=== PATIENT | female | born 1985 | race Hispanic/Latino ===

== ENCOUNTER → 2019-02-13 | Outpatient (CLI) | payer SELFPAY ==
[2017-01-09 02:50] VITALS: BMI 25.2
--- NOTE | 2019-02-13 08:47 | RAD_ITS ---
STUDY: X-RAY - RIGHT HAND REASON FOR EXAM: Female, 33 years old. Pain. History of polyarthritis. TECHNIQUE: 3 view(s) of the hand. COMPARISON: None. FINDINGS: Normal radiocarpal articulation. Normal distal radioulnar joint. Normal visualized carpal bones. Normal carpal articulations Normal carpometacarpal articulation of the thumb. Normal second through fifth carpometacarpal joints. Normal metacarpi. Normal metacarpophalangeal joint of the thumb. Normal interphalangeal joint of the thumb. Normal proximal and distal phalanges of the thumb. Normal metacarpophalangeal joints of the second through fifth fingers. Normal proximal and distal interphalangeal joints of the second through fifth fingers. Normal phalanges of the second through fifth fingers. The soft tissue structures are unremarkable. RAD/Hand Min 3 Views IMPRESSION: Normal x-ray examination of the hand. Electronically Signed: Everton Whitlock, at 12:30 EDT , Service support ,
--- NOTE | 2019-02-13 08:48 | RAD_ITS ---
STUDY: X-RAY - LUMBAR SPINE REASON FOR EXAM: Female, 33 years old. Low back pain. Polyarthritis. TECHNIQUE: 5 view(s) of the lumbar spine were obtained including oblique views. COMPARISON: None FINDINGS: There is straightening of the normal lumbar lordosis. There is no substantial scoliosis. There is a normal alignment of the vertebrae. Normal vertebral bodies and endplates. Normal disc space heights. Moderate amount of fecal material is seen in the colon. RAD/L/S Spine Min 4 Views IMPRESSION: Straightening of the normal lumbar lordosis. Electronically Signed: Everton Whitlock, at 12:30 EDT , Service support ,
[2019-02-13 09:28] LABS: Erythrocyte Sedimentation Rate 16 mm/hr (0-20)
[2019-02-13 09:29] LABS: Absolute Lymphocyte Count 2.04 X10^3/uL (0.83-4.51); Absolute Neutrophil Count 3.5 X10^3/uL (2.0-7.7); Basophil# 0.04 X10^3/uL; Basophil% 0.6 % (0-1); Eosinophil# 0.08 X10^3/uL; Eosinophils% 1.3 % (0-5); Hematocrit 35.8 % (37-47); Hemoglobin 11.5 g/dL (12.0-15.0); Lymphocyte # 2.04 X10^3/ul (4.0); Lymphocyte % 32.6 % (19-41); Mean Corp Hgb Conc 32.1 g/dL (32-36); Mean Corpuscular Hgb 25.4 pg (27.0-32.0); Mean Corpuscular Volume 79.2 fL (81-99); Mean Platelet Vol. 10.9 fl (6.2-12.0); Monocyte# 0.64 X10^3/uL; Monocyte% 10.2 % (0-10); NRBC Flagged by Analyzer 0 % (0-5); Neutrophil # 3.45 X10^3/uL (2.7-7.7); Neutrophil % 55.1 % (47-70); Platelet Count 338 K/mm3 (150-450); RBC Distribution Width CV 13.7 % (11.6-14.6); RBC Distribution Width SD 38.9 fl (35.1-43.9); Red Blood Count 4.52 M/mm3 (4.2-5.4); White Blood Count 6.3 K/mm3 (4.4-11.0)
[2019-02-13 09:38] LABS: CRP 5.55 mg/L (0.0-3.0); Rheumatoid Factor < 10.0 IU/mL (<15)
[2019-02-17 17:23] LABS: ANTINUCLEAR ANTIBODIES DIRECT Negative (Negative)
== END | disposition home or self-care (01) ==
PROVIDERS: Referring Provider Family Medicine; Visit Provider Family Medicine
DX: M13.0 Polyarthritis, unspecified (principal)
CPT/HCPCS: 36415; 72110; 73130; 85025; 85652; 86038; 86140; 86431

== ENCOUNTER → 2024-10-01 | Outpatient (CLI) | payer SELFPAY ==
--- NOTE | 2024-10-01 17:11 | US_ITS ---
PROCEDURE: OB LIMITED WITH BIOMETRICS REASON FOR EXAM: dating. COMPARISON: None. FINDINGS Number: 1 Position: Vertex Placental Position: Anterior Placental Abnormalities: None. DIMENSIONS: Biparietal Diameter: 4.2 cm: 18 weeks and 5 days: 90 percentile/ Head Circumference: 15.8 cm: 18 weeks and 5 days: 86 percentile/ Abdominal Circumference: 12.8 cm: 18 weeks and 3 days: 71st percentile/ Femur Length: 2.6 cm: 17 weeks and 5 days: 46 percentile/ ESTIMATED WEIGHT: 220 g plus/-34 g ESTIMATED WEIGHT PERCENTILE (24+ weeks): 72nd percentile ESTIMATED GESTATIONAL AGE: Baseline: 17 weeks and 5 days By Ultrasound: 18 weeks and 4 days ESTIMATED DATE OF DELIVERY: Baseline: March 06, 2025 By Ultrasound: February 28, 2025 BIOPHYSICAL ASSESSMENT: Amniotic Fluid Volume: Subjectively normal. Amniotic Fluid Index: 10.5 (8-24 cm normal range) Cardiac Motion: 143 beats per minute (average) Trunk and Limb Motion: Present. MATERNAL ANATOMY: Adnexa: Neither maternal ovary is successfully identified. US/OB Limited With Biometrics IMPRESSION: Single live intrauterine gestation with a mean gestational age of 18 weeks and 4 days. Reading Location: [facility]
== END | disposition home or self-care (01) ==
PROVIDERS: PCP Family Medicine; Referring Provider Family Medicine; Visit Provider Family Medicine
DX: Z34.90 Encounter for supervision of normal pregnancy, unspecified, unspecified trimester (principal)
CPT/HCPCS: 76816

== ENCOUNTER 2025-02-13 15:32 | Inpatient (IN) | payer SELFPAY ==
[2025-02-13] VITALS (26 sets, daily range): BP systolic 70–125; BP diastolic 40–81; PULSE 58–105; RESP 14–20; TEMP 36.2–37.1; O2SAT 93–100
--- OUTSIDE RECORDS SUMMARY | 2025-02-13 15:08 | XMS RPT_ITS | CCD ---
Author Organization [facility] ion Partnership HOSPITALITY JOB TITLES [facility] Care Team Providers Care Scuba Diver Name Role Phone [facility] Unavailable Unavailable Gomez, Deysi MANUFACTURING TEST TECHNICIAN Unavailable Unavailable Gomez, Deysi MANUFACTURING TEST TECHNICIAN Unavailable Unavailable Gomez, Deysi MANUFACTURING TEST TECHNICIAN Unavailable Unavailable Verchio, Hallie ACC Unavailable Unavailable Gomez, Deysi MANUFACTURING TEST TECHNICIAN Unavailable Unavailable Gomez, Deysi MANUFACTURING TEST TECHNICIAN Unavailable Unavailable Verchio, Hallie ACC Unavailable Unavailable Verchio, Hallie ACC Unavailable Unavailable Verchio, Hallie ACC Unavailable Unavailable Verchio, Hallie ACC Unavailable Unavailable Dereck, Peter E Unavailable Unavailable Verchio, Hallie ACC Unavailable Unavailable Wychanko, Maira ACC Unavailable Unavailable Melonie Castro Unavailable Unavailable PHYSICIAN, PATIENT UNSURE Primary Care Physician Unavailable Dr. Jordyn Collins MD Primary Care Provider [phone] Dr. Jordyn Collins MD Attending Provider [phone] Jordyn Collins MD Referring Provider [phone] Unavailable Primary Care Provider UnavailJordyn Arcos Primary Care Unavailable Louisa Mazariegos Attending Unavailable Louisa Mazariegos Admitting Unavailable Jordyn Collins Referring Unavailable Jordyn Collins Attending Unavailable Jordyn Collins Primary Care Unavailable PAT COATS Referring Unavailable PAT COATS Referring Unavailable PAT COATS Referring Unavailable HIPOLITO JOHNSON Attending Unavailable PAT COATS Referring Unavailable PAT COATS Attending Unavailable Medications Current Medications Medication Drug Class(es) Dates Sig (Normalized) Sig (Original) acetaminophen 300 mg / codeine phosphate 30 mg oral tablet (1 source) Opioid Agonist Start: 01-09-2017 Acetaminophen-Co deine 1 TABLET tablet Active 1 {tbl} PO EVERY 4 HOURS NEEDED as needed for Pain January 09, 2017 12:00am acetaminophen 325 mg / oxyCODONE hydrochloride 2.5 mg oral tablet (1 source) Opioid Agonist Start: 07-10-2021 End: 07-17-2021 take 1 tablet by mouth every six hours as needed for pain Percocet 2.5 mg-325 mg oral tablet Dose = 2 tab(s), Oral, q6h, PRN as needed for pain, X 7 day(s), # 28 tab(s), 0 Refill(s), Pharmacy: [facility]/pharmacy #[id number], Post-op pain, 147.3, cm, 07/07/21 22:07:00 EST, Height, 65.9, kg, 07/07/21 22:07:00 EST, Dosing Weight Start Date: 07/10/21 Stop Date: 07/17/21 Status: Ordered ascorbic acid 500 mg oral tablet (5 sources) Vitamin C Start: 01-27-2025 take 1 tablet by mouth every other day ascorbic acid, vitamin C, (VITAMIN C) 500 mg tablet Take 1 tablet by mouth every other day. 30 tablet 3 01/27/2025 Active Aspirin (1 source) Platelet Aggregation Inhibitor, Nonsteroidal Anti-inflammatory Drug Start: 07-07-2021 aspirin 81 mg oral delayed release tablet Dose : 81 mg = 1 tab(s), Oral, qDay, # 30 tab(s), 0 Refill(s) Start Date: 07/07/21 Status: Ordered docusate sodium 100 mg oral capsule (1 source) Start: 07-10-2021 Colace 100 mg oral capsule Dose : 100 mg = 1 cap(s), Oral, BID, PRN as needed for constipation, # 60 cap(s), 0 Refill(s), Pharmacy: [facility]/pharmacy #[id number], 147.3, cm, 07/07/21 22:07:00 EST, Height, kg, 07/07/21 22:07:00 EST, Dosing Weight Start Date: 07/10/21 Status: Ordered ferrous sulfate 325 mg oral tablet (6 sources) Start: 01-27-2025 take 1 tablet by mouth every other day ferrous sulfate 325 mg (65 mg iron) tablet Take 1 tablet by mouth every other day. 30 tablet 3 01/27/2025 Active Start: 07-10-2021 IRON (ferrous sulfate 325 mg) 65 mg oral tablet Dose : 325 mg = 1 tab(s), Oral, qDay, Take with food., # 60 tab(s), 3 Refill(s), Pharmacy: [facility]/pharmacy #[id number], 147.3, cm, 07/07/21 22:07:00 EST, Height, kg, 07/07/21 22:07:00 EST, Dosing Weight Start Date: 07/10/21 Status: Ordered ibuprofen 600 mg oral tablet (1 source) Nonsteroidal Anti-inflammatory Drug Start: 07-10-2021 IBU 600 mg oral tablet Dose : 600 mg = 1 tab(s), Oral, q6h, # 40 tab(s), 0 Refill(s), [id number], 147.3, cm, 07/07/21 22:07:00 EST, Height, kg, 07/07/21 22:07:00 EST, Dosing Weight Start Date: 07/10/21 Status: Ordered multivitamin ( VITAMIN WITH MINERALS) 28 mg iron- 800 mcg tab (7 sources) Start: 01-11-2025 take 1 tablet by mouth once daily multivitamin ( VITAMIN WITH MINERALS) 28 mg iron- 800 mcg tab Take 1 tablet by mouth once daily. 30 tablet 5 01/11/2025 Active vit no.124/iron/folic ( VITAMIN ORAL) (7 sources) vit no.124/iron/folic ( VITAMIN ORAL) Take by mouth. Active Problems Active Problems Problem Classification Problem Date Documented Date Episodic/Chronic Administrative/social admission (12 sources) Language barrier impedes ability to use community resources; Translations: [Acculturation difficulty] Onset: 01-11-2025 01-20-2025 Episodic Diabetes or abnormal glucose tolerance complicating ; childbirth; or the puerperium (9 sources) Impaired glucose tolerance in ; Translations: [Abnormal glucose complicating ] Onset: 01-11-2025 01-11-2025 Episodic Immunizations and screening for infectious disease (4 sources) Patient encounter status; Translations: [Encounter for screening for human papillomavirus (HPV)] 01-20-2025 Episodic Other complications of (15 sources) Multigravida of advanced maternal age; Translations: [Supervision of elderly multigravida, third trimester] Onset: 01-11-2025 01-20-2025 Episodic Other complications of (10 sources) High risk ; Translations: [Supervision of other high risk pregnancies, third trimester] Onset: 01-11-2025 01-20-2025 Episodic Other complications of (9 sources) Insufficient care; Translations: [Supervision of with insufficient care, third trimester] Onset: 01-11-2025 01-20-2025 Episodic Other complications of (1 source) Supervision of elderly multigravida, third trimester; Translations: [Multigravida of advanced maternal age in third trimester (HCC)] Onset: 01-20-2025 Episodic Other complications of (1 source) Supervision of other high risk pregnancies, third trimester; Translations: [Supervision of other high risk pregnancies, third trimester (HCC)] Onset: 01-11-2025 Episodic Other complications of (1 source) Supervision of with insufficient care, third trimester; Translations: [Insufficient care in third trimester ([facility])] Onset: 01-11-2025 Episodic Other and delivery including normal (4 sources) Encounter for supervision of normal , unspecified, unspecified trimester; Translations: [ with uncertain dates] Onset: 12-17-2024 01-20-2025 Episodic Other screening for suspected conditions (not mental disorders or infectious disease) (1 source) Cancer cervix screening status; Translations: [Encounter for screening for malignant neoplasm of cervix] 01-20-2025 Episodic Residual codes; unclassified (2 sources) Gestation period, 34 weeks; Translations: [34 weeks gestation of ] 01-27-2025 Episodic Residual codes; unclassified (1 source) History of uterine scar from previous surgery; Translations: [History of section, low transverse] Onset: 01-19-2025 Episodic Residual codes; unclassified (1 source) 34 weeks gestation of ; Translations: [34 weeks gestation of (HCC)] Onset: 01-27-2025 Episodic Residual codes; unclassified (2 sources) Gestation period, 36 weeks; Translations: [36 weeks gestation of ] 02-12-2025 Episodic Unclassified (2 sources) Unknown / UNK(Unknown) Onset: 03-05-2018 Unclassified (1 source) Breast feeding (infant) (observable entity) 06-26-2016 Comment on above: System added from do cumentation. Breast feeding Status documented as Yes on Admission Past or Other Problems Problem Classification Problem Date Documented Da te Episodic/Chronic Unclassified (1 source) ABD PAIN/TRIAGE Onset: 07-06-2018 Unclassified (1 source) NEW OB/O09.33 Onset: 03-05-2018 Results Test Name Value Interpretation Reference Range Facility Examination level ultrasound on 02-12-2025 [facility] Radiology Study observation (narrative) [facility] URINE OB DIP B/Oon 5 Glucose Ql (U) Negative Neg mg/dL [facility] Interpretation and review of laboratory results Normal [facility] Protein.monoclonal (U) [Mass/Vol] trace Neg mg/dL [facility] Bacteria Ur Culton 5 Bacteria identified Cx Nom (U) CULTURE, URINE: No growth (<1,000 CFU/ml) Normal [facility] Comment on above: Performed By: #### 3 6902-5, BVAMP #### [facility] CLIA [id number] [address] [place] [address] Examination level ultrasound on 01-27-2025 Indication Standard anatomic survey, Dating Late care, Advanced maternal age Impression The patient is referred for a detailed anatomic survey. - Single, live, intrauterine . - biometry is accelerated for the stated gestational age. - No malformations were visualized on a detailed anatomic survey, although some anatomical structures were suboptimally seen as detailed below. Imaging is suboptimal due to later gestational age. - The amniotic fluid volume is mild polyhydramnios. - The placenta is anterior, fundal. - Not all structural malformations can be detected by ultrasound examination. Recommendations Growth ultrasound in four weeks Maternal Assessment Height 152 cm Height (ft) 5 ft Maternal assessment other: 6 Para 4 REMOTE READ Method Transabdominal ultrasound examination. View: Suboptimal view: limited by late gestational age Patel . Number of fetuses: 1 Dating GA by prior assessment 34 w + 2 d MAMADOU by prior assessment: 03/08/2025 Ultrasound examination on: 01/27/2025 GA by U/S based upon: AC, BPD, Femur, HC GA by U/S 36 w + 1 d MAMADOU by U/S: 02/23/2025 Assigned: based on stated MAMADOU, selected on 01/27/2025 Assigned GA 34 w + 2 d Assigned MAMADOU: 03/08/2025 General Evaluation Cardiac activity present. FHR 133 bpm. movements: present. Presentation: cephalic Placenta: Placental site: anterior, fundal Umbilical cord: Cord vessels: 3 vessel cord Amniotic fluid: Amount of AF: mild polyhydramnios. MVP 8.5 cm. DYANA 15.5 cm. Q1 1.5 cm, Q2 8.5 cm, Q3 2.1 cm, Q4 3.3 cm Growth Overview Exam date GA BPD (mm) HC (mm) AC (mm) FL (mm) HL (mm) EFW (g) 01/27/2025 34w 2d 89 90% 332.8 90% 332.1 99% 65.7 52% 2907 93% Biometry Standard BPD 89.0 mm 36w 0d 90% Hadlock OFD 118.7 mm -/- 91% Nicolaides HC 332.8 mm 37w 4d 90% Radha Cerebellum tr 47.5 mm 35w 5d 61% Hill AC 332.1 mm 37w 1d 99% Hadlock Femur 65.7 mm 33w 4d 52% Radha EFW 2,907 g 36w 3d 93% Hadlock EFW (lb) 6 lb EFW (oz) 7 oz EFW by: Hadlock (HC-AC-FL) Extended Manager Ethics 5.1 mm Extremities / Bony Struc FL / HC 0.20 Other Structures FHR 133 bpm Anatomy Cranium: normal Lateral ventricles: normal Choroid plexus: normal Midline falx: normal Cavum septi pellucidi: normal Cerebellum: normal Cisterna magna: normal Head / Neck Vermis: suboptimally visualized Neck: suboptimally visualized Nuchal fold: suboptimally visualized Lips: normal Profile: Normal but not required for a standard anatomy exam Nose: Normal but not required for a standard anatomy exam Face Maxilla: Normal but not required for a standard anatomy exam Mandible: Normal but not required for a standard anatomy exam Orbits: Normal but not required for a standard anatomy exam Lens: Normal but not required for a standard anatomy exam 4-chamber view: normal RVOT view: normal LVOT view: normal 3-vessel view: normal 8-gdhbll-aheotsc view: normal Heart / Thorax Situs: situs solitus (normal) Aortic arch view: suboptimally visualized SVC: normal IVC: normal Cardiac axis: normal Rt lung: Normal but not required for a standard anatomy exam Lt lung: Normal but not required for a standard anatomy exam Diaphragm: normal Cord insertion: suboptimally visualized Stomach: normal Kidneys: normal Bladder: normal Genitals: normal Abdomen Abdom. wall: suboptimally visualized Cervical spine: normal Thoracic spine: normal Lumbar spine: normal Sacral spine: normal Arms: suboptimally visualized Legs: normal Rt arm: normal Lt arm: suboptimally visualized Rt upper arm: normal Rt forearm: normal Rt hand: normal Rt fingers: normal Lt upper arm: suboptimally visualized Lt forearm: suboptimally visualized Lt hand: normal Lt fingers: normal Rt upper leg: normal Rt lower leg: normal Rt foot: normal Lt upper leg: normal Lt lower leg: normal Lt foot: normal sex: male Wants to know sex: yes Maternal Structures Uterus / Cervix Uterus: Visualized Cervix: Not visualized Ovaries / Tubes / Adnexa Rt ovary: Not visualized Lt ovary: Not visualized Performed By: Gemma Brennan RDMS, RVT Read By: Jessica Eldridge M.D. MATERNAL MEDICINE [facility] Radiology Study observation (narrative) [facility] GLUCOSE GESTATIONAL, 1 HOURo n 01-27-2025 Glucose 1 Hr post Unsp challenge [Mass/Vol] 193 mg/dL High 74-179 [facility] Comment on above: Order Comment: Speci men Type: SWAB Ordering Facility: [facility] Address: [address] [place] [address] Result Comment: [facility] Congress of Obstetricians and Gynecologists (Michelle/Camacho) guidelines state gestational diabetes mellitus is present when 2 or more of the plasma glucose concentrations meet or exceed the following levels: fastin mg/dl, 1 hr: 180 mg/dl, 2 hr: 155 mg/dl, and 3 hr: 140 mg/dl. Performed By: #### 3 6902-5, BVAMP #### [facility] CLIA [id number] [address] [place] [address] [place] GLUCOSE GESTATIONAL, 2 HOURo n 01-27-2025 Glucose 2 Hr post Unsp challenge [Mass/Vol] 124 mg/dL Normal 74-154 [facility] Comment on above: Order Comment: Speci men Type: SWAB Ordering Facility: [facility] Address: [address] [place] [address] Result Comment: [facility] Congress of Obstetricians and Gynecologists (Michelle/Camacho) guidelines state gestational diabetes mellitus is present when 2 or more of the plasma glucose concentrations meet or exceed the following levels: fastin mg/dl, 1 hr: 180 mg/dl, 2 hr: 155 mg/dl, and 3 hr: 140 mg/dl. Performed By: #### 3 6902-5, BVAMP #### [facility] CLIA [id number] [address] [place] [address] [place] GLUCOSE GESTATIONAL, 3 HOURo n 01-27-2025 Glucose 3 Hr post Unsp challenge [Mass/Vol] 127 mg/dL Normal 74-139 [facility] Comment on above: Order Comment: Mirza gil Type: BLOOD SPECIMEN Ordering Facility: [facility] Address: [address] [place] [address] Result Comment: [facility] Congress of Obstetricians and Gynecologists (Michelle/Camacho) guidelines state gestational diabetes mellitus is present when 2 or more of the plasma glucose concentrations meet or exceed the following levels: fastin mg/dl, 1 hr: 180 mg/dl, 2 hr: 155 mg/dl, and 3 hr: 140 mg/dl. Performed By: #### G TGST3 #### [facility] CLIA [id number] [address] [place] [address] [place] GLUCOSE GESTATIONAL, FASTING on 01-27-2025 Glucose post fast [Mass/Vol] 82 mg/dL Normal 74-94 [facility] Comment on above: Order Comment: Mirza gil Type: BLOOD SPECIMEN Ordering Facility: [facility] Address: [address] [place] [address] Result Comment: [facility] Congress of Obstetricians and Gynecologists (Michelle/Camacho) guidelines state gestational diabetes mellitus is present when 2 or more of the plasma glucose concentrations meet or exceed the following levels: fastin mg/dl, 1 hr: 180 mg/dl, 2 hr: 155 mg/dl, and 3 hr: 140 mg/dl. Performed By: #### G TGSTF #### [facility] CLIA [id number] [address] [place] [address] [place] CNCOon 01-20-2025 CNCO Letter Text Normal [facility] Chr 21 trisomy Cytogenetics Ql (Bld/Tiss)on 01-15-2025 Cell-free DNA./Cell-free DNA.total Dosage of chromosome-specific cfDNA (cfDNA) [Molar fraction] 41% [facility] Chr 13+18+21+X+Y aneuploidy Dosage of chromosome-specific cfDNA Ql (cfDNA) Negative [facility] Chr 21 trisomy Dosage of chromosome-specific cfDNA Ql (cfDNA) Negative [facility] Chr X and Y aneuploidy risk Sequencing Ql (cfDNA) [Interp] Not detected [facility] Citation Gregory (Reference lab test) Comment [facility] Comment on above: 1. Emerita SORENSON et christopher separza. Mary Med. 2012;14(3):296-305. 2. Neeraj HOLLY et al. Prenat Diag. 2013;33(6):591-597. 3. Artem C, et al. Clin Chem. 2015 Apr;61(4):608-616. 4. Emerita SORENSON, et al. Mary Med. 2011;13(11):913-920. 5. ACOG/SMFM Practice Bulletin No. 226, Apr 2020. Gestational age Estimated from conception date Patel [facility] GESTATIONALAGE>=9W Yes [facility] Laboratory comment Gregory (Report) Comment [facility] Comment on above: The MaterniT(R) 21 P ANNY laboratory-developed test (LDT) analyzes circulating cell-free DNA from a maternal blood sample. This test is used for screening purposes and not diagnostic. Clinical correlation is recommended. Validation data on twin pregnancies is limited and the ability of this test to detect aneuploidy in higher multiple gestations has not yet been validated. client director name Nom (Provider) Comment [facility] Comment on above: This specimen showed an expected representation of chromosome 21, 18 and 13 material. Clinical correlation is suggested. Eitan Montez MD , PhD, Director, [facility] Limitations of the Test Comment [facility] Comment on above: While the results of these tests are highly reliable, discordant results, including inaccurate sex prediction, may occur due to placental, maternal, or mosaicism or neoplasm; vanishing twin; prior maternal organ transplant; or other causes. These tests are screening tests and not diagnostic; they do not replace the accuracy and precision of diagnosis with CVS or amniocentesis. A patient with a positive test result should be referred for genetic counseling and offered invasive diagnosis for confirmation of test results.[5] The results of this testing, including the benefits and limitations, should be discussed with a qualified healthcare provider. management decisions, including termination of the , should not be based on the results of these tests alone. The healthcare provider is responsible for the use of this information in the management of their patient. Sex chromosomal aneuploidies are not reportable for known multiple gestations. A negative result does not ensure an unaffected nor does it exclude the possibility of other chromosomal abnormalities or defects which are not a part of these tests. An uninformative result may be reported, the causes of which may include, but are not limited to, insufficient sequencing coverage, noise or artifacts in the region, amplification or sequencing bias, or insufficient fraction. These tests are not intended to identify pregnancies at risk for neural tube defects or ventral wall defects. Testing for whole chromosome abnormalities (including sex chromosomes) and for subchromosomal abnormalities could lead to the potential discovery of both and maternal genomic abnormalities that could have major, minor, or no, clinical significance. Evaluating the significance of a positive or a non-reportable result may involve both invasive testing and additional studies on the mother. Such investigations may lead to a diagnosis of maternal chromosomal or subchromosomal abnormalities, which on occasion may be associated with benign or malignant maternal neoplasms. These tests may not accurately identify triploidy, balanced rearrangements, or the precise location of subchromosomal duplications or deletions; these may be detected by diagnosis with CVS or amniocentesis. The ability to report results may be impacted by maternal BMI, maternal weight, maternal systemic lupus erythematosus (SLE) and/or by certain pharmaceutical agents such as low molecular weight heparin (for example: Lovenox(R), Xaparin(R), Clexane(R) and Fragmin(R)). Monosomy X risk Dosage of chromosome-specific cfDNA Ql (Plasma cell-free+WBC DNA) [Interp] Not detected [facility] NEGATIVE PREDICTIVE VALUE Note [facility] Comment on above: The Negative Predict lyndsey Value (NPV) for trisomy 21, 18, and 13 is greater than 99%. The NPV for SCA and ESS cannot be calculated as SCA and ESS are only reported when an abnormality is detected. PERFORMANCE CHARACTERISTICS Note [facility] Comment on above: ! Sex ! Accuracy: 99.4% ! ! ! ! Region (associated syndrome) ! Est. Sens# ! Est. Spec ! ! ! ! Trisomy 21 (Down Syndrome) ! 99.1% ! 99.9% ! ! ! ! Trisomy 18 (Mena Syndrome) ! >99.9% ! 99.6% ! ! ! ! Trisomy 13 (Patau Syndrome) ! 91.7% ! 99.7% ! ! ! ! Sex Chromosome Aneuploidies## ! 96.2% ! 99.7% ! ! ! * As reported in ISCA database nstd37 [https://www.ncbi.nlm.nih.gov/dbvar/studies/nstd37/ ] # Estimated Sensitivity. Sensitivity estimated across the observed size distribution of each syndrome [per ISCA database nstd37] and across the range of fractions observed in routine clinical NIPT. Actual sensitivity can also be influenced by other factors such as the size of the event, total sequence counts, amplification bias, or sequence bias. ## Patel gestation only. Positive Predictive Value N/A [facility] Reference Lab Test Method Comment [facility] Comment on above: See Notes Circulating cell-free DNA was purified from the plasma component of maternal blood. The extracted DNA was then converted into a genomic DNA library for aneuploidy analysis of chromosomes 21, 18, and 13 via next generation sequencing.[1] Optional findings based on the test order include sex chromosome aneuploidy (SCA)[2], and enhanced sequencing series (ESS)[3], which will only be reported on as an additional finding when an abnormality is detected. SCA testing includes information on X and Y representation, while ESS testing includes deletions in selected regions (22q, 15q, 11q, 8q, 5p, 4p, 1p) and trisomy of chromosomes 16 and 22. Service comment (Unsp spec) [Interp] Comment [facility] Comment on above: See Notes [facility] [employer]. is a subsidiary of [employer], using the brand [facility]. This test was developed and its performance characteristics determined by [employer]. It has not been cleared or approved by the Food and Drug Administration. This laboratory is certified under the Clinical Laboratory Improvement Amendments (CLIA) as qualified to perform high complexity clinical laboratory testing and accredited by the [employer] (CAP). If there is future clinical need for adding MaterniT GENOME testing, this specimen will be available until term. [facility] samples will not be retained beyond 60 days. [facility] patients will have to send a new sample for re-sequencing ([facility] Test Code: [id number]). Sex Dosage of chromosome-specific cfDNA Nom (cfDNA) Comment [facility] Comment on above: Consistent with Male Test performance information Gregory (Unsp spec) Comment [facility] Comment on above: The performance ugo acteristics of the MaterniT(R) 21 PLUS laboratory-developed test (LDT) have been determined in a clinical validation study with women at increased risk for chromosomal aneuploidy.[1-4] Trisomy 13 risk Dosage of chromosome-specific cfDNA Ql (cfDNA) [Interp] Negative [facility] Trisomy 18 risk Dosage of chromosome-specific cfDNA Ql (Plasma cell-free+WBC DNA) [Interp] Negative [facility] Performed at: [facility] [address] [place], [place] [id number] [employer] Ring: Eitan Tamayo, Phone: [phone] [facility] HIGH RISK HUMAN PAPILLOMA MANI (HPV), PCR FOR DETECTION AND GENOTYPINGOrdered By: Andres Galan on 01-14-2025 HPV 16 Ag Ql (Unsp spec) Not detected Not detected [facility] HPV 18 Ag Ql (Unsp spec) Not detected Not detected [facility] HPV 31+33+35+39+45+51+5 2+56+58+59+66+68 DNA YVON+probe Ql (Cvx) Not detected Not detected [facility] Comment on above: High Risk HPV Other Type includes HPV types 31, 33, 35, 39, 45, 51, 52, 56, 58, 59, 66 and 68. Interpretation and review of laboratory results Normal [facility] This test was billy ped and its performance characteristics determined by [facility]'s [facility] [place] ([facility]). It has not been cleared or approved by the FDA. [facility] is regulated under CLIA as qualified to perform high-complexity testing. This test is used for clinical purposes. It should not be regarded as investigational or for research. [facility] No Panel InformationOrdered By: Heather Florian on 01-14-2025 [facility] PAP TESTOrdered By: Heather rivera on 01-14-2025 Case Report Gynecologic Cytology Report Case: [id number] Authorizing Provider: Pat Coats APRN.CNM Collected: 01/11/2025 11:40 AM Ordering Location: OB/Gynecology Received: 01/11/2025 02:31 PM First Screen: Florian, Heather, CT, ASCP Specimen: Pap Test, ThinPrep, Cervix [facility] Clinical History Routine Exam [facility] Interpretation Negative [facility] LMP 06/01/2024 [facility] Pap Disclaimer w0qdfFPsCIJiz9beABNp bGFuZzEw MzNcZnRuYmpcdWMxIHtccnRmMVxz a0CgV9UcFbOgYLuknxRgNSZnZuin ymrbLJBeEBX1jfQjFRXcTOryEIGh PZubYn5txSYxzNjiXbSnTMLbw0yc dqKKjozyoJb8p3xbREMjMfW5rOKs XDnxN4cuzsJilFKxVMOzJGj1yQ83 QSQbjG2pdLYfRAiexnYgRgX2PEuo XUVlViQ7ZUMqwSTrLVNhW5wrNUAu PWzaEELpTLudoAEkLFK6lLstz5F6 sIHclRDzuTixJlCsCaXrCaLVw2Zu HAp3oBujQ0OkNFYbNfO1eKRiIESi ZAqtEWGbBFFsctE9tE29LLpiyeP5 tNOov0Tot63wg071yR6itOXmGPJ6 BMZfBKVhkUJjFPNaQVK4DOSnzLWt U0fvICJlUK4ncxbfKBtuGErxMRYg mHB1IMHomBHmA1YhLLKfNNeiHCOt pqd2OvIdCf8qzVKtwFopTYamb2ze b3heuMXzZyv2ADYbSyKcClplTVwn l9Pqd3znITRcor2vDTN6gGZvwBfj d0R8aAExZCIygFIgjpLvLZPmKsY9 KUuvSB1ocg61NEKtLGT3gy6veOHg vTidftLlhNNzCLlkQ1DaKPCwa190 DRHlW3InSLSon2L0ovAaCvAsTIUn oFW0yyW7DPCqZQh7rSXhouP3ueAq fVTzG8lkdE4kLWWwCX2pjxjwk9ws PIpxDAeqQQNddWZ6znN2RAOblBAw Y9XpaY6oLKYmXJfjNXBrbur0CaXw Ou1pqGQiiBqeXXdjExvnZDjyDZMj bmNvbnRccGduZGVjXHBsYWluXHBs SEeyOUQfWBBhWgNfiBaawOanxB2x JsQeEtWcOpppVX8yWOWbO9ykhWHz GXFqMHNcU7wjVuUjvE0lnFiqZSso yyW3ORWkEIQNXEArT28sJFPygYJk XNVeJ5QmDL4eiqapdYSqfWOpc8Tp F2LhotmeMNpbF2IjF2VrLlDoSqEn g1WtwkSzMWUrxcLgzbGfhEw8taEn W2D1nyK8cJTaOCPypOPbR1TvML8m ayuaqHVdzWSoEESzrLzow2r0vP4u IHRoZSBuZWVkIGZvciByZXNjcmVl xojwEoJzcKTsRRBwgB2jgxJvCDDr bnRlcnZhbHMsIGFuZCBjbGluaWNh gDQzb3WlVYvegDkdtf5jeTspgZ5c FeEtHxKnHeeuAB7jKDWlV5aaqMQd TXOdCIYoH8bmBhIjyT5epSzeJBef ayQqGFVivu71 [facility] PAP Ethyl Blender Comment j7ngoPXyOWXhxHHyQGNz MlxhbnNp ZJQbeAJtX7EbcdslJHqxOA9uFU6k mRvnyOZvcAIlMOUnOqSas8stm297 sMUew4vhXIFJlepgzFq0zBlgX62l k3W4HobwT23agUWiQMZ3OOWkQRNw jTJcDKAjEKY5EJVrmXMxP4qqYRTe OQ0dzsfsCKwyXAdeAMDraJG4XTJk qEEhJ1QyCCXvHEslSARhoyd4RwLt Ye1acHRzmIoaMJqyH4porX2iVrL9 ZYvqD7rhjH5oSRo1TAokPRJtsDU5 dzB8NSQfrPVsM8EssA1yAJSuNV7k qib4q5ewRKF2CRaeEBBiDpC6teX5 NDBccGFyZFxwbGFpblxpXGZzMTYg SCfrooVeeOQwjP9szsAiCQSsAyJv hqTridXtmZblZOUzmNY5dTCqCvXB FJAjnCOyszBhNTnhual3rtJGdWvi eNWjDSPkFQkem1C7rZZlFCC6qWTe HJEPIQ4xq6DtJKDweOHqJAB5e0Yl dKxxh2xsW0oufEFfkwXskLiavQBi UOtrQYqjsvwjWG3cGDJaRJYrmYWu P4ZaVPJxcEhofKUbUYfunJ78BJmb iBmmveErNHkuMOxcRCZrGYi0x9wb UFAkY55cjEVztLL2ntYzALMzcKle yDNthRNdKFRxt1IlnX83MFQgf4Sm z29zuDzkKJ4gO7Krz8TeyIovWAKq gECpNGO4iuAps0Bvm9AbiWbgOGZ0 pZ4bt6dlc1AdMZ1uNAFjtUmaeT7n zGL2UMtiFDO2LPh2ONWwjicfP2Sa lNBgw99cIAgyinOjUZGmAPIhWFCh q0GxDdLVw4vty2yynogkID5lfNrq aXMsIGZpZWxkcyBvZiBpbnRlcmVz aYXjlcQ3wTKuxXiody1zG37mrSTd g9ulUVXui7FdVRB3OFUcCyqcjWpp MFPtG88gaWMdtISwjyOjybC7yEB7 LUZaUnbuPQGfwIZknU7ihJC0ElQC SdFbOOPhyVAxRUBkFLS8uVCkefCt sNBhTALpcXmbZOrvdbM3kGC1CWR7 eXExoSY5tQ8hf0qug3Phw3wynUTp ZXZpZXcgdGhlIHNhbWUgZmllbGRz ZM4xKHsqnKKuHIK6NKRkySLboNMe XNP9WHEjVVUeaOsaqbr2aI6rpTJp i9JagV6xEprqMSyiwR83GKBfuiK0 ETBrn82zXHXsks7= [facility] Performing Lab h0sorOHmRYXya2zoGEGs bGFuZzEw MzNcZnRuYmpcdWMxIHtccnRmMVxh haElWUTeVmqyagfjSOAwVSW2rpUk VTQdMWA8YPT1PxByPKUtLkYlKKI1 FJNlt6qzx5FmhIZexWVmHAtibARd bvFbpw34bHV6tV59TA9xXNIdMzS0 XLMfbwL5Cty3MURiCJPllIWaN535 a3icj9vqqxBfeAA9wZhmHMOldvgn GdH1GDijOALfcepyMFi9HTqwOSPu qJT5MWZeoEJpX6DsLVJxEA8havz0 FJD5ZNzrSKJdSsG1PFJocTYtDEGr kJlwLRrcy191QOJ4TbRtBGNon5W0 ftUgOpDdZZVjsSG9jpE6MQXfSZ8y whfjw4jxHPeaSIxlTMXqvyK6wwQ5 SXQpaGZzF9WpgZ3mXZSbGD4wufai e9ooAYO3WOjdCTMwQNIoSAvuLNSo FjZhNAVfiE5iB3JkRFIruJJxstWh qYynM6f4v5StU6wrv9wmI9vbjEEq R2FiJI4vkxargAGcKh6yeNVbQDN8 CbGYtRttZ8Ine1VpLX3crJl2NOxi IOLry2XfyL7nrKbeMfp9AHKGOKol dEMaWSLNv3PmBINAPOlseITcMFSJ QHltwOEqHQ7QGTP8MUU7KTOBPDsG RdGfOiBvQsJ8UQNeNGVvqi48j5cr dGYxXGVwaWMxMTEwMlxhbnNpXHNw uXOvZ2CkwyoqKCvoXP0oQO0bbAte oTRhnFGxEOWoCvWpj6vox425ePYc h8heUTJQachszPc4wRcgP29ev2T7 EvajB69neQRuQVJ1SQKtJDJnoGJs KJFiAOG0JMKekYZvP1noAMPeIP9u iqpwBCnsLQnhICLvyXT2AHVijGXs O1QoSBDkLZhpQKUsopg7ZgCoJp1f pEMawIifUFkkP4nssZ2iQcU8NWuq U8gmjD6eLHd3KTcvUEXvoAE6mmZ5 CJCshRLrL1QgcN9dPUUfOI5uuyg5 v5quHZL2RMrvGDXfFrB1gbY4QEIf cGFyZFxwbGFpblxmczIwIERpYWdu w5V4bISaeT75EOMkddC7QVDui35e rMOyNh4azHLoBXG8QrQJcPbnA6Dp o8GgIK9ibMr3UFrhYHVui6MfhS7d pXayPnj5NLSQDVqojIBrRKSHu6Fx JEKVPDtpdFHmFUTIZUvcbAEvPW3N LYK9PUF0GDVdQ8hLFRWaWsHUNWWh Lcn0OHtxMNAhBTFqffBQCXJlbcJ9 u7Z5RQMukkOsuR0oVgXOvPWranSM IFBvcnRlciwgTURccGFyfX0= [facility] Specimen Adequacy Satisfactory for interpretation. No endocervical component [facility] BACTERIAL VAGINOSIS NAATon 0 01-12-2025 Interpretation and review of laboratory results Normal [facility] Lactobacillus crispatus+gasseri+j ensenii + Gardnerella vaginalis + Atopobium vaginae rRNA YVON+probe Ql (Vag fld) Not detected Not detected [facility] C. trachomatis+N. gonorrhoea e DNA YVON+probe Ql (Unsp spec)on 01-12-2025 C. trachomatis rRNA YVON+probe Ql (Unsp spec) Not detected Not detected [facility] Interpretation and review of laboratory results Normal [facility] N. gonorrhoeae rRNA YVON+probe Ql (Unsp spec) Not detected Not detected [facility] This FDA-approved as say has been modified to accept rectal swabs self-collected in a healthcare setting. For self-collected rectal swabs, the test was developed and its performance characteristics determined by the [facility]'s [facility] [place] ([facility]). It has not been cleared or approved by the FDA. [facility] is regulated under CLIA as qualified to perform high-complexity testing. This test is used for clinical purposes. It should not be regarded as investigational or for research. [facility] LEANA/TRICHOMONAS NAATon 0 01-12-2025 C. glabrata RNA YVON+probe Ql (Vag fld) Not detected Not detected [facility] Leana sp DNA YVON+probe Ql (Vag fld) Not detected Not detected [facility] Comment on above: The Leana species group target includes C. albicans, C. tropicalis, C. parapsilosis, and C. dubliniensis. Interpretation and review of laboratory results Normal [facility] T. vaginalis DNA YVON+probe Ql (Unsp spec) Not detected Not detected [facility] CNPKrissy 01-12-2025 APRDEEP Telephone (OBGYWM) DESIREELETY SHANNON ([id number]) 1985 F RAGINI Date Time Provider Department 01/12/25 PAT COATS During your visit today, we recorded the following information about you: Skyla Bauer RN 01/12/2025 9:51 AM Signed 32w1d Called patient with the assistance of bag valverLandy at [facility]. We were able to talk with patient and the patient seemed to be having difficulty with what was being said. It was then that the Maritime Officer told this nurse the patient stated that her preferred language is Quiche. Connected with [employer] workers' compensation mediatorAlyce #[id number] Attempted to talk with patient. No answer this time and unable to leave a voicemail. Will need to try calling patient at a later time. Result Note Please notify patient 1 hr GCT is abnormal and will need the 3hr GTT. Please assist in scheduling and notifying patient on testing instructions. Please notify patient that she is anemic. 1. Increase iron rich foods in diet (I.e. Lean red meats, green leafy vegetables, beans/lentils or dried fruits) 2. Start an iron supplement now and take every other day or MWF. I recommend Ferrous Sulfate 325 mg by mouth 3. Take iron with a source of Vitamin C (orange juice) to help with absorption. 4. Avoid coffee, tea, milk at time the supplement is taken. 5. Will need repeat CBC in 4-6 weeks. Thank you, Pat Coats APRN.CNM GESTATIONAL GLUCOSE SCREEN, 1-HOUR, 50 GRAM, NON-FASTING; EXTRA TUBE JOAN; COMPLETE BLOOD COUNT AND DIFFERENTIAL Skyla Bauer RN 01/20/2025 10:42 AM Signed Attempted to contact patient with the assistance of [employer] workers' compensation mediator. Spoke with [facility] who was unable to connect this nurse with an workers' compensation mediator at this time after a long wait time. Will need to try again later. PAULA Lal Jennifer, RN 01/22/2025 4:41 PM Signed 01/25 appointment note made to review results. PAULA Lal Jennifer, RN 01/27/2025 9:46 AM Signed Patient here in the office for an appointment. Reviewed 3 hour glucose results, anemia, and C/S dates/times. Patient needs a prescription for iron supplement sent to their pharmacy. Can you please send? Thank you. PAULA Lal Jessica, APRN.CNM 01/27/2025 9:59 AM Signed Iron supplement sent. Thanks, Pat Coats APRN.CNM Allergies As of Date: 01/12/2025 (No Known Allergies) Date Reviewed: 01/11/2025 Reviewed by: Wade Arteaga MA - Fully Assessed Reason for Visit: Results [95] Order(s):ascorbic acid, vitamin C, (VITAMIN C) 500 mg tabletTake 1 tablet by mouth every other day.Disp: 30 tabletRfl: 3 ferrous sulfate 325 mg (65 mg iron) tabletTake 1 tablet by mouth every other day.Disp: 30 tabletRfl: 3 Prescriptions as of 01/27/2025 - ascorbic acid, vitamin C, (VITAMIN C) 500 mg tablet Take 1 tablet by mouth every other day. - ferrous sulfate 325 mg (65 mg iron) tablet Take 1 tablet by mouth every other day. - vit no.124/iron/folic ( VITAMIN ORAL) Take by mouth. - multivitamin ( VITAMIN WITH MINERALS) 28 mg iron- 800 mcg tab Take 1 tablet by mouth once daily. Problem List As Of Date 01/12/2025 Noted Resolved Supervision of other high risk pregnancies, thi*01/11/2025 History of section, low transverse [Z9*01/11/2025 Multigravida of advanced maternal age in third *01/11/2025 Insufficient care in third trimester (*01/11/2025 Language barrier [Z60.3, Z75.8] 01/11/2025 Abnormal glucose in , antepartum (HCC)*01/11/2025 Prescriptions ordered this encounter Disp Refills Start End ASCORBIC ACID (VITAMIN C) 500 MG TAB* 30 t* 3 01/27/2025 Route: PO Sig: Take 1 tablet by mouth every other day. FERROUS SULFATE 325 MG (65 MG IRON) * 30 t* 3 01/27/2025 Route: PO Sig: Take 1 tablet by mouth every other day. Encounter Status:Closed by SKYLA BAUER on 01/27/25 Normal [facility] BACTERIAL VAGINOSIS NAATon 0 01-11-2025 Lactobacillus crispatus+gasseri+j ensenii + Gardnerella vaginalis + Atopobium vaginae rRNA YVON+probe Ql (Vag fld) Not detected Normal Not detected [facility] Comment on above: Order Comment: Speci men Type: SWAB Ordering Facility: [facility] Address: [address] [place] [address] Performed By: #### 3 6902-5, BVAMP #### [facility] CLIA [id number] [address] [place] [address] [place] C. trachomatis+N. gonorrhoea e DNA YVON+probe Ql (Unsp spec)on 01-11-2025 C. trachomatis rRNA YVON+probe Ql (Unsp spec) Not detected Normal Not detected [facility] Comment on above: Order Comment: Speci men Type: SWAB Ordering Facility: [facility] Address: [address] [place] [address] Performed By: #### 3 6902-5, BVAMP #### [facility] CLIA [id number] [address] [place] [address] [place] N. gonorrhoeae rRNA YVON+probe Ql (Unsp spec) Not detected Normal Not detected [facility] Comment on above: Order Comment: Speci men Type: SWAB Ordering Facility: [facility] Address: [address] [place] [address] Performed By: #### 3 6902-5, BVAMP #### [facility] CLIA [id number] [address] [place] [address] [place] LEANA/TRICHOMONAS NAATon 0 01-11-2025 C. glabrata RNA YVON+probe Ql (Vag fld) Not detected Normal Not detected [facility] Comment on above: Order Comment: Speci men Type: SWAB Ordering Facility: [facility] Address: [address] [place] [address] Performed By: #### 3 6902-5, BVAMP #### [facility] CLIA [id number] [address] [place] [address] [place] Leana sp DNA YVON+probe Ql (Vag fld) Not detected Normal Not detected [facility] Comment on above: Order Comment: Speci men Type: SWAB Ordering Facility: [facility] Address: [address] [place] [address] Result Comment: The Leana species group target includes C. albicans, C. tropicalis, C. parapsilosis, and C. dubliniensis. Performed By: #### 3 6902-5, BVAMP #### [facility] CLIA [id number] [address] [place] [address] [place] T. vaginalis DNA YVON+probe Ql (Unsp spec) Not detected Normal Not detected [facility] Comment on above: Order Comment: Speci men Type: SWAB Ordering Facility: [facility] Address: [address] [place] [address] Performed By: #### 3 6902-5, BVAMP #### [facility] CLIA [id number] [address] [place] [address] [place] CBC W Auto Differential pane l (Bld)on 01-11-2025 Basophils (Bld) [#/Vol] 0.03 10*3/uL Normal <0.11 [facility] Comment on above: Order Comment: Speci men Type: SWAB Ordering Facility: [facility] Address: [address] [place] [address] Performed By: #### 3 6902-5, BVAMP #### [facility] CLIA [id number] [address] [place] [address] [place] Basophils/100 WBC (Bld) 0.5 % Normal [facility] Comment on above: Order Comment: Speci men Type: SWAB Ordering Facility: [facility] Address: [address] [place] [address] Performed By: #### 3 6902-5, BVAMP #### [facility] CLIA [id number] [address] [place] [address] [place] Differential cell count method Nom (Bld) Auto Normal [facility] Comment on above: Order Comment: Speci men Type: SWAB Ordering Facility: [facility] Address: [address] [place] [address] Performed By: #### 3 6902-5, BVAMP #### [facility] CLIA [id number] [address] [place] [address] [place] Eosinophils (Bld) [#/Vol] 0.14 10*3/uL Normal <0.46 [facility] Comment on above: Order Comment: Speci men Type: SWAB Ordering Facility: [facility] Address: [address] [place] [address] Performed By: #### 3 6902-5, BVAMP #### [facility] CLIA [id number] [address] [place] [address] [place] Eosinophils/100 WBC (Bld) 2.3 % Normal [facility] Comment on above: Order Comment: Speci men Type: SWAB Ordering Facility: [facility] Address: [address] [place] [address] Performed By: #### 3 6902-5, BVAMP #### [facility] CLIA [id number] [address] [place] [address] [place] Erythrocyte distribution width (RBC) [Ratio] 14.2 % Normal 11.5-15.0 [facility] Comment on above: Order Comment: Speci men Type: SWAB Ordering Facility: [facility] Address: [address] [place] [address] Performed By: #### 3 6902-5, BVAMP #### [facility] CLIA [id number] [address] [place] [address] [place] Hematocrit (Bld) [Volume fraction] 31.5 % Low 36.0-46.0 [facility] Comment on above: Order Comment: Speci men Type: SWAB Ordering Facility: [facility] Address: [address] [place] [address] Performed By: #### 3 6902-5, BVAMP #### [facility] CLIA [id number] [address] [place] [address] [place] Hemoglobin (Bld) [Mass/Vol] 10.2 g/dL Low 11.5-15.5 [facility] Comment on above: Order Comment: Speci men Type: SWAB Ordering Facility: [facility] Address: [address] [place] [address] Performed By: #### 3 6902-5, BVAMP #### [facility] CLIA [id number] [address] [place] [address] [place] Immature granulocytes (Bld) [#/Vol] 10*3/uL Normal <0.10 [facility] Comment on above: Order Comment: Speci men Type: SWAB Ordering Facility: [facility] Address: [address] [place] [address] Performed By: #### 3 6902-5, BVAMP #### [facility] CLIA [id number] [address] [place] [address] [place] Immature granulocytes/100 WBC (Bld) 0.3 % Normal [facility] Comment on above: Order Comment: Speci men Type: SWAB Ordering Facility: [facility] Address: [address] [place] [address] Performed By: #### 3 6902-5, BVAMP #### [facility] CLIA [id number] [address] [place] [address] [place] Lymphocytes (Bld) [#/Vol] 1.59 10*3/uL Normal 1.00-4.00 [facility] Comment on above: Order Comment: Speci men Type: SWAB Ordering Facility: [facility] Address: [address] [place] [address] Performed By: #### 3 6902-5, BVAMP #### [facility] CLIA [id number] [address] [place] [address] [place] Lymphocytes/100 WBC (Bld) 26.3 % Normal [facility] Comment on above: Order Comment: Speci men Type: SWAB Ordering Facility: [facility] Address: [address] [place] [address] Performed By: #### 3 6902-5, BVAMP #### [facility] CLIA [id number] [address] [place] [address] [place] MCH (RBC) [Entitic mass] 25.3 pg Low 26.0-34.0 [facility] Comment on above: Order Comment: Speci men Type: SWAB Ordering Facility: [facility] Address: [address] [place] [address] Performed By: #### 3 6902-5, BVAMP #### [facility] CLIA [id number] [address] [place] [address] [place] MCHC (RBC) [Mass/Vol] 32.4 g/dL Normal 30.5-36.0 [facility] Comment on above: Order Comment: Speci men Type: SWAB Ordering Facility: [facility] Address: [address] [place] [address] Performed By: #### 3 6902-5, BVAMP #### [facility] CLIA [id number] [address] [place] [address] [place] MCV (RBC) [Entitic vol] 78.2 fL Low 80.0-100.0 [facility] Comment on above: Order Comment: Speci men Type: SWAB Ordering Facility: [facility] Address: [address] [place] [address] Performed By: #### 3 6902-5, BVAMP #### [facility] CLIA [id number] [address] [place] [address] [place] Monocytes (Bld) [#/Vol] 0.48 10*3/uL Normal <0.87 [facility] Comment on above: Order Comment: Speci men Type: SWAB Ordering Facility: [facility] Address: [address] [place] [address] Performed By: #### 3 6902-5, BVAMP #### [facility] CLIA [id number] [address] [place] [address] [place] Monocytes/100 WBC (Bld) 7.9 % Normal [facility] Comment on above: Order Comment: Speci men Type: SWAB Ordering Facility: [facility] Address: [address] [place] [address] Performed By: #### 3 6902-5, BVAMP #### [facility] CLIA [id number] [address] [place] [address] [place] Neutrophils (Bld) [#/Vol] 3.79 10*3/uL Normal 1.45-7.50 [facility] Comment on above: Order Comment: Speci men Type: SWAB Ordering Facility: [facility] Address: [address] [place] [address] Performed By: #### 3 6902-5, BVAMP #### [facility] CLIA [id number] [address] [place] [address] [place] Neutrophils/100 WBC (Bld) 62.7 % Normal [facility] Comment on above: Order Comment: Speci men Type: SWAB Ordering Facility: [facility] Address: [address] [place] [address] Performed By: #### 3 6902-5, BVAMP #### [facility] CLIA [id number] [address] [place] [address] [place] Nucleated RBC (Bld) [#/Vol] 10*3/uL Normal <0.01 [facility] Comment on above: Order Comment: Speci men Type: SWAB Ordering Facility: [facility] Address: [address] [place] [address] Performed By: #### 3 6902-5, BVAMP #### [facility] CLIA [id number] [address] [place] [address] [place] Nucleated RBC/100 WBC (Bld) [Ratio] 0.0 /100 WBC Normal [facility] Comment on above: Order Comment: Speci men Type: SWAB Ordering Facility: [facility] Address: [address] [place] [address] Performed By: #### 3 6902-5, BVAMP #### [facility] CLIA [id number] [address] [place] [address] [place] Platelet mean volume (Bld) [Entitic vol] 11.7 fL Normal 9.0-12.7 [facility] Comment on above: Order Comment: Speci men Type: SWAB Ordering Facility: [facility] Address: [address] [place] [address] Performed By: #### 3 6902-5, BVAMP #### [facility] CLIA [id number] [address] [place] [address] [place] Platelets (Bld) [#/Vol] 278 10*3/uL Normal 150-400 [facility] Comment on above: Order Comment: Speci men Type: SWAB Ordering Facility: [facility] Address: [address] [place] [address] Performed By: #### 3 6902-5, BVAMP #### [facility] CLIA [id number] [address] [place] [address] [place] RBC (Bld) [#/Vol] 4.03 10*6/uL Normal 3.90-5.20 [facility] Comment on above: Order Comment: Speci men Type: SWAB Ordering Facility: [facility] Address: [address] [place] [address] Performed By: #### 3 6902-5, BVAMP #### [facility] CLIA [id number] [address] [place] [address] [place] WBC (Bld) [#/Vol] 6.05 10*3/uL Normal 3.70-11.00 [facility] Comment on above: Order Comment: Speci men Type: SWAB Ordering Facility: [facility] Address: [address] [place] [address] Performed By: #### 3 6902-5, BVAMP #### [facility] CLIA [id number] [address] [place] [address] [place] CNCOon 01-11-2025 [facility] Letter Text Normal [facility] Ferritin SerPl-mCncon 2024 Ferritin [Mass/Vol] 21.1 ng/mL Normal 14.7-205.1 [facility] Comment on above: Order Comment: Speci men Type: BLOOD SPECIMEN Ordering Facility: [facility] Address: [address] [place] [address] Performed By: #### 2 276-4, 69151-4 #### [facility] CLIA [id number] [address] [place] [address] [place] GESTATIONAL GLUCOSE SCREEN, 1-HOUR, 50 GRAM, NON-FASTINGOrdered By: Flakita Wolff on 01-11-2025 Glucose [Mass/Vol] 164 mg/dL High 74 - 134 mg/dL [facility] Comment on above: [place] Congress of Obstetricians and Gynecologists (Martinez/Coustan) guidelines state a gestational diabetes mellitus positive screen is made, in women not previously diagnosed with overt diabetes, when the 1 hr plasma glucose level is equal to or above 140 mg/dL. [facility] Supervisor [facility] [place] recommends a 135 mg/dL cutoff. Interpretation and review of laboratory results Abnormal [facility] GESTATIONAL GLUCOSE SCREEN, 1-HOUR, 50 GRAM, NON-FASTINGon 01-11-2025 Glucose [Mass/Vol] 164 mg/dL High 74-134 [facility] Comment on above: Order Comment: Speci men Type: SWAB Ordering Facility: [facility] Address: [address] [place] [address] Result Comment: Amer [facility] Congress of Obstetricians and Gynecologists (Michelle/Camacho) guidelines state a gestational diabetes mellitus positive screen is made, in women not previously diagnosed with overt diabetes, when the 1 hr plasma glucose level is equal to or above 140 mg/dL. [facility] [place] recommends a 135 mg/dL cutoff. Performed By: #### 3 6902-5, BVAMP #### [facility] CLIA [id number] [address] [place] [address] [place] HBV surface Ag Ql (S)on 12-27 Interpretation and review of laboratory results Normal [facility] HBV surface Ag Ser Qlon 12-27 HBV surface Ag Ql (S) Negative Normal Negative [facility] Comment on above: Order Comment: Speci men Type: SWAB Ordering Facility: [facility] Address: [address] [place] [address] Performed By: #### 3 6902-5, BVAMP #### [facility] CLIA [id number] [address] [place] [address] [place] HCV Ab Ql (S)on 01-11-2025 Interpretation and review of laboratory results Normal [facility] HCV Ab Ser Qlon 01-11-2025 HCV Ab Ql (S) Negative Normal Negative [facility] Comment on above: Order Comment: Mirza gil Type: SWAB Ordering Facility: [facility] Address: [address] [place] [address] Result Comment: The result suggests no evidence of infection with Hepatitis C virus. Should recent infection be suspected, repeat testing may be considered 4-6 weeks after this draw. Performed By: #### 3 6902-5, BVAMP #### [facility] CLIA [id number] [address] [place] [address] [place] HEPATITIS B SURFACE ANTIGENo n 01-11-2025 HBV surface Ag Ql (S) Negative Negative [facility] HEPATITIS C ANTIBODY IA WITH CONFIRMATIONon 01-11-2025 HCV Ab Ql (S) Negative Negative [facility] Comment on above: The result suggests no evidence of infection with Hepatitis C virus. Should recent infection be suspected, repeat testing may be considered 4-6 weeks after this draw. HIGH RISK HUMAN PAPILLOMA MANI (HPV), PCR FOR DETECTION AND GENOTYPINGon 01-11-2025 HPV 16 Ag Ql (Unsp spec) Not detected Normal Not detected [facility] Comment on above: Order Comment: Speci men Type: SWAB Ordering Facility: [facility] Address: [address] [place] [address] Performed By: #### 3 6902-5, BVAMP #### [facility] CLIA [id number] [address] [place] [address] [place] HPV 18 Ag Ql (Unsp spec) Not detected Normal Not detected [facility] Comment on above: Order Comment: Speci men Type: SWAB Ordering Facility: [facility] Address: [address] [place] [address] Performed By: #### 3 6902-5, BVAMP #### [facility] CLIA [id number] [address] [place] [address] [place] HPV 31+33+35+39+45+51+5 2+56+58+59+66+68 DNA YVON+probe Ql (Cvx) Not detected Normal Not detected [facility] Comment on above: Order Comment: Speci men Type: SWAB Ordering Facility: [facility] Address: [address] [place] [address] Result Comment: High Risk HPV Other Type includes HPV types 31, 33, 35, 39, 45, 51, 52, 56, 58, 59, 66 and 68. Performed By: #### 3 6902-5, BVAMP #### [facility] CLIA [id number] [address] [place] [address] [place] HIV 1+2 Ab IA Qlon 06-16-202 5 HIV 1 and 2 Ab IA.rapid Nom (S/P/Bld) [facility] Comment on above: Test not indicated. HIV 1+2 Ab+HIV1 p24 Ag IA Ql Non-Reactive Nonreactive [facility] HIV immunoassay testing algorithm interpretation (S/P/Bld) [Interp] [facility] Comment on above: No evidence of HIV-1 or HIV-2 infection. Should recent infection be suspected, repeat testing may be considered 2-3 weeks after this draw. [place] Rev. Code 3701.243(E): This information has been disclosed to you from confidential records protected from disclosure by state law. You shall make no further disclosure of this information without the specific, written, and informed release of the individual to whom it pertains or as otherwise permitted by state law. A general authorization for the release of medical or other information is not sufficient for the purpose of the release of HIV test results or diagnoses. [facility] HIV 1 and 2 Ab IA.rapid Nom (S/P/Bld) Normal [facility] Comment on above: Order Comment: Speci men Type: SWAB Ordering Facility: [facility] Address: [address] [place] [address] Result Comment: Test not indicated. Performed By: #### 3 6902-5, BVAMP #### [facility] CLIA [id number] [address] [place] [address] [place] HIV 1+2 Ab+HIV1 p24 Ag IA Ql Non-Reactive Normal Nonreactive [facility] Comment on above: Order Comment: Speci men Type: SWAB Ordering Facility: [facility] Address: [address] [place] [address] Performed By: #### 3 6902-5, BVAMP #### [facility] CLIA [id number] [address] [place] [address] [place] HIV immunoassay testing algorithm interpretation (S/P/Bld) [Interp] Normal [facility] Comment on above: Order Comment: Speci men Type: SWAB Ordering Facility: [facility] Address: [address] [place] [address] Result Comment: No e vidence of HIV-1 or HIV-2 infection. Should recent infection be suspected, repeat testing may be considered 2-3 weeks after this draw. [place] Rev. Code 3701.243(E): This information has been disclosed to you from confidential records protected from disclosure by state law. You shall make no further disclosure of this information without the specific, written, and informed release of the individual to whom it pertains or as otherwise permitted by state law. A general authorization for the release of medical or other information is not sufficient for the purpose of the release of HIV test results or diagnoses. Performed By: #### 3 6902-5, BVAMP #### [facility] CLIA [id number] [address] [place] [address] [place] HbA1c (Bld)on 01-11-2025 Average glucose Estimated from glycated hemoglobin (Bld) [Mass/Vol] 114 mg/dL [facility] Comment on above: eAG: (Estimated aver age glucose) is a calculated value from HgbA1c and is financial services representative of the average blood glucose level in the last 2-3 month period. HbA1c (Bld) [Mass fraction] 5.6 % 4.3 - 5.6 % [facility] Comment on above: [place] Diabetes As sociation guidelines indicate that patients with HgbA1c in the range 5.7-6.4% are at increased risk for development of diabetes, and intervention by lifestyle modification may be beneficial. HgbA1c greater or equal to 6.5% is considered diagnostic of diabetes. [facility] Average glucose Estimated from glycated hemoglobin (Bld) [Mass/Vol] 114 mg/dL Normal [facility] Comment on above: Order Comment: Speci men Type: SWAB Ordering Facility: [facility] Address: [address] [place] [address] Result Comment: eAG: (Estimated average glucose) is a calculated value from HgbA1c and is financial services representative of the average blood glucose level in the last 2-3 month period. Performed By: #### 3 6902-5, BVAMP #### [facility] CLIA [id number] [address] [place] [address] [place] HbA1c (Bld) [Mass fraction] 5.6 % Normal 4.3-5.6 [facility] Comment on above: Order Comment: Speci men Type: SWAB Ordering Facility: [facility] Address: [address] [place] [address] Result Comment: [place] Diabetes Association guidelines indicate that patients with HgbA1c in the range 5.7-6.4% are at increased risk for development of diabetes, and intervention by lifestyle modification may be beneficial. HgbA1c greater or equal to 6.5% is considered diagnostic of diabetes. Performed By: #### 3 6902-5, BVAMP #### [facility] CLIA [id number] [address] [place] [address] [place] Iron and Iron binding capaci ty panelon 01-11-2025 Iron [Mass/Vol] 22 ug/dL Low 41-186 [facility] Comment on above: Order Comment: Speci men Type: BLOOD SPECIMEN Ordering Facility: [facility] Address: [address] [place] [address] Performed By: #### 2 276-4, 55149-4 #### [facility] CLIA [id number] [address] [place] [address] [place] Iron binding capacity [Mass/Vol] 496 ug/dL High 232-386 [facility] Comment on above: Order Comment: Speci men Type: BLOOD SPECIMEN Ordering Facility: [facility] Address: [address] [place] [address] Performed By: #### 2 276-4, 05553-2 #### [facility] CLIA [id number] [address] [place] [address] [place] Iron/TIBC [Molar ratio] 4.4 % Low 15.0-57.0 [facility] Comment on above: Order Comment: Speci men Type: BLOOD SPECIMEN Ordering Facility: [facility] Address: [address] [place] [address] Performed By: #### 2 276-4, 32091-7 #### [facility] CLIA [id number] [address] [place] [address] [place] [id number] PLUSon 01-11-2025 Cell-free DNA./Cell-free DNA.total Dosage of chromosome-specific cfDNA (cfDNA) [Molar fraction] 41% Normal [facility] Comment on above: Order Comment: Speci men Type: SWAB Ordering Facility: [facility] Address: [address] [place] [address] Performed By: #### 3 6902-5, BVAMP #### [facility] CLIA [id number] [address] [place] [address] [place] Chr 13+18+21+X+Y aneuploidy Dosage of chromosome-specific cfDNA Ql (cfDNA) Negative Normal [facility] Comment on above: Order Comment: Speci men Type: SWAB Ordering Facility: [facility] Address: [address] [place] [address] Performed By: #### 3 6902-5, BVAMP #### [facility] CLIA [id number] [address] [place] [address] [place] Chr 21 trisomy Dosage of chromosome-specific cfDNA Ql (cfDNA) Negative Normal [facility] Comment on above: Order Comment: Speci men Type: SWAB Ordering Facility: [facility] Address: [address] [place] [address] Performed By: #### 3 6902-5, BVAMP #### [facility] CLIA [id number] [address] [place] [address] [place] Chr X and Y aneuploidy risk Sequencing Ql (cfDNA) [Interp] Not detected Normal [facility] Comment on above: Order Comment: Speci men Type: SWAB Ordering Facility: [facility] Address: [address] [place] [address] Result Comment: Not Detected Not Detected Performed By: #### 3 6902-5, BVAMP #### [facility] CLIA [id number] [address] [place] [address] [place] Citation Gregory (Reference lab test) Comment Normal [facility] Comment on above: Order Comment: Speci men Type: SWAB Ordering Facility: [facility] Address: [address] [place] [address] Result Comment: 1. P jurgen SORENSON, et al. Mary Med. 2012;14(3):296-305. 2. Neeraj HOLLY et al. Prenat Diag. 2013;33(6):591-597. 3. Artem C, et al. Clin Chem. 2015 Apr;61(4):608-616. 4. Emerita SORENSON, et al. Mary Med. 2011;13(11):913-920. 5. ACOG/SMFM Practice Bulletin No. 226, Apr 2020. Performed By: #### 3 6902-5, BVAMP #### [facility] CLIA [id number] [address] [place] [address] [place] Gestational age Estimated from conception date Patel Normal [facility] Comment on above: Order Comment: Speci men Type: SWAB Ordering Facility: [facility] Address: [address] [place] [address] Performed By: #### 3 6902-5, BVAMP #### [facility] CLIA [id number] [address] [place] [address] [place] GESTATIONALAGE AGE > OR = 9W Yes Normal [facility] Comment on above: Order Comment: Speci men Type: SWAB Ordering Facility: [facility] Address: [address] [place] [address] Performed By: #### 3 6902-5, BVAMP #### [facility] CLIA [id number] [address] [place] [address] [place] Laboratory comment Gregory (Report) Comment Normal [facility] Comment on above: Order Comment: Speci men Type: SWAB Ordering Facility: [facility] Address: [address] [place] [address] Result Comment: The MaterniT(R) 21 PLUS laboratory-developed test (LDT) analyzes circulating cell-free DNA from a maternal blood sample. This test is used for screening purposes and not diagnostic. Clinical correlation is recommended. Validation data on twin pregnancies is limited and the ability of this test to detect aneuploidy in higher multiple gestations has not yet been validated. Performed By: #### 3 6902-5, BVAMP #### [facility] CLIA [id number] [address] [place] [id number] [place] client director name Nom (Provider) Comment Normal [facility] Comment on above: Order Comment: Speci men Type: SWAB Ordering Facility: [facility] Address: [address] [place] [address] Result Comment: This specimen showed an expected representation of chromosome 21, 18 and 13 material. Clinical correlation is suggested. Comment Eitan Montez MD, PhD, Director, [employer] Performed By: #### 3 6902-5, BVAMP #### [facility] CLIA [id number] [address] [place] [address] LIMITATIONS OF THE TEST Comment Normal [facility] Comment on above: Order Comment: Speci men Type: SWAB Ordering Facility: [facility] Address: [address] [place] [address] Result Comment: Neri arora the results of these tests are highly reliable, discordant results, including inaccurate sex prediction, may occur due to placental, maternal, or mosaicism or neoplasm; vanishing twin; prior maternal organ transplant; or other causes. These tests are screening tests and not diagnostic; they do not replace the accuracy and precision of diagnosis with CVS or amniocentesis. A patient with a positive test result should be referred for genetic counseling and offered invasive diagnosis for confirmation of test results.[5] The results of this testing, including the benefits and limitations, should be discussed with a qualified healthcare provider. management decisions, including termination of the , should not be based on the results of these tests alone. The healthcare provider is responsible for the use of this information in the management of their patient. Sex chromosomal aneuploidies are not reportable for known multiple gestations. A negative result does not ensure an unaffected nor does it exclude the possibility of other chromosomal abnormalities or defects which are not a part of these tests. An uninformative result may be reported, the causes of which may include, but are not limited to, insufficient sequencing coverage, noise or artifacts in the region, amplification or sequencing bias, or insufficient fraction. These tests are not intended to identify pregnancies at risk for neural tube defects or ventral wall defects. Testing for whole chromosome abnormalities (including sex chromosomes) and for subchromosomal abnormalities could lead to the potential discovery of both and maternal genomic abnormalities that could have major, minor, or no, clinical significance. Evaluating the significance of a positive or a non-reportable result may involve both invasive testing and additional studies on the mother. Such investigations may lead to a diagnosis of maternal chromosomal or subchromosomal abnormalities, which on occasion may be associated with benign or malignant maternal neoplasms. These tests may not accurately identify triploidy, balanced rearrangements, or the precise location of subchromosomal duplications or deletions; these may be detected by diagnosis with CVS or amniocentesis. The ability to report results may be impacted by maternal BMI, maternal weight, maternal systemic lupus erythematosus (SLE) and/or by certain pharmaceutical agents such as low molecular weight heparin (for example: Lovenox(R), Xaparin(R), Clexane(R) and Fragmin(R)). Performed By: #### 3 6902-5, BVAMP #### [facility] CLIA [id number] [address] [place] [address] [place] Monosomy X risk Dosage of chromosome-specific cfDNA Ql (Plasma cell-free+WBC DNA) [Interp] Not detected Normal [facility] Comment on above: Order Comment: Speci jeffery Type: SWAB Ordering Facility: [facility] Address: [address] [place] [address] Performed By: #### 3 6902-5, BVAMP #### [facility] CLIA [id number] [address] [place] [address] [place] NEGATIVE PREDICTIVE VALUE Note Normal [facility] Comment on above: Order Comment: Mirza gil Type: SWAB Ordering Facility: [facility] Address: [address] [place] [address] Result Comment: The Negative Predictive Value (NPV) for trisomy 21, 18, and 13 is greater than 99%. The NPV for SCA and ESS cannot be calculated as SCA and ESS are only reported when an abnormality is detected. Performed By: #### 3 6902-5, BVAMP #### [facility] CLIA [id number] [address] [place] [address] [place] [address] [place] PERFORMANCE CHARACTERISTICS Note Normal [facility] Comment on above: Order Comment: Speci men Type: SWAB Ordering Facility: [facility] Address: [address] [place] [address] Result Comment: ! Sex ! Accuracy: 99.4% ! ! ! ! Region (associated syndrome) ! Est. Sens# ! Est. Spec ! ! ! ! Trisomy 21 (Down Syndrome) ! 99.1% ! 99.9% ! ! ! ! Trisomy 18 (Mena Syndrome) ! >99.9% ! 99.6% ! ! ! ! Trisomy 13 (Patau Syndrome) ! 91.7% ! 99.7% ! ! ! ! Sex Chromosome Aneuploidies## ! 96.2% ! 99.7% ! ! ! * As reported in [facility] database [id number] [https://www.ncbi.nlm.nih.gov/dbvar/studies/nstd37/ ] # Estimated Sensitivity. Sensitivity estimated across the observed size distribution of each syndrome [per [facility] database nstd37] and across the range of fractions observed in routine clinical NIPT. Actual sensitivity can also be influenced by other factors such as the size of the event, total sequence counts, amplification bias, or sequence bias. ## Patel gestation only. Performed By: #### 3 6902-5, BVAMP #### [facility] CLIA [id number] [address] [place] [address] [place] POSITIVE PREDICTIVE VALUE N/A Normal [facility] Comment on above: Order Comment: Mirza gli Type: SWAB Ordering Facility: [facility] Address: [address] [place] [address] Performed By: #### 3 6902-5, BVAMP #### [facility] CLIA [id number] [address] [place] [address] [place] Reference Lab Test Method Comment Normal [facility] Comment on above: Order Comment: Mirza gil Type: SWAB Ordering Facility: [facility] Address: [address] [place] [address] Result Comment: See Notes Circulating cell-free DNA was purified from the plasma component of maternal blood. The extracted DNA was then converted into a genomic DNA library for aneuploidy analysis of chromosomes 21, 18, and 13 via next generation sequencing.[1] Optional findings based on the test order include sex chromosome aneuploidy (SCA)[2], and enhanced sequencing series (ESS)[3], which will only be reported on as an additional finding when an abnormality is detected. SCA testing includes information on X and Y representation, while ESS testing includes deletions in selected regions (22q, 15q, 11q, 8q, 5p, 4p, 1p) and trisomy of chromosomes 16 and 22. Performed By: #### 3 6902-5, BVAMP #### [facility] CLIA [id number] [address] [place] [address] [place] Service comment (Unsp spec) [Interp] Comment Normal [facility] Comment on above: Order Comment: Speci men Type: SWAB Ordering Facility: [facility] Address: [address] [place] [address] Result Comment: See Notes [employer] is a subsidiary of [employer], using the brand [employer]. This test was developed and its performance characteristics determined by [employer]. It has not been cleared or approved by the Food and Drug Administration. This laboratory is certified under the Clinical Laboratory Improvement Amendments (CLIA) as qualified to perform high complexity clinical laboratory testing and accredited by the College [employer] [place] [employer] (CAP). If there is future clinical need for adding Materni[employer] GENOME testing, this specimen will be available until term. [facility] samples will not be retained beyond 60 days. [facility] patients will have to send a new sample for re-sequencing ([facility] Test Code: [id number]). Performed By: #### 3 6902-5, BVAMP #### [facility] CLIA [id number] [address] [place], [place] [id number] [place] Sex Dosage of chromosome-specific cfDNA Nom (cfDNA) Comment Normal [facility] Comment on above: Order Comment: Speci men Type: SWAB Ordering Facility: [facility] Address: [address] [place] [address] Result Comment: Cons istent with Male Performed By: #### 3 6902-5, BVAMP #### [facility] CLIA [id number] [address] [place] [address] [place] Test performance information Gregory (Unsp spec) Comment Normal [facility] Comment on above: Order Comment: Speci men Type: SWAB Ordering Facility: [facility] Address: [address] [place] [address] Result Comment: The performance characteristics of the MaterniT(R) 21 PLUS laboratory-developed test (LDT) have been determined in a clinical validation study with women at increased risk for chromosomal aneuploidy.[1-4] Performed By: #### 3 6902-5, BVAMP #### [facility] CLIA [id number] [address] [place] [address] [place] Trisomy 13 risk Dosage of chromosome-specific cfDNA Ql (cfDNA) [Interp] Negative Normal [facility] Comment on above: Order Comment: Speci men Type: SWAB Ordering Facility: [facility] Address: [address] [place] [address] Performed By: #### 3 6902-5, BVAMP #### [facility] CLIA [id number] [address] [place] [address] [place] Trisomy 18 risk Dosage of chromosome-specific cfDNA Ql (Plasma cell-free+WBC DNA) [Interp] Negative Normal [facility] Comment on above: Order Comment: Speci men Type: SWAB Ordering Facility: [facility] Address: [address] [place] [address] Performed By: #### 3 6902-5, BVAMP #### [facility] CLIA [id number] [address] [place] [address] [place] PAP TESTon 01-11-2025 ADEQUACY Normal [facility] Comment on above: Order Comment: Speci men Type: FLUID SPECIMEN Ordering Facility: [facility] Address: [address] [place] [address] Result Comment: Sati sfactory for interpretation. No endocervical component Performed By: #### L [id number] #### [facility] CLIA [id number] [address] [place] [address] [place] [facility] CLIA [id number] [address] [place] [address] [place] CASE REPORT Normal [facility] Comment on above: Order Comment: Speci men Type: FLUID SPECIMEN Ordering Facility: [facility] Address: [address] [place] [address] Result Comment: Gyne cologic Cytology Report Case: [id number] Authorizing Provider: Pat Coats APRN.CNM Collected: 01/11/2025 11:40 AM Ordering Location: OB/Gynecology Received: 01/11/2025 02:31 PM First Screen: Florian, Heather, CT, ASCP Specimen: Pap Test, ThinPrep, Cervix Performed By: #### L [id number] #### [facility] CLIA [id number] [address] [place] [address] [place] [facility] CLIA [id number] [address] [place] [address] [place] CLINICAL HISTORY, CYTOLOGY, MEDTRONICS TECHNICIAN Routine Exam Normal [facility] Comment on above: Order Comment: Speci men Type: FLUID SPECIMEN Ordering Facility: [facility] Address: [address] [place] [address] Performed By: #### L [id number] #### [facility] CLIA [id number] [address] [place] [address] [place] [facility] CLIA [id number] [address] [place] [address] [place] FINAL PERFORMING LAB Normal [facility] Comment on above: Order Comment: Speci men Type: FLUID SPECIMEN Ordering Facility: [facility] Address: [address] [place] [address] Result Comment: Tech nical component, leasing assistant screening performed at: [facility], [address] [place] [address] CLIA: [id number] Diagnostic interpretation performed at: [facility], [address] [place] [address] CLIA# [id number] [employer]: Vicki Colindres MD Performed By: #### L [id number] #### [facility] CLIA [id number] [address] [place] [address] [place] [facility] CLIA [id number] [address] [place] [address] [place] INTERPRETATION, CYTOLOGY, MEDTRONICS TECHNICIAN Normal [facility] Comment on above: Order Comment: Speci men Type: FLUID SPECIMEN Ordering Facility: [facility] Address: [address] [place] [address] Result Comment: Nega tive for intraepithelial lesion or malignancy. at 1045 EDT Performed By: #### L [id number] #### [facility] CLIA [id number] [address] [place] [address] [place] [facility] CLIA [id number] [address] [place] [address] [place] LMP 06/01/2024 Normal [facility] Comment on above: Order Comment: Speci men Type: FLUID SPECIMEN Ordering Facility: [facility] Address: [address] [place] [address] Performed By: #### L [id number] #### [facility] CLIA [id number] [address] [place] [address] [place] [facility] CLIA [id number] [address] [place] [address] [place] PAP DISCLAIMER COMMENT The Pap Smear is a screening test for cervical cancer. False negative results occur with all screening tests, emphasizing the need for rescreening at recommended intervals, and clinical correlation. Normal [facility] Comment on above: Order Comment: Speci men Type: FLUID SPECIMEN Ordering Facility: [facility] Address: [address] [place] [address] Performed By: #### L [id number] #### [facility] CLIA [id number] [address] [place] [address] LAB CLIA [id number] [address] [place] [address] [place] PAP HONEY BLENDER COMMENT This specimen has be en analyzed by the FDA-approved Imnish System, which uses digital imaging and an enhanced artificial intelligence image analysis algorithm to identify pringle of interest on the microscopic slide, to assist the adjunct faculty instructor and pathologist in evaluating cells on ThinPrep Pap tests. Following analysis, pringle of interest on the microscopic slide selected by the algorithm are reviewed by a adjunct faculty instructor. If a sample requires hierarchical review, the pathologist will review the same pringle of interest selected by the algorithm prior to final interpretation. Normal [facility] Comment on above: Order Comment: Speci men Type: FLUID SPECIMEN Ordering Facility: [facility] Address: [address] [place] [address] Performed By: #### L [id number] #### [facility] CLIA [id number] [address] [place] [address] LAB CLIA [id number] [address] [place] [address] OF THA RUBELLA IGG ANTIBODYon 01-11 Interpretation and review of laboratory results Normal [facility] Rubella IgG, Qual Positive Positive [facility] Comment on above: The result suggests recent or past exposure to Rubella virus or history of Rubella vaccination. Positive result may also be seen due to presence of passively-transferred antibodies. Please correlate with patient's history. [facility] RUBELLA IGG AB, QUAL Positive Normal Positive [facility] Comment on above: Order Comment: Speci men Type: SWAB Ordering Facility: [facility] Address: [address] [place] [address] Result Comment: The result suggests recent or past exposure to Rubella virus or history of Rubella vaccination. Positive result may also be seen due to presence of passively-transferred antibodies. Please correlate with patient's history. Performed By: #### 3 6902-5, BVAMP #### [facility] CLIA [id number] [address] [place] [address] [place] Reagin and Treponema pallidu m IgG and IgM [Interp]on 01-11-2025 T. pallidum IgG+IgM IA Ql (S) Non-Reactive Nonreactive [facility] T. pallidum IgG+IgM IA Ql (S) Non-Reactive Normal Nonreactive [facility] Comment on above: Order Comment: Speci men Type: SWAB Ordering Facility: [facility] Address: [address] [place] [address] Performed By: #### 3 6902-5, BVAMP #### [facility] CLIA [id number] [address] [place] [address] [place] Reagin+T pallidum IgG+IgM Se rPl-Impon 01-11-2025 Reagin and Treponema pallidum IgG and IgM [Interp] Cannot exclude recent Treponemal infection if specimen collected within 7-10 days after appearance of suspect lesions or 2-3 weeks after an exposure. Clinical correlation is required. Normal [facility] Comment on above: Order Comment: Speci men Type: SWAB Ordering Facility: [facility] Address: [address] [place] [address] Performed By: #### 3 6902-5, BVAMP #### [facility] CLIA [id number] [address] [place] [address] [place] SYPHILIS TREPONEMAL W/REFLEX on 01-11-2025 Reagin and Treponema pallidum IgG and IgM [Interp] Cannot exclude recent Treponemal infection if specimen collected within 7-10 days after appearance of suspect lesions or 2-3 weeks after an exposure. Clinical correlation is required. [facility] TYPE + SCREEN PRENATALon ABO group Nom (Bld) O [facility] Blood group antibody screen Ql Negative [facility] Rh Nom (Bld) Positive [facility] Type and Screen Expiration 01/14/2025 23:59 [facility] ABO O Normal [facility] Comment on above: Order Comment: Speci men Type: BLOOD SPECIMEN Ordering Facility: [facility] Address: [address] [place] [address] Performed By: #### T SPN #### [facility] CLIA [id number] [address] [place] [address] [place] Rh Nom (Bld) Positive Normal [facility] Comment on above: Order Comment: Speci men Type: BLOOD SPECIMEN Ordering Facility: [facility] Address: [address] [place] [address] Performed By: #### T SPN #### [facility] CLIA [id number] [address] [place] [address] [place] TYPE AND SCREEN EXPIRATION 01/14/2025 23:59 Normal [facility] Comment on above: Order Comment: Speci men Type: BLOOD SPECIMEN Ordering Facility: [facility] Address: [address] [place] [address] Performed By: #### T SPN #### [facility] CLIA [id number] [address] [place] [address] OF THA CNPNon 01-06-2025 CNPN Telephone (OBGYWM) LETY FALK ([id number]) 1985 [facility] Date Time Provider Department 01/06/25 LYNDA SALCEDO OBGYWM During your visit today, we recorded the following information about you: Kuldeep Rdz LPN 01/06/2025 3:51 PM Signed Phone call placed to [employer] number [phone] call to update New OB intake questions, no answer. Maritime Officer left message for patient to arrive thirty minutes prior to scheduled visit on 01/11/2025 to complete intake, LMP on schedule 06/01/2024. Kuldeep Kendell, SUPERVISOR IN CIRCUIT TESTING Allergies As of Date: 01/06/2025 (Not on File) Date Reviewed: Never Reviewed Problem List As Of Date: 01/06/2025 (None) Encounter Status:Closed by KENDELLKULDEEP SOUSA on 01/06/25 Normal [facility] OB Limited With Biometricson 10-01-2024 OB Limited With Biometrics [facility] [address] [place], [place] [address] OB Limited With Biometrics MR#: [id number] Acct: [id number] Name: LETY [place] Rep #: [id number] : 1985 F 38 From: Everton martin MD PCP: Dr. Jordyn Collins MD Status: REG CLI Study: OB Limited With Biometrics Date of Exam: 10/01 Exam# [id number] Ordering Dr: Jordyn Collins MD PROCEDURE: OB LIMITED WITH BIOMETRICS REASON FOR EXAM: dating. COMPARISON: None. FINDINGS Number: 1 Position: Vertex Placental Position: Anterior Placental Abnormalities: None. DIMENSIONS: Biparietal Diameter: 4.2 cm: 18 weeks and 5 days: 90 percentile/ Head Circumference: 15.8 cm: 18 weeks and 5 days: 86 percentile/ Abdominal Circumference: 12.8 cm: 18 weeks and 3 days: 71st percentile/ Femur Length: 2.6 cm: 17 weeks and 5 days: 46 percentile/ ESTIMATED WEIGHT: 220 g plus/-34 g ESTIMATED WEIGHT PERCENTILE (24+ weeks): 72nd percentile ESTIMATED GESTATIONAL AGE: Baseline: 17 weeks and 5 days By Ultrasound: 18 weeks and 4 days ESTIMATED DATE OF DELIVERY: Baseline: March 06, 2025 By Ultrasound: February 28, 2025 BIOPHYSICAL ASSESSMENT: Amniotic Fluid Volume: Subjectively normal. Amniotic Fluid Index: 10.5 (8-24 cm normal range) Cardiac Motion: 143 beats per minute (average) Trunk and Limb Motion: Present. MATERNAL ANATOMY: Adnexa: Neither maternal ovary is successfully identified. US/OB Limited With Biometrics IMPRESSION: Single live intrauterine gestation with a mean gestational age of 18 weeks and 4 days. Reading Location: [facility] CC: Dr. Jordyn Collins MD Perforator Operator: Signed Normal [facility] 07-10-2021 Hematocrit (Bld) [Volume fraction] 24.9 % Low 34.0-46.0 [facility] ([place]) Comment on above: Performed By: #### C BC, ADIFF, ANEU, GLU1P, HBSAG, HCV1, HIV, ABOGEL, ABSGEL, VARIS, RUBIS, RPR #### [address] [address] Hgb 8.2 G/dL Low 12.0-16.0 [facility] ([place]) Comment on above: Performed By: #### C BC, ADIFF, ANEU, GLU1P, HBSAG, HCV1, HIV, ABOGEL, ABSGEL, VARIS, RUBIS, RPR #### [address] [address] LABORATORYOrdered By: SYSTEM SYSTEM on 07-10-2021 Hematocrit (Bld) [Volume fraction] 24.9 % Invalid Interpretation Code 34.0 - 46.0 % AH Remisol SS Hemoglobin (Bld) [Mass/Vol] 8.2 G/dL Invalid Interpretation Code 12.0 - 16.0 G/dL AH Remisol SS RBC (Product)on 07-10-2021 RBC Product Ready Not Done Normal [facility] ([place]) Comment on above: Performed By: #### C BC, ADIFF, ANEU, GLU1P, HBSAG, HCV1, HIV, ABOGEL, ABSGEL, VARIS, RUBIS, RPR #### [address] [address] .Auto Diffon 07-09-2021 Basophil, Absolute 0.00 10 3/mcL Normal 0.00-0.27 [facility] ([place]) Comment on above: Performed By: #### C BC, ADIFF, ANEU, GLU1P, HBSAG, HCV1, HIV, ABOGEL, ABSGEL, VARIS, RUBIS, RPR #### [address] [address] Basophils/100 WBC (Bld) 0.4 % Normal 0.0-2.5 [facility] ([place]) Comment on above: Performed By: #### C BC, ADIFF, ANEU, GLU1P, HBSAG, HCV1, HIV, ABOGEL, ABSGEL, VARIS, RUBIS, RPR #### [address] [address] Eosinophil, Absolute 0.10 10 3/mcL Normal 0.00-0.65 [facility] ([place]) Comment on above: Performed By: #### C BC, ADIFF, ANEU, GLU1P, HBSAG, HCV1, HIV, ABOGEL, ABSGEL, VARIS, RUBIS, RPR #### [address] [address] Eosinophils/100 WBC (Bld) 0.6 % Normal 0.0-6.0 [facility] ([place]) Comment on above: Performed By: #### C BC, ADIFF, ANEU, GLU1P, HBSAG, HCV1, HIV, ABOGEL, ABSGEL, VARIS, RUBIS, RPR #### [address] [address] Lymphocyte, Absolute 1.30 10 3/mcL Normal 0.90-4.32 [facility] ([place]) Comment on above: Performed By: #### C BC, ADIFF, ANEU, GLU1P, HBSAG, HCV1, HIV, ABOGEL, ABSGEL, VARIS, RUBIS, RPR #### [address] [address] Lymphocytes/100 WBC (Bld) 14.8 % Low 20.0-40.0 [facility] ([place]) Comment on above: Performed By: #### C BC, ADIFF, ANEU, GLU1P, HBSAG, HCV1, HIV, ABOGEL, ABSGEL, VARIS, RUBIS, RPR #### [address] [address] Monocyte, Absolute 0.60 10 3/mcL Normal 0.09-1.40 [facility] ([place]) Comment on above: Performed By: #### C BC, ADIFF, ANEU, GLU1P, HBSAG, HCV1, HIV, ABOGEL, ABSGEL, VARIS, RUBIS, RPR #### [address] [address] Monocytes/100 WBC (Bld) 7.0 % Normal 2.0-13.0 [facility] ([place]) Comment on above: Performed By: #### C BC, ADIFF, ANEU, GLU1P, HBSAG, HCV1, HIV, ABOGEL, ABSGEL, VARIS, RUBIS, RPR #### [address] [address] Neutrophils/100 WBC (Bld) 77.2 % High 50.0-75.0 [facility] ([place]) Comment on above: Performed By: #### C BC, ADIFF, ANEU, GLU1P, HBSAG, HCV1, HIV, ABOGEL, ABSGEL, VARIS, RUBIS, RPR #### [address] [address] .NEUABSon 07-09-2021 Neutrophil, Absolute 7.00 10 3/mcL Normal 2.25-8.10 [facility] ([place]) Comment on above: Performed By: #### C BC, ADIFF, ANEU, GLU1P, HBSAG, HCV1, HIV, ABOGEL, ABSGEL, VARIS, RUBIS, RPR #### [address] [address] CBCon 07-09-2021 Erythrocyte distribution width (RBC) [Ratio] 16.0 % High 11.5-15.5 [facility] ([place]) Comment on above: Performed By: #### C BC, ADIFF, ANEU, GLU1P, HBSAG, HCV1, HIV, ABOGEL, ABSGEL, VARIS, RUBIS, RPR #### [address] [address] Hematocrit (Bld) [Volume fraction] 21.0 % Low 34.0-46.0 [facility] ([place]) Comment on above: Performed By: #### C BC, ADIFF, ANEU, GLU1P, HBSAG, HCV1, HIV, ABOGEL, ABSGEL, VARIS, RUBIS, RPR #### [place] [address] Hgb 6.9 G/dL Critically abnormal 12.0-16.0 [facility] ([place]) Comment on above: Performed By: #### C BC, ADIFF, ANEU, GLU1P, HBSAG, HCV1, HIV, ABOGEL, ABSGEL, VARIS, RUBIS, RPR #### [address] [address] MCH (RBC) [Entitic mass] 23.6 pg Low 27.0-33.0 [facility] ([place]) Comment on above: Performed By: #### C BC, ADIFF, ANEU, GLU1P, HBSAG, HCV1, HIV, ABOGEL, ABSGEL, VARIS, RUBIS, RPR #### [address] [address] MCHC 32.9 G/dL Normal 32.0-36.0 [facility] ([place]) Comment on above: Performed By: #### C BC, ADIFF, ANEU, GLU1P, HBSAG, HCV1, HIV, ABOGEL, ABSGEL, VARIS, RUBIS, RPR #### [place] [address] MCV (RBC) [Entitic vol] 71.6 fL Low 80.0-99.0 [facility] ([place]) Comment on above: Performed By: #### C BC, ADIFF, ANEU, GLU1P, HBSAG, HCV1, HIV, ABOGEL, ABSGEL, VARIS, RUBIS, RPR #### [place] [address] Platelet 179 10 3/mcL Normal 150-450 [facility] ([place]) Comment on above: Performed By: #### C BC, ADIFF, ANEU, GLU1P, HBSAG, HCV1, HIV, ABOGEL, ABSGEL, VARIS, RUBIS, RPR #### [address] [address] Platelet mean volume (Bld) [Entitic vol] 10.1 fL Normal 6.6-10.5 [facility] ([place]) Comment on above: Performed By: #### C BC, ADIFF, ANEU, GLU1P, HBSAG, HCV1, HIV, ABOGEL, ABSGEL, VARIS, RUBIS, RPR #### [place] [address] RBC 2.93 10 6/mcL Low 4.10-5.30 [facility] ([place]) Comment on above: Performed By: #### C BC, ADIFF, ANEU, GLU1P, HBSAG, HCV1, HIV, ABOGEL, ABSGEL, VARIS, RUBIS, RPR #### [place] [address] WBC 9.10 10 3/mcL Normal 4.50-10.80 [facility] ([place]) Comment on above: Performed By: #### C BC, ADIFF, ANEU, GLU1P, HBSAG, HCV1, HIV, ABOGEL, ABSGEL, VARIS, RUBIS, RPR #### [place] [address] HHon 07-09-2021 Hematocrit (Bld) [Volume fraction] 23.3 % Low 34.0-46.0 [facility] ([place]) Comment on above: Performed By: #### C BC, ADIFF, ANEU, GLU1P, HBSAG, HCV1, HIV, ABOGEL, ABSGEL, VARIS, RUBIS, RPR #### [place] [address] Hgb 7.6 G/dL Low 12.0-16.0 [facility] ([place]) Comment on above: Performed By: #### C BC, ADIFF, ANEU, GLU1P, HBSAG, HCV1, HIV, ABOGEL, ABSGEL, VARIS, RUBIS, RPR #### [place] [address] LABORATORYOrdered By: SYSTEM SYSTEM on 07-09-2021 Hematocrit (Bld) [Volume fraction] 23.3 % Invalid Interpretation Code 34.0 - 46.0 % AH Remisol SS Hemoglobin (Bld) [Mass/Vol] 7.6 G/dL Invalid Interpretation Code 12.0 - 16.0 G/dL AH Remisol SS Basophils (Bld) [#/Vol] 0.00 103/mcL Invalid Interpretation Code 0.00 - 0.27 10^3/mcL AH Remisol SS Basophils/100 WBC (Bld) 0.4 % Invalid Interpretation Code 0.0 - 2.5 % AH Remisol SS Eosinophils (Bld) [#/Vol] 0.10 103/mcL Invalid Interpretation Code 0.00 - 0.65 10^3/mcL AH Remisol SS Eosinophils/100 WBC (Bld) 0.6 % Invalid Interpretation Code 0.0 - 6.0 % AH Remisol SS Erythrocyte distribution width (RBC) [Ratio] 16.0 % Invalid Interpretation Code 11.5 - 15.5 % AH Remisol SS Hematocrit (Bld) [Volume fraction] 21.0 % Invalid Interpretation Code 34.0 - 46.0 % AH Remisol SS Hemoglobin (Bld) [Mass/Vol] 6.9 G/dL Invalid Interpretation Code 12.0 - 16.0 G/dL AH Remisol SS Lymphocytes (Bld) [#/Vol] 1.30 103/mcL Invalid Interpretation Code 0.90 - 4.32 10^3/mcL AH Remisol SS Lymphocytes/100 WBC (Bld) 14.8 % Invalid Interpretation Code 20.0 - 40.0 % AH Remisol SS MCH (RBC) [Entitic mass] 23.6 pg Invalid Interpretation Code 27.0 - 33.0 pg AH Remisol SS MCHC (RBC) [Mass/Vol] 32.9 G/dL Invalid Interpretation Code 32.0 - 36.0 G/dL AH Remisol SS MCV (RBC) [Entitic vol] 71.6 fL Invalid Interpretation Code 80.0 - 99.0 fL AH Remisol SS Monocytes (Bld) [#/Vol] 0.60 103/mcL Invalid Interpretation Code 0.09 - 1.40 10^3/mcL AH Remisol SS Monocytes/100 WBC (Bld) 7.0 % Invalid Interpretation Code 2.0 - 13.0 % AH Remisol SS Neutrophils (Bld) [#/Vol] 7.00 103/mcL Invalid Interpretation Code 2.25 - 8.10 10^3/mcL AH Remisol SS Neutrophils/100 WBC (Bld) 77.2 % Invalid Interpretation Code 50.0 - 75.0 % AH Remisol SS Platelet mean volume (Bld) [Entitic vol] 10.1 fL Invalid Interpretation Code 6.6 - 10.5 fL AH Remisol SS Platelets (Bld) [#/Vol] 179 103/mcL Invalid Interpretation Code 150 - 450 10^3/mcL AH Remisol SS RBC (Bld) [#/Vol] 2.93 106/mcL Invalid Interpretation Code 4.10 - 5.30 10^6/mcL AH Remisol SS WBC (Bld) [#/Vol] 9.10 103/mcL Invalid Interpretation Code 4.50 - 10.80 10^3/mcL AH Remisol SS LABORATORYOrdered By: Deysi Manning on 07-09-2021 RBC Product Ready Not Done (07/09/21 10:07 AM) Invalid Interpretation Code AH BB Manual SS LABORATORYOrdered By: Yas Hernandez on 07-09-2021 RBC Product Ready RBC Ready for Pickup (07/09/21 6:19 AM) Invalid Interpretation Code AH BB Manual SS RBC (Product)on 07-09-2021 RBC Product Ready RBC Ready for Pickup Normal [facility] ([place]) Comment on above: Performed By: #### C BC, ADIFF, ANEU, GLU1P, HBSAG, HCV1, HIV, ABOGEL, ABSGEL, VARIS, RUBIS, RPR #### [address] [address] .Auto Diffon 07-08-2021 Basophil, Absolute 0.00 10 3/mcL Normal 0.00-0.27 [facility] ([place]) Comment on above: Performed By: #### C BC, ADIFF, ANEU, GLU1P, HBSAG, HCV1, HIV, ABOGEL, ABSGEL, VARIS, RUBIS, RPR #### [address] [address] Basophils/100 WBC (Bld) 0.6 % Normal 0.0-2.5 [facility] ([place]) Comment on above: Performed By: #### C BC, ADIFF, ANEU, GLU1P, HBSAG, HCV1, HIV, ABOGEL, ABSGEL, VARIS, RUBIS, RPR #### [address] [address] Eosinophil, Absolute 0.10 10 3/mcL Normal 0.00-0.65 [facility] ([place]) Comment on above: Performed By: #### C BC, ADIFF, ANEU, GLU1P, HBSAG, HCV1, HIV, ABOGEL, ABSGEL, VARIS, RUBIS, RPR #### [address] [address] Eosinophils/100 WBC (Bld) 1.1 % Normal 0.0-6.0 [facility] ([place]) Comment on above: Performed By: #### C BC, ADIFF, ANEU, GLU1P, HBSAG, HCV1, HIV, ABOGEL, ABSGEL, VARIS, RUBIS, RPR #### [address] [address] Lymphocyte, Absolute 2.00 10 3/mcL Normal 0.90-4.32 [facility] ([place]) Comment on above: Performed By: #### C BC, ADIFF, ANEU, GLU1P, HBSAG, HCV1, HIV, ABOGEL, ABSGEL, VARIS, RUBIS, RPR #### [address] [address] Lymphocytes/100 WBC (Bld) 31.7 % Normal 20.0-40.0 [facility] ([place]) Comment on above: Performed By: #### C BC, ADIFF, ANEU, GLU1P, HBSAG, HCV1, HIV, ABOGEL, ABSGEL, VARIS, RUBIS, RPR #### [address] [address] Monocyte, Absolute 0.70 10 3/mcL Normal 0.09-1.40 [facility] ([place]) Comment on above: Performed By: #### C BC, ADIFF, ANEU, GLU1P, HBSAG, HCV1, HIV, ABOGEL, ABSGEL, VARIS, RUBIS, RPR #### [address] [address] Monocytes/100 WBC (Bld) 11.5 % Normal 2.0-13.0 [facility] ([place]) Comment on above: Performed By: #### C BC, ADIFF, ANEU, GLU1P, HBSAG, HCV1, HIV, ABOGEL, ABSGEL, VARIS, RUBIS, RPR #### [address] [address] Neutrophils/100 WBC (Bld) 55.1 % Normal 50.0-75.0 [facility] ([place]) Comment on above: Performed By: #### C BC, ADIFF, ANEU, GLU1P, HBSAG, HCV1, HIV, ABOGEL, ABSGEL, VARIS, RUBIS, RPR #### [address] [address] .NEUABSon 07-08-2021 Neutrophil, Absolute 3.50 10 3/mcL Normal 2.25-8.10 [facility] ([place]) Comment on above: Performed By: #### C BC, ADIFF, ANEU, GLU1P, HBSAG, HCV1, HIV, ABOGEL, ABSGEL, VARIS, RUBIS, RPR #### [place] [address] ABO/Rh (Gel)on 07-08-2021 ABO/Rh Interp Positive Invalid Interpretation Code [facility] ([place]) Comment on above: Performed By: #### C BC, ADIFF, ANEU, GLU1P, HBSAG, HCV1, HIV, ABOGEL, ABSGEL, VARIS, RUBIS, RPR #### [place] [address] ABS (Gel)on 07-08-2021 ABSC Interp (Gel) Negative Normal [facility] ([place]) Comment on above: Performed By: #### C BC, ADIFF, ANEU, GLU1P, HBSAG, HCV1, HIV, ABOGEL, ABSGEL, VARIS, RUBIS, RPR #### [place] [id number] CBCon 07-08-2021 Erythrocyte distribution width (RBC) [Ratio] 16.3 % High 11.5-15.5 [facility] ([place]) Comment on above: Performed By: #### C BC, ADIFF, ANEU, GLU1P, HBSAG, HCV1, HIV, ABOGEL, ABSGEL, VARIS, RUBIS, RPR #### [place] [id number] Hematocrit (Bld) [Volume fraction] 32.0 % Low 34.0-46.0 [facility] ([place]) Comment on above: Performed By: #### C BC, ADIFF, ANEU, GLU1P, HBSAG, HCV1, HIV, ABOGEL, ABSGEL, VARIS, RUBIS, RPR #### [address] [address] Hgb 10.4 G/dL Low 12.0-16.0 [facility] ([place]) Comment on above: Performed By: #### C BC, ADIFF, ANEU, GLU1P, HBSAG, HCV1, HIV, ABOGEL, ABSGEL, VARIS, RUBIS, RPR #### [address] [address] MCH (RBC) [Entitic mass] 23.1 pg Low 27.0-33.0 [facility] ([place]) Comment on above: Performed By: #### C BC, ADIFF, ANEU, GLU1P, HBSAG, HCV1, HIV, ABOGEL, ABSGEL, VARIS, RUBIS, RPR #### [place] [id number] MCHC 32.4 G/dL Normal 32.0-36.0 [facility] ([place]) Comment on above: Performed By: #### C BC, ADIFF, ANEU, GLU1P, HBSAG, HCV1, HIV, ABOGEL, ABSGEL, VARIS, RUBIS, RPR #### [place] [id number] MCV (RBC) [Entitic vol] 71.3 fL Low 80.0-99.0 [facility] ([place]) Comment on above: Performed By: #### C BC, ADIFF, ANEU, GLU1P, HBSAG, HCV1, HIV, ABOGEL, ABSGEL, VARIS, RUBIS, RPR #### [address] [address] Platelet 219 10 3/mcL Normal 150-450 [facility] ([place]) Comment on above: Performed By: #### C BC, ADIFF, ANEU, GLU1P, HBSAG, HCV1, HIV, ABOGEL, ABSGEL, VARIS, RUBIS, RPR #### [place] [id number] Platelet mean volume (Bld) [Entitic vol] 10.4 fL Normal 6.6-10.5 [facility] ([place]) Comment on above: Performed By: #### C BC, ADIFF, ANEU, GLU1P, HBSAG, HCV1, HIV, ABOGEL, ABSGEL, VARIS, RUBIS, RPR #### [place] [address] RBC 4.50 10 6/mcL Normal 4.10-5.30 [facility] ([place]) Comment on above: Performed By: #### C BC, ADIFF, ANEU, GLU1P, HBSAG, HCV1, HIV, ABOGEL, ABSGEL, VARIS, RUBIS, RPR #### [place] [address] WBC 6.40 10 3/mcL Normal 4.50-10.80 [facility] ([place]) Comment on above: Performed By: #### C BC, ADIFF, ANEU, GLU1P, HBSAG, HCV1, HIV, ABOGEL, ABSGEL, VARIS, RUBIS, RPR #### [place] [address] HHon 07-08-2021 Hematocrit (Bld) [Volume fraction] 25.1 % Low 34.0-46.0 [facility] ([place]) Comment on above: Performed By: #### C BC, ADIFF, ANEU, GLU1P, HBSAG, HCV1, HIV, ABOGEL, ABSGEL, VARIS, RUBIS, RPR #### [place] [address] Hgb 8.1 G/dL Low 12.0-16.0 [facility] ([place]) Comment on above: Performed By: #### C BC, ADIFF, ANEU, GLU1P, HBSAG, HCV1, HIV, ABOGEL, ABSGEL, VARIS, RUBIS, RPR #### [place] [address] RPRon 07-08-2021 Reagin Ab RPR Ql (S) Non-Reactive Normal Non-Reactive [facility] ([place]) Comment on above: Result Comment: The RPR test is a non-treponemal assay useful as an aid in the diagnosis of primary and secondary syphilis. It converts to positive generally within 2 weeks after the appearance of a lesion. This test is also useful for monitoring response to antibiotic therapy. A positive RPR screening test will be followed by the FTA ABS test. False positive RPR tests may occur in 1) patients with underlying autoimmune disorders, 2) elderly patients, 3) , and 4) other conditions with abnormal serum globulins. Performed By: #### C BC, ADIFF, ANEU, GLU1P, HBSAG, HCV1, HIV, ABOGEL, ABSGEL, VARIS, RUBIS, RPR #### [place] [address] LABORATORYOrdered By: Adam Chavez on 07-07-2021 ABO and Rh group Nom (Bld) Blood group O Rh(D) positive Invalid Interpretation Code AH BB Auto SS Blood group antibody screen Ql NEG (07/07/21 10:30 PM) Invalid Interpretation Code AH BB Auto SS LABORATORYOrdered By: SYSTEM SYSTEM on 07-07-2021 Basophils (Bld) [#/Vol] 0.00 103/mcL Invalid Interpretation Code 0.00 - 0.27 10^3/mcL AH Remisol SS Basophils/100 WBC (Bld) 0.6 % Invalid Interpretation Code 0.0 - 2.5 % AH Remisol SS Eosinophils (Bld) [#/Vol] 0.10 103/mcL Invalid Interpretation Code 0.00 - 0.65 10^3/mcL AH Remisol SS Eosinophils/100 WBC (Bld) 1.1 % Invalid Interpretation Code 0.0 - 6.0 % AH Remisol SS Erythrocyte distribution width (RBC) [Ratio] 16.3 % Invalid Interpretation Code 11.5 - 15.5 % AH Remisol SS Lymphocytes (Bld) [#/Vol] 2.00 103/mcL Invalid Interpretation Code 0.90 - 4.32 10^3/mcL AH Remisol SS Lymphocytes/100 WBC (Bld) 31.7 % Invalid Interpretation Code 20.0 - 40.0 % AH Remisol SS MCH (RBC) [Entitic mass] 23.1 pg Invalid Interpretation Code 27.0 - 33.0 pg AH Remisol SS MCHC (RBC) [Mass/Vol] 32.4 G/dL Invalid Interpretation Code 32.0 - 36.0 G/dL AH Remisol SS MCV (RBC) [Entitic vol] 71.3 fL Invalid Interpretation Code 80.0 - 99.0 fL AH Remisol SS Monocytes (Bld) [#/Vol] 0.70 103/mcL Invalid Interpretation Code 0.09 - 1.40 10^3/mcL AH Remisol SS Monocytes/100 WBC (Bld) 11.5 % Invalid Interpretation Code 2.0 - 13.0 % AH Remisol SS Neutrophils (Bld) [#/Vol] 3.50 103/mcL Invalid Interpretation Code 2.25 - 8.10 10^3/mcL AH Remisol SS Neutrophils/100 WBC (Bld) 55.1 % Invalid Interpretation Code 50.0 - 75.0 % AH Remisol SS Platelet mean volume (Bld) [Entitic vol] 10.4 fL Invalid Interpretation Code 6.6 - 10.5 fL AH Remisol SS Platelets (Bld) [#/Vol] 219 103/mcL Invalid Interpretation Code 150 - 450 10^3/mcL AH Remisol SS RBC (Bld) [#/Vol] 4.50 106/mcL Invalid Interpretation Code 4.10 - 5.30 10^6/mcL AH Remisol SS WBC (Bld) [#/Vol] 6.40 103/mcL Invalid Interpretation Code 4.50 - 10.80 10^3/mcL AH Remisol SS LABORATORYOrdered By: Alberta lozano on 07-07-2021 Reagin Ab RPR Ql (S) Non-Reactive (07/07/21 10:30 PM) Invalid Interpretation Code Non-Reactive AH Man Viro/Sero SS FTAon 07-03-2021 FTA-ABS Non-Reactive Normal Non-Reactive [facility] ([place]) Comment on above: Result Comment: The simultaneous presence of a REACTIVE RPR and a NONREACTIVE FTA indicates a biologically false positive RPR. A biologically false RPR may occur with the following conditions: 1) autoimmune disease, 2) advanced age, 3) , and 4) conditions with abnormal serum proteins. Performed By: #### C BC, ADIFF, ANEU, GLU1P, HBSAG, HCV1, HIV, ABOGEL, ABSGEL, VARIS, RUBIS, RPR #### [place] [address] CTPCRon 07-02-2021 C. trachomatis Interp Normal See CT Interp N [facility] ([place]) Comment on above: Result Comment: C. t rachomatis DNA not detected. Specimen is presumptive negative for C. trachomatis. A negative result does not preclude C. trachomatis infection because results depend on adequate specimen collection, absence of inhibitors, and sufficient DNA to be detected. See CT Interp N Performed By: #### C BC, ADIFF, ANEU, GLU1P, HBSAG, HCV1, HIV, ABOGEL, ABSGEL, VARIS, RUBIS, RPR #### [address] [address] C.trachomatis PCR Negative Normal Negative [facility] ([place]) Comment on above: Result Comment: Mole cular (PCR) assay performed on the [employer] 4800 system. Performed By: #### C BC, ADIFF, ANEU, GLU1P, HBSAG, HCV1, HIV, ABOGEL, ABSGEL, VARIS, RUBIS, RPR #### [address] [address] Chlam Source Cervix Normal [facility] ([place]) Comment on above: Performed By: #### C BC, ADIFF, ANEU, GLU1P, HBSAG, HCV1, HIV, ABOGEL, ABSGEL, VARIS, RUBIS, RPR #### [address] [address] [id number] 07-02-2021 GC PCR Source Cervix Normal [facility] ([place]) Comment on above: Performed By: #### C BC, ADIFF, ANEU, GLU1P, HBSAG, HCV1, HIV, ABOGEL, ABSGEL, VARIS, RUBIS, RPR #### [address] [address] N. gonorrhoeae (PCR) Negative Normal Negative [facility] ([place]) Comment on above: Result Comment: Mole cular (PCR) assay performed on the [employer] 4800 System. Performed By: #### C BC, ADIFF, ANEU, GLU1P, HBSAG, HCV1, HIV, ABOGEL, ABSGEL, VARIS, RUBIS, RPR #### [address] [address] N. gonorrhoeae Interp Normal See NG Interp N [facility] ([place]) Comment on above: Result Comment: N. g onorrhoeae DNA not detected. Specimen is presumptive negative for N. gonorrhoeae. A negative result does not preclude Neisseria gonorrhoeae infection because results depend on adequate specimen collection, absence of inhibitors, and sufficient DNA to be detected. See NG Interp N Performed By: #### C BC, ADIFF, ANEU, GLU1P, HBSAG, HCV1, HIV, ABOGEL, ABSGEL, VARIS, RUBIS, RPR #### [address] [address] RPRon 07-01-2021 Reagin Ab RPR Ql (S) Reactive Abnormal Non-Reactive [facility] ([place]) Comment on above: Result Comment: The RPR test is a non-treponemal assay useful as an aid in the diagnosis of primary and secondary syphilis. It converts to positive generally within 2 weeks after the appearance of a lesion. This test is also useful for monitoring response to antibiotic therapy. A positive RPR screening test will be followed by the FTA ABS test. False positive RPR tests may occur in 1) patients with underlying autoimmune disorders, 2) elderly patients, 3) , and 4) other conditions with abnormal serum globulins. Performed By: #### C BC, ADIFF, ANEU, GLU1P, HBSAG, HCV1, HIV, ABOGEL, ABSGEL, VARIS, RUBIS, RPR #### [address] [address] RPRTon 07-01-2021 RPR Titer React Undiluted Abnormal Non-Reactive [facility] ([place]) Comment on above: Result Comment: The RPR test is a non-treponemal assay useful as an aid in the diagnosis of primary and secondary syphilis. It converts to positive generally within 2 weeks after the appearance of a lesion. This test is also useful for monitoring response to antibiotic therapy. A positive RPR screening test will be followed by the FTA ABS test. False positive RPR tests may occur in 1) patients with underlying autoimmune disorders, 2) elderly patients, 3) , and 4) other conditions with abnormal serum globulins. Performed By: #### C BC, ADIFF, ANEU, GLU1P, HBSAG, HCV1, HIV, ABOGEL, ABSGEL, VARIS, RUBIS, RPR #### [address] [address] .Auto Diffon 06-30-2021 Basophil, Absolute 0.10 10 3/mcL Normal 0.00-0.27 [facility] ([place]) Comment on above: Performed By: #### C BC, ADIFF, ANEU, GLU1P, HBSAG, HCV1, HIV, ABOGEL, ABSGEL, VARIS, RUBIS, RPR #### [address] [address] Basophils/100 WBC (Bld) 0.9 % Normal 0.0-2.5 [facility] ([place]) Comment on above: Performed By: #### C BC, ADIFF, ANEU, GLU1P, HBSAG, HCV1, HIV, ABOGEL, ABSGEL, VARIS, RUBIS, RPR #### [address] [address] Eosinophil, Absolute 0.10 10 3/mcL Normal 0.00-0.65 [facility] ([place]) Comment on above: Performed By: #### C BC, ADIFF, ANEU, GLU1P, HBSAG, HCV1, HIV, ABOGEL, ABSGEL, VARIS, RUBIS, RPR #### [address] [address] Eosinophils/100 WBC (Bld) 1.4 % Normal 0.0-6.0 [facility] ([place]) Comment on above: Performed By: #### C BC, ADIFF, ANEU, GLU1P, HBSAG, HCV1, HIV, ABOGEL, ABSGEL, VARIS, RUBIS, RPR #### [address] [address] Lymphocyte, Absolute 1.60 10 3/mcL Normal 0.90-4.32 [facility] ([place]) Comment on above: Performed By: #### C BC, ADIFF, ANEU, GLU1P, HBSAG, HCV1, HIV, ABOGEL, ABSGEL, VARIS, RUBIS, RPR #### [address] [address] Lymphocytes/100 WBC (Bld) 28.5 % Normal 20.0-40.0 [facility] ([place]) Comment on above: Performed By: #### C BC, ADIFF, ANEU, GLU1P, HBSAG, HCV1, HIV, ABOGEL, ABSGEL, VARIS, RUBIS, RPR #### [address] [address] Monocyte, Absolute 0.80 10 3/mcL Normal 0.09-1.40 [facility] ([place]) Comment on above: Performed By: #### C BC, ADIFF, ANEU, GLU1P, HBSAG, HCV1, HIV, ABOGEL, ABSGEL, VARIS, RUBIS, RPR #### [address] [address] Monocytes/100 WBC (Bld) 13.5 % High 2.0-13.0 [facility] ([place]) Comment on above: Performed By: #### C BC, ADIFF, ANEU, GLU1P, HBSAG, HCV1, HIV, ABOGEL, ABSGEL, VARIS, RUBIS, RPR #### [address] [address] Neutrophils/100 WBC (Bld) 55.7 % Normal 50.0-75.0 [facility] ([place]) Comment on above: Performed By: #### C BC, ADIFF, ANEU, GLU1P, HBSAG, HCV1, HIV, ABOGEL, ABSGEL, VARIS, RUBIS, RPR #### [address] [address] .NEUABSon 06-30-2021 Neutrophil, Absolute 3.10 10 3/mcL Normal 2.25-8.10 [facility] ([place]) Comment on above: Performed By: #### C BC, ADIFF, ANEU, GLU1P, HBSAG, HCV1, HIV, ABOGEL, ABSGEL, VARIS, RUBIS, RPR #### [address] [address] CBCon 06-30-2021 Erythrocyte distribution width (RBC) [Ratio] 15.5 % Normal 11.5-15.5 [facility] ([place]) Comment on above: Performed By: #### C BC, ADIFF, ANEU, GLU1P, HBSAG, HCV1, HIV, ABOGEL, ABSGEL, VARIS, RUBIS, RPR #### [place] [address] Hematocrit (Bld) [Volume fraction] 31.8 % Low 34.0-46.0 [facility] ([place]) Comment on above: Performed By: #### C BC, ADIFF, ANEU, GLU1P, HBSAG, HCV1, HIV, ABOGEL, ABSGEL, VARIS, RUBIS, RPR #### [place] [address] Hgb 10.3 G/dL Low 12.0-16.0 [facility] ([place]) Comment on above: Performed By: #### C BC, ADIFF, ANEU, GLU1P, HBSAG, HCV1, HIV, ABOGEL, ABSGEL, VARIS, RUBIS, RPR #### [place] [address] MCH (RBC) [Entitic mass] 23.8 pg Low 27.0-33.0 [facility] ([place]) Comment on above: Performed By: #### C BC, ADIFF, ANEU, GLU1P, HBSAG, HCV1, HIV, ABOGEL, ABSGEL, VARIS, RUBIS, RPR #### [place] [address] MCHC 32.4 G/dL Normal 32.0-36.0 [facility] ([place]) Comment on above: Performed By: #### C BC, ADIFF, ANEU, GLU1P, HBSAG, HCV1, HIV, ABOGEL, ABSGEL, VARIS, RUBIS, RPR #### [place] [address] MCV (RBC) [Entitic vol] 73.2 fL Low 80.0-99.0 [facility] ([place]) Comment on above: Performed By: #### C BC, ADIFF, ANEU, GLU1P, HBSAG, HCV1, HIV, ABOGEL, ABSGEL, VARIS, RUBIS, RPR #### [place] [address] Platelet 224 10 3/mcL Normal 150-450 [facility] ([place]) Comment on above: Performed By: #### C BC, ADIFF, ANEU, GLU1P, HBSAG, HCV1, HIV, ABOGEL, ABSGEL, VARIS, RUBIS, RPR #### [address] [address] Platelet mean volume (Bld) [Entitic vol] 11.3 fL High 6.6-10.5 [facility] ([place]) Comment on above: Performed By: #### C BC, ADIFF, ANEU, GLU1P, HBSAG, HCV1, HIV, ABOGEL, ABSGEL, VARIS, RUBIS, RPR #### [place] [address] RBC 4.35 10 6/mcL Normal 4.10-5.30 [facility] ([place]) Comment on above: Performed By: #### C BC, ADIFF, ANEU, GLU1P, HBSAG, HCV1, HIV, ABOGEL, ABSGEL, VARIS, RUBIS, RPR #### [place] [address] WBC 5.60 10 3/mcL Normal 4.50-10.80 [facility] ([place]) Comment on above: Performed By: #### C BC, ADIFF, ANEU, GLU1P, HBSAG, HCV1, HIV, ABOGEL, ABSGEL, VARIS, RUBIS, RPR #### [address] [address] HIVon 06-30-2021 HIV 1/2 Ab Normal Non-Reactive [facility] ([place]) Comment on above: Result Comment: Non- Reactive Specimen is negative for anti-HIV-1 and anti-HIV-2. Performed By: #### C BC, ADIFF, ANEU, GLU1P, HBSAG, HCV1, HIV, ABOGEL, ABSGEL, VARIS, RUBIS, RPR #### [address] [address] GL1on 06-01-2021 Glucose [Mass/Vol] 146 mg/dL High 70-139 [facility] ([place]) Comment on above: Performed By: #### C BC, ADIFF, ANEU, GLU1P, HBSAG, HCV1, HIV, ABOGEL, ABSGEL, VARIS, RUBIS, RPR #### [address] [address] GL2on 06-01-2021 Glucose [Mass/Vol] 119 mg/dL Normal [facility] ([place]) Comment on above: Performed By: #### C BC, ADIFF, ANEU, GLU1P, HBSAG, HCV1, HIV, ABOGEL, ABSGEL, VARIS, RUBIS, RPR #### [address] [address] GL3on 06-01-2021 Glucose [Mass/Vol] 111 mg/dL Normal [facility] ([place]) Comment on above: Performed By: #### C BC, ADIFF, ANEU, GLU1P, HBSAG, HCV1, HIV, ABOGEL, ABSGEL, VARIS, RUBIS, RPR #### [address] [address] GLFon 06-01-2021 Glucose [Mass/Vol] 78 mg/dL Normal 70-110 [facility] ([place]) Comment on above: Performed By: #### C BC, ADIFF, ANEU, GLU1P, HBSAG, HCV1, HIV, ABOGEL, ABSGEL, VARIS, RUBIS, RPR #### [place] [id number] [facility] Cytology Reporton 2020 [facility] Cytology Report . Pathology Reports Accession: Collected Date/Time: Received Date/Time: Pathologist: [id number] 05/02/2021 11:59 EDT 05/02/2021 18:00 EDT [facility] Cytology Report SPECIMEN: Specimen Description: Liquid Prep w/ HPV Specimen: Cervical/Endocervical Screening or Diagnostic: Screening RELEVANT HISTORY: LMP: SPECIMEN ADEQUACY: SATISFACTORY FOR EVALUATION ENDOCERVICAL/TRANSFORMATIONA L ZONE COMPONENT ABSENT/INSUFFICIENT INTERPRETATION/RESULTS: NEGATIVE FOR INTRAEPITHELIAL LESION OR MALIGNANCY HIGH RISK HPV TESTING: High Risk HPV Typing: Negative HPV Types 16, 18, 31, 33, 35, 39, 45, 51, 52, 56, 58, 59, 66 and 68 DNA were undetectable or below the pre-set threshold. The fozia High-Risk HPV DNA Test is not intended for use as a screening device for Pap normal women under age 30 and is not intended to substitute for regular Pap screening. The fozia High-Risk HPV DNA Test is designed to augment existing methods for the detection of cervical disease and should be used in conjunction with clinical information derived from other diagnostic and screening tests, physical examinations and full medical history in accordance with appropriate patient management procedures. NOTE: A negative result does not preclude the presence of HPV infection because results depend on adequate specimen collection, absence of inhibitors and sufficient DNA to be detected. COMMENT: This Pap Test was successfully processed and evaluated with the assistance of the mymission2 ThinPrep Test Imaging System. Electronically Signed by Pathology report verified by [facility] Screened by: [place] Electronically signed by Yesika MERCADO ([place]) Sign-Out Date: 05/17/2021 10:22 Performing Lab: [address] Disclaimer The Pap test is a screening test for cervical cancer. As evidenced by published data, it is subject to both inherent false negative and false positive results. Your patient's results should be interpreted in context with pertinent clinical history including gynecological examination. Normal [facility] ([place]) Comment on above: Performed By: #### C BC, ADIFF, ANEU, GLU1P, HBSAG, HCV1, HIV, ABOGEL, ABSGEL, VARIS, RUBIS, RPR #### [place] [id number] HPVon 05-10-2021 HPV Interp Normal See Interp HPVN [facility] ([place]) Comment on above: Order Comment: Order placed by AP_HPV_ORDER rule from [id number] Result Comment: High Risk HPV Typing: NEGATIVE HPV types 16, 18, 31, 33, 35, 39, 45, 51, 52, 56, 58, 59, 66 and 68 DNA were undetectable or below the pre-set threshold. The fozia High-Risk HPV DNA Test is not intended for use as a screening device for Pap normal women under age 30 and is not intended to substitute for regular Pap screening. The fozia High-Risk HPV DNA Test is designed to augment existing methods for the detection of cervical disease and should be used in conjunction with clinical information derived from other diagnostic and screening tests, physical examinations and full medical history in accordance with appropriate patient management procedures. NOTE: A negative result does not preclude the presence of HPV infection because results depend on adequate specimen collection, absence of inhibitors and sufficient DNA to be detected. See Interp HPVN Performed By: #### C BC, ADIFF, ANEU, GLU1P, HBSAG, HCV1, HIV, ABOGEL, ABSGEL, VARIS, RUBIS, RPR #### [address] [address] HPV Source Cervix Normal [facility] ([place]) Comment on above: Order Comment: Order placed by AP_HPV_ORDER rule from [id number] Performed By: #### C BC, ADIFF, ANEU, GLU1P, HBSAG, HCV1, HIV, ABOGEL, ABSGEL, VARIS, RUBIS, RPR #### [address] [address] ABO/Rh (Gel)on 05-03-2021 ABO/Rh Interp Positive Invalid Interpretation Code [facility] ([place]) Comment on above: Performed By: #### C BC, ADIFF, ANEU, GLU1P, HBSAG, HCV1, HIV, ABOGEL, ABSGEL, VARIS, RUBIS, RPR #### [address] [address] ABS (Gel)on 05-03-2021 ABSC Interp (Gel) Negative Normal [facility] ([place]) Comment on above: Performed By: #### C BC, ADIFF, ANEU, GLU1P, HBSAG, HCV1, HIV, ABOGEL, ABSGEL, VARIS, RUBIS, RPR #### [address] [address] CTPCRon 05-03-2021 C. trachomatis Interp Normal See CT Interp N [facility] ([place]) Comment on above: Result Comment: C. t rachomatis DNA not detected. Specimen is presumptive negative for C. trachomatis. A negative result does not preclude C. trachomatis infection because results depend on adequate specimen collection, absence of inhibitors, and sufficient DNA to be detected. See CT Interp N Performed By: #### C BC, ADIFF, ANEU, GLU1P, HBSAG, HCV1, HIV, ABOGEL, ABSGEL, VARIS, RUBIS, RPR #### [address] [address] C.trachomatis PCR Negative Normal Negative [facility] ([place]) Comment on above: Result Comment: Iris holguinar (PCR) assay performed on the [employer] 4800 system. Performed By: #### C BC, ADIFF, ANEU, GLU1P, HBSAG, HCV1, HIV, ABOGEL, ABSGEL, VARIS, RUBIS, RPR #### [place] [id number] Chlam Source Cervix Normal [facility] ([place]) Comment on above: Performed By: #### C BC, ADIFF, ANEU, GLU1P, HBSAG, HCV1, HIV, ABOGEL, ABSGEL, VARIS, RUBIS, RPR #### [place] [address] [id number] 05-03-2021 GC PCR Source Cervix Normal [facility] ([place]) Comment on above: Performed By: #### C BC, ADIFF, ANEU, GLU1P, HBSAG, HCV1, HIV, ABOGEL, ABSGEL, VARIS, RUBIS, RPR #### [place] [id number] N. gonorrhoeae (PCR) Negative Normal Negative [facility] ([place]) Comment on above: Result Comment: Iris cular (PCR) assay performed on the [employer] 4800 System. Performed By: #### C BC, ADIFF, ANEU, GLU1P, HBSAG, HCV1, HIV, ABOGEL, ABSGEL, VARIS, RUBIS, RPR #### [place] [id number] N. gonorrhoeae Interp Normal See NG Interp N [facility] ([place]) Comment on above: Result Comment: N. g onorrhoeae DNA not detected. Specimen is presumptive negative for N. gonorrhoeae. A negative result does not preclude Neisseria gonorrhoeae infection because results depend on adequate specimen collection, absence of inhibitors, and sufficient DNA to be detected. See NG Interp N Performed By: #### C BC, ADIFF, ANEU, GLU1P, HBSAG, HCV1, HIV, ABOGEL, ABSGEL, VARIS, RUBIS, RPR #### [address] [address] RPRon 05-03-2021 Reagin Ab RPR Ql (S) Non-Reactive Normal Non-Reactive [facility] ([place]) Comment on above: Result Comment: The RPR test is a non-treponemal assay useful as an aid in the diagnosis of primary and secondary syphilis. It converts to positive generally within 2 weeks after the appearance of a lesion. This test is also useful for monitoring response to antibiotic therapy. A positive RPR screening test will be followed by the FTA ABS test. False positive RPR tests may occur in 1) patients with underlying autoimmune disorders, 2) elderly patients, 3) , and 4) other conditions with abnormal serum globulins. Performed By: #### C BC, ADIFF, ANEU, GLU1P, HBSAG, HCV1, HIV, ABOGEL, ABSGEL, VARIS, RUBIS, RPR #### [address] [address] RUBISon 05-03-[address] Positive Normal Positive [facility] ([place]) Comment on above: Result Comment: This immune status assay detects IgM and/or IgG antibody to Rubella. Interpret results in conjunction with clinical history. POS: Antibody detected; exposure at undetermined recent or distant time. If clinically indicated, order Rubella IGM to rule out recent infection. NEG: No antibody detected. Performed By: #### C BC, ADIFF, ANEU, GLU1P, HBSAG, HCV1, HIV, ABOGEL, ABSGEL, VARIS, RUBIS, RPR #### [address] [address] VARISon 05-03-[address] Positive Normal [facility] ([place]) Comment on above: Result Comment: This immune status assay detects antibody to Varicella Zoster virus. Interpret results in conjunction with clinical history. Positive: Reactive for antibodies to Varicella IgG. If clinically indicated, order Varicella IGM to rule out recent infection. Equivocal: Equivocal for antibodies to Varicella IgG. Suggest repeat testing in 10-14 days. Negative: Non-reactive for antibodies to Varicella IgG. Performed By: #### C BC, ADIFF, ANEU, GLU1P, HBSAG, HCV1, HIV, ABOGEL, ABSGEL, VARIS, RUBIS, RPR #### [address] [address] .Auto Diffon 05-02-2021 Basophil, Absolute 0.10 10 3/mcL Normal 0.00-0.27 [facility] ([place]) Comment on above: Performed By: #### C BC, ADIFF, ANEU, GLU1P, HBSAG, HCV1, HIV, ABOGEL, ABSGEL, VARIS, RUBIS, RPR #### [address] [address] Basophils/100 WBC (Bld) 0.9 % Normal 0.0-2.5 [facility] ([place]) Comment on above: Performed By: #### C BC, ADIFF, ANEU, GLU1P, HBSAG, HCV1, HIV, ABOGEL, ABSGEL, VARIS, RUBIS, RPR #### [address] [address] Eosinophil, Absolute 0.10 10 3/mcL Normal 0.00-0.65 [facility] ([place]) Comment on above: Performed By: #### C BC, ADIFF, ANEU, GLU1P, HBSAG, HCV1, HIV, ABOGEL, ABSGEL, VARIS, RUBIS, RPR #### [address] [address] Eosinophils/100 WBC (Bld) 1.5 % Normal 0.0-6.0 [facility] ([place]) Comment on above: Performed By: #### C BC, ADIFF, ANEU, GLU1P, HBSAG, HCV1, HIV, ABOGEL, ABSGEL, VARIS, RUBIS, RPR #### [address] [address] Lymphocyte, Absolute 1.30 10 3/mcL Normal 0.90-4.32 [facility] ([place]) Comment on above: Performed By: #### C BC, ADIFF, ANEU, GLU1P, HBSAG, HCV1, HIV, ABOGEL, ABSGEL, VARIS, RUBIS, RPR #### [address] [address] Lymphocytes/100 WBC (Bld) 22.8 % Normal 20.0-40.0 [facility] ([place]) Comment on above: Performed By: #### C BC, ADIFF, ANEU, GLU1P, HBSAG, HCV1, HIV, ABOGEL, ABSGEL, VARIS, RUBIS, RPR #### [address] [address] Monocyte, Absolute 0.40 10 3/mcL Normal 0.09-1.40 [facility] ([place]) Comment on above: Performed By: #### C BC, ADIFF, ANEU, GLU1P, HBSAG, HCV1, HIV, ABOGEL, ABSGEL, VARIS, RUBIS, RPR #### [address] [address] Monocytes/100 WBC (Bld) 6.6 % Normal 2.0-13.0 [facility] ([place]) Comment on above: Performed By: #### C BC, ADIFF, ANEU, GLU1P, HBSAG, HCV1, HIV, ABOGEL, ABSGEL, VARIS, RUBIS, RPR #### [address] [address] Neutrophils/100 WBC (Bld) 68.2 % Normal 50.0-75.0 [facility] ([place]) Comment on above: Performed By: #### C BC, ADIFF, ANEU, GLU1P, HBSAG, HCV1, HIV, ABOGEL, ABSGEL, VARIS, RUBIS, RPR #### [address] [address] .NEUABSon 05-02-2021 Neutrophil, Absolute 3.80 10 3/mcL Normal 2.25-8.10 [facility] ([place]) Comment on above: Performed By: #### C BC, ADIFF, ANEU, GLU1P, HBSAG, HCV1, HIV, ABOGEL, ABSGEL, VARIS, RUBIS, RPR #### [address] [address] CBCon 05-02-2021 Erythrocyte distribution width (RBC) [Ratio] 14.1 % Normal 11.5-15.5 [facility] ([place]) Comment on above: Performed By: #### C BC, ADIFF, ANEU, GLU1P, HBSAG, HCV1, HIV, ABOGEL, ABSGEL, VARIS, RUBIS, RPR #### [place] [address] Hematocrit (Bld) [Volume fraction] 32.3 % Low 34.0-46.0 [facility] ([place]) Comment on above: Performed By: #### C BC, ADIFF, ANEU, GLU1P, HBSAG, HCV1, HIV, ABOGEL, ABSGEL, VARIS, RUBIS, RPR #### [place] [id number] Hgb 10.7 G/dL Low 12.0-16.0 [facility] ([place]) Comment on above: Performed By: #### C BC, ADIFF, ANEU, GLU1P, HBSAG, HCV1, HIV, ABOGEL, ABSGEL, VARIS, RUBIS, RPR #### [place] [address] MCH (RBC) [Entitic mass] 26.5 pg Low 27.0-33.0 [facility] ([place]) Comment on above: Performed By: #### C BC, ADIFF, ANEU, GLU1P, HBSAG, HCV1, HIV, ABOGEL, ABSGEL, VARIS, RUBIS, RPR #### [place] [id number] MCHC 33.1 G/dL Normal 32.0-36.0 [facility] ([place]) Comment on above: Performed By: #### C BC, ADIFF, ANEU, GLU1P, HBSAG, HCV1, HIV, ABOGEL, ABSGEL, VARIS, RUBIS, RPR #### [place] [address] MCV (RBC) [Entitic vol] 80.2 fL Normal 80.0-99.0 [facility] ([place]) Comment on above: Performed By: #### C BC, ADIFF, ANEU, GLU1P, HBSAG, HCV1, HIV, ABOGEL, ABSGEL, VARIS, RUBIS, RPR #### [place] [address] Platelet 278 10 3/mcL Normal 150-450 [facility] ([place]) Comment on above: Performed By: #### C BC, ADIFF, ANEU, GLU1P, HBSAG, HCV1, HIV, ABOGEL, ABSGEL, VARIS, RUBIS, RPR #### [place] [address] Platelet mean volume (Bld) [Entitic vol] 10.4 fL Normal 6.6-10.5 [facility] ([place]) Comment on above: Performed By: #### C BC, ADIFF, ANEU, GLU1P, HBSAG, HCV1, HIV, ABOGEL, ABSGEL, VARIS, RUBIS, RPR #### [place] [address] RBC 4.03 10 6/mcL Low 4.10-5.30 [facility] ([place]) Comment on above: Performed By: #### C BC, ADIFF, ANEU, GLU1P, HBSAG, HCV1, HIV, ABOGEL, ABSGEL, VARIS, RUBIS, RPR #### [place] [address] WBC 5.60 10 3/mcL Normal 4.50-10.80 [facility] ([place]) Comment on above: Performed By: #### C BC, ADIFF, ANEU, GLU1P, HBSAG, HCV1, HIV, ABOGEL, ABSGEL, VARIS, RUBIS, RPR #### [place] [address] BMK3Lye 05-02-2021 Glucose [Mass/Vol] 168 mg/dL High 70-139 [facility] ([place]) Comment on above: Performed By: #### C BC, ADIFF, ANEU, GLU1P, HBSAG, HCV1, HIV, ABOGEL, ABSGEL, VARIS, RUBIS, RPR #### [place] [address] HBSAGon 05-02-2021 Hep B Surf Ag Non-Reactive Normal Non-Reactive [facility] ([place]) Comment on above: Performed By: #### C BC, ADIFF, ANEU, GLU1P, HBSAG, HCV1, HIV, ABOGEL, ABSGEL, VARIS, RUBIS, RPR #### [place] [address] HCVon 05-02-2021 Hep C Ab Non-Reactive Normal Non-Reactive [facility] ([place]) Comment on above: Performed By: #### C BC, ADIFF, ANEU, GLU1P, HBSAG, HCV1, HIV, ABOGEL, ABSGEL, VARIS, RUBIS, RPR #### [place] [address] Hep C Ab Int Normal [facility] ([place]) Comment on above: Result Comment: Nonr eactive: Samples with a value < 0.80 are considered nonreactive (negative) for antibodies to HCV. A negative test result does not exclude the possibility of exposure to or infection with HCV. HCV antibodies may be undetectable in some stages of the infection and in some clinical conditions. See Interp Performed By: #### C BC, ADIFF, ANEU, GLU1P, HBSAG, HCV1, HIV, ABOGEL, ABSGEL, VARIS, RUBIS, RPR #### [place] [address] HIVon 05-02-2021 HIV 1/2 Ab Normal Non-Reactive [facility] ([place]) Comment on above: Result Comment: Non- Reactive Specimen is negative for anti-HIV-1 and anti-HIV-2. Performed By: #### C BC, ADIFF, ANEU, GLU1P, HBSAG, HCV1, HIV, ABOGEL, ABSGEL, VARIS, RUBIS, RPR #### [place] [address] UAon 05-02-2021 Color (U) Yellow Normal [facility] ([place]) Comment on above: Performed By: #### U A #### [place] [address] Glucose (U) [Mass/Vol] Negative Normal Negative [facility] ([place]) Comment on above: Performed By: #### U A #### [place] [address] Ketones Ql (U) Negative Normal Neg-Trace [facility] ([place]) Comment on above: Performed By: #### U A #### [place] [address] UA Appear Clear Normal Clear [facility] ([place]) Comment on above: Performed By: #### U A #### [address] [address] UA Blood Negative Normal Neg-Trace [facility] ([place]) Comment on above: Performed By: #### U A #### [place] [address] UA Leuk Est Negative Normal Negative [facility] ([place]) Comment on above: Performed By: #### U A #### [place] [address] UA Nitrite Negative Normal Negative [facility] ([place]) Comment on above: Performed By: #### U A #### [place] [address] UA pH 7.5 Normal 5.0 - 8.0 [facility] ([place]) Comment on above: Performed By: #### U A #### [place] [address] UA Protein Negative Normal Negative [facility] ([place]) Comment on above: Performed By: #### U A #### [place] [address] UA Spec Grav 1.010 Normal 1.006-1.029 [facility] ([place]) Comment on above: Performed By: #### U A #### [place] [address] UA Specimen Type Not Given Normal [facility] ([place]) Comment on above: Performed By: #### U A #### [place] [address] UA Urobilinogen 1.0 E.U./dL Normal 0.2-1.0 [facility] ([place]) Comment on above: Performed By: #### U A #### [place] [address] Urobilinogen (U) [Mass/Vol] Negative Normal Neg-Trace [facility] ([place]) Comment on above: Performed By: #### U A #### [place] [address] BMPon 07-06-2018 Anion gap 3 molar conc 9 mmol/L Normal 5-16 [facility] Comment on above: Order Comment: Campu s: M Performed By: #### L 500.46237, L500.50544, L500.43153, L500.36023 ####[facility] [id number] [place], [place] [address]Qq# [phone] Calcium mass conc 8.8 mg/dL Normal 8.5-10.1 [facility] Comment on above: Order Comment: Campu s: M Performed By: #### L 500.68917, L500.78934, L500.30648, L500.33798 ####[facility] [id number] [place], [place] [address]Hl# [phone] Chloride molar conc 106 mmol/L Normal 98-107 [facility] Comment on above: Order Comment: Campu s: M Performed By: #### L 500.54448, L500.23874, L500.61566, L500.96908 ####[facility] OYSHERMFDI76[address] [place], [place] [address]Yy# [phone] CO2 molar conc 24 mmol/L Normal 21-32 [facility] Comment on above: Order Comment: Campu s: M Performed By: #### L 500.99359, L500.21128, L500.41711, L500.55366 ####[facility] LPVAEHBBNL6393 [place], [place] [address]Zz# [phone] Creatinine mass conc 0.470 mg/dL Low 0.510-0.950 [facility] Comment on above: Order Comment: Campu s: M Result Comment: Kaylene ents receiving either N-Acetylcysteine (NAC) orMetamizole prior to venipuncture, may have falsely depressedresults. Performed By: #### L 500.35807, L500.97193, L500.83641, L500.26929 ####[facility] [id number] [place], [place] [address]Kc# [phone] Glucose mass conc 130 mg/dL High 70-100 [facility] Comment on above: Order Comment: Campu s: M Result Comment: 70-1 00- Normal Fasting; 100-125 Impaired Fasting; greaterthan 126 on more than one result- Diabetes. ADA guidelines.Results may be falsely elevated after the administration ofSulfapyridine.Results may be falsely depressed after the administration ofSulfasalazine. Performed By: #### L 500.15904, L500.93175, L500.80583, L500.71007 ####[facility] UODVEWDWTE9615 [place], [place] [address]Kv# [phone] Potassium molar conc 3.9 mmol/L Normal 3.5-5.1 [facility] Comment on above: Order Comment: Campu s: M Performed By: #### L 500.41091, L500.26006, L500.60175, L500.95189 ####[facility] JIRBJBZGBO6757 [place], [place] [address]Fb# [phone] Sodium molar conc 139 mmol/L Normal 136-145 [facility] Comment on above: Order Comment: Campu s: M Performed By: #### L 500.02474, L500.69857, L500.06359, L500.58355 ####[facility] OPIAOPAKBI6511 [place], [place] [address]Vh# [phone] Urea nitrogen mass conc 10 mg/dL Normal 7-26 [facility] Comment on above: Order Comment: Campu s: M Performed By: #### L 500.05817, L500.29838, L500.15071, L500.77718 ####[facility] KLUJWXXALE5403 [place], [place] [address]Nd# [phone] Urea nitrogen/Creatinine mass ratio 21 mg/mg Normal 15-24 [facility] Comment on above: Order Comment: Campu s: M Performed By: #### L 500.77272, L500.99619, L500.71574, L500.95362 ####[facility] GHHZGHIYFB1069 [place], [place] [address]Sh# [phone] CBC W/DIFFon 12-09-2018 BASO ABS 0.00 K/CU MM Normal 0-0.2 [facility] Comment on above: Order Comment: Campu s: M Performed By: #### L 200.94469 ####[facility] [id number] [place], [place] [address]Dw# [phone] Basophils/100 WBC Auto (Bld) 0.2 % Normal 0-2 [facility] Comment on above: Order Comment: Campu s: M Performed By: #### L 200.84031 ####[facility] [id number] [place] [address]Lj# [phone] EOS ABS 0.00 K/CU MM Normal 0-0.5 [facility] Comment on above: Order Comment: Campu s: M Performed By: #### L 200.60360 ####[place] [address]Ph# [phone] Eosinophils/100 WBC Auto (Bld) 0.1 % Normal 0-5 [facility] Comment on above: Order Comment: Campu s: M Performed By: #### L 200.42536 ####[facility] [id number] [place] [address]Qi# [phone] Erythrocyte distribution width Auto Ratio (RBC) 19.9 % High 11-14.5 [facility] Comment on above: Order Comment: Campu s: M Performed By: #### L 200.34410 ####[facility] [id number] [place] [address]Gq# [phone] Hematocrit Auto Volume Fraction (Bld) 41.0 % Normal 35.0-47.0 [facility] Comment on above: Order Comment: Campu s: M Performed By: #### L 200.43838 ####[facility] BCMEQRSLAT[address] [place] [address]Zb# [phone] Hemoglobin mass conc (Bld) 13.5 g/dL Normal 11.5-15.5 [facility] Comment on above: Order Comment: Campu s: M Performed By: #### L 200.13568 ####[facility] [address] [place], [place] [address]Ph# [phone] IMMATR GRAN ABS 0.10 K/CU MM Normal Less than 2 [facility] Comment on above: Order Comment: Campu s: M Performed By: #### L 200.29635 ####[place] [address]Ph# [phone] IMMATURE GRAN % 0.4 % Normal Less than 2 [facility] Comment on above: Order Comment: Campu s: M Performed By: #### L 200.47571 ####[facility] JJTEYNSWBU[address] [place], [place] [address]Ph# [phone] Lymphocytes Auto #/vol (Bld) 1.20 K/CU MM Normal 0.9-4.4 [facility] Comment on above: Order Comment: Campu s: M Performed By: #### L 200.34588 ####[place] [address]Ph# [phone] Lymphocytes/100 WBC Auto (Bld) 9.2 % Low 20-40 [facility] Comment on above: Order Comment: Campu s: M Performed By: #### L 200.59850 ####[facility] [address]SS[address] [place], [place] [address]Ph# [phone] MCHC Auto mass conc (RBC) 32.9 g/dL Normal 32.0-36.0 [facility] Comment on above: Order Comment: Campu s: M Performed By: #### L 200.85946 ####[facility] PECUGE[address]YR[address] [place], [place] [address]Ph# [phone] MCV Auto Entitic volume (RBC) 82.5 fL Normal 80.0-99.0 [facility] Comment on above: Order Comment: Campu s: M Performed By: #### L 200.88059 ####[facility] [address]KZ[address] [place], [place] [address]Ph# [phone] MONO ABS 0.40 K/CU MM Normal 0.1-1.1 [facility] Comment on above: Order Comment: Campu s: M Performed By: #### L 200.86926 ####[facility] BNLLVZFRUW4137 [place], [place] [address]Tz# [phone] Monocytes/100 WBC Auto (Bld) 3.1 % Normal 2-10 [facility] Comment on above: Order Comment: Campu s: M Performed By: #### L 200.20631 ####[facility] [address]UAHSXED[address] [place], [place] [address]Ph# [phone] NEUTROPHIL ABS 11.20 K/CU MM High 2.0-8.3 [facility] Comment on above: Order Comment: Campu s: M Performed By: #### L 200.65788 ####[place] [address]Ph# [phone] Neutrophils/100 WBC Auto (Bld) 87.0 % High 45-75 [facility] Comment on above: Order Comment: Campu s: M Performed By: #### L 200.80014 ####[facility] HG[address]FFVIRV[address] [place], [place] [address]Ph# [phone] Nucleated RBC/100 WBC Ratio (Bld) 0.0 % Normal Less than 1 [facility] Comment on above: Order Comment: Campu s: M Performed By: #### L 200.32003 ####[facility] ODTJ[address]YEBS[address] [place], [place] [address]Ph# [phone] Platelet mean volume Auto Entitic volume (Bld) 10.0 fL Normal 9.4-12.4 [facility] Comment on above: Order Comment: Campu s: M Performed By: #### L 200.72850 ####[facility] [id number] [place] [address]Jy# [phone] Platelets Auto #/vol (Bld) 351 K/CU MM Normal 150-450 [facility] Comment on above: Order Comment: Campu s: M Performed By: #### L 200.24515 ####[facility] EGNUIJZPID4591 [place], [place] [address]Gf# [phone] RBC Auto #/vol (Bld) 4.97 M/CU MM Normal 3.90-5.30 [facility] Comment on above: Order Comment: Campu s: M Performed By: #### L 200.15370 ####[facility] YOOEBJOYKM6201 [place], [place] [address]Wh# [phone] WBC Auto #/vol (Bld) 12.9 K/CU MM High 4.5-11.0 [facility] Comment on above: Order Comment: Campu s: M Performed By: #### L 200.05469 ####[facility] QSJGYVMHVG4188 [place], [place] [address]Xg# [phone] CT ABD/PEL W IV CONTRAST ONL [facility] 07-06-2018 CT ABD/PEL W IV CONTRAST ONLY CT ABD/PEL W IV CONTRAST ONLYOrdering Physician: Judson Rubi, DO07/06/2018 6:20 AM - mbCT ABDOMEN AND PELVIS WITH INTRAVENOUS CONTRAST:Clinical Statement: Abdominal painComparison: NoneTECHNIQUE: Contiguous transaxial 3.75 mm slices were obtained throughthe abdomen and pelvis following the uneventful administration of 100cc of Isovue 300 IV contrast and and oral contrast.FINDINGS:The visualized lung bases are clear and the remaining thoracicstructures are unremarkable.The liver is normal in size, contour, and attenuation. There is nointra or extrahepatic biliary ductal dilatation. The gallbladder ispresent without stones.The spleen, pancreas, and adrenal glands are unremarkable.The kidneys enhance symmetrically and are unremarkable. There is nohydronephrosis or nephrolithiasis. The ureters are of normal courseand caliber. The urinary bladder is unremarkable.The visualized esophagus, stomach and small bowel are unremarkable.The appendix is borderline in diameter at 5 to 6 mm. There is fluidwithin the lumen of the appendix with mild wall enhancement. There areno significant periappendiceal inflammatory changes. No appendicolith.The colon is of normal course and caliber. There is no free fluid orfree air within the abdomen or pelvis.There are no pathologically enlarged lymph nodes.The uterus is anteverted. The ovaries are within normal limits.The visualized aorta and inferior vena cava are unremarkable.The abdominal wall is intact. The soft tissues are unremarkable. Thereare no suspicious osseous abnormalities.IMPRESSION:1. Borderline diameter of the appendix without periappendicealinflammatory changes. Clinical correlation for mild/early acuteappendicitis is recommended.2. No acute findings otherwise seen within the abdomen and pelvis.Initial interpretation provided by the on-call resident. A finalizedreport was sent to the emergency room at 10:22 AM on 07/06/2018. Dictated by Mill Manager: Favian Bianchi and Signed by: Billy Cosme MD---- Electronic Signature on File ----Signed By: Billy Cosme [email or web address]: 07/06/2018 7:10 AMSigned: 07/08/2018 6:55 PM Reported By: BILLY COSME M.D. Signed By: BILLY COSME M.D. [facility] 07-06-2018 EMERGENCY PHYSICIAN REPORT This is a preliminary report only, as the practitioner review and authentication has not occurred. [facility] ER PHYSICIA N ASSESSMENT ==RECORDS: FlexChartDataEvent Time: 07/06/2018 06:50Status: [facility] Center[facility] Soloriojohnathan [[id number]]Att ending [email or web address] / F / 1986Chart (V2b)Chart created at 07/06/2018 06:42 by Judson aWsserman closed at 07/06/2018 07:29Entry in Emergency Department at 07/06/2018 05:32Patient Name: Lety Falk Record Number:[id number] Date: 07/06/2018 06:42Entered Department at: 07/06/2018 05:32 Patient Seen at:07/06/2018 06:01 Historian:Family and Patient PCP: *None,.Chief Complaint:back pain that is causinf nausea andvomiting, started 7pm last night, pain is where shehad epidural placed when having baby, pain moves to heartTemperature: 97.5 F (36.4 C). Pulse: 63. Respiratory Rate:16. Blood-pressure:124/74. Oxygen Saturation: 99%.History of Present Illness:Patient is complaining epigastric abdominal pain with somenausea and vomiting started at 7 PM lastnight. The patient 6 weeks ago had a baby and she had anepidural. The patient does not really indicatesignificant back pain but does have some. The patient isnot febrile is nontoxic-appearing not activelyvomiting.HPI Elements: Onset: 7 PM last night ago; Timing: Gradual; [facility] PATIENT NAME: INDIGO FALK [facility] [address] MEDICAL REC #: [id number], [place] [address] DEPARTMENT REPORT EMERGENCY DEPARTMENT PHYSICIANLocation: Epigastric abdominal pain; Quality:Aching and Dull; Severity: maximum Mild, now Moderate;Context: At Rest; Exacerbated by: Palpation;Alleviated by: Nothing Associated symptoms: As above.Review of Systems. All other systems reviewed and negative..Past History, Medications, Allergies, Social History andFamily History reviewed in nurses note.Medications: Reviewed RN Note.acid control 150mg poAllergies: Reviewed RN NoteNo Known AllergiesSocial History: Reviewed RN Note. Tobacco: None. Alcohol:None. Recreational Drugs: None.Family History: Reviewed RN NotePhysical Examination: General: Alert; Nontoxic-appearingHEENT: Normal ENT inspection.Eyes: Lids Normal; . Oropharynx / Throat: NormalPharynx. Neck: No Lymphadenopathy, NoMeningismus and Supple Respiratory: No Resp Distress andNormal Breath Sounds Cardio-Vascular: No murmur,No rub and RRR Abdomen: Epigastric, Normal Bowel Sounds,Soft and Tender Back: No CVA tenderness, NoMidline Tenderness and Non-tender Extremity: No edema andNormal Equal pulses Neurological: Alert,Oriented X3 and No Gross Weakness Skin: No rash, NoPetechiae, Warm and Dry Psychological: Mood/AffectNormal and Normal Memory/JudgmentCBC W/DIFF, information as of 07/06/2018, 6:21 am82.5/ 13.5 /12.9* andgt;------andlt; 351/ 41.0 /N:87.0*BASO ABS: 0.00 K/Cu Mm; BASOPHIL %: 0.2 %; EOS ABS: 0.00K/Cu Mm; EOSINOPHIL %: 0.1 %; IMMATR GRAN ABS:0.10 K/Cu Mm; IMMATURE GRAN %: 0.4 %; LYMPH %: 9.2 %; LYMPH *[facility] PATIENT NAME: LETY FALK[address] [facility] [address] MEDICAL REC #: [id number] [address] DEPARTMENT REPORT EMERGENCY DEPARTMENT PHYSICIANABS: 1.20 K/Cu Mm; MCHC: 32.9 Gm/Dl; MONOABS: 0.40 K/Cu Mm; MONOCYTE %: 3.1 %; MPV: 10.0; NEUTROPHILABS: 11.20 K/Cu Mm; NRBC: 0.0 %; RBC: 4.97M/Cu Mm; RDW: 19.9BMP, information as of 07/06/2018, 6:44 am139 --------+--------+--------an anni; 130* Anion Gap = 93.9 BUN/CREA: 21; CALCIUM TOTAL: 8.8 Mg/DlLIVER, information as of 07/06/2018, 6:44 amA/G RATIO: 1.0; ALBUMIN: 4.1 Gm/Dl; ALK PHOS: 103 U/L; BILIDIRECT: 0.10 Mg/Dl; BILI TOTAL: 0.3 Mg/Dl;GLOBULIN: 4.1 Gm/Dl; SGOT (AST): 21 U/L; SGPT (ALT): 33Iu/L; TP: 8.2 Gm/DlLIPASE, information as of 07/06/2018, 6:44 amLIPASE: 147 U/LImaging Study Obtained:CT ABD/PEL W IV CONTRAST ONLYRadiology: Interpreted by me.No acute intra-abdominal pathology.Medical Decision MakingCT scan of the abdomen and pelvis is negative. White countis minimally elevated at 12.9. Hemoglobin is13.5. Liver profile is over no hyperbilirubinemia [id number] no pancreatitis. Gap is 9 electrolytes arenormal. Patient has acute gastritis will be treated withGrasshopper Carafate 1 Mylanta at home andPrevacid. She will be discharged she is in stable condition.Re-Evaluation:07:2 8: Symptoms Improved. Examination Improved.Additional Information: Discussed Results, Diagnosis andFollow-Up with Patient.Clinical Impression: [facility] PATIENT NAME: INDIGO FALK [facility] [address] Pina MEDICAL REC #: [id number], [place] [address] DEPARTMENT REPORT EMERGENCY DEPARTMENT PHYSICIAN1. Acute gastritisDisposition: Discharged *Home at 06 Jul 2018, 07:28.Condition: StableMSE completed.I was the primary ED attending.. at07:29: Discharge ReportEvent Time: 07/06/2018 07:30===DISCHARGE REPORT===: FlexChartDataEvent Time: 07/06/2018 06:50: Discharge ReportEvent Time: 07/06/2018 07:30Status: DraftInformaciS paciente para entender resultados de la prueba yel cuidado que usted recibiSen ER.NingSn resultado de la prueba de EKG o de la radiografS quele fuera dado por ER el doctor no es unresultado oficial. Estos resultados de la prueba serScomprobados con minuciosidad por un especialista.Le entrarS en contacto con si valdemar especialista encuentraalgo nuevo o diferente en woodward informe oficial.El cuidado que usted recibiSen ER fue dado sobre marilia basede la emergencia solamente. No considere estoser cuidado completo para woodward problema. No es posible tratartotalmente ningSn problema en marilia pablo ERvisita. Es muy importante que yunior doctores de la cartarecordativa le comprueban otra vez. Usted debeverlos para volver a inspeccionar y decirles de cualquierproblema. Vuelva a ER enseguida para losnuevos, de empeoramientos o que cambian sStomas. Siga por [facility] PATIENT NAME: DAVID,[id number] [address]ela Pina MEDICAL REC #: [id number], [place] [address] DEPARTMENT REPORT EMERGENCY DEPARTMENT PHYSICIANfavor todas las instrucciones dadas a usted.[facility]ido [facility], no podemos enviar marilia copia de susexpedientes a yunior doctores de la cartarecordativa a menos que usted o woodward doctor entre en contactocon el hospital y solicite marilia copia.Instructiones para ir a casa. Somos felices kirk podidoproveer de usted cuidado hoy. Repase por favorestas instrucciones cuando usted vuelve a casa paraentender mejor woodward diagnosis y el tratamiento y lasprecauciones posteriores necesarios relacionados con sucondiciS.NEED TRANSLATION: DIAGNOSIS:Acute gastritisNEED TRANSLATION: INSTRUCTIONS:Take Mylanta 30 cc 30 minutes before meals Take Carafateslurry 1 hour after meals and at bedtime to helpprotect your stomach and reflux disease. Start taking thePrevacid for the next 10 days to improve yourreflux. Return to emergency room if fever greater [id number].REFERRAL*Rosangela ([facility] Medicine) , Fecha: [phone],[id number], Telefono: , fax: Spa: not yet entered.2-3 daysMEDICATIONSLe hemos dado recetas de estos medicamentos que usted debeobtener y empezar a tania:Carafate 100 mg/mL oral suspension, count:420 mL, Dose =10ml, count:420 mL, 5 times daily, count:420 mLPrevacid 15 mg capsule,delayed release, count:10, Dose = [facility] PATIENT NAME: [id number] Rosangela Pina MEDICAL REC #: [id number], [place] [address] DEPARTMENT REPORT EMERGENCY DEPARTMENT PHYSICIAN1, count:10, 10 days, count:10, daily, count:10ZOFRAN ODT 4 mg Tab, Rapid Dissolve, count:8, Dose = 1,count:8, every 6 hours, count:8COMMENTS:No hay comentariosAUSENCIA JUSTIFICADA AL TRABAJO Y ESCUELAPor favor, excuse al paciente nombrado mandamp;#225;s arribade asistir al trabajo/escuela el dandamp;#237;christopher ann.My signature below indicates that I have received andunderstand the oral instructions regarding mymedical problem. I also acknowledge receipt of this writteninstruction sheet including a list of majortests and procedures ordered during my visit. I willarrange for follow-up care as indicated by theseinstructions and referrals.This signed original will be kept in my medical record.Your signature below indicates consent for Case Managementto contact [facility]care providers in [facility] to meet your ongoing healthcare needs. This willallow forcontinuity of care once you leave theEmergency Department. This exchange of informationwillinclude, but not be limited to, disclosure of yourpatient information and possible release of records. DEMOGRAPHICS ====Emergisoft Patient: LETY DAWNCASex: FDOB: 1985Age: 32 yrAccount No: [id number]: [id number] Date: 05:32 07/06/2018 [facility] PATIENT NAME: LETY FALK[address] [facility] MEDICAL REC #: [id number], [place] [address] DEPARTMENT REPORT EMERGENCY DEPARTMENT PHYSICIANAddress: [phone]: [place] [address] SQF ISTRATION =ED Number: [id number]: Marital Status: MFinancial Class: SELF TRIA GE Priori ty: 3 - UrgentComplaint: Abdominal PainComplaint: Lower Back PainStated Complaint: back pain that is causing nauseaand vomiting, started 7pm last night, pain is where she hadepidural placed when having baby, pain moves to heartArrival Date: 07/06/2018 05:32Triage Date: 07/06/2018 05:41Mode of Arrival: *Privately Owned VehicleTransfer From: * HomeW: NLanguage: EnglishTransport: Ambulatory/Walk In BED=== A06 In: 07/06/2018 05:50:25 07/06/201805:50:25 KASDA06 (Removed From) Out: 07/06/2018 05:52:25109/06/2017 05:52:25 AGA07 In: 07/06/2018 05:52:25 07/06/201805:52:25 AGA07 (Removed From) Out: 07/06/2018 08:09:42109/06/2017 08:09:42 TLY PROVI DERS DO Judson Rubi Provider Contact: 07/06/2018 [facility] PATIENT NAME: LETY FALK13[address] [facility] [address]ina MEDICAL REC #: [id number], [place] [address] DEPARTMENT REPORT EMERGENCY DEPARTMENT [id number]:01:36 CKEnd:Mike Ascencio Provider Contact: 07/06/2018 06:06:54SLVEnd: =======TRIAGE HISTORY A LLERGIESAllergic To: No Known Allergies 07/06/2018 05:50 KASDCURRENT MEDSName: acid control 150mg po 07/06/2018 05:50 KASDILLNESSIllness: *None 07/06/2018 05:50 KASDPAST SURGERY HISTSurgery: None 07/06/2018 05:50 KASDPAST SOCIAL HISTSocial History: Alcohol - None 07/06/2018 05:50 KASDSocial History: Denies Domestic Violence 07/06/201805:50 KASDSocial History: Denies thoughts of self harm.07/06/2018 05:50 KASDSocial History: Have you traveled in the past month?Where no 07/06/2018 05:50 KASDSocial History: Lives with family or significant other07/06/2018 05:50 KASDSocial History: Recreational Drugs - None 07/06/201805:50 KASDSocial History: Smoker-None 07/06/2018 05:50 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 C/O BACK PAINTHAT HAS CAUSED HER NAUSEA AND VOMITING. COLOR IS PALE.SKIN IS WARM AND DRY. PT ABLE TO AMBULATE BY SELF.PERIPHERAL PULSES ARE PRESENT. BOWEL SOUND PRESENT. ABDOMENSOFT AND NON TENDER. CALL LIGHT IN REACH. FAMILY ATBEDSIDE. 07/06/2018 06:13 V109/06/2017 08:08 patient dressed and ambulating well. understands all instructions. discharge to home07/06/2018 08:09 TLY TREAT MENT 03/2018 06:13 Patient Interaction - Introduce selfto Patient. 07/06/2018 06:14 SLV109/06/2017 06:13 Patient Interaction - Call lightplaced within reach. 07/06/2018 06:14 [facility]09/06/2017 06:13 Primary DOC Guide - A. 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 Fall RiskAssessment (Age andlt;65) 07/06/2018 06:14 SLV [facility] PATIENT NAME: INDIGO FALK Rosangela Pina MEDICAL REC #: [id number], [place] [address] DEPARTMENT REPORT EMERGENCY DEPARTMENT PHYSICIANHistory of Falling in last 3 months? No (0)Confusion or Disorientation? No (0)Fall Risk Score 1-2 Points = Low Risk. 3-4 Points =Moderate Risk. 5 or more points = High Risk. 0Fall Score Greater andgt;= 3? No07/06/2018 06:14 Primary DOC Guide - D. PsychosocialAssessment 07/06/2018 06:14 SLVOver the Last 2 weeks, how often have you had littleinterest or pleasure in doing things (0) Not at AllIs Psychosocial Assessment Score 3 or more? If score is3 or more please consult ED Navigator! NoTotal Psychosocial Assessment Score 0Over the last 2 weeks, how often have you been feelingdown, depressed or hopeless (0) Not at All07/06/2018 06:14 Primary DOC Guide - E. Family ViolenceAssessment 07/06/2018 06:14 SLVWithin the past year, has anyone ever pushed, shoved,slapped, choked, hit, punched or kicked you: NoWithin the past year, has anyone ever pressured orforced you to have sexual activities when you did not wantto: NoDo you feel safe and well cared for: YesIs there a partner from a previous or currentrelationship that is making you feel unsafe now: No07/06/2018 08:09 Admit/Discharge - *Dischargeinstructions/tests andamp; procedures/med list reviewed andprovided; prescriptions given to caregiver 07/06/2018 08:04WMW6709/06/2017 08:09 Admit/Discharge - Dischargeinstructions through an intrepreter 07/06/2018 08:09 TL07/06/2018 08:09 Admit/Discharge - Med list given andreviewed with patient/healthcare manager at discharge 07/06/201808:09 TLY109/06/2017 08:09 Education - Discharge Instructionsreviewed and patient voices understanding. 07/06/2018 08:46SYX3309/06/2017 08:09 Education - Discharge Instructionsreviewed and caregiver voices understanding. 07/06/201808:09 TLY [facility] PATIENT NAME: LETY FALK[address] [facility] REC #: [id number], [place] [address] DEPARTMENT REPORT EMERGENCY DEPARTMENT OTLCJHYER71/09/2018 08:09 Education - Printed DischargeInstructions and given to patient/family. 07/06/2018 08:09TLY MEDICATIONS IV=== IV Fluid: B 07/06/2018 06:30 07/06/2018 06:30SLVLine #: 1 Rate: ml/hr Location: antecubitalfossa rightNdl Gauge: 22 # Attempts: 1IV Fluid: S 07/06/2018 06:47 07/06/2018 08:08SLVLine #: 1 Fluid: LR 1000cc bagRate: ml/hr 999 Location: antecubital fossa rightNdl Gauge: 22 # Attempts: 1Amt: 1000IV Fluid: D 07/06/2018 08:08 07/06/2018 08:08TLYLine #: 1 Fluid: LR 1000cc bagRate: ml/hr 999 Location: antecubital fossa rightNdl Gauge: 22 # Attempts: 1IV Fluid: E 07/06/2018 08:08 07/06/2018 08:08TLYLine #: 1 Rate: ml/hr Location: antecubitalfossa rightNdl Gauge: 22 # Attempts: 1 I AND O VITALS========= VS-ROUTINE Time: 07/06/2018 05:50B/P: 124/74 - Right Upper Arm - Sitting - MachinePulse: 63 - Monitor Resp: 16 [facility] PATIENT NAME: LETY FALK13[address] [facility] [address] [facility] REC #: [id number], [place] [address] DEPARTMENT REPORT EMERGENCY DEPARTMENT COSSUTXLZAc13: 99 Room Air Temp: 97.50 F - Oral07/06/2018 05:51 JRHDVS-Pain Time: 07/06/2018 05:50 Pain Level: 10109/06/2017 05:51 JRHDVS-GCS Time: 07/06/2018 05:50 07/06/2018 05:51 JRHDVS-HT/WT Time: 07/06/2018 05:50 Ht: 62 in. StatedWeight: 130 lbs Stated 07/06/2018 05:51 JRHDVS-Visual Time: 07/06/2018 05:50 07/06/2018 05:51 JRHDVS-FHT Time: 07/06/2018 05:50 07/06/2018 05:51JRHDVS-Notes Time: 07/06/2018 05:50 MAP 94 07/06/201805:51 JRHDVS-ROUTINE Time: 07/06/2018 08:08B/P: 114/69 - Left Upper Arm - Lying - Machine Pulse:71 - Monitor Resp: 16Sa02: 99 Room Air 07/06/2018 08:08 TLYVS-Pain Time: 07/06/2018 08:08 Pain Level: 08:08 TLYVS-GCS Time: 07/06/2018 08:08 07/06/2018 08:08 TLYVS-HT/WT Time: 07/06/2018 08:08 07/06/2018 08:08 TLYVS-Visual Time: 07/06/2018 08:08 07/06/2018 08:08 TLYVS-FHT Time: 07/06/2018 08:08 07/06/2018 08:08TLYVS-Notes Time: 07/06/2018 08:08 map 87 07/06/201808:08 TLY ORDER S Dischar ge patient 07/06/2018 07:50N/AOrdered: 07/06/2018 07:49 By . OtherReviewed: 07/06/2018 07:50 By . OtherGrasshopper (PO)* DOSE: 60 ml +15cc visc lidoPO 07/06/2018 07:58N/AOrdered: 07/06/2018 07:24 By Judson RubiCompleted Time: 07/06/2018 07:58 By Judson RubiNoted Time: 07/06/2018 07:48 TLYEXTERN ORDER: GFRP 07/06/2018 07:07NoneOrdered: 07/06/2018 07:07 Completed Time:07/06/2018 07:07 Results Time: 07/06/2018 07:07 *[facility] PATIENT NAME: LETY FALK[address] Pina MEDICAL REC #: [id number], [place] [address] DEPARTMENT REPORT EMERGENCY DEPARTMENT PHYSICIANCBC with diff 07/06/2018 07:07N/AOrdered: 07/06/2018 06:20 By Judson AndersonesCompleted Time: 07/06/2018 07:07 By Judson AndersonesNoted Time: 07/06/2018 06:46 SLVResults Time: 07/06/2018 07:07BMP 07/06/2018 07:07N/AOrdered: 07/06/2018 06:20 By Judson AndersonesCompleted Time: 07/06/2018 07:07 By Judson GaviriariissacesNoted Time: 07/06/2018 06:46 SLVResults Time: 07/06/2018 07:07Liver profile 07/06/2018 07:07N/AOrdered: 07/06/2018 06:20 By Judson AndersonesCompleted Time: 07/06/2018 07:07 By Judson GaviriariissacesNoted Time: 07/06/2018 06:46 SLVResults Time: 07/06/2018 07:07Lipase 07/06/2018 07:07N/AOrdered: 07/06/2018 06:20 By Judson GaviriariissacesCompleted Time: 07/06/2018 07:07 By Judson AndersonesNoted Time: 07/06/2018 06:46 SLVResults Time: 07/06/2018 07:07CT abd and pel with IV con only 07/06/2018 07:11N/AOrdered: 07/06/2018 06:20 By Judson AndersonesIndication: Abdominal PainNoted Time: 07/06/2018 07:11Question: Are you or think you might be ?Answer: NOQuestion: Patient has history of true RCM allergy?Answer: NOUA ccms (cath if unable to void in 30 mins) 07/06/201806:20N/AOrdered: 07/06/2018 06:20 By Judson RubiQuestion: Lab Urine Specimen TypeAnswer: Clean CatchQuestion: Also Culture, if indicated by UA results (Y or N) [facility] PATIENT NAME: INDIGO FALK Rosangela Pina MEDICAL REC #: [id number], [place] [address] DEPARTMENT REPORT EMERGENCY DEPARTMENT PHYSICIANAnswer: NOIV RL bolus 1L over 60 min 07/06/2018 06:57N/AOrdered: 07/06/2018 06:20 By Judson Tamayo Time: 07/06/2018 06:57 By Judson Hammonds Time: 07/06/2018 06:30 SLVIV RL drip 75cc/hr 07/06/2018 06:38N/AOrdered: 07/06/2018 06:20 By Judson Hammonds Time: 07/06/2018 06:37 SLVMorphine (IV)*(4mg/ml) DOSE:4 mgIV 07/06/2018 06:42N/AOrdered: 07/06/2018 06:20 By Judson Tamayo Time: 07/06/2018 06:42 By Judson Hammonds Time: 07/06/2018 06:37 SLVZofran (IV)*(2mg/ml) DOSE: 4 mgIV 07/06/2018 06:42N/AOrdered: 07/06/2018 06:20 By Judson RubiCompletjatinder Time: 07/06/2018 06:42 By Judson Hammonds Time: 07/06/2018 06:37 SLV*Status: Inpatient 07/06/2018 07:31N/AOrdered: 07/06/2018 07:29 By . OtherReviewed: 07/06/2018 07:31 By . OtherCancelled: 07/06/2018 07:49Cancelled Reason: FlexChart Disposition Change DI SCHARGE D iagnosis: Acute gastritis 07/06/2018 07:49CANCELLED DIAGNOSESDiagnosis Name: Acute gastritisDiagnosis Name: Acute gastritisDiagnosis Name: Acute gastritisDiagnosis Name: Acute gastritisDiagnosis Name: Acute gastritisDiagnosis Name: Acute gastritis [facility] PATIENT NAME: [id number] [facility] [address] Pina MEDICAL REC #: [id number], [place] [address] DEPARTMENT REPORT EMERGENCY DEPARTMENT PHYSICIANDiagnosis Name: Acute gastritisDiagnosis Name: Acute gastritisDiagnosis Name: Acute gastritisDisposition: Time: 07/06/2018 07:49By: Judson Adhikari Time: 07/06/2018 08:09Type: DischargeCondition: Stable for admission/discharge/transfer after emergency evaluation/treatment Category: *NOTAPPLICABLEConcurred: 07/06/2018 07:31 Referral:07/06/2018 07:30Admit Physician: . Other PRE SCRIPTIONS ==Carafate 100 mg/mL oral suspension 07/06/2018 07:29SIml 5 times dailyDispense: 420 / Refills:Prevacid 15 mg capsule,delayed release 07/06/2018 07:30SI qd for 10 daysDispense: 10 / Refills:ZOFRAN ODT 4 mg Tab, Rapid Dissolve 07/06/2018 07:30SI q6h NauseaDispense: 8 / Refills: CHARGES SIGNATURE Judson Virginiaissacfatuma DO Mich Glynn RN Lanette GAINES [facility] AGSutetta Ascencio VSISI LEONE JRHD [facility] PATIENT NAME: INDIGO FALK Rosangela Pina MEDICAL REC #: [id number], [place] [address] DEPARTMENT REPORT EMERGENCY DEPARTMENT PHYSICIAN [facility] PATIENT NAME: INDIGO FALK [facility] MEDICAL REC #: [id number], [place] [address] DEPARTMENT REPORT EMERGENCY DEPARTMENT PHYSICIAN Normal [facility] GFR ESTon 07-06-2018 IF AMER Greater than [address] [facility] Comment on above: Order Comment: Campu s: M Performed By: #### L 500.51685, L500.91195, L500.20590, L500.76957 ####[facility] [id number] [place], [place] [address]Wo# [phone] IF non-AFR AMER Greater than [address] [facility] Comment on above: Order Comment: Campu s: M Performed By: #### L 500.35082, L500.15214, L500.04399, L500.95914 ####[facility] [id number] [place], [place] [address]Gi# [phone] LIPASEon 07-06-2018 Lipase enzyme act/vol 147 U/L Normal 73-393 [facility] Comment on above: Order Comment: Campu s: M Performed By: #### L 500.73057, L500.87082, L500.20340, L500.99602 ####[facility] [id number] [place], [place] [address]Wb# [phone] LIVERon 07-06-2018 Albumin mass conc 4.1 g/dL Normal 3.2-5.0 [facility] Comment on above: Order Comment: Campu s: M Performed By: #### L 500.63738, L500.22950, L500.35987, L500.66633 ####[facility] [id number] [place], [place] [address]Da# [phone] Albumin/Globulin mass ratio 1.0 {ratio} Normal 0.8-2.0 [facility] Comment on above: Order Comment: Campu s: M Performed By: #### L 500.58860, L500.84744, L500.41792, L500.22429 ####[facility] [id number] [place], [place] [address]Pe# [phone] ALK PHOS 103 U/L Normal 45-117 [facility] Comment on above: Order Comment: Campu s: M Performed By: #### L 500.05982, L500.72073, L500.58768, L500.74728 ####[facility] [id number] [place], [place] [address]Yv# [phone] ALT enzyme act/vol 33 U/L Normal 13-61 [facility] Comment on above: Order Comment: Campu s: M Result Comment: RESU LTS MAY BE FALSELY DEPRESSED AFTER THE ADMINISTRATION OFSULFASALAZINE AND/OR SULFAPYRIDINE. Performed By: #### L 500.61840, L500.98789, L500.19911, L500.19044 ####[facility] [id number] [place], [place] [address]Fk# [phone] BILI DIRECT 0.10 MG/DL Normal 0.00-0.20 [facility] Comment on above: Order Comment: Campu s: M Performed By: #### L 500.96932, L500.55956, L500.55904, L500.95917 ####[facility] [id number] [place] [address]It# [phone] BILI TOTAL 0.3 MG/DL Normal 0.2-1.0 [facility] Comment on above: Order Comment: Campu s: M Performed By: #### L 500.43254, L500.74945, L500.55236, L500.80716 ####[facility] [id number] [place] [address]Jf# [phone] Globulin Calculated mass conc (S) 4.1 g/dL Normal 2.2-4.2 [facility] Comment on above: Order Comment: Campu s: M Performed By: #### L 500.98242, L500.29820, L500.79063, L500.05933 ####[facility] [id number] [place] [address]Fg# [phone] Protein mass conc 8.2 g/dL [facility].0-[facility].5 [facility]: Order Comment: Campu s: M Performed By: #### L 500.06619, L500.32492, L500.56988, L500.36370 ####[facility] [id number] [place] [address]Yg# [phone] SGOT (AST) 21 U/L Normal 8-34 [facility] Comment on above: Order Comment: Campu s: M Result Comment: RESU LTS MAY BE FALSELY DEPRESSED AFTER THE ADMINISTRATION OFSULFASALAZINE AND/OR SULFAPYRIDINE. Performed By: #### L 500.69147, L500.89309, L500.03708, L500.34208 ####[facility] [id number] [place] [address]Et# [phone] CBCon 05-14-2018 Hematocrit Auto Volume Fraction (Bld) 31.8 % Low 35.0-47.0 [facility] Comment on above: Order Comment: Campu s: M Performed By: #### L 600.37080 ####[facility] [id number] [place] [address]Yt# [phone] Hemoglobin mass conc (Bld) 10.3 g/dL Low 11.5-15.5 [facility] Comment on above: Order Comment: Campu s: M Performed By: #### L 600.26435 ####[place] [address]057[address]Ph# [phone] MCHC Auto mass conc (RBC) 32.4 g/dL Normal 32.0-36.0 [facility] Comment on above: Order Comment: Campu s: M Performed By: #### L 600.62002 ####[place] [address]057[address]Ph# [phone] MCV Auto Entitic volume (RBC) 77.9 fL Low 80.0-99.0 [facility] Comment on above: Order Comment: Campu s: M Performed By: #### L 600.69307 ####[address] [address]Mi# [phone] Nucleated RBC/100 WBC Ratio (Bld) 0.0 % Normal Less than 1 [facility] Comment on above: Order Comment: Campu s: M Performed By: #### L 600.20088 ####[facility] [id number] [place] [address]Nn# [phone] Platelet mean volume Auto Entitic volume (Bld) 12.3 fL Normal 9.4-12.4 [facility] Comment on above: Order Comment: Campu s: M Performed By: #### L 600.67847 ####[facility] [id number] [place], [place] [address]Ph# [phone] Platelets Auto #/vol (Bld) 211 K/CU MM Normal 150-450 [facility] Comment on above: Order Comment: Campu s: M Performed By: #### L 600.54528 ####[facility] [id number] [place] [address]Iw# [phone] RBC Auto #/vol (Bld) 4.08 M/CU MM Normal 3.90-5.30 [facility] Comment on above: Order Comment: Campu s: M Performed By: #### L 600.26333 ####[address] [address]Tz# [phone] WBC Auto #/vol (Bld) 6.6 K/CU MM Normal 4.5-11.0 [facility] Comment on above: Order Comment: Campu s: M Performed By: #### L 600.46969 ####[address] [address]Je# [phone] CBCon 05-13-2018 Hematocrit Auto Volume Fraction (Bld) 36.7 % Normal 35.0-47.0 [facility] Comment on above: Order Comment: Campu s: M Performed By: #### L 600.32344 ####[address] [address]Oc# [phone] Hemoglobin mass conc (Bld) 12.0 g/dL Normal 11.5-15.5 [facility] Comment on above: Order Comment: Campu s: M Performed By: #### L 600.60308 ####[facility] [id number] [place] [address]Ln# [phone] MCHC Auto mass conc (RBC) 32.7 g/dL Normal 32.0-36.0 [facility] Comment on above: Order Comment: Campu s: M Performed By: #### L 600.63322 ####[facility] [id number] [place] [address]Mb# [phone] MCV Auto Entitic volume (RBC) 78.1 fL Low 80.0-99.0 [facility] Comment on above: Order Comment: Campu s: M Performed By: #### L 600.57671 ####[facility] [id number] [place] [address]Do# [phone] Nucleated RBC/100 WBC Ratio (Bld) 0.0 % Normal Less than 1 [facility] Comment on above: Order Comment: Campu s: M Performed By: #### L 600.78513 ####[address] [address]Ym# [phone] Platelet mean volume Auto Entitic volume (Bld) 11.8 fL Normal 9.4-12.4 [facility] Comment on above: Order Comment: Campu s: M Performed By: #### L 600.97307 ####[address] [address]Cr# [phone] Platelets Auto #/vol (Bld) 225 K/CU MM Normal 150-450 [facility] Comment on above: Order Comment: Campu s: M Result Comment: Conf irmed by slide estimate. Performed By: #### L [id number] ####[address] [address]Bj# [phone] RBC Auto #/vol (Bld) 4.70 M/CU MM Normal 3.90-5.30 [facility] Comment on above: Order Comment: Campu s: M Performed By: #### L [id number] ####[address] [address]Ch# [phone] WBC Auto #/vol (Bld) 6.0 K/CU MM Normal 4.5-11.0 [facility] Comment on above: Order Comment: Campu s: M Performed By: #### L [id number] ####[address] [address]Zl# [phone] LDSUMMon 05-13-2018 LDSUMM ======== =======OB Datetime Report Generated by CPN: 05/14/2018 12:39 DELIVERY PERSONNEL Nurse Ground Operations Supervisor Certified: Sarahi Chenirculator: Annabelle Noriegathesiologist: Maki Anayatist: Momo Manzano OPTICAL DESIGNER MATERNAL INFORMATION Delivery Anesthesia: EpiduralMedications in Delivery: PitocinEstimated Blood Loss (ml): 400Placenta Cultured: NoMaternal Complications: NoneRN Comments: VIABLE MALE @ 0344 LABOR SUMMARY EDC: 05/12/2018 00:00No. Babies in Womb: 1VBAC Attempted: NoLabor Anesthesia: Epidural LABOR INFORMATION Reason for Induction: Not ApplicableOnset of Labor: 05/12/2018 20:27Complete Dilatation: 05/13/2018 03:07Oxytocin: N/AGroup B Beta Strep: NegativeAntibiotics # of Doses: 0Steroids Given: NoneReason Steroids Not Administered: Not Applicable MEMBRANES== ===== [facility] PATIENT NAME: LETY [id number] [facility] [address] MEDICAL REC #: [id number], [place] [address] DATE: 05/12/18DISCHARGE DATE: 05/14/18OB LDSUMM ATTENDING PHY: Hallie Quinones Rupture Method: ArtificialRupture of Membranes: 05/13/2018 03:24Length of Rupture (hr): 0.33Amniotic Fluid Color: ClearAmniotic Fluid Amount: SmallAmniotic Fluid Odor: None STAGES OF LABOR Stage 1 hr: 6Stage 1 min: 40Stage 2 hr: 0Stage 2 min: 37Stage 3 hr: 0Stage 3 min: 6Total Time in Labor hr: 7Total Time in Labor min: 23 =========VAGINAL DELIVERY Episiotomy: NoneLaceration Extension: First DegreeLaceration Type: PerinealLaceration Repair: YesInitial Vag Sponge Count: 5Final Vag Sponge Count: 5Initial Vag Sharps Count: 1Final Vag Sharps Count: 2Sponge Count Correct: YesSharps Count Correct: Yes BABY A INFORMATION Delivery Date/Time: 05/13/2018 03:44Method of Delivery: VaginalBorn in Route : NoVBAC: N/AForceps: N/AVacuum Extraction: N/AShoulder Dystocia : No =========SHOULDER DYSTOCIA BABY A ======== Delivery Date/Time: 05/13/2018 03:44 [facility] PATIENT NAME: [id number] [facility] MEDICAL REC #: [id number], [place] [address] DATE: 05/12/18DISCHARGE DATE: 05/14/18OB LDSUMM ATTENDING SERA: Hallie Quinones ACC PRESENTATION/POSIT ION BABY A ========Presentation: CephalicCephalic Presentation: VertexBreech Presentation: N/A PLACENTA INFORMATION BABY A ========Placenta Delivery Time : 05/13/2018 03:50Placenta Method of Delivery: ExpressedPlacenta Status: Delivered SCORES BABY A ========Heart Rate 1 min: >100 bpmResp Effort 1 min: Good CryReflex Irritability 1 min: Cough or Sneeze or Pulls AwayMuscle Tone 1 min: Active MotionColor 1 min: Body [place], Extremities BlueResuscitation Effort 1 min: Tactile StimulationAPGAR SCORE 1 MIN: 9Heart Rate 5 min: >100 bpmResp Effort 5 min: Good CryReflex Irritability 5 min: Cough or Sneeze or Pulls AwayMuscle Tone 5 min: Active MotionColor 5 min: Body [place], Extremities BlueAPGAR SCORE 5 MIN: 9 ======== INFORMATION BABY A ========Gestational Age at Delivery: 40.1Gestational Status: Full Term- 39- 40.6 WeeksInfant Outcome : LivebornInfant Condition : StableInfant Sex: Male IDENTIFICATION/ME DS BABY A ========ID Band Number: [id number] Band Location: Left Leg; Left ArmRead By LandD/Nursery Nurse: Christopher Guallpa Rn/Taras Barrientos RnSensor Applied: Yes [facility] PATIENT NAME: LETY [id number] [facility] [address] MEDICAL REC #: [id number], [place] [address] DATE: 05/12/18DISCHARGE DATE: 05/14/18OB LDSUMM ATTENDING PHY: Hallie Quinones ACCSensor Number: 32Sensor Location : Right LegVitamin K Given : Aquamephyton 1 mg IM; Left ThighErythromycin Given: Given Both Eyes WEIGHT/LENGTH BABY A ======== Birthweight (gm): 3789Infant Weight (lb): 8Infant Weight (oz): 6Infant Length (in): 19.50Infant Length (cm): 49.53 CORD INFORMATION BABY A ========No. Cord Vessels: 3Nuchal Cord : N/Tammy Blood Taken: YesInfant Suction: Mouth; Nose ASSESSMENT BABY A ========Physical Findings at Delivery: Within Normal LimitsInfant Respirations: Appears NormalSkin to Skin: YesNeonatologist/ALS Called : NoInfant Care By: Taras Barrientos RnTransferred To: Remains with Mother [facility] PATIENT NAME: SACHA [id number] [facility] MEDICAL REC #: [id number], [place] [address] DATE: 05/12/18DISCHARGE DATE: 05/14/18 LDSUM ATTENDING PHY: Hallie Quinones [facility] ======== =======OB Datetime Report Generated by CPN: 05/14/2018 12:39Patient Age: 32 ========= INFORMATION EDC: 05/12/2018 00:00LMP: 08/29/2017 00:00Gravida: 4Para: 2Term: 2Preterm: 0Spontaneous Abortions: 1Induced Abortions: 0LivinCesareans: 0VBACs: 1Ectopic: 1Multiple Births: 1Baby, Number in Womb: 1 ======== CARE Primary [employer]auf[employer] [place] Limousine: Aicha Stack of 1st Visit: 03/05/2018 00:00Prepregnancy Weight (lb): 130Prepregnancy Weight (kg): 59.1Height (in): 52.0Height (cm): 132.1 ALLERGIES======= Medication Allergies: NO KNOWN ALLERGENS (05/12/2018) [facility] [facility] Primary Language: SpanishMedical Tx Preferred Language: SpanishEnglish Communication Ability: No understanding, REED MAN neededCommunication Barrier(s): Language barrier [facility] PATIENT NAME: [id number] [address] MEDICAL REC #: [id number], [place] [address] DATE: 05/12/18DISCHARGE DATE: 05/14/18OB LDSUMM ATTENDING PHY: Hallie Quinones ACC DEMOGRAPHICS====== =Address: [address] [place] [id number]: [id number] SSN: [id number] of : 1985Marital Status: MarriedSex: FemaleRace: /LATIN AMERICANReligion: GNOSTICIST DRUG AND ALCOHOL USE Alcohol: NoCigarettes: Never Smoker. [phone]: NoCocaine: NoOther Illicit Drugs: No =========VACCINE HISTORY Influenza Vaccine: NoInfluenza Date: 05/14/2018 00:00Desires Flu Vaccine: YesTdap Vaccine: NoTdap Date: 05/14/2018 00:00 LABOR and DELIVERY PLANS Back Tender Fourdrinier: MILLERFeeding Preference: BothCircumcision: NoPrenatal Classes Attended: [facility] Consent: N/ACesarean Consent Signed: N/APain Management Plans: Natural; EpiduralPlans for Labor and Delivery: NoneSupport Person: CARLOSSupport Person Relationship: HusbandCultural/Spritual Practice: NoSpir/Cult Dietary Needs: No [facility] PATIENT NAME: SACHA [id number] [facility] [address] MEDICAL REC #: [id number], [place] [address] DATE: 05/12/18DISCHARGE DATE: 05/14/18OB LDSUMM ATTENDING SERA: Hallie Quinones ACC LIVING SITUATION/DISCHARGE PLAN Living Arrangements: HouseAdequate Access to:: Electric; Heat; Refrigeration; Plumbing/Running water; Phone;TransportationWIC Program: YesDischarge Screw Machine Adjuster Automatic Person: YUKIerson to Help after Discharge: CARLOSCurrently Using Commun Resources: YesSpecify Current Resource Used: MEDICAIDOutside Agency/Reed Polisher: NoCar Seat for Discharge: YesNeed Help to Obtain Car Seat: None RequiredAdoption Requested: NoPt Contact w/infant Post : N/A LABS Blood Type: O PositiveAntibody Screen: NegativeRho(G) this : Not ApplicableRubella: ImmuneRPR/VDRL: NonreactiveHIV Results: NONREACTIVENONREACTIVE: LESS THAN 1.0 INDEX VALUETHIS ASSAY DETECTS HIV p24 ANTIGEN AND ANTIBODIES TO HIV-1AND HIV-2 BY THE [facility]IA [facility] CHIV ASSAY.Hepatitis B: NegativeGonorrhea: NegativeHematocrit: 31.8 LHemoglobin: 10.3 LMCV: 77.9 LGroup Beta Strep: NegativeChlamydia: PositivePap Test:Urine Culture: 80-90,000 COL/ML MIXED CHUCKY-PLEASE REPEAT-POSSIBLE CONTAMIN AVaricella titer: 2454 (Annotations: Negative<135Equivocal 135 - 165Positive >165A positive result generally indicates exposure to thepathogen or administration of specific immunoglobulins,but it is not indication of active infection or stageof disease.Performed At: [facility] [place], [place] [id number] [facility] PATIENT NAME: INDIGO FALK [facility] REC #: [id number], [place] [address] DATE: 05/12/18DISCHARGE DATE: 05/14/18OB LDSUMM ATTENDING PHY: Hallie Quinones [id number])1 Hour Glucola: 160Fasting GTT: 801 Hour GTT: 1782 Hour GTT: 893 Hour GTT: 121 MEDICAL HISTORY Med Hx Diabetes: NoMed Hx Hypertension: NoMed Hx Heart Disease: NoMed Hx Autoimmune Disorder: NoMed Hx Kidney Disease/UTI: NoMed Hx Neurologic/Epilepsy: NoMed Hx Psychiatric Disorders: NoMed Hx Depression/PP Depression: NoMed Hx Hepatitis/Liver Disease: NoMed Hx Varicosities/Phlebitis: NoMed Hx Thyroid Dysfunction: NoMed Hx Trauma/Violence: NoMed Hx Blood Transfusion: NoMed Hx D (Rh) Sensitization: NoMed Hx Pulmonary (Asthma,TB): NoMed Hx Breast: NoMed Hx MEDTRONICS TECHNICIAN Surgery: NoMed Hx Hospitalization/Surgery: NoMed Hx Anesthetic Complications: NoMed Hx Abnormal Pap Smear: NoMed Hx Uterine Anomaly/RON: NoMed Hx Infertility: NoMed Hx ART Treatment: NoOther Medical Diseases: NoMed Hx Significant Family Hx: NoHx Classical CS/Uterine Surgery: NoDetails of Med/Surg Hx: LATE PNC INFECTIOUS HISTORY Inf Hx Gonorrhea: NoInf Hx Chlamydia: NoInf Hx Syphilis: NoInf Hx HIV/AIDS: NoInf Hx Human Papilloma Virus: NoInf Hx Pt/Partner Genital Herpes: NoInf Hx Tuberculosis/Exposure: NoInf Hx Hepatitis B,C: NoInf Hx Rash or Viral Illness: No [facility] PATIENT NAME: SACHA [id number] [facility] [address] MEDICAL REC #: [id number], [place] [address] DATE: 05/12/18DISCHARGE DATE: 05/14/18[facility]: Hallie Quinones ACCInf Hx Foreign Travel: NoInf Hx Elevated Temp on Admit: No =========GENETIC HISTORY Gen Hx Age >=35 at MAMADOU: NoGen Hx Thalassemia: NoGen Hx Congenital Heart Defect: NoGen Hx Neural Tube Defect: NoGen Hx Down's Syndrome: NoGen Hx Ramone-Sachs: NoGen Hx Riki: NoGen Hx Familial Dysautonomia: NoGen Hx Sickle Cell Disease/Trait: NoGen Hx Hemophilia/Blood Disorder: NoGen Hx Muscular Dystrophy: NoGen Hx Cystic Fibrosis: NoGen Hx Huntingtons Chorea: NoGen Hx Mental Retardation/Autism: NoGen Hx Tested for Fragile X: NoGen Hx Other Inher/Chromosomal: NoGen Hx Maternal Metabolic DO: NoGen Hx Pt Father or FOB Defect: NoGen Hx Recurrent Loss/Stillborn: NoGen Hx Other Genetic History: NoGen Hx Drugs/Meds since LMP: No =========PREVIOUS HISTORY LMP: 08/29/2017 00:00Prev Pg 1: 06/26/2016Prev Pg Gest Age1: 40Prev Pg Birthweight 1: 6.4Prev Pg Method 1: VAGPrev Pg Anesthesia Type 1: NCBPrev Pg Hospital 1: [facility]Prev Pg 2: 09/17/2010Prev Pg Gest Age 2: 40Prev Pg Hospital 2: [facility]rev Pg Comments 2: PASSED AT 20 DAYS OLDPrev Pg 3: 01/2017Prev Pg Comments 3: SAB [facility] PATIENT NAME: LETY [id number] [facility] [address] MEDICAL REC #: [id number], [place] [address] DATE: 05/12/18DISCHARGE DATE: 05/14/18OB LDSUMM ATTENDING PHY: Hallie Quinones [facility] LDSUMM ======== =======OB Datetime Report Generated by CPN: 05/13/2018 04:04Assessment Type: Admission Assessment Patient Assessment Weight (lb): 138Weight (kg): 62.7Total Wt Gain (lb): 8Wt Gain (kg): 3.6BMI: 35.9Temperature (F): 98.8Temperature (C): 37.1Heart Rate: 71Resp: 18Systolic Blood Pressure: 120Diastolic Blood Pressure: 66Blood Pressure Mean: 87Onset of Labor: 05/13/2018 20:27Pain Scale: 7Pain Presence: IntermittentPain Type: PressurePain Location: PerineumPain Comments: FOB AT BEDSIDE, STATES PT NOT FEELING PAIN AFTER EPIDURAL PLACEMENTFrequency (min): 2-4Duration (sec): 60-120Dilatation (cm): 10.0Effacement (%): 100Station: 1Membranes Status: IntactMembranes Rupture D/ ROM Method: ArtificialAmniotic Fluid Color: ClearAmniotic Fluid Amount: SmallAmniotic Fluid Odor: NoneROM Test Kit: NegativeLevel of Consciousness: Fully ConsciousDTR's/Clonus: DTRs 2+; No ClonusHeadache: DeniesDizziness: NoBlurred Vision: NoExtremity Numbness/Tingling : NoneExtremity Movement: Full Range of MotionNailbeds: PinkCapillary Refill: Right Upper Extremity Less than 3 seconds; Left Upper ExtremityLess than 3 seconds; Right Lower Extremity Less than 3 seconds; Left Lower [facility] PATIENT NAME: INDIGO FALK [facility] REC #: [id number], [place] [address] DATE: 05/12/18DISCHARGE DATE:OB LDSUMM ATTENDING PHY: Hallie Quinones ACCExtremity Less than 3 secondsLower Extremities Edema: NoneUpper Extremities Edema: NoneFacial Edema: NoneRespiratory Effort: UnlaboredBreath Sounds, Left: Clear and EqualBreath Sounds, Right: Clear and EqualCough Productivity: NoneNausea/Vomiting: DeniesBowel Sounds: Normoactive; All QuadrantsRUQ Epigastric Pain: DeniesBowel Patterns: Normal for PatientHemorrhoids: NoneDiet Type: Regular dietBladder: NondistendedFrequency of Urination: NoUrination Burning: NoCVA Tenderness: NoVaginal Bleeding: NoneVaginal Discharge Amount: Small (Annotations: MUCUS)Skin Color: Normal for RaceSkin Temperature: WarmSkin Moisture: DrySurgical Scars: NONEBody Piercings/Tattoos: NONEBraden Scale Sensory Perception: No Impairment- Responds to verbal commands. Hasno sensory deficit which would limit ability to feel or voice pain or discomfortBraden Scale Moisture: Rarely Moist- Skin is usually dry. Linen only requireschanging at routine intervalsBraden Scale Activity: Walks Frequently- Walks outside the room at least twice aday and inside room at least every 2 hours during the day.Fredy Scale Mobility: No Limitations- Makes major and frequent changes in positionwithout assistanceBraden Scale Nutrition: Excellent- Eats most of every meal. Never refuses a meal.Usually eats a total of 4 or more servings of meat and dairy products.Occasionally eats between meals. Does not require supplementationBraden Scale Friction and Shear: No Apparent Problem- Moves in bed and in chairindependently and has sufficient muscle strength to lift up completely duringmove. Maintains good position in bed or chair at all timesBraden Scale Total: 23Braden Scale Risk: No Risk of Pressure Ulcer Noted at this TimeFamily Support: Significant Other supportive, at bedside frequentlyEmotional State: Calm/RelaxedCall Gomez Within Reach: YesSide Rails Up: YesBed Wheels Locked: YesArm Bands Present: YesIsolation: UniversalFHR Baseline Rate (bpm) Baby A: 145Variability Baby A: Moderate 6-25 bpmAccelerations Baby A: [id number] Baby A: NoneComments: 40.0 HERE FOR LEAKING OF FLUIDS. [facility] PATIENT NAME: [id number] Pina MEDICAL REC #: [id number], [place] [address] DATE: 05/12/18DISCHARGE DATE:OB LDSUMM ATTENDING PHY: Hallie Quinones ACCAssessment Flag: Admission Assessment [facility] PATIENT NAME: [id number] [address] Pina MEDICAL REC #: [id number], [place] [address] DATE: 05/12/18DISCHARGE DATE:OB LDSUMM ATTENDING SERA: Hallie Quinones [facility] TORRESM ======== =======OB Datetime Report Generated by CPN: 05/13/2018 04:04 DELIVERY PERSONNEL Nurse Ground Operations Supervisor Certified: Sarahi Chen CNirculator: Hari, EmilyAnesthetist: Kolich, Momo OPTICAL DESIGNER MATERNAL INFORMATION Delivery Anesthesia: EpiduralMedications in Delivery: PitocinPlacenta Cultured: NoMaternal Complications: NoneRN Comments: VIABLE MALE @ 0343 LABOR SUMMARY EDC: 05/12/2018 00:00No. Babies in Womb: 1VBAC Attempted: NoLabor Anesthesia: Epidural LABOR INFORMATION Reason for Induction: Not ApplicableOnset of Labor: 05/13/2018 20:27Complete Dilatation: 05/13/2018 03:07Oxytocin: N/AGroup B Beta Strep: NegativeAntibiotics # of Doses: 0Steroids Given: NoneReason Steroids Not Administered: Not Applicable MEMBRANES== =====Membranes Rupture Method: Artificial [facility] PATIENT NAME: LETY FALK[address] [facility] [address] MEDICAL REC #: [id number], [place] [address] DATE: 05/12/18DISCHARGE DATE:OB LDSUMM ATTENDING YESSENIAY: Hallie Quinones ACCRupture of Membranes: 05/13/2018 03:24Length of Rupture (hr): 0.32Amniotic Fluid Color: ClearAmniotic Fluid Amount: SmallAmniotic Fluid Odor: None STAGES OF LABOR Stage 1 hr: -17Stage 1 min: -20Stage 2 hr: 0Stage 2 min: 36Stage 3 hr: 0Stage 3 min: 7Total Time in Labor hr: -16Total Time in Labor min: -37 VAGINAL DELIVERY Episiotomy: NoneLaceration Extension: First DegreeLaceration Type: PerinealLaceration Repair: YesInitial Vag Sponge Count: 5Final Vag Sponge Count: 5Initial Vag Sharps Count: 1Final Vag Sharps Count: 2Sponge Count Correct: YesSharps Count Correct: Yes BABY A INFORMATION Delivery Date/Time: 05/13/2018 03:43Method of Delivery: VaginalBorn in Route : NoVBAC: N/AForceps: N/AVacuum Extraction: N/AShoulder Dystocia : No =========SHOULDER DYSTOCIA BABY A ======== Delivery Date/Time: 05/13/2018 03:43 [facility] PATIENT NAME: [id number] [address] Pina MEDICAL REC #: [id number], [place] [address] DATE: 05/12/18DISCHARGE DATE:OB LDSUMM ATTENDING PHY: Hallie Quinones ACCPRESENTATION/POSITION BABY A ========Presentation: CephalicCephalic Presentation: VertexBreech Presentation: N/A PLACENTA INFORMATION BABY A ========Placenta Delivery Time : 05/13/2018 03:50Placenta Method of Delivery: ExpressedPlacenta Status: Delivered INFORMATION BABY A ========Gestational Age at Delivery: 40.1Gestational Status: Full Term- 39- 40.6 WeeksInfant Outcome : LivebornInfant Condition : StableInfant Sex: Male IDENTIFICATION/ME DS BABY A ========ID Band Number: [id number] Band Location: Left Leg; Left ArmSensor Applied: YesSensor Number: 32Sensor Location : Right LegVitamin K Given : Aquamephyton 1 mg IM; Left ThighErythromycin Given: Given Both Eyes WEIGHT/LENGTH BABY A ========Infant Birthweight (gm): 3789Infant Weight (lb): 8Infant Weight (oz): 6Infant Length (in): 19.50Infant Length (cm): 49.53 CORD INFORMATION BABY A ========No. Cord Vessels: 3Nuchal Cord : N/A [facility] PATIENT NAME: [id number] [address] Pina MEDICAL REC #: [id number], [place] [address] DATE: 05/12/18DISCHARGE DATE:OB LDSUMM ATTENDING PHY: Hallie Quinones ACCHomero Blood Taken: YesInfant Suction: Mouth; Nose ASSESSMENT BABY A ========Skin to Skin: Yes [facility] PATIENT NAME: [id number] [facility] [address] [address] MEDICAL REC #: [id number], [place] [address] DATE: 05/12/18DISCHARGE DATE:OB LDSUMM ATTENDING SERA: Hallie Quinones Normal [facility] LDSUMM ======== =======OB Datetime Report Generated by CPN: 05/14/2018 12:39Person(s) Allowed during Admit: TACO ADMISSION INFORMATION Current Admit Date/Time: 05/13/2018 23:00EGA per Dates: 40.1Method of Arrival: WheelchairAdmitted From: HomeReason for Induction: Not ApplicablePrenatal Records Available: YesGeneral Admission Information: ReviewedGeneral Admission Reviewed By: Coni NORIEGA BELONGINGS/ADVAN MELLISSA DIRECTIVES Valuables/P ersonal Effects: Purse/Wallet; Cell PhoneDisposition of Belongings: Kept with [employer] for Healthcare: No, and Wants No InformationDurable Power of Advice Line Rn: NoLiving Will: NoOrgan Donor: NoPt Rights Information Given: YesPt Understands Pt Rights: Yes LEARNING ASSESSMENT Knowledge Level: Understands L_D Process; Understands Care Activities; UnderstandsDiagnosisBarriers to Learning: Communication BarrierLearning Readiness: MotivatedLearns Best By: 1 to 1 Instruction; Reading; DemonstrationLearning Needs: Labor and Delivery Process; Pain Management; Symptoms to Report;Treatment Plan; Medication; Diagnosis; Nutrition; Equipment; Infant Care DOMESTIC VIOLANCE SCREENING Dom Viol Threatened/Hurt: NoHx of Abuse/Neglect past 2yrs: No [facility] PATIENT NAME: LETY [id number] [facility] [address] MEDICAL REC #: [id number], [place] [address] DATE: 05/12/18DISCHARGE DATE: 05/14/18OB LDSUMM ATTENDING PHY: Hallie Quinones Unsafe Going Home: NoAddt'l Observ Indicating Abuse: NoReason Unable to Complete Screen: N/A, Screen CompletedConsidered Personal Harm/Suicide: No =========NUTRITIONAL/FUNCTIO NAL SCREENING Problem with Appetite >5 Days: NoChew/Swallow Difficulties: NoInappropriate Wt Gain/Loss: NoPresence Skin Breakdown/Ulcer: NoSpecial Diet: NoPt Requests Bankruptcy Judge Visit: NoHx of Any of the Following?: N/ANew Diagnosis of: N/ARequires Assist w/Ambulation: NoUses Assist Device to Ambulate: NoPt Requires Help w/ADL's: No [facility] PATIENT NAME: INDIGO FALK [facility] MEDICAL REC #: [id number], [place] [address] DATE: 05/12/18DISCHARGE DATE: 05/14/18OB LDSUMM ATTENDING PHY: Hallie Quinones ACC Normal [facility] OB LDSUMM This is a preliminar y report only, as the practitioner review and authentication has not occurred. Normal [facility] POC ROM TESTon 05-13-2018 ROM TEST Negative Normal NEGATIVE [facility] Comment on above: Performed By: #### L [id number] ####[facility] [id number] [place], [place] [address]Nn# [phone] TSon 05-13-2018 ABO and Rh group Nom (Bld) O POSITIVE Normal [facility] Comment on above: Order Comment: Campu s: MPatient transfused or in the past 3 months: YESIs This Patient Going To Surgery? N GENITAL STREPon 04-18-2018 GENITAL STREP BETA STREP RESULT NO BETA STREPTOCOCCUS ISOLATED Normal [facility] Comment on above: Performed By: #### L [id number] ####[facility] [id number] [place], [place] [address]Ku# [phone] DOPPLER UMBILICAL NANDINI Luciano 04-16-2018 DOPPLER UMBILICAL ARTERY US BIO PHYSICAL PROFILE, DOPPLER UMBILICAL ARTERYOrdering Physician: Hallie Quinones04/16/2018 10:45 AMULTRASOUND BIOPHYSICAL PROFILE WITH UMBILICAL CORD DOPPLERClinical Statement: care third trimesterComparison: March 19, 2018FINDINGS: A single live intrauterine gestation is present, currentlyin cephalic presentation. The heart rate is 140 bpm. Theplacenta is posterior without previa. The cervix is closed at 3.7 cm.The amniotic fluid volume is normal at 10.5 cm. The cord Doppler ratiois 2.4 with forward diastolic flow.A biophysical profile was performed with the fetus receiving a scoreof 8 out of 8 within 8 minutes of observation.IMPRESSION:Singl e live intrauterine gestation in cephalic presentation withbiophysical profile score of 8 out of 8.Normal cord Doppler ratio and normal DYANA.A stat report was forwarded to the referring physician shortlyfollowing dictation. ---- Electronic Signature on File ----Signed By: Azam [email or web address]: 04/16/2018 11:33 AMSigned: 04/16/2018 11:35 AM Reported By: ALYCE VALDEZ M.D. Signed By: ALYCE VALDEZ M.D. [facility] US BIO PHYSICAL PROFIL Guille 04-16-2018 Protein mass conc US BIO PHYSICA L PROFILE, DOPPLER UMBILICAL ARTERYOrdering Physician: Hallie Quinones04/16/2018 10:45 AMULTRASOUND BIOPHYSICAL PROFILE WITH UMBILICAL CORD DOPPLERClinical Statement: care third trimesterComparison: March 19, 2018FINDINGS: A single live intrauterine gestation is present, currentlyin cephalic presentation. The heart rate is 140 bpm. Theplacenta is posterior without previa. The cervix is closed at 3.7 cm.The amniotic fluid volume is normal at 10.5 cm. The cord Doppler ratiois 2.4 with forward diastolic flow.A biophysical profile was performed with the fetus receiving a scoreof 8 out of 8 within 8 minutes of observation.IMPRESSION:Singl e live intrauterine gestation in cephalic presentation withbiophysical profile score of 8 out of 8.Normal cord Doppler ratio and normal DYANA.A stat report was forwarded to the referring physician shortlyfollowing dictation. ---- Electronic Signature on File ----Signed By: Alyce Valdez [email or web address]: 04/16/2018 11:33 AMSigned: 04/16/2018 11:35 AM Reported By: ALYCE VALDEZ M.D. Signed By: ALYCE VALDEZ M.D. Normal [facility] GLUCOSE 1HRon 04-02-2018 Glucose mass conc 178 mg/dL Normal Less Than 190 [facility] Comment on above: Order Comment: Campu s: M Performed By: #### L [id number] ####[facility] [id number] [place], [place] [address]Pa# [phone] GLUCOSE 2HRon 04-02-2018 Glucose mass conc 89 mg/dL Normal Less Than 165 [facility] Comment on above: Order Comment: Campu s: M Performed By: #### L [id number] ####[facility] [id number] [place], [place] [address]At# [phone] GLUCOSE 3HRon 04-02-2018 Glucose mass conc 121 mg/dL Normal Less Than 145 [facility] Comment on above: Order Comment: Campu s: M Performed By: #### L 200.84822 ####[facility] [id number] [place], [place] [address]Su# [phone] GLUFon 04-02-2018 GLUF 80 MG/DL Normal 70-100 [facility] Comment on above: Order Comment: Campu s: M Performed By: #### L 200.33513 ####[facility] D[address] [place] [address]Nz# [phone] DOPPLER UMBILICAL NANDINI Luciano 03-19-2018 DOPPLER UMBILICAL ARTERY US AGE > 14 WEEKS, DOPPLER UMBILICAL ARTERYOrdering Physician: Deysi Gomez03/19/2018 9:00 AMULTRASOUND AGE GREATER THAN 14 WEEKS, UMBILICAL ARTERY DOPPLER:Clinical Statement: Supervision of with sufficientantenatal care.Comparison: None.FINDINGS: The fetus is in cephalic position with the spineanterior. The heart rate is 127 bpm. The amniotic fluid volumeis subjectively normal. The placenta is posterior fundal. The cervixis closed with a cervical length of 3.1 cm.The umbilical artery SD ratio is 2.4 with forward diastolic flow.The composite gestational age based on the current exam measurementsis 32.4 weeks with a projected delivery date of 05/12/2018. Theestimated weight based on the current exam is 1906 gcorresponding with the 57th percentile.The anatomic survey was performed with the following structuresadequately visualized and unremarkable in appearance sonographically:Intracranial ventricles, choroid plexus, cava septum pellucidum,cerebellum, cisterna magna, face, nose and lips, spine and skincovering, four-chamber heart, stomach, cord insertion, bilateralkidneys, urinary bladder, three-vessel cord/2 umbilical arteries,intact diaphragm and bilateral upper and lower extremities.IMPRESSION:Singl e live fetus in cephalic position with a gestational age of 32weeks based on the current exam. The projected delivery date is05/12/2018.Unremarkable anatomic survey. ---- Electronic Signature on File ----Signed By: Billy Cosme [email or web address]: 03/19/2018 10:49 AMSigned: 03/19/2018 10:52 AM Reported By: BILLY COSME M.D. Signed By: BILLY COSME M.D. [facility] AGE > 14 WEEKSon AGE > 14 WEEKS US AGE > 14 WEEKS, DOPPLER UMBILICAL ARTERYOrdering Physician: Deysi [facility]03/19/2018 9:00 AMULTRASOUND AGE GREATER THAN 14 WEEKS, UMBILICAL ARTERY DOPPLER:Clinical Statement: Supervision of with sufficientantenatal care.Comparison: None.FINDINGS: The fetus is in cephalic position with the spineanterior. The heart rate is 127 bpm. The amniotic fluid volumeis subjectively normal. The placenta is posterior fundal. The cervixis closed with a cervical length of 3.1 cm.The umbilical artery SD ratio is 2.4 with forward diastolic flow.The composite gestational age based on the current exam measurementsis 32.4 weeks with a projected delivery date of 05/12/2018. Theestimated weight based on the current exam is 1906 gcorresponding with the 57th percentile.The anatomic survey was performed with the following structuresadequately visualized and unremarkable in appearance sonographically:Intracranial ventricles, choroid plexus, cava septum pellucidum,cerebellum, cisterna magna, face, nose and lips, spine and skincovering, four-chamber heart, stomach, cord insertion, bilateralkidneys, urinary bladder, three-vessel cord/2 umbilical arteries,intact diaphragm and bilateral upper and lower extremities.IMPRESSION:Singl e live fetus in cephalic position with a gestational age of 32weeks based on the current exam. The projected delivery date is05/12/2018.Unremarkable anatomic survey. ---- Electronic Signature on File ----Signed By: Billy Cosme [email or web address]: 03/19/2018 10:49 AMSigned: 03/19/2018 10:52 AM Reported By: BILLY COSME M.D. Signed By: BILLY COSME M.D. Normal [facility] URINE CULTUREon 03-07-2018 Bacteria identified Cx Nom (U) URINE RESULT 80-90,000 COL/ML MIXED CHUCKY-PLEASE REPEAT-POSSIBLE CONTAMIN Normal [facility] Comment on above: Performed By: #### L 200.33262 ####[facility] [id number] [place], [place] [address]Wa# [phone] V ZOSTER IGG ABon 03-06-2018 V ZOSTER IGG AB 2454 index Normal Immune >165 [facility] Comment on above: Order Comment: Herber hawthorne: Akhil Result Comment: Nega tive <135 Equivocal 135 - 165 Positive >165A positive result generally indicates exposure to thepathogen or administration of specific immunoglobulins,but it is not indication of active infection or stageof disease.Performed At: [facility] [place], [place] [id number] Vincent [id number] Performed By: #### L 200.55959 ####[facility] [id number] [place] [address]Qo# [phone] CBC W/DIFFon 03-05-2018 BASO ABS 0.00 K/CU MM Normal 0-0.2 [facility] [place] Comment on above: Order Comment: Campu s: M Performed By: #### L 200.15405 ####[facility] XQIKURRMVP[address] [place], [place] [address]Ph# [phone] Basophils/100 WBC Auto (Bld) 0.6 % Normal 0-2 [facility] [place] Comment on above: Order Comment: Campu s: M Performed By: #### L 200.36819 ####[address] [address]Kh# [phone] EOS ABS 0.00 K/CU MM Normal 0-0.5 [facility] [place] [place] Comment on above: Order Comment: Campu s: M Performed By: #### L 200.08281 ####[place] [address]Ph# [phone] Eosinophils/100 WBC Auto (Bld) 0.6 % Normal 0-5 [facility] [place] [place] Comment on above: Order Comment: Campu s: M Performed By: #### L 200.24555 ####[facility] LXDOIQDSUA[address] [place] [address] 96[address]Gs# [phone] Erythrocyte distribution width Auto Ratio (RBC) 15.9 % High 11-14.5 [facility] [place] [place] Comment on above: Order Comment: Campu s: M Performed By: #### L 200.05758 ####[facility] CKENJMQSMU[address] [place] [address]Sf# [phone] Hematocrit Auto Volume Fraction (Bld) 29.9 % Low 35.0-[facility].0 [facility] Comment [facility]: Order Comment: Campu s: M Performed By: #### L 200.14277 ####[facility] YOJKEXNSJR[address] [place], [place] [address]Ph# [phone] Hemoglobin mass conc (Bld) 9.0 g/dL Low 11.5-15.5 [facility] [place] Comment on above: Order Comment: Joselou s: M Performed By: #### L 200.74718 ####[facility] [id number] [place], [place] [address]Jm# [phone] IMMATR GRAN ABS 0.00 K/CU MM Normal Less than 2 [facility] [place] [place] Comment on above: Order Comment: Campu s: M Performed By: #### L 200.34348 ####[facility] [id number] [place] [address] 92[address]Cz# [phone] IMMATURE GRAN % 0.4 % Normal Less than 2 [facility] [place] [place] Comment on above: Order Comment: Campu s: M Performed By: #### L 200.28634 ####[facility] EPLRQDNKXG[address] [place], [place] [address]Ph# [phone] Lymphocytes Auto #/vol (Bld) 1.20 K/CU MM Normal 0.9-4.4 [facility] Comment on above: Order Comment: Campu s: M Performed By: #### L 200.38661 ####[facility] STHMZPDAFH[address] [place], [place] [address]Ph# [phone] Lymphocytes/100 WBC Auto (Bld) 22.6 % Normal 20-40 [facility] Comment on above: Order Comment: Campu s: M Performed By: #### L 200.21214 ####[facility] DGZXLDAPPI[address] [place] [address] 216[address]Nt# [phone] MCHC Auto mass conc (RBC) 30.1 g/dL Low 32.0-36.0 [facility] [place] [place] Comment on above: Order Comment: Campu s: M Performed By: #### L 200.70048 ####[facility] [id number] [place] [address]Zs# [phone] MCV Auto Entitic volume (RBC) 71.4 fL Low 80.0-99.0 [facility] [place] [place] Comment on above: Order Comment: Campu s: M Performed By: #### L 200.64162 ####[facility] LRDAJTUBWK2572 [place], [place] [address]Uf# [phone] MONO ABS 0.40 K/CU MM Normal 0.1-1.1 [facility] [place] [place] Comment on above: Order Comment: Campu s: M Performed By: #### L 200.82062 ####[facility] ETTUOOZMNA[address] [place], [place] [address]Ph# [phone] Monocytes/100 WBC Auto (Bld) 6.6 % Normal 2-10 [facility] Comment on above: Order Comment: Campu s: M Performed By: #### L 200.97982 ####[address] [address]Be# [phone] NEUTROPHIL ABS 3.70 K/CU MM Normal 2.0-8.3 [facility] [place] [place] Comment on above: Order Comment: Campu s: M Performed By: #### L 200.76672 ####[facility] [id number] [place] [address] 235[address]Aq# [phone] Neutrophils/100 WBC Auto (Bld) 69.2 % Normal 45-75 [facility] Comment on above: Order Comment: Campu s: M Performed By: #### L 200.79298 ####[facility] PDPOFHCAUL[address] [place] [address] 65[address]Xq# [phone] Nucleated RBC/100 WBC Ratio (Bld) 0.0 % Normal Less than 1 [facility] [place] Comment on above: Order Comment: Campu s: M Performed By: #### L 200.17518 ####[facility] PBIDVAHVET[address] [place] [address]Fm# [phone] Platelet mean volume Auto Entitic volume (Bld) 11.1 fL Normal 9.4-12.4 [facility] Comment on above: Order Comment: Campu s: M Performed By: #### L 200.96223 ####[facility] [id number] [place], [place] [address]Ph# [phone] Platelets Auto #/vol (Bld) 312 K/CU MM Normal 150-450 [facility] Comment on above: Order Comment: Joselou s: M Performed By: #### L 200.80482 ####[facility] DPSFQMDSZO7398 [place], [place] [address]Pp# [phone] RBC Auto #/vol (Bld) 4.19 M/CU MM Normal 3.90-5.30 [facility] Comment on above: Order Comment: Joselou s: M Performed By: #### L 200.02095 ####[facility] [id number] [place] [address] 249[address]Zx# [phone] WBC Auto #/vol (Bld) 5.3 K/CU MM Normal 4.5-11.0 [facility] Comment on above: Order Comment: Joselou s: M Performed By: #### L 200.49263 ####[facility] [id number] [place] [address] 209[address]Rb# [phone] GLU1HR W/GLUCOLon 03-05-2018 Glucose mass conc 160 mg/dL Normal LESS THAN 140 [facility] Comment on above: Order Comment: Herber s: M Performed By: #### L 500.60068 ####[facility] IQJEZSTQRP4314 [place], [place] [address]Qi# [phone] HIV 1/2on 03-05-2018 HIV 1/O/2 QUAL NONREACTIVE Normal NONREACTIVE [facility] Comment on above: Order Comment: Herber s: M Result Comment: NONR EACTIVE: LESS THAN 1.0 INDEX VALUETHIS ASSAY DETECTS HIV p24 ANTIGEN AND ANTIBODIES TO HIV-1AND HIV-2 BY THE ADVIA OctmamiAUR CHIV ASSAY. Performed By: #### L 540.46928 ####[facility] [id number] [place] [address] 05[address]Zm# [phone] PATIENT RETYPEon 03-05-2018 RETYPE INTERP Positive Normal [facility] Comment on above: Order Comment: Herber s: M PCR GC AND CHLAMon 8 PCR CHLAMYDIA NOT DETECTED Normal NOT DETECTD [facility] Comment on above: Performed By: #### L 770.52507 ####[facility] [id number] [place], [place] [address]Lw# [phone] PCR GONORRHOEAE NOT DETECTED Normal NOT DETECTD [facility] Comment on above: Performed By: #### L 770.62741 ####[facility] MQHIQYGXDA4926 [place], [place] [address]Hd# [phone] POC URINE PREGon 03-05-2018 POC SPEC GRAV 1.010 Normal 1.005-1.030 [facility] Comment on above: Performed By: #### L 600.28482 ####[facility] MFTYNDAPAS2769 [place], [place] [address]Qu# [phone] POC UR HCG QUAL Positive Normal NEGATIVE [facility] Comment on above: Performed By: #### L 600.56855 ####[facility] IMNJHXRQIF4688 [place], [place] [address]Pa# [phone] RUBELLA IGG ABon 03-05-2018 RUBELLA IGG AB IMMUNE Normal [facility] Comment on above: Order Comment: Herber hawthorne: Akhil Result Comment: <5 I U/ML- Non-Immune for IgG antibodies to Rubella Virus.>= 5-9.9 IU/ML- Equivocal for IgG antibodies to Rubella Virus. Obtain a new specimen and test using Centaur Rubella IgG assay.>= 10 IU/ML- Immune for IgG antibodies to Rubella Virus.<5 IU/ML- Non-Immune for IgG antibodies to Rubella Virus.>= 5-9.9 IU/ML- Equivocal for IgG antibodies to Rubella Virus. Obtain a new specimen and test using Centaur Rubella IgG assay.>= 10 IU/ML- Immune for IgG antibodies to Rubella Virus. Performed By: #### L 705.73918 ####[facility] [id number] [place], [place] [address]Kx# [phone] T PALLIDUM SCRon 03-05-2018 T PALLIDUM SCR NON REACTIVE Normal NONREACTIVE [facility] Comment on above: Order Comment: Herber s: M Result Comment: SAMP LES WITH AN INDEX VALUE OF LESS THAN 0.90 ARE CONSIDEREDNONREACTIVE FOR SYPHILIS T.PALLIDUM ANTIBODIES. Performed By: #### L 200.81889 ####[facility] [id number] [place], [place] [address]Re# [phone] TSon 03-05-2018 ABO and Rh group Nom (Bld) O POSITIVE Normal [facility] Comment on above: Order Comment: Herber s: M UA COMPLETEon 03-05-2018 UA LK ESTERASE [address] [facility] Comment on above: Performed By: #### L 600.89530 ####[facility] [id number] [place], [place] [address]Lz# [phone] Color Nom (U) Yellow Normal [facility] Comment on above: Performed By: #### L 600.77846 ####[facility] [id number] [place], [place] [address]Bk# [phone] Glucose mass conc (U) Negative Normal [facility] Comment on above: Performed By: #### L 600.85591 ####[facility] [id number] [place], [place] [address]Aa# [phone] [facility] Comment on above: Performed By: #### L 600.29358 ####[facility] GSRZLWRSNY7661 [place], [place] [address]Oz# [phone] SQUAMOUS EPIS 8 EPI/HPF High 0-5 [facility] Comment on above: Performed By: #### L 600.60681 ####[facility] KDMUFYSMCC7047 [place], [place] [address]Px# [phone] UA APPEARANCE Hazy Normal CLEAR [facility] Comment on above: Performed By: #### L 600.58824 ####[facility] [id number] [place], [place] [address]Ga# [phone] UA BACTERIA 1+ /HPF Normal NONE [facility] Comment on above: Performed By: #### L 600.66147 ####[facility] QWILWJXNKX7366 [place], [place] [address]Xe# [phone] UA BILIRUBIN Negative Normal [facility] Comment on above: Performed By: #### L 600.70899 ####[facility] JRZWXGOMJY3406 [place], [place] [address]Fv# [phone] UA BLOOD Negative Normal NEGATIVE [facility] Comment on above: Performed By: #### L 600.22106 ####[facility] [id number] [place] [address] 50[address]Pq# [phone] UA KETONE Negative Normal [facility] Comment on above: Performed By: #### L 600.81152 ####[facility] [id number] [place] [address] 49[address]Hl# [phone] UA NITRITE Negative Normal NEGATIVE [facility] Comment on above: Performed By: #### L 600.23898 ####[facility] [id number] [place] [address] 490[address]Au# [phone] PH [address] [facility] Comment on above: Performed By: #### L 600.32825 ####[facility] [id number] [place] [address] 899[address]Gb# [phone] UA PROTEIN Negative Normal NEGATIVE [facility] Comment on above: Performed By: #### L 600.16794 ####[facility] [id number] [place] [address] 132[address]Wc# [phone] UA RBC 3 RBC/HPF Normal 0-3 [facility] Comment on above: Performed By: #### L 600.16635 ####[facility] [id number] [place] [address] 100[address]Ha# [phone] UA SPEC GRAV 1.009 Normal 1.005-1.030 [facility] Comment on above: Performed By: #### L 600.67996 ####[facility] [id number] [place] [address] 255[address]Nx# [phone] UA UROBILINOGEN Negative Normal [facility] Comment on above: Performed By: #### L 600.79676 ####[facility] [id number] [place], [place] [address]Ey# [phone] UA WBC 5 WBC/HPF Normal 0-5 [facility] [place] Comment on above: Performed By: #### L 600.90304 ####[facility] [id number] [place], [place] [address]Zp# [phone] Vital Signs Date Time Vital Sign Value Performing Clinician Facility 02-12-2025 10:21-0400 Body mass index (BMI) [Ratio] 32.77 kg/m2 Daryl White MD Work Phone: [facility] 02-12-2025 10:21-040 Body weight 75.48 kg Daryl White MD Work Phone: [facility] 02-12-2025 10:21-0400 Diastolic blood pressure 60 mm[Hg] Daryl White MD Work Phone: [facility] 02-12-2025 10:21-0400 Systolic blood pressure 100 mm[Hg] Daryl White MD Work Phone: [facility] 01-27-2025 09:52-0400 Body mass index (BMI) [Ratio] 32.69 kg/m2 Hipolito Johnson MD Work Phone: [facility] 01-27-2025 09:52-0400 Body weight 75.3 kg Hipolito Johnson MD Work Phone: [facility] 01-27-2025 09:52-0400 Diastolic blood pressure 64 mm[Hg] Hipolito Johnson MD Work Phone: [facility] 01-27-2025 09:52-0400 Systolic blood pressure 102 mm[Hg] Hipolito Johnson MD Work Phone: [facility] 01-11-2025 09:17-0400 Body height 151.8 cm Pat Coats APRN.CNM Work Phone: [facility] 01-11-2025 09:17-0400 Body mass index (BMI) [Ratio] 33.28 kg/m2 Pat Coats APRN.CNM Work Phone: [facility] 01-11-2025 09:17-0400 Body weight 76.66 kg Patesvin Coats APRN.CNM Work Phone: [facility] 01-11-2025 09:17-0400 Diastolic blood pressure 68 mm[Hg] Pat Jorge L QUIROZ.CNM Work Phone: [facility] 01-11-2025 09:17-0400 Systolic blood pressure 110 mm[Hg] Pat Jorge L QUIROZ.CNM Work Phone: [facility] 07-10-2021 08:44-0500 Body temperature 98.78 [degF] HUGH CEBALLOS MD [facility] 07-10-2021 08:44-0500 Diastolic blood pressure 52 mm[Hg] HUGH CEBALLOS MD [facility] 07-10-2021 08:44-0500 Heart rate 77 /min HUGH CEBALLOS MD [facility] 07-10-2021 08:44-0500 Mean blood pressure 65 mm[Hg] HUGH CEBALLOS MD [facility] 07-10-2021 08:44-0500 Respiratory rate 16 /min HUGH CEBALLOS MD [facility] 07-10-2021 08:44-0500 Systolic blood pressure 90 mm[Hg] HUGH CEBALLOS MD [facility] 07-09-2021 23:30-0500 Body temperature 98.42 [degF] HUGH CEBALLOS MD [facility] 07-09-2021 23:30-0500 Diastolic blood pressure 58 mm[Hg] HUGH CEBALLOS MD [facility] 07-09-2021 23:30-0500 Heart rate 76 /min HUGH CEBALLOS MD [facility] 07-09-2021 23:30-0500 Mean blood pressure 72 mm[Hg] HUGH CEBALLOS MD [facility] 07-09-2021 23:30-0500 Respiratory rate 18 /min HUGH CEBALLOS MD [facility] 07-09-2021 23:30-0500 Systolic blood pressure 101 mm[Hg] HUGH CEBALLOS MD [facility] 07-09-2021 14:41-0500 Body temperature 98.24 [degF] HUGH CEBALLOS MD [facility] 07-09-2021 14:41-0500 Diastolic blood pressure 48 mm[Hg] HUGH CEBALLOS MD [facility] 07-09-2021 14:41-0500 Heart rate 77 /min HUGH CEBALLOS MD [facility] 07-09-2021 14:41-0500 Mean blood pressure 62 mm[Hg] HUGH CEBALLOS MD [facility] 07-09-2021 14:41-0500 Respiratory rate 20 /min HUGH CEBALLOS MD [facility] 07-09-2021 14:41-0500 Systolic blood pressure 90 mm[Hg] HUGH CEBALLOS MD [facility] 07-09-2021 11:40-0500 Signs/Symptoms Transfusion Reaction HUGH CEBALLOS MD [facility] 07-09-2021 10:41-0500 Heart rate 86 /min HUGH CEBALLOS MD [facility] 07-09-2021 10:41-0500 Signs/Symptoms Transfusion Reaction No UHGH CEBALLOS MD [facility] 07-09-2021 10:11-0500 Heart rate 83 /min HUGH CEBALLOS MD [facility] 07-09-2021 10:11-0500 Signs/Symptoms Transfusion Reaction HUGH CEBALLOS MD [facility] 07-08-2021 02:30-0500 Body temperature 96.8 [degF] HUGH CEBALLOS MD [facility] 07-08-2021 02:26-0500 Diastolic Blood Pressure NBP 68 1 HUGH CEBALLOS MD [facility] 07-08-2021 02:26-0500 Systolic Blood Pressure NBP 98 1 HUGH CEBALLOS MD [facility] 07-08-2021 02:23-0500 Diastolic Blood Pressure NBP 70 1 HUGH CEBALLOS MD [facility] 07-08-2021 02:23-0500 Systolic Blood Pressure NBP 105 1 HUGH CEBALLOS MD [facility] 07-08-2021 02:20-0500 Diastolic Blood Pressure NBP 66 1 HUGH CEBALLOS MD [facility] 07-08-2021 02:20-0500 Systolic Blood Pressure NBP 106 1 HUGH CEBALLOS MD [facility] 07-07-2021 22:07-0500 Body height 147.3 cm HUGH CEBALLOS MD [facility] 07-07-2021 22:07-0500 Body weight 65.9 kg HUGH CEBALLOS MD [facility] 07-07-2021 22:07-0500 Body weight 30.37 kg/m2 HUGH CEBALLOS MD [facility] 03-05-2018 15:59-0400 Body surface area Derived from formula NONREACTIVE Deysi [facility] [place] Comment on above: Order Comment: [place]: Result Comment: RESU LTS WERE OBTAINED WITH THE OctmamiAUR XP.VALUES OBTAINED WITH DIFFERENT MANUFACTURERS' ASSAY METHODSMAY NOT BE USED INTERCHANGEABLY. Performed By: #### L 540.80936 ####[facility] [id number] [place], [place] [address]Uq# [phone] Encounters Encounter Date Encounter Type Care Provider Facility Start: 03-01-2025 ambulatory [facility] Facility: [facility] Start: 02-12-2025 End: 02-12-2025 Patient encounter procedure [employer] [facility] Comment on above: Multigravida of adva nced maternal age in third trimester (HCC) (Primary Dx); 36 weeks gestation of (HCC) Start: 02-12-2025 End: 02-12-2025 Patient encounter procedure Daryl White MD Work Phone: OB/Gynecology Comment on above: 36 weeks gestation o f (HCC) (Primary Dx); Supervision of other high risk pregnancies, third trimester (HCC); Abnormal glucose in , antepartum (HCC); History of section, low transverse; Multigravida of advanced maternal age in third trimester (HCC); Language barrier Start: 01-27-2025 End: 02-10-2025 Telephone encounter Pat Coats APRN.CNM Work Phone: OB/Gynecology Comment on above: Follow Up Start: 01-27-2025 End: 01-27-2025 ambulatory PAT COATS Facility:[facility] Start: 01-27-2025 End: 01-27-2025 Patient encounter procedure Hipolito Johnson MD Work Phone: OB/Gynecology Comment on above: Supervision of other high risk pregnancies, third trimester (HCC) (Primary Dx); History of section, low transverse; Multigravida of advanced maternal age in third trimester (HCC); Insufficient care in third trimester (HCC); Language barrier; 34 weeks gestation of (HCC) Encounter for antena cheryl screening for malformation using ultrasound ([facility]) (Primary Dx); 34 weeks gestation of ([facility]); Encounter for ultrasound to check growth ([facility]) Start: 01-27-2025 End: 01-27-2025 ambulatory HIPOLITO JOHNSON Facility:[facility] Start: 01-12-2025 End: 01-27-2025 Telephone encounter Pat Coats APRN.CNM Work Phone: OB/Gynecology Comment on above: Results Start: 01-11-2025 End: 01-11-2025 ambulatory PAT COATS Facility:[facility] Start: 01-11-2025 End: 01-11-2025 ambulatory PAT COATS Facility:[facility] Start: 01-11-2025 End: 01-11-2025 Patient encounter procedure Pat Coats APRN.CNM Work Phone: OB/Gynecology Comment on above: with uncer tain dates, antepartum (HCC) (Primary Dx); Supervision of other high risk pregnancies, third trimester (HCC); History of section, low transverse; Multigravida of advanced maternal age in third trimester (HCC); Insufficient care in third trimester (HCC); Language barrier; Genetic screening; Screening for cervical cancer; Screening for human papillomavirus (HPV); Multigravida of advanced maternal age in second trimester (HCC) Start: 01-06-2025 End: 01-06-2025 Telephone encounter Lynda Salcedo TIP Work Phone: OB/Gynecology Start: 12-25-2024 End: 12-25-2024 ambulatory PAT COATS Facility:[facility] Start: 10-01-2024 End: 10-01-[address] Jordyn Collins MD Work Phone: [facility] Work Phone: Start: 10-01-2024 End: 10-01-[address] Jordyn Collins MD -Ultrasound, [facility] Work Phone: Start: 10-01-2024 End: 10-01-2024 ambulatory Jordyn Collins Facility:[facility] Start: 07-07-2021 End: 07-10-2021 Evaluation and management of inpatient ALBINA PEDERSEN MD [facility] Start: 07-06-2018 Emergency department patient visit [facility] Facility:[facility] Start: 07-02-2018 Patient encounter procedure Melonie Castro Facility:[facility] Start: 05-13-2018 End: 05-14-2018 Evaluation and management of inpatient Hallie ACC Verchio Facility:[facility] Start: 05-07-2018 Patient encounter procedure David Harden Facility:[facility] Start: 04-30-2018 Patient encounter procedure Hallie ACC Verchio Facility:[facility] Start: 04-16-2018 End: 04-27-2018 Patient encounter procedure Hallie ACC Verchio Facility:[facility] Start: 04-16-2018 Patient encounter procedure Hallie ACC Verchio Facility:[facility] Start: 04-02-2018 Patient encounter procedure Hallie ACC Verchio Facility:[facility] Start: 03-19-2018 Patient encounter procedure Hallie Quinones Facility:[facility] Start: 03-19-2018 Patient encounter procedure Deysi Gomez Facility:[facility] Start: 03-05-2018 Patient encounter procedure Deysi Gomez Facility:[facility] Start: 03-05-2018 Patient encounter procedure Deysi Gomez Facility:[facility] Procedures Date Procedure Procedure Detail Performing Clinician Start: 02-12-2025 Us preg uterus after 1st trimest 07/29 gestation Daryl White MD Work Phone: Start: 02-12-2025 Urnls dip stick/tabl et rgnt non-auto w/o micrscp Daryl White MD Work Phone: Start: 01-27-2025 Us preg uterus after 1st trimest 07/29 gestation Pat Coats APRN.CNAkhil Work Phone: Start: 01-11-2025 H/O: section History of section, low transverse Pat Coats APRN.CNAkhil Work Phone: Start: 01-11-2025 Cytp c/v auto thin l yr prepj scr mnl rescr phys Pat Coats APRN.CNM Work Phone: Start: 01-11-2025 HIGH RISK HUMAN BRAD LLOMA VIRUS (HPV), PCR FOR DETECTION AND GENOTYPING Pat Coats APRN.CNAkhil Work Phone: Start: 01-11-2025 Antibody screen PAT COATS Comment on above: Order Comment: Speci men Type: BLOOD SPECIMEN Ordering Facility: [facility] Address: [address] [place] [address] Performed By: #### T SPN #### [facility] CLIA [id number] [address] [place], [place] [address] [address] [place] Start: 01-11-2025 BACTERIAL VAGINOSIS NAAT Pat Coats APRN.CNAkhil Work Phone: Start: 01-11-2025 Iadna chlamydia trachomatis amplified probe tq Pat Coats APRN.CNAkhil Work Phone: Start: 10-01-2024 Ultrasound scan for growth Dr. Jordyn Collins MD Work Phone: Start: 08-21-2019 delivery only HUGH CEBALLOS MD Start: 05-13-2018 Antibody screen Deysi Gomez Comment on above: Order Comment: Campu s: MPatient transfused or in the past 3 months: YESIs This Patient Going To Surgery? N Start: 03-05-2018 Antibody screen Deysi Gomez Comment on above: Order Comment: Campu s: M Start: 03-05-2018 Cytopathology proced ure, preparation of smear, genital source Deysi Gomez H/O: section History of section, low transverse Hipolito Johnson MD Work Phone: H/O: section History of section, low transverse Daryl White MD Work Phone: Plan of Treatment Date Care Activity Detail Author Start: 11-10-2059 RSV Vaccine (1 - 1-d ose 75+ series) RSV Vaccine (1 - 1-dose 75+ series) [facility] Start: 05-02-2031 Urine microalbumin profile [facility] Start: 01-11-2030 Screening for malign ant neoplasm of cervix Cervical Cancer Screening [facility] Start: 03-29-2025 Influenza vaccination C [facility] Start: 03-08-2025 End: 03-08-2025 Patient encounter procedure 03/08/2025 10:50 AM EDT Office Visit OB/Gynecology [address] [place], [place] [id number] Skyla Pearl MD [address] [place] [address] 1 week incision check OB/Gynecology Comment on above: 1 week incision chec k Start: 02-24-2025 End: 02-24-2025 Patient encounter procedure 02/24/2025 9:00 AM EDT Routine Office Visit Maternal Medicine [address] [place] [id number] Growth Maternal Medicine Comment on above: Growth Start: 02-15-2025 End: 02-15-2025 Patient encounter procedure 02/15/2025 10:50 AM EDT Routine Office Visit OB/Gynecology [address] [place] [address] Louisa Mazariegos MD [address] [place] [address] OB Pre Op C/S 03/01 @ [facility] OB/Gynecology Comment on above: OB Pre Op C/S 03/01 @ [facility] Start: 02-12-2025 End: 02-12-2025 Patient encounter procedure OB/Gynecology Comment on above: OB OB-Needs to schedule growth ultrasound Start: 01-27-2025 End: 01-27-2025 Patient encounter procedure 01/27/2025 8:30 AM EDT Routine Office Visit Maternal Medicine [address] [place] [address] Anatomy Maternal Medicine Comment on above: Anatomy Start: 01-25-2025 End: 01-25-2025 Patient encounter procedure 01/25/2025 1:10 PM EDT Routine Office Visit OB/Gynecology [address] [place] [address] Louisa Mazariegos MD [address] [place] [address] 1st OB - LMP 06/01/25 (Ok per triage nurse) OB/Gynecology Comment on above: 1st OB - LMP 06/01/25 (Ok per triage nurse) Start: 01-11-2025 End: 01-11-2026 OBSTETRIC ULTRASOUND WHI OBSTETRIC ULTRASOUND WHI Anc Imaging Routine with uncertain dates, antepartum (HCC) Expected: 01/11/2025, Expires: 01/11/2026 [facility] Work Phone: Comment on above: Expected: 01/11/2025 , Expires: 01/11/2026 Start: 01-11-2025 End: 01-11-2025 Patient encounter procedure 01/11/2025 8:45 AM EDT Initial Office Visit OB/Gynecology [address] [place] [address] Pat Coats APRN.[facility] [address] [place] [place] [address] 1st OB - LMP 06/01/25 (Ok per triage nurse) OB/Gynecology Comment on above: 1st OB - LMP 06/01/25 (Ok per triage nurse) Start: 2024 Screening for malign ant neoplasm of breast Mammogram Screening [facility] Start: 03-29-2024 Covid-19 Vaccine ( season) Covid-19 Vaccine ( season) [facility] Start: 2005 Screening for malign ant neoplasm of cervix Cervical Cancer Screening [facility] Start: 11-10-2003 Hepatitis B Vaccine (1 of 3 - 19+ 3-dose series) Hepatitis B Vaccine (1 of 3 - 19+ 3-dose series) [facility] Start: 2002 Anxiety Screening Anxiety Screening [facility] Start: 2002 Depression Screening Depression Scre ening [facility] Start: 2002 Hepatitis C screening Hepatitis C Sc reening [facility] Start: 2002 HIV screening HIV Screening [facility] Bacteria identified in Urine by Culture BACTERIAL CULTURE, URINE Microbiology Routine Supervision of other high risk pregnancies, third trimester (HCC) 01/27/2025 10:24 AM EDT [facility] Work Phone: nonstress test NON-S TRESS TEST Procedures Routine Multigravida of advanced maternal age in second trimester (HCC) Ordered: 01/20/2025 [facility] Comment on above: Ordered: 01/20/2025 End: 05-13-2025 OBSTETRIC ULTRASOUND WHI OBSTETRIC ULTRASOUND [facility]I Anc Imaging Routine Multigravida of advanced maternal age in second trimester (HCC) Once per month for 4 Occurrences starting 01/20/2025 until 05/13/2025 [facility] Comment on above: Once per month for 4 Occurrences starting 01/20/2025 until 05/13/2025 ROUTINE, GR OUP B STREPTOCOCCUS BY PCR ROUTINE, GROUP B STREPTOCOCCUS BY PCR Microbiology Routine 36 weeks gestation of (HCC) Supervision of other high risk pregnancies, third trimester (HCC) Abnormal glucose in , antepartum (HCC) History of section, low transverse Multigravida of advanced maternal age in third trimester (HCC) 02/12/2025 10:34 AM EDT [facility] Work Phone: Immunizations Immunization Date Immunization Notes Care Provider [place] 05-02-2021 influenza virus vaccine, unspecified formulation Lynda Salcedo WIND FARM SUPPORT SPECIALIST.CNM Work Phone: [facility] 08-24-2019 tetanus toxoid, redu mellissa diphtheria toxoid, and acellular pertussis vaccine, adsorbed; Translations: [Boostrix (Tdap)] HUGH CEBALLOS MD [facility] Comment on above: Result Comment: vari fied by Reagan White (RNC) 06-27-2016 influenza, injectabl e, quadrivalent, preservative free HUGH CEBALLOS MD [facility] Payers Date Payer Category Payer Self-pay Unknown [id number] 2.16.8 [id number] Unknown [id number] 2.16.8 [id number] Unknown [id number] 2.16.8 [id number] Unknown [id number] 2.16.8 [id number] Unknown [id number] 2.16.8 [id number] Unknown [id number] 2.16.8 [id number] Unknown [id number] 2.16.8 [id number] Unknown [id number] 2.16.8 [id number] Unknown [id number] 2.16.8 [id number] Unknown [id number] 2.16.8 [id number] Unknown [id number] 2.16.8 [id number] Unknown [id number] 2.16.8 [id number] Unknown [id number] 2.16.8 [id number] Unknown [id number] 2.16.8 [id number] Unknown [id number] 2.16.8 [id number] Social History Date Type Detail Facility Start: 01-09-2017 End: 01-11-2025 Never smoked tobacco (finding) [facility] Sex Assigned At [facility] Start: 10-15-2024 Sex Female (finding) [facility] Start: 1985 Sex Assigned At Female W [facility] Tobacco smoking stat [facility] Tobacco smoking consumption unknown [facility] Start: 12-25-2024 End: 01-11-2025 History of Social function [facility] Start: 12-25-2024 End: 01-11-2025 Area Deprivation Index [facility] National Score (1-10 0), lower number is lower risk 57 [facility] Start: 1985 Sex assigned at Not on file C [facility] Start: 01-11-2025 Tobacco use and exposure Smoke less tobacco non-user [facility] Start: 01-11-2025 End: 02-12-2025 Alcoholic beverage intake Lifetime non-drinker (finding) [facility] Start: 06-15-2024 [facility] Clinical Notes 05-04-2021 to 02-12-2025 Daryl White MD - 02/12/2025 12:20 PM EDTPrenatal Quick Notes - Daryl White MD - 02/12/2025 10:24 AM EDTPrenatal Quick Notes - Daryl White MD - 02/12/2025 10:24 AM EDTPatient Instructions Note Date & Type Note Facility 02-12-2025 Note Indication Evaluation of well-being Non reactive Nonstress test, Advanced maternal age, late care Impression - Single, live, intrauterine . - presentation is cephalic. - The amniotic fluid volume is mild polyhydramnios with an MVP of 9.8 cm and an DYANA of 24.5 cm. - The placenta is anterior, fundal. - BPP 03/05. Recommendations Continue planned surveillance Maternal Assessment Height 152 cm Height (ft) 5 ft Maternal assessment other: 6 Para 4 REMOTE READ Growth Overview Exam date GA BPD (mm) HC (mm) AC (mm) FL (mm) HL (mm) EFW (g) 01/27/2025 34w 2d 89 90% 332.8 90% 332.1 99% 65.7 52% 2907 93% Method Transabdominal ultrasound examination [place] . Number of fetuses: 1 Dating GA by prior assessment 36 w + 4 d MAMADOU by prior assessment: 03/08/2025 Assigned: based on stated MAMADOU, selected on 02/12/2025 Assigned GA 36 w + 4 d Assigned MAMADOU: 03/08/2025 General Evaluation Cardiac activity present. FHR 135 bpm. movements: present. Presentation: cephalic Placenta: Placental site: anterior, fundal Amniotic Fluid Assessment Amount of AF: mild polyhydramnios MVP 9.8 cm. DYANA 24.5 cm. Q1 9.8 cm, Q2 7.7 cm, Q3 4.0 cm, Q4 3.0 cm Biophysical Profile 2: breathing movements 2: Gross body movements 2: tone 2: Amniotic fluid volume 03/05 Biophysical profile score Anatomy sex: male. Performed By: Gemma Brennan RDMS, RVT Read By: Jessica Eldridge M.D. MATERNAL MEDICINE 02-12-2025 History of Present illness Narrative NST SUMMARY PROVIDER ASSESSMENT AND INTERPRETATION Lety Caicedo is a 39 year old female, , who is at 36w4d with an MAMADOU of 03/08/2025, by Last Menstrual Period dating method. Indications for NST: AMA Baseline: 130 Variability: Moderate Accelerations: Present 15 X 15 Decelerations: Late (1) Contractions: TOCO: None Interpretation: Reactive SIGNATURE: Daryl White MD documented in this encounter [facility] 02-12-2025 Progress note Formatting of t his note might be different from the original. KJ - S: Lety denies LOF or vaginal bleeding. She reports irregular ctxs. O: 36w4d, see flow sheet SENSITIVE EXAM: The sensitive examination was discussed with the Patient or Patient's Authorized Fats And Oils Loader. As applicable, any other physician, advance practice provider, medical student, or other health professional student that will be observing or involved in the sensitive examination for educational or training purposes was discussed with the Patient or Authorized Fats And Oils Loader. The Patient or Authorized Fats And Oils Loader has agreed to proceed with the sensitive examination. (Sensitive examination includes inspection and/or palpation of the breasts, pelvis, prostate and anorectal regions). A/P: Assessment & Plan 36 weeks gestation of ([facility]) Orders: URINE OB DIP B/O ROUTINE, GROUP B STREPTOCOCCUS BY PCR Supervision of other high risk pregnancies, third trimester ([facility]) Orders: URINE OB DIP B/O ROUTINE, GROUP B STREPTOCOCCUS BY PCR Abnormal glucose in , antepartum ([facility]) Orders: URINE OB DIP B/O ROUTINE, GROUP B STREPTOCOCCUS BY PCR History of section, low transverse Repeat scheduled. Orders: URINE OB DIP B/O ROUTINE, GROUP B STREPTOCOCCUS BY PCR Multigravida of advanced maternal age in third trimester ([facility]) NST today with late appearing decel. BPP 03/05. Repeat NST Saturday. Growth US scheduled Orders: URINE OB DIP B/O ROUTINE, GROUP B STREPTOCOCCUS BY PCR OBSTETRIC ULTRASOUND WHI; Future Language barrier Orders: URINE OB DIP B/O Reviewed labor & FM precautions Daryl White MD [facility] 02-12-2025 Miscellaneous Notes KJ - S: Lety denies LOF or vaginal bleeding. She reports irregular ctxs. O: 36w4d, see flow sheet SENSITIVE EXAM: The sensitive examination was discussed with the Patient or Patient's Authorized Fats And Oils Loader. As applicable, any other physician, advance practice provider, medical student, or other health professional student that will be observing or involved in the sensitive examination for educational or training purposes was discussed with the Patient or Authorized Fats And Oils Loader. The Patient or Authorized Fats And Oils Loader has agreed to proceed with the sensitive examination. (Sensitive examination includes inspection and/or palpation of the breasts, pelvis, prostate and anorectal regions). A/P: Assessment & Plan 36 weeks gestation of ([facility]) Orders: URINE OB DIP B/O ROUTINE, GROUP B STREPTOCOCCUS BY PCR Supervision of other high risk pregnancies, third trimester ([facility]) Orders: URINE OB DIP B/O ROUTINE, GROUP B STREPTOCOCCUS BY PCR Abnormal glucose in , antepartum ([facility]) Orders: URINE OB DIP B/O ROUTINE, GROUP B STREPTOCOCCUS BY PCR History of section, low transverse Repeat scheduled. Orders: URINE OB DIP B/O ROUTINE, GROUP B STREPTOCOCCUS BY PCR Multigravida of advanced maternal age in third trimester ([facility]) NST today with late appearing decel. BPP 03/05. Repeat NST Saturday. Growth US scheduled Orders: URINE OB DIP B/O ROUTINE, GROUP B STREPTOCOCCUS BY PCR OBSTETRIC ULTRASOUND WHI; Future Language barrier Orders: URINE OB DIP B/O Reviewed labor & FM precautions Daryl White MD documented in this encounter [facility] 02-12-2025 Instructions Lita Arriola MA - 02/12/2025 10:14 AM EDT SEQUENTIAL SCREENINGS The [facility] offers sequential screenings for women who are interested in screenings for chromosomal abnormalities and certain defects during a . The sequential screen combines ultrasound and blood tests to determine the risk of chromosomal abnormalities, including Down's Syndrome (Trisomy 21) and Trisomy 18, as well as open neural tube defects including spina bifida. Ultrasound examination is performed between 11 weeks and 13 weeks gestational age. Blood tests are drawn after the ultrasound and again later in the between 15 and 21 weeks gestational age. Please let your physician know if you are interested in this testing. It will require an appointment with our automotive refinish technician. This is not an ultrasound performed by a physician in our office during a routine visit. SIGNS AND SYMPTOMS OF LABOR 1. Contractions every 10 minutes or more often 2. Clear, pink, or brownish fluid (water) leaking from vagina 3. Feeling that baby is pushing down, pressure 4. Low, dull backache 5. Cramps that feel like a period 6. Cramps with or without diarrhea If you notice any of the above symptoms, contact our office at [phone] and ask to speak with a nurse. After hours, you can call doctors registry at [phone] OR call [facility] at [phone] and ask to have the doctor senior receptionist paged. If you consider this an emergency, dial 9-1- or go to your nearest emergency department. NEED HELP? Are you dealing with a violent or abusive relationship? Are you a victim of rape or sexual assult? Call [facility] ([place]) 24 hour Crisis Hotline: 229.897.9120 or 385-262-2661. MANUAL Your Guide to a Healthy manual is now on-line. Visit the [email or web address] ancyGuide to download your free copy documented in this encounter [facility] 02-05-2025 Telephone encounter Note 02/12 appt notes update to schedule growth us. Jany Clarke RN [facility] 02-05-2025 Miscellaneous Notes 02/12 appt notes update to schedule growth us. Jany Clarke RN Attempted to contact patient with the assistance of [employer] workers' compensation mediator, ID #[id number]. Patient did not answer, voicemail left to contact office for results and instructions. Gemma Uribe RN Images from the original note were not included. Pat Coats APRN.CNM P Wstr Ob-Galley Cook Pool Anatomy ultrasound reviewed. No abnormalities identified. Growth ultrasound in four weeks, please assist in scheduling. Please place copy in OB chart. Pat Coats APRN.CNM documented in this encounter [facility] 01-27-2025 Telephone encounter Note Attempted to contact patient with the assistance of [employer] workers' compensation mediator, ID #[id number]. Patient did not answer, voicemail left to contact office for results and instructions. Gemma Uribe RN [facility] 01-27-2025 Telephone encounter Note Images from the original note were not included. Pat Coats APRN.CNM P Ws Ob-[place] Cook Pool Anatomy ultrasound reviewed. No abnormalities identified. Growth ultrasound in four weeks, please assist in scheduling. Please place copy in OB chart. Pat Coats APRN.CNM [facility] 01-27-2025 Note HNO ID: [id number] Author: HIPOLITO JOHNSON MD Service: ? Author Type: Physician Type: Progress Notes Filed: 01/27/2025 10:11 Note Text: Abnormal 1 hr need 3 hr gtt will schedule Hipolito Johnson MD [facility] 01-27-2025 History of Present illness Narrative Abnormal 1 hr need 3 hr gtt will schedule Hipolito Johnson MD documented in this encounter [facility] 01-27-2025 Telephone encounter Note Iron supplement sent. Pat Phillips APRN.CNM [facility] 01-27-2025 Miscellaneous Notes Iron supplement sent. Pat Phillips APRN.CNM Patient here in the office for an appointment. Reviewed 3 hour glucose results, anemia, and C/S dates/times. Patient needs a prescription for iron supplement sent to their pharmacy. Can you please send? Thank you. Skyla Bauer RN 01/25 appointment note made to review results. Skyla Bauer RN Attempted to contact patient with the assistance of [employer] workers' compensation mediator. Spoke with [facility] who was unable to connect this nurse with an workers' compensation mediator at this time after a long wait time. Will need to try again later. Skyla Bauer RN 32w1d Called patient with the assistance of bag valverLandy at [facility]. We were able to talk with patient and the patient seemed to be having difficulty with what was being said. It was then that the Maritime Officer told this nurse the patient stated that her preferred language is Quiche. [facility] workers' compensation mediatorAlyce #[id number] Attempted to talk with patient. No answer this time and unable to leave a voicemail. Will need to try calling patient at a later time. Result Note Please notify patient 1 hr GCT is abnormal and will need the 3hr GTT. Please assist in scheduling and notifying patient on testing instructions. Please notify patient that she is anemic. 1. Increase iron rich foods in diet (I.e. Lean red meats, green leafy vegetables, beans/lentils or dried fruits) 2. Start an iron supplement now and take every other day or MWF. I recommend Ferrous Sulfate 325 mg by mouth 3. Take iron with a source of Vitamin C (orange juice) to help with absorption. 4. Avoid coffee, tea, milk at time the supplement is taken. 5. Will need repeat CBC in 4-6 weeks. Thank you, Pat Coats APRN.CNM GESTATIONAL GLUCOSE SCREEN, 1-HOUR, 50 GRAM, NON-FASTING; EXTRA TUBE JOAN; COMPLETE BLOOD COUNT AND DIFFERENTIAL documented in this encounter [facility] 01-27-2025 Progress note Formatting of t his note might be different from the original. Multip at 34 weeks 2 days reporting ++FM No bleeding or ctrx or egress of fluid C/o SI discomfort Visit done with workers' compensation mediator no questions or concerns rto 2 weeks Hipolito Johnson MD [facility] 01-27-2025 Miscellaneous Notes Multip at 34 weeks 2 days reporting ++FM No bleeding or ctrx or egress of fluid C/o SI discomfort Visit done with workers' compensation mediator no questions or concerns rto 2 weeks Hipolito Johnson MD documented in this encounter [facility] 01-27-2025 Telephone encounter Note Patient here in the office for an appointment. Reviewed 3 hour glucose results, anemia, and C/S dates/times. Patient needs a prescription for iron supplement sent to their pharmacy. Can you please send? Thank you. Skyla Bauer RN [facility] 01-22-2025 Telephone encounter Note 01/25 appointment note made to review results. Skyla Bauer RN [facility] 01-20-2025 Telephone encounter Note Attempted to contact patient with the assistance of [employer] workers' compensation mediator. Spoke with [employer] who was unable to connect this nurse with an workers' compensation mediator at this time after a long wait time. Will need to try again later. Skyla Bauer, RN [facility] 01-19-2025 Progress note Formatting of t his note might be different from the original. ANURADHA-NOB, late to care. US done at [facility], verify dating at anatomy US. PN labs today. Requested C/S reports, planning repeat C/S. Pat Coats APRN.CNM [facility] 01-19-2025 Miscellaneous Notes ANURADHA-NOB, late to care. US done at [facility], verify dating at anatomy US. PN labs today. Requested C/S reports, planning repeat C/S. Pat Coats APRN.CNM documented in this encounter [facility] 01-12-2025 Telephone encounter Note 32w1d Called patient with the assistance of bag valverLandy at [facility]. We were able to talk with patient and the patient seemed to be having difficulty with what was being said. It was then that the Maritime Officer told this nurse the patient stated that her preferred language is Quiche. Connected with [facility] workers' compensation mediatorAlyce #[phone] Attempted to talk with patient. No answer this time and unable to leave a voicemail. Will need to try calling patient at a later time. Result Note Please notify patient 1 hr GCT is abnormal and will need the 3hr GTT. Please assist in scheduling and notifying patient on testing instructions. Please notify patient that she is anemic. 1. Increase iron rich foods in diet (I.e. Lean red meats, green leafy vegetables, beans/lentils or dried fruits) 2. Start an iron supplement now and take every other day or MWF. I recommend Ferrous Sulfate 325 mg by mouth 3. Take iron with a source of Vitamin C (orange juice) to help with absorption. 4. Avoid coffee, tea, milk at time the supplement is taken. 5. Will need repeat CBC in 4-6 weeks. Thank you, Pat Coats APRN.CNM GESTATIONAL GLUCOSE SCREEN, 1-HOUR, 50 GRAM, NON-FASTING; EXTRA TUBE JOAN; COMPLETE BLOOD COUNT AND DIFFERENTIAL [facility] 01-11-2025 Note HNO ID: [id number] Author: PAT COATS APRN.ANKUR Service: ? Author Type: Ground Operations Supervisor Type: Progress Notes Filed: 01/20/2025 09:03 Note Text: INITIAL OB ASSESSMENT HPI: Lety is a 39 year old / here to establish Obstetrical Care. Patient's last menstrual period was 06/01/2024 (exact date). from OB Dating Form. was planned. Uncertain LMP 06/01/24, but sure it was that month. Menstrual cycles were regular. Complaints: No OB History Gravida6 Para4 Term3 Preterm1 AB1 Living4 SAB1 IAB0 Ectopic0 Multiple0 Live Births4 Previous history: Prior : yes x 2 History of 4th degree laceration: No History of shoulder dystocia: No History of Hypertensive disorders including pre-eclampsia or gestational hypertension: No History of gestational diabetes: No Patient's Risk Screening for delivery: Have you had a prior patel between 20w and 36w6d? No How many pregnancies have you had before? 5 Did you have a previous baby with a GBS Infection? No Please select all that apply for any prior : N/A MEDICAL/PSYCHOSOCIAL HISTORY: History of hemorrhage or bleeding concerns: No Thyroid Disease: No History of chronic hypertension: No History of pre-existing diabetes: No No results found for: ABORHD No weight on file for this encounter. Last Pap: Unknown History of abnormal pap: No Prior treatment for cervical dysplasia: none. Last HPV: N/A History of STDs: None Partner History of STDs: None Did you have a partner with Herpes? No Tobacco use: No E-Cigarette/Vaping Use: No Caffeine use: No Drug use: No Alcohol use: No Multivitamin with Folic acid: No - did take in early - no longer taking Would refuse blood transfusion if medically necessary: No Social Needs: How often does this describe you? I don't have enough money to pay my bills: Never Within the past 12 months, have you worried that your food would run out before you had money to buy more? Never In the past 12 months, has lack of reliable transportation kept you from going to medical appointments or work, or from getting things needed for daily living? Sometimes In the past 12 months, have you had any concerns about having a place to live, or about the condition or quality of your housing? Never Social History: Do you have any history of depression, anxiety, PTSD, or other mood problems? No Do you have a history of abuse or trauma that may impact your experience? No Are you currently employed? No Depression/Anxiety Screening: denies symptoms of depression. OB Depression and Anxiety Screening- This Encounter Feeling down, depressed, or hopeless: Not at all Little interest or pleasure in doing things: Not at all Feeling nervous, anxious, or on edge Several days Not being able to stop or control worrying Not at all Anxiety Pre-Screening Total (If >/= 3 additional questions will be reviewed) 1 Genetic Screening: Partner present: Yes Patient verbalized knowledge of partner family health history: No Do you or your partner have any personal or family history of defects not previously discussed: No Do you have history of a complicated by anomaly, genetic condition, or demise: No Preeclampsia Risk Screening: Screening for prevention of preeclampsia: late to care OB Risk Screening: Completed, no positive findings documented. 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 No pertinent past medical history. PAST SURGICAL HISTORY Procedure Laterality Date SECTION HX SECTION HX Current Outpatient Medications Medication Sig Dispense Refill vit no.124/iron/folic ( VITAMIN ORAL) Take by mouth. (Patient not taking: Reported on 01/11/2025) No current facility-administered medications for this visit. Allergies As of Date: 01/11/2025 (No Known Allergies) Fully Assessed 01/11/2025 Does patient have penicillin allergy: No REVIEW OF SYSTEMS: GENERAL: Negative for: Fever or Chills HEENT: Negative for: Headache, Impaired Vision, Ringing in Ears, Nosebleeds NECK: Negative for: Swelling, Pain, Stiffness RESPIRATORY: Negative for: Cough, Shortness of breath, Wheezing GASTROINTESTINAL: Negative for: Heartburn, Constipation, Diarrhea, Blood in stool, Vomiting MUSCULOSKELETAL: Negative for: Muscle or joint pain, stiffness, Joint swelling NEUROLOGIC/PSYCHIATRIC: Negative for: Weakness, Paralysis, Numbness, Tingling, Tremor, Anxiety, Depression, Memory loss SKIN: Negative for: Rash, Itching GENITOURINARY: Negative for: vaginal itching, vaginal discharge, hematuria or dysuria SENSITIVE EXAM: The sensitive examination was discussed with the Patient or Patient's Authorized Fats And Oils Loader. As applicable, any other p (more content not included)... [facility] 01-11-2025 History of Present illness Narrative INITIAL OB ASSESSMENT HPI: eLty is a 39 year old / here to establish Obstetrical Care. Patient's last menstrual period was 06/01/2024 (exact date). from OB Dating Form. was planned. Uncertain LMP 06/01/24, but sure it was that month. Menstrual cycles were regular. Complaints: No OB History Gravida6 Para4 Term3 Preterm1 AB1 Living4 SAB1 IAB0 Ectopic0 Multiple0 Live Births4 Previous history: Prior : yes x 2 History of 4th degree laceration: No History of shoulder dystocia: No History of Hypertensive disorders including pre-eclampsia or gestational hypertension: No History of gestational diabetes: No Patient's Risk Screening for delivery: Have you had a prior patel between 20w and 36w6d? No How many pregnancies have you had before? 5 Did you have a previous baby with a GBS Infection? No Please select all that apply for any prior : N/A MEDICAL/PSYCHOSOCIAL HISTORY: History of hemorrhage or bleeding concerns: No Thyroid Disease: No History of chronic hypertension: No History of pre-existing diabetes: No No results found for: ABORHD No weight on file for this encounter. Last Pap: Unknown History of abnormal pap: No Prior treatment for cervical dysplasia: none. Last HPV: N/A History of STDs: None Partner History of STDs: None Did you have a partner with Herpes? No Tobacco use: No E-Cigarette/Vaping Use: No Caffeine use: No Drug use: No Alcohol use: No Multivitamin with Folic acid: No - did take in early - no longer taking Would refuse blood transfusion if medically necessary: No Social Needs: How often does this describe you? I don't have enough money to pay my bills: Never Within the past 12 months, have you worried that your food would run out before you had money to buy more? Never In the past 12 months, has lack of reliable transportation kept you from going to medical appointments or work, or from getting things needed for daily living? Sometimes In the past 12 months, have you had any concerns about having a place to live, or about the condition or quality of your housing? Never Social History: Do you have any history of depression, anxiety, PTSD, or other mood problems? No Do you have a history of abuse or trauma that may impact your experience? No Are you currently employed? No Depression/Anxiety Screening: denies symptoms of depression. OB Depression and Anxiety Screening- This Encounter Feeling down, depressed, or hopeless: Not at all Little interest or pleasure in doing things: Not at all Feeling nervous, anxious, or on edge Several days Not being able to stop or control worrying Not at all Anxiety Pre-Screening Total (If >/= 3 additional questions will be reviewed) 1 Genetic Screening: Partner present: Yes Patient verbalized knowledge of partner family health history: No Do you or your partner have any personal or family history of defects not previously discussed: No Do you have history of a complicated by anomaly, genetic condition, or demise: No Preeclampsia Risk Screening: Screening for prevention of preeclampsia: late to care OB Risk Screening: Completed, no positive findings documented. 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 No pertinent past medical history. PAST SURGICAL HISTORY Procedure Laterality Date SECTION HX SECTION HX Current Outpatient Medications Medication Sig Dispense Refill vit no.124/iron/folic ( VITAMIN ORAL) Take by mouth. (Patient not taking: Reported on 01/11/2025) No current facility-administered medications for this visit. Allergies As of Date: 01/11/2025 (No Known Allergies) Fully Assessed 01/11/2025 Does patient have penicillin allergy: No REVIEW OF SYSTEMS: GENERAL: Negative for: Fever or Chills HEENT: Negative for: Headache, Impaired Vision, Ringing in Ears, Nosebleeds NECK: Negative for: Swelling, Pain, Stiffness RESPIRATORY: Negative for: Cough, Shortness of breath, Wheezing GASTROINTESTINAL: Negative for: Heartburn, Constipation, Diarrhea, Blood in stool, Vomiting MUSCULOSKELETAL: Negative for: Muscle or joint pain, stiffness, Joint swelling NEUROLOGIC/PSYCHIATRIC: Negative for: Weakness, Paralysis, Numbness, Tingling, Tremor, Anxiety, Depression, Memory loss SKIN: Negative for: Rash, Itching GENITOURINARY: Negative for: vaginal itching, vaginal discharge, hematuria or dysuria SENSITIVE EXAM: The sensitive examination was discussed with the Patient or Patient's Authorized Fats And Oils Loader. As applicable, any other physician, advance practice provider, medical student, or other health professional student that will be observing or involved in the sensitive examination for educational or training purposes was discussed with the Patient or Authorized Fats And Oils Loader. The Patient or Authorized Fats And Oils Loader has agreed to proceed with the sensitive examination. (Sensitive examination includes inspection and/or palpation of the breasts, pelvis, prostate and anorectal regions). PHYSICAL EXAM: LMP 06/01/2024 GENERAL: pleasant in no apparent distress DERMATOLOGY: Normal, without lesions, non-icteric, and non-hirsute NECK: Supple, full range of motion, no adenopathy, and thyroid normal CHEST: Normal inspiratory effort BREAST: soft, non-tender, symmetric, no dominant mass, normal nipple-areolar complex, no lymphadenopathy, and no nipple discharge ABDOMEN: soft, non-tender, and no masses NEURO: alert and oriented x3,exam grossly non-focal PELVIS: External genitalia normal without lesions. Perineal body intact. No vaginal or cervical lesions. Cervix closed. Uterus 34 week size. No adnexal masses or tenderness. Clinical Pelvimetry: Pelvimetry clinically assessed as adequate Limited OB ultrasound exam: not performed ASSESSMENT: 39 year old at 32w0d wks gestational age PLAN: 1) Patient oriented to practice. Patient given new OB orientation folder. Discussed nutrition, folic acid supplementation, dietary guidelines, exercise, smoking, alcohol, caffeine, and drug use. Discussed gestational weight gain guidelines. Discussed routine OB labs including STD/HIV. 2) Screening: Hemoglobin A1C: ordered Baby Aspirin: The patient has been counseled about the potential benefits of low dose aspirin in and our recommendation that this be offered to all patients, regardless of whether they meet the high risk criteria specified above. She is late to care Aneuploidy Screening: Discussed aneuploidy screening, nuchal translucency/first trimester early anatomy ultrasound and NIPT. The risks/benefits and limitations of NIPT/aneuploidy screening were reviewed including the potential for false negative and false positive results. The availability of genetic counseling was reviewed. Information on aneuploidy screening was provided. The patient declines screening Myriad Carrier Screening: Discussed myriad carrier screening. We discussed the availability of professional-society guided carrier screening and reviewed the conditions screened and limitations of screening. The availability of genetic counseling was reviewed. Information on carrier screening was provided. The patient Declines 3) Patient offered option of Virtual Visits. Patient prefers in person visits. 4) History of section: Pt counselled regarding TOLAC versus Repeat Section. Repeat C/S. Obesity (BMI >30), will order early glucose screen or Hemoglobin A1C. 5) C/S reports requested and message to nursing to assist in scheduling repeat C/S at 39 weeks Follow up in 2 weeks or sooner prn. Pat Coats APRN.CNM documented in this encounter [facility] 01-11-2025 Instructions Wade Arteaga MA - 01/11/2025 8:55 AM EDT Please select the following link to access the [facility] Your Guide to a Healthy . [email or web address] documented in this encounter [facility] 01-06-2025 Telephone encounter Note Phone call placed to Maritime Officer Services number [phone] [address] complete three [address] call to update New OB intake questions, no answer. Maritime Officer left message for patient to arrive thirty minutes prior to scheduled visit on 01/11/2025 to complete intake, LMP on schedule 06/01/2024. Kuldeep Rdz LPN [facility] 01-06-2025 Miscellaneous Notes Phone call placed to Maritime Officer Services number [phone] call to update New OB intake questions, no answer. Maritime Officer left message for patient to arrive thirty minutes prior to scheduled visit on 01/11/2025 to complete intake, LMP on schedule 06/01/2024. Kuldeep Rdz LPN documented in this encounter [facility] 10-02-2024 Radiology Diagnostic study note [facility] Imaging Services [address] [place] [address] OB Limited With Biometrics MR#: [id number] Acct: [id number] Name: LETY [place] Rep #: [id number] : 1985 F 38 From: Ibrahima Whitlock MD PCP: Dr. Jordyn Collins MD Status: REG CLI Study:OB Limited With Biometrics Date of Exam : 10/01/24 Exam# [id number] Ordering Dr: Elyssa Collins MD PROCEDURE: OB LIMITED WITH BIOMETRICS REASON FOR EXAM: dating. COMPARISON: None. FINDINGS Number: 1 Position: Vertex Placental Position: Anterior Placental Abnormalities: None. DIMENSIONS: Biparietal Diameter: 4.2 cm: 18 weeks and 5 days: 90 percentile/ Head Circumference: 15.8 cm: 18 weeks and 5 days: 86 percentile/ Abdominal Circumference: 12.8 cm: 18 weeks and 3 days: 71st percentile/ Femur Length: 2.6 cm: 17 weeks and 5 days: 46 percentile/ ESTIMATED WEIGHT: 220 g plus/-34 g ESTIMATED WEIGHT PERCENTILE (24+ weeks): 72nd percentile ESTIMATED GESTATIONAL AGE: Baseline: 17 weeks and 5 days By Ultrasound: 18 weeks and 4 days ESTIMATED DATE OF DELIVERY: Baseline: March 06, 2025 By Ultrasound: February 28, 2025 BIOPHYSICAL ASSESSMENT: Amniotic Fluid Volume: Subjectively normal. Amniotic Fluid Index: 10.5 (8-24 cm normal range) Cardiac Motion: 143 beats per minute (average) Trunk and Limb Motion: Present. MATERNAL ANATOMY: Adnexa: Neither maternal ovary is successfully identified. US/OB Limited With Biometrics IMPRESSION: Single live intrauterine gestation with a mean gestational age of 18 weeks and 4days. Reading Location: [id number] CC: Dr. Jordyn Collins MD ~ Perforator Operator: Signed [facility] 08-30-2021 Note . MICRO - Microbiology PROCEDURE: Urine Culture [*1] SOURCE: Urine BODY SITE: COLLECTED DATE/TIME: 08/28/2021 16:13 EST RECEIVED DATE/TIME: 08/28/2021 22:16 EST START DATE/TIME: 08/28/2021 22:28 EST FREE TEXT SOURCE: FINAL REPORTS Final Report [] Verified Date/Time/Personnel: 08/30/2021 08:28 EST >100,000 cfu/ml Multiple bacterial morphotypes present. Probable Contamination. Suggest recollection if clinically indicated. PRELIMINARY REPORTS Preliminary Report [] Verified Date/Time/Personnel: 08/29/2021 14:25 EST Culture results pending. Performing Locations *1: This test was performed at: [address], [facility] , [facility] ([place]) 07-10-2021 Hospital Discharge instructions Patient Education 07/10/2021 10:52:00 Hypertension(Slovak) Hipertensi n posparto Hypertension La hipertensi n posparto es el aumento de la presi n arterial que se mantiene m s david de lo normal despu s del parto. Puede no darse cuenta de que tiene hipertensi n posparto si no le miden la presi n arterial con regularidad. En la mayor a de los casos, la hipertensi n posparto desaparece pablo, por lo general en la semana posterior al parto. Sin embargo, algunas mujeres requieren tratamiento m dico para prevenir complicaciones graves, albaro convulsiones o un accidente cerebrovascular. Cu les son las causas? Esta afecci n puede ser causada por wanda o m s de lo siguiente: Hipertensi n que exist a antes del embarazo (hipertensi n cr batool). Hipertensi n que surge albaro resultado del embarazo (hipertensi n gestacional). Trastornos hipertensivos jami el embarazo (preeclampsia) o convulsiones en las mujeres que tienen hipertensi n arterial jami el embarazo (eclampsia). Marilia afecci n en la que el h gado, las plaquetas y los gl bulos rojos se da an jami el embarazo (s ndrome de HELLP). Marilia afecci n en la cual la gl ndula tiroidea produce demasiadas hormonas (hipertiroidismo). Otros problemas poco frecuentes de los nervios (trastornos neurol gicos) o trastornos de la james. En algunos casos, es posible que la causa se desconozca. Qu incrementa el riesgo? Los siguientes factores pueden hacer que usted sea m s propensa a tener esta afecci n: Hipertensi n cr batool. En algunos casos, es posible que esta no se haya diagnosticado antes del embarazo. Obesidad. Diabetes tipo 2. Enfermedad renal. Antecedentes de preeclampsia o eclampsia. Otras afecciones m dicas que modifican el nivel de hormonas en el cuerpo (desequilibrio hormonal). Cu les son los signos o los s ntomas? Al igual que con todos los tipos de hipertensi n, la hipertensi n posparto puede no causar zoraida n s ntoma. Seg n lo david que est la presi n arterial, puede presentar lo siguiente: Chica de sandra. Estos pueden ser leves, moderados o intensos. Tambi n pueden ser regulares, constantes o de inicio repentino (cefalea en estallido). Cambios en la capacidad para josseline (cambios visuales). Mareos. Falta de aire. Hinchaz n de las paige, los pies, la parte inferior de las piernas o el lucrecia. En algunos casos, puede tener hinchaz n en varias de estas reas. Palpitaciones o latidos card acos acelerados. Dificultad para respirar al estar acostada. Disminuci n en la cantidad de orina que elimina. Otros signos y s ntomas poco frecuentes pueden incluir lo siguiente: M s sudoraci n que la habitual. Esta dura algo m s que unos d as despu s del parto. Dolor en el pecho. Mareos repentinos al levantarse despu s de kirk estado sentada o acostada. Convulsiones. N useas o v mitos. Dolor abdominal. C mo se diagnostica? Esta afecci n se puede diagnosticar en funci n de los resultados de un examen f sico, mediciones de la presi n arteria, y an lisis de james y orina. Tambi n puede someterse a otras pruebas, albaro marilia exploraci n por tomograf a computarizada (TC) o marilia resonancia magn fritz (RM) para detectar otros problemas de la hipertensi n posparto. C mo se trata? Si la presi n arterial est lo suficientemente david albaro para requerir tratamiento, las opciones pueden incluir lo siguiente: Medicamentos para disminuir la presi n arterial (antihipertensivos). D gale al m dico si est amamantando o si planifica hacerlo. Hay muchos medicamentos antihipertensivos que pueden tomarse sin riesgos jami la lactancia. Interrupci n de los medicamentos que puedan causar la hipertensi n. Tratamiento de las enfermedades que causan la hipertensi n. Tratamiento de las complicaciones de la hipertensi n, albaro convulsiones, accidente cerebrovascular o problemas renales. El m dico seguir controlando atentamente la presi n arterial hasta que esta se encuentre en un nivel seguro para usted. Siga estas indicaciones en [place] casa: [place] los medicamentos de venta lisa y los recetados solamente albaro se lo haya indicado el m dico. Retome yunior actividades normales albaro se lo haya indicado el m dico. Preg ntele al m dico qu actividades son seguras para usted. No consuma zoraida n producto que contenga nicotina o tabaco, albaro cigarrillos y cigarrillos electr nicos. Si necesita ayuda para dejar de fumar, consulte al m dico. Concurra a todas las visitas de control albaro se lo haya indicado el m dico. [place]ok es importante. Comun quese con un m dico si: Los s ntomas empeoran. Aparecen nuevos s ntomas, por ejemplo: ?Un dolor de sandra que no mejora. ?Mareos. ?Cambios en la visi n. Solicite ayuda de inmediato si: Presenta hinchaz n repentina en las paige, los tobillos o el lucrecia. Tiene un aumento de peso repentino y r pido. Tiene dificultad para respirar, dolor en el pecho, latidos card acos acelerados o palpitaciones card acas. Siente dolor intenso en el abdomen. Tiene s ntomas de un accidente cerebrovascular. BE FAST es marilia manera f cil de recordar las principales se ales de advertencia de un accidente cerebrovascular: ?B - Balance (equilibrio). Los signos son dificultad repentina para caminar o p rdida del equilibrio. ?E - Eyes (ojos). Los signos son dificultad para josseline o un cambio repentino en la visi n. ?F - Face (lucrecia). Los signos son debilidad repentina o entumecimiento del lucrecia, o el lucrecia o el p rpado que se caen hacia un lado. ?A - Arms (brazos). Los signos son debilidad o entumecimiento en un brazo. [place]ok sucede de repente y generalmente en un lado del cuerpo. ?S - Speech (habla). Los signos son dificultad para hablar, hablar arrastrando las palabras o dificultad para comprender lo que la gente dice. ?T - Time (tiempo). Es tiempo de llamar a los servicios de emergencias. Escriba la hora en la que comenzaron los s ntomas. Presenta otros signos de accidente cerebrovascular, albaro los siguientes: ?Dolor de sandra s bito e intenso que no tiene causa aparente. ?N useas o v mitos. ?Convulsiones. Estos s ntomas pueden representar un problema grave que constituye marilia emergencia. No espere hasta que los s ntomas desaparezcan. Solicite atenci n m dica de inmediato. Comun quese con el servicio de emergencias de [place] localidad (911 en los [place]). No conduzca por yunior propios medios hasta el hospital. Resumen La hipertensi n posparto es el aumento de la presi n arterial que se mantiene m s david de lo normal despu s del parto. En la mayor a de los casos, la hipertensi n posparto desaparece pablo, por lo general en la semana posterior al parto. Algunas mujeres requieren tratamiento m dico para prevenir complicaciones graves, albaro convulsiones o un accidente cerebrovascular. Esta informaci n no tiene albaro fin reemplazar el consejo del m dico. [facility] rese de hacerle al m dico cualquier pregunta que tenga. Document Released: 04/29/2015 Document Revised: 10/25/2018 Document Reviewed: 07/06/2018 Elsevier Patient Education 2020 [employer] 07/10/2021 10:51:47 Care After Delivery(Slovak) Cuidados en el postparto luego de un parto por sarath erick Care After Delivery Maddy esta informaci n sobre c mo cuidarse desde el momento en que nazca woodward beb y hasta 6 a 12 semanas despu s del parto (per odo del posparto). El m dico tambi n podr darle indicaciones m s espec ficas. Comun quese con el m dico si tiene problemas o preguntas. Siga estas indicaciones en [place] casa: Medicamentos [place] los medicamentos de venta lisa y los recetados solamente albaro se lo haya indicado el m dico. Si le recetaron un antibi suyapa, t proctor albaro se lo haya indicado el m dico. No deje de tania el antibi suyapa aunque comience a sentirse mejor. Preg ntele al m dico si el medicamento recetado: ?Hace que sea necesario que evite conducir o usar maquinaria pesada. ?Puede causarle estre imiento. Es posible que deba tania medidas para prevenir o tratar el estre imiento, por ejemplo: ?Beber suficiente l quido albaro para mantener la orina de color amarillo p lido. ?Tania medicamentos recetados o de venta lisa. ?Consumir alimentos ricos en fibra, albaro frijoles, cereales integrales, y frutas y verduras frescas. ?Limitar woodward consumo de alimentos ricos en grasa y az cares procesados, albaro los alimentos fritos o dulces. Actividad [place] yunior actividades normales de a poco seg n lo indicado por el m dico. Evite las actividades que demandan mucho esfuerzo y energ a (que son extenuantes) hasta que el m dico se lo autorice. Siempre es m s seguro caminar a un ritmo tranquilo a moderado. Preg ntele al m dico qu actividades son seguras para usted. ?No levante objetos que pesen m s que woodward beb o m s de 10 libras (4,5 kg), albaro se lo haya indicado el m dico. ?No pase la aspiradora, suba escaleras ni conduzca un veh culo jami el tiempo que le indique el m dico. De ser posible, p cathryn a alguien que le brinde ayuda con las tareas dom sticas hasta que pueda realizar yunior actividades habituales por woodward cuenta. Descanse todo lo que pueda. Trate de descansar o tania marilia siesta mientras el beb duerme. Hemorragia vaginal Es normal tener un poco de hemorragia vaginal (loquios) despu s del parto. Use un ap sito sanitario para absorber el sangrado vaginal y la secreci n. ?Jami la primera semana despu s del parto, la cantidad y el aspecto de los loquios a menudo es similar a las del per odo menstrual. ?Jami las siguientes semanas disminuir gradualmente hasta convertirse en marilia secreci n seca amarronada o amarillenta. ?En la mayor a de las mujeres, los loquios se detienen completamente entre 4 a 6 semanas despu s del parto. Los sangrados vaginales pueden variar de na a na. Cambie los ap sitos sanitarios con frecuencia. Observe si hay cambios en el flujo, albaro: ?Aumento repentino en el volumen. ?Cambio en el color. ?Co gulos sangu neos grandes. Si expulsa un co gulo de james, gu rdelo y llame al m dico para inform rselo. No deseche los co gulos de james por el inodoro antes de recibir indicaciones del m dico. No use tampones ni se vladimir duchas vaginales hasta que el m dico la autorice. Si no est amamantando, volver a tener woodward per odo entre 6 y 8 semanas despu s del parto. Si est amamantando, puede volver a tener woodward per odo entre las 8 semanas despu s del parto y el momento en que deje de amamantar. Cuidados perineales Si woodward sarath erick no fue planeada, y pas por el proceso de trabajo de parto y puj antes del nacimiento, podr a tener dolor, hinchaz n y molestias del tejido que se encuentra entre la abertura de la vagina y el ano (perineo). Tambi n pueden haberle hecho marilia incisi n en el tejido (episiotom a) o el tejido puede haberse desgarrado jami el parto. Siga las siguientes indicaciones albaro se lo haya indicado woodward m dico: ?Mantenga el perineo limpio y seco albaro se lo haya indicado el m dico. Utilice ap sitos o aerosoles analg sicos y cremas, albaro se lo hayan indicado. ?Si le realizaron marilia episiotom a o un desgarro vaginal, controle la skylar todos los d as para detectar signos de infecci n. Est atento a los siguientes signos: ?Enrojecimiento, hinchaz n o dolor. ?L quido o james. ?Calor. ?Pus o mal olor. ?Es posible que le den marilia botella rociadora para que use en lugar de limpiarse el erick con papel higi fernando despu s de usar el ba o. Cuando comience a sanar, podr usar la botella rociadora antes de secarse. Aseg rese de secarse suavemente. ?Para aliviar el dolor causado por marilia episiotom a, un desgarro vaginal o hemorroides, trate de tania un ba o de asiento tibio 2 o 3 veces por d a. Un ba o de asiento es un ba o de agua tibia que se ryan mientras se est sentado. El agua solo debe llegar hasta las caderas y cubrir las nalgas. Cuidado de las mamas En los primeros d as despu s del parto, las mamas pueden sentirse pesadas, llenas e inc modas (congesti n mamaria). Tambi n puede tener leche que se escapa de yunior senos. El m dico puede sugerirle m todos para aliviar valdemar malestar mamario. La congesti n mamaria deber a desaparecer al cabo de unos d as. Si est amamantando: ?Use un sost n que sujete y ajuste vance yunior pechos. ?Mantenga los pezones secos y limpios. Apl quese cremas y marleen entos albaro se lo haya indicado el m dico. ?Es posible que deba usar discos de algod n en el sost n para absorber la leche que se filtre. ?Puede tener contracciones uterinas cada vez que amamante jami varias semanas despu s del parto. Las contracciones uterinas ayudan al tero a regresar a woodward vannessa o habitual. ?Si tiene alg n problema con la lactancia materna, consulte con woodward m dico o con un asesor en lactancia. Si no est amamantando: ?Evite tocarse las mamas, ya que esto puede hacer que produzcan m s leche. ?Use un sost n que le proporcione el ajuste correcto y compresas fr as para reducir la hinchaz n. ?No extraiga (saque) leche materna. Crook nabila que produzca m s leche. Intimidad y sexualidad Preg ntele al m dico cu ndo puede retomar la actividad sexual. Crook puede depender de lo siguiente: ?Riesgo de sufrir marilia infecci n. ?Velocidad de cicatrizaci n. ?Comodidad y deseo de retomar la actividad sexual. Despu s del parto, puede quedar embarazada incluso si no nobles tenido todav a woodward per odo. Si lo desea, hable con el m dico acerca de los m todos de planificaci n familiar o control de la natalidad (m todos anticonceptivos). Estilo de obi No consuma zoraida n producto que contenga nicotina o tabaco, albaro cigarrillos, cigarrillos electr nicos y tabaco de mascar. Si necesita ayuda para dejar de consumir, consulte al m dico. No ronald alcohol, especialmente si est amamantando. Comida y bebida Ronald suficiente l quido albaro para mantener la orina de color amarillo p lido. Coma alimentos ricos en fibras todos los d as. Estos pueden ayudarla a prevenir o aliviar el estre imiento. Los alimentos ricos en fibra incluyen los siguientes: ?Panes y cereales integrales. ?Arroz integral. ?Frijoles. ?Frutas y verduras frescas. [place] yunior vitaminas prenatales hasta la visita de control de posparto o hasta que woodward m dico le indique que puede dejar de tomarlas. Indicaciones generales Concurra a todas las visitas de control para usted y el beb albaro se lo haya indicado el m dico. La mayor a de las mujeres visita al m dico para un control de posparto dentro de las primeras 3 a 6 semanas despu s del parto. Comun quese con un m dico si: Se siente incapaz de controlar los cambios que implica tener un beb reci n nacido y esos sentimientos no desaparecen. Siente tristeza o preocupaci n de forma inusual. Siente dolor en las mamas, o est n duras o enrojecidas. Tiene fiebre. Tiene dificultad para retener la orina o para impedir que la orina se escape. Tiene poco inter s o falta de inter s en actividades que jorge an gustarle. No nobles amamantado para nada y no nobles tenido un per odo menstrual jami 12 semanas despu s del parto. Darrell de amamantar al beb y no nobles tenido woodward per odo menstrual jami 12 semanas despu s de dejar de amamantar. Tiene preguntas sobre woodward cuidado o el del beb . Elimina un co gulo de james por la vagina. Solicite ayuda inmediatamente si: Siente dolor en el pecho. Presenta dificultad para respirar. Tiene un dolor repentino e intenso en la pierna. Tiene dolor intenso o c licos en el abdomen. Tiene un sangrado meredith intenso en la vagina que empapa m s de un ap sito sanitario en marilia hora. El sangrado no debe ser m s abundante que el per odo m s intenso que haya tenido. Presenta dolor de sandra intenso. Se desmaya. Tiene visi n borrosa o manchas en la vista. Tiene secreci n vaginal con mal olor. Tiene pensamientos de autolesionarse o de lesionar al beb . Si alguna vez siente que puede lastimarse o lastimar a otras personas, o tiene pensamientos de poner fin a woodward obi, busque ayuda de inmediato. Puede dirigirse al servicio de emergencias m s cercano o comunicarse con: El servicio de emergencias de [place] localidad (911 en [place] Marilia l cain de asistencia al suicida y atenci n en crisis, albaro National Suicide Prevention Lifeline (L cain Nacional de Prevenci n del Suicidio), al . Est disponible las 24 horas del d a. Resumen El per odo de tiempo desde el parto y hasta 6 a 12 semanas despu s del parto se denomina per odo posparto. [place] yunior actividades normales de a poco seg n lo indicado por el m dico. Concurra a todas las visitas de control para usted y el beb albaro se lo haya indicado el m dico. Esta informaci n no tiene albaro fin reemplazar el consejo del m dico. Aseg rese de hacerle al m dico cualquier pregunta que tenga. Document Released: 07/15/2006 Document Revised: 04/15/2019 Document Reviewed: 04/15/2019 Mobile [employer] Patient Education 2020 [employer]Opener. 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 MICRO - Microbiology PROCEDURE: Group B Strep PCR [*1] SOURCE: Vaginal Rectal BODY SITE: COLLECTED DATE/TIME: 06/30/2021 10:22 EST RECEIVED DATE/TIME: 06/30/2021 15:40 EST START DATE/TIME: 06/30/2021 15:41 EST FREE TEXT SOURCE: FINAL REPORTS Final Report [] Verified Date/Time/Personnel: 07/02/2021 10:27 EST GBS NEGATIVE. Group B Streptococcus DNA not detected by Real-Time. Polymerase Chain Reaction (PCR). A negative result does not rule out the possibility of Group B Streptococcus False negative results may occur when Group B Streptococcus concentration is below the level of detection of 200 CFU/mL of sample preparation reagent. If the patient has signs or symptoms of infection, other laboratory tests and clinical information should be used to confirm the negative result. This test is not intended to differentiate carriers of Group B Streptococcus from those with Streptococcus disease. Performing Locations *1: This test was performed at: [facility], [address] [place] [address], [facility]- , [facility] ([place]) 05-04-2021 Note . MICRO - Microbiology PROCEDURE: Urine Culture [*1] SOURCE: Urine BODY SITE: COLLECTED DATE/TIME: 05/02/2021 11:58 EDT RECEIVED DATE/TIME: 05/02/2021 19:04 EDT START DATE/TIME: 05/02/2021 19:05 EDT FREE TEXT SOURCE: FINAL REPORTS Final Report [] Verified Date/Time/Personnel: 05/04/2021 08:36 EDT 10,000 - 50,000 cfu/ml Mixed growth consistent with normal urogenital chucky. PRELIMINARY REPORTS Preliminary Report [] Verified Date/Time/Personnel: 05/03/2021 12:23 EDT No growth to date Performing Locations *1: This test was performed at: [facility], [address] [place] [address], [facility]- , [facility] ([place]) Comment on above: Performed By: #### C BC, ADIFF, ANEU, GLU1P, HBSAG, HCV1, HIV, ABOGEL, ABSGEL, VARIS, RUBIS, RPR #### [place] [address] Evaluation + Plan note No data available for this section [facility] Evaluation note No assessment inform ation available [facility] Work Phone: Evaluation note Diagnosis with uncertain dates, antepartum (HCC)- Primary state, incidental Supervision of other high risk pregnancies, third trimester (HCC) History of section, low transverse Other postprocedural status Multigravida of advanced maternal age in third trimester (HCC) Insufficient care in third trimester (HCC) Language barrier Social maladjustment Genetic screening Other genetic screening Screening for cervical cancer Screening for malignant neoplasm of the cervix Screening for human papillomavirus (HPV) Special screening examination for human papillomavirus (HPV) Multigravida of advanced maternal age in second trimester ([facility]) [facility] Diagnosis Supervision of other high risk pregnancies, third trimester ([facility])- Primary History of section, low transverse Other postprocedural status Multigravida of advanced maternal age in third trimester ([facility]) Insufficient care in third trimester ([facility]) Language barrier Social maladjustment 34 weeks gestation of ([facility]) state, incidental documented in this encounter [facility] note* Diagnosis Encounter for screening for malformation using ultrasound ([facility])- Primary 34 weeks gestation of ([facility]) state, incidental Encounter for ultrasound to check growth ([facility]) Encounter for routine screening for malformation using ultrasonics documented in this encounter [facility] note* Diagnosis 36 weeks gestation of ([facility])- Primary state, incidental Supervision of other high risk pregnancies, third trimester ([facility]) Abnormal glucose in , antepartum ([facility]) Abnormal maternal glucose tolerance, antepartum History of section, low transverse Other postprocedural status Multigravida of advanced maternal age in third trimester ([facility]) Language barrier Social maladjustment Multigravida of advanced maternal age in third trimester ([facility])- Primary 36 weeks gestation of ([facility]) state, incidental * Assessment & Plan Note - Daryl White MD - 02/12/2025 12:20 PM EDTAssociated Problem(s): Multigravida of advanced maternal age in third trimester ([facility]) NST today with late appearing decel. BPP 03/05. Repeat NST Saturday. Growth US scheduled Orders: URINE OB DIP B/O ROUTINE, GROUP B STREPTOCOCCUS BY PCR OBSTETRIC ULTRASOUND WHI; Future * Assessment & Plan Note - Daryl White MD - 02/12/2025 11:35 AM EDTAssociated Problem(s): Supervision of other high risk pregnancies, third trimester ([facility]) Orders: URINE OB DIP B/O ROUTINE, GROUP B STREPTOCOCCUS BY PCR * Assessment & Plan Note - Daryl White MD - 02/12/2025 11:35 AM EDTAssociated Problem(s): Abnormal glucose in , antepartum (HCC) Orders: URINE OB DIP B/O ROUTINE, GROUP B STREPTOCOCCUS BY PCR * Assessment & Plan Note - Daryl White MD - 02/12/2025 11:35 AM EDTAssociated Problem(s): History of section, low transverse Repeat scheduled. Orders: URINE OB DIP B/O ROUTINE, GROUP B STREPTOCOCCUS BY PCR * Assessment & Plan Note - Daryl White MD - 02/12/2025 11:35 AM EDTAssociated Problem(s): Language barrier Orders: URINE OB DIP B/O [facility] Diagnosis 36 weeks gestation of (HCC)- Primary state, incidental Supervision of other high risk pregnancies, third trimester ([facility]) Abnormal glucose in , antepartum (HCC) Abnormal maternal glucose tolerance, antepartum History of section, low transverse Other postprocedural status Multigravida of advanced maternal age in third trimester ([facility]) Language barrier Social maladjustment Multigravida of advanced maternal age in third trimester (HCC)- Primary 36 weeks gestation of (HCC) state, incidental [facility] ([facility]ative)No reason for referral information availableWParkview [facility] Work Phone: Reason for visit Narrative* Financial Clearance (Routine) - Authorized Specialty Diagnoses / Procedures Referred By Contac t Referred To Contact Diagnoses FINANCIAL CLEARANCE Procedures FINANCIAL CLEARANCE [facility] [address] [place] [address] Phone: tel: [facility] [place] [address] Referral ID Status Reason Start Date Expiration Date Visits Requested Visits Authorized [id number] Authorized Patient Cleared - Qualified 100% FAS 12/25/2024 03/25/2025 99 99 [facility] Summary Purpose Family History No Family History Records FoundNo Family History Records FoundNo Family History Records FoundNo Family History Records FoundNo Family History Records Found Advance Directives No Advanced Directives Records FoundNo Advanced Directives Records FoundNo Advanced Directives Records FoundNo Advanced Directives Records FoundNo Advanced Directives Records Found Chief Complaint and Reason for Visit Chief Complaint Admit Date DATING October 01, 2024 4:59 pm Additional Source Comments INFORMATION SOURCE (unrecogn ized section and content) DATE CREATED AUTHOR 07/08/2018 [facility] [place] DATE CREATED AUTHOR AUTHOR'S ORGANIZ ATION 07/10/2018 [facility] [place] DATE CREATED AUTHOR AUTHOR'S ORGANIZ ATION 09/20/2021 [facility] ([place] DATE CREATED AUTHOR AUTHOR'S ORGANIZ ATION 01/17/2025 [facility] DATE CREATED AUTHOR AUTHOR'S ORGANIZ ATION 01/29/2025 [facility] Care Teams (unrecognized sec tion and content) Team Status: Active Member Role Status Dates Dr. Jordyn Collins MD Primary Care Provider Active Team Status: Inactive Member Role Status Dates Dr. Jordyn Collins MD Primary Care Provider Active Start: October 01, 2024 End: October 01, 2024 Dr. Jordyn Collins MD Attending Provider Active Start: October 01, 2024 End: October 01, 2024 Dr. Jordyn Collins MD Referring Provider Active Start: October 01, 2024 End: October 01, 2024 Goals (unrecognized section and content) Goals may be documented in a n alternate section Source Comments (unrecognize d section and content) In the event this informatio n is protected by the Federal Confidentiality of Alcohol and Drug Abuse Patient Records regulations: The Federal rules restrict any use of the information to criminally investigate or prosecute any alcohol or drug abuse patient.[facility] HospitalIn the event this information is protected by the Federal Confidentiality of Alcohol and Drug Abuse Patient Records regulations: The Federal rules restrict any use of the information to criminally investigate or prosecute any alcohol or drug abuse patient.[facility] HospitalIn the event this information is protected by the Federal Confidentiality of Alcohol and Drug Abuse Patient Records regulations: The Federal rules restrict any use of the information to criminally investigate or prosecute any alcohol or drug abuse patient.[facility] HospitalIn the event this information is protected by the Federal Confidentiality of Alcohol and Drug Abuse Patient Records regulations: The Federal rules restrict any use of the information to criminally investigate or prosecute any alcohol or drug abuse patient.[facility] HospitalIn the event this information is protected by the Federal Confidentiality of Alcohol and Drug Abuse Patient Records regulations: The Federal rules restrict any use of the information to criminally investigate or prosecute any alcohol or drug abuse patient.[facility] HospitalIn the event this information is protected by the Federal Confidentiality of Alcohol and Drug Abuse Patient Records regulations: The Federal rules restrict any use of the information to criminally investigate or prosecute any alcohol or drug abuse patient.[facility] HospitalIn the event this information is protected by the Federal Confidentiality of Alcohol and Drug Abuse Patient Records regulations: The Federal rules restrict any use of the information to criminally investigate or prosecute any alcohol or drug abuse patient.[facility] HospitalIn the event this information is protected by the Federal Confidentiality of Alcohol and Drug Abuse Patient Records regulations: The Federal rules restrict any use of the information to criminally investigate or prosecute any alcohol or drug abuse patient.[facility] Reason for Visit (unrecogniz ed section and content) Reason Comments US Specialty Diagnoses / Procedures Referred By Contac t Referred To Contact [facility] Diagnoses Multigravida of advanced maternal age in third trimester (HCC) Procedures OBSTETRIC ULTRASOUND WHI US PREG UTERUS AFTER 1ST TRIMEST GESTATION Daryl White MD [address] [place] [address] Phone: tel: fax: [place] [id number] [place] [address] Referral ID Status Reason Start Date Expiration Date Visits Requested Visits Authorized [id number] New Request Auto-Generat ed Referral 02/12/2025 02/12/2026 1 1 Reason Comments Initial OB Visit Specialty Diagnoses / Procedures Referred By Contac t Referred To Contact Diagnoses FINANCIAL CLEARANCE Procedures FINANCIAL CLEARANCE [facility] [address] [place] [address] Phone: tel: [facility] [phone] Referral ID Status Reason Start Date Expiration Date Visits Requested Visits Authorized [id number] Authorized Patient Cleared - Qualified 100% FAS 12/25/2024 03/25/2025 99 99 Reason Comments Results Reason Comments US Specialty Diagnoses / Procedures Referred By Contac t Referred To Contact Diagnoses FINANCIAL CLEARANCE Procedures FINANCIAL CLEARANCE [facility] [address] [place] [address] Phone: tel: [facility] [phone] Referral ID Status Reason Start Date Expiration Date Visits Requested Visits Authorized [id number] Authorized Patient Cleared - Qualified 100% FAS 12/25/2024 03/25/2025 99 99 Reason Comments Follow Up Reason Onset Date Comments Care 02/12/2025 Specialty Diagnoses / Procedures Referred By Contac t Referred To Contact [facility] Diagnoses Multigravida of advanced maternal age in third trimester (HCC) Procedures OBSTETRIC ULTRASOUND WHI US PREG UTERUS AFTER 1ST TRIMEST 1/1ST GESTATION Daryl White MD [address] [place] [address] Phone: tel: fax: [facility] [address] [place] [address] Referral ID Status Reason Start Date Expiration Date Visits Requested Visits Authorized [id number] New Request Auto-Generat ed Referral 02/12/2025 02/12/2026 1 1 FOR RECORDS PERTAINING TO PATIENTS WHO ARE OR HAVE BEEN ENROLLED IN A CHEMICAL DEPENDENCY/SUBSTANCEABUSE PROGRAM, SOME INFORMATION MAY BE OMITTED. This clinical summary was aggregated from multiple sources. Caution should be exercised in using it in the provision of clinical care. This summary normalizes information from multiple sources, and as a consequence, information in this document may materially change the coding, format and clinical context of patient data. In addition, data may be omitted in some cases. CLINICAL DECISIONS SHOULD BE BASED ON THE PRIMARY CLINICAL RECORDS. [facility]. [phone] no warranty [phone] [id number] the accuracy [phone] completeness [phone] in [id number] [id number]
[2025-02-13] MEDS: Lactated Ringers 1,000 ML 999 ML IV (15:40)
--- OUTSIDE RECORDS SUMMARY | 2025-02-13 15:42 | XMS RPT_ITS | CCD ---
Author Organization [facility] ion Partnership COMPUTER ANALYST [facility] Care Team Providers Care Tax Manager Name Role Phone [facility] Unavailable Unavailable Gomez, Deysi ASSISTANT ART DIRECTOR Unavailable Unavailable Gomez, Deysi ASSISTANT ART DIRECTOR Unavailable Unavailable Gomez, Deysi ASSISTANT ART DIRECTOR Unavailable Unavailable Verchio, Hallie ACC Unavailable Unavailable Gomez, Deysi ASSISTANT ART DIRECTOR Unavailable Unavailable Gomez, Deysi ASSISTANT ART DIRECTOR Unavailable Unavailable Verchio, Hallie ACC Unavailable Unavailable Verchio, Hallie ACC Unavailable Unavailable Verchio, Hallie ACC Unavailable Unavailable Verchio, Hallie ACC Unavailable Unavailable Dereck, Peter E Unavailable Unavailable Verchio, Hallie ACC Unavailable Unavailable Wychanko, Maira ACC Unavailable Unavailable Melonie Castro Unavailable Unavailable PHYSICIAN, PATIENT UNSURE Primary Care Physician Unavailable Dr. Jordyn Collins MD Primary Care Provider [phone] Dr. Jordyn Collins MD Attending Provider [phone] Jordyn Collins MD Referring Provider [phone] Unavailable Primary Care Provider UnavailJordyn Arcos Primary [...] day(s), # 28 tab(s), 0 Refill(s), Pharmacy: [facility]/pharmacy #[id number], Post-op pain, 147.3, cm, 07/07/21 22:07:00 EST, [...] constipation, # 60 cap(s), 0 Refill(s), Pharmacy: [facility]/pharmacy #[id number], 147.3, cm, 07/07/21 22:07:00 EST, Height, kg, [...] food., # 60 tab(s), 3 Refill(s), Pharmacy: [facility]/pharmacy #[id number], 147.3, cm, 07/07/21 22:07:00 EST, Height, kg, 07/07/21 22:07:00 EST, Dosing Weight Start Date: 07/10/21 Status: Ordered ibuprofen 600 mg oral tablet (1 source) Nonsteroidal Anti-inflammatory Drug Start: 07-10-2021 IBU 600 mg oral tablet Dose : 600 mg = 1 tab(s), Oral, q6h, # 40 tab(s), 0 Refill(s), [id number], 147.3, cm, 07/07/21 22:07:00 EST, Height, kg, [...] trimester; Translations: [Insufficient care in third trimester ([facility])] Onset: 01-11-2025 Episodic Other and delivery including [...] Range Facility Examination level ultrasound on 02-12-2025 [facility] Radiology Study observation (narrative) [facility] URINE OB DIP B/Oon 5 Glucose Ql (U) Negative Neg mg/dL [facility] Interpretation and review of laboratory results Normal [facility] Protein.monoclonal (U) [Mass/Vol] trace Neg mg/dL [facility] Bacteria Ur Culton 5 Bacteria identified Cx Nom (U) CULTURE, URINE: No growth (<1,000 CFU/ml) Normal [facility] Comment on above: Performed By: #### 3 6902-5, BVAMP #### [facility] CLIA [id number] [address] [place] [address] Examination level ultrasound on 01-27-2025 Indication Standard [...] 7 oz EFW by: Hadlock (HC-AC-FL) Extended Concrete Mixer Operator Helper 5.1 mm Extremities / Bony Struc [place] [...] normal LVOT view: normal 3-vessel view: normal 3-pugooz-pjkizrt view: normal Heart / Thorax Situs: situs [...] Read By: Jessica Eldridge M.D. MATERNAL MEDICINE [facility] Radiology Study observation (narrative) [facility] GLUCOSE GESTATIONAL, 1 HOURo n 01-27-2025 Glucose 1 Hr post Unsp challenge [Mass/Vol] 193 mg/dL High 74-179 [facility] Comment on above: Order Comment: Speci men Type: SWAB Ordering Facility: [facility] Address: [address] [place] [address] Result Comment: [facility] Congress of Obstetricians and Gynecologists (Michelle/Camacho) guidelines state gestational diabetes mellitus is present when 2 or more of the plasma glucose concentrations meet or exceed the following levels: fastin mg/dl, 1 hr: 180 mg/dl, 2 hr: 155 mg/dl, and 3 hr: 140 mg/dl. Performed By: #### 3 6902-5, BVAMP #### [facility] CLIA [id number] [address] [place] [address] [place] GLUCOSE GESTATIONAL, 2 HOURo n 01-27-2025 Glucose 2 Hr post Unsp challenge [Mass/Vol] 124 mg/dL Normal 74-154 [facility] Comment on above: Order Comment: Speci men Type: SWAB Ordering Facility: [facility] Address: [address] [place] [address] Result Comment: [facility] Congress of Obstetricians and Gynecologists (Michelle/Camacho) guidelines state gestational diabetes mellitus is present when 2 or more of the plasma glucose concentrations meet or exceed the following levels: fastin mg/dl, 1 hr: 180 mg/dl, 2 hr: 155 mg/dl, and 3 hr: 140 mg/dl. Performed By: #### 3 6902-5, BVAMP #### [facility] CLIA [id number] [address] [place] [address] [place] GLUCOSE GESTATIONAL, 3 HOURo n 01-27-2025 Glucose 3 Hr post Unsp challenge [Mass/Vol] 127 mg/dL Normal 74-139 [facility] Comment on above: Order Comment: Mirza gil Type: BLOOD SPECIMEN Ordering Facility: [facility] Address: [address] [place] [address] Result Comment: [facility] Congress of Obstetricians and Gynecologists (Michelle/Camacho) guidelines state gestational diabetes mellitus is present when 2 or more of the plasma glucose concentrations meet or exceed the following levels: fastin mg/dl, 1 hr: 180 mg/dl, 2 hr: 155 mg/dl, and 3 hr: 140 mg/dl. Performed By: #### G TGST3 #### [facility] CLIA [id number] [address] [place] [address] [place] GLUCOSE GESTATIONAL, FASTING on 01-27-2025 Glucose post fast [Mass/Vol] 82 mg/dL Normal 74-94 [facility] Comment on above: Order Comment: Mirza gil Type: BLOOD SPECIMEN Ordering Facility: [facility] Address: [address] [place] [address] Result Comment: [facility] Congress of Obstetricians and Gynecologists (Michelle/Camacho) guidelines state gestational diabetes mellitus is present when 2 or more of the plasma glucose concentrations meet or exceed the following levels: fastin mg/dl, 1 hr: 180 mg/dl, 2 hr: 155 mg/dl, and 3 hr: 140 mg/dl. Performed By: #### G TGSTF #### [facility] CLIA [id number] [address] [place] [address] [place] CNCOon 01-20-2025 CNCO Letter Text Normal [facility] Chr 21 trisomy Cytogenetics Ql (Bld/Tiss)on 01-15-2025 Cell-free DNA./Cell-free DNA.total Dosage of chromosome-specific cfDNA (cfDNA) [Molar fraction] 41% [facility] Chr 13+18+21+X+Y aneuploidy Dosage of chromosome-specific cfDNA Ql (cfDNA) Negative [facility] Chr 21 trisomy Dosage of chromosome-specific cfDNA Ql (cfDNA) Negative [facility] Chr X and Y aneuploidy risk Sequencing Ql (cfDNA) [Interp] Not detected [facility] Citation Gregory (Reference lab test) Comment [facility] Comment on above: 1. Emerita SORENSON et christopher esparza. Mary Med. 2012;14(3):296-305. 2. Neeraj HOLLY et al. Prenat Diag. 2013;33(6):591-597. 3. Artem C, et al. Clin Chem. 2015 Apr;61(4):608-616. 4. Emerita SORENSON, et al. Mary Med. 2011;13(11):913-920. 5. ACOG/SMFM Practice Bulletin No. 226, Apr 2020. Gestational age Estimated from conception date Patel [facility] GESTATIONALAGE>=9W Yes [facility] Laboratory comment Gregory (Report) Comment [facility] Comment on above: The MaterniT(R) 21 P ANNY laboratory-developed test (LDT) analyzes circulating cell-free DNA from a maternal blood sample. This test is used for screening purposes and not diagnostic. Clinical correlation is recommended. Validation data on twin pregnancies is limited and the ability of this test to detect aneuploidy in higher multiple gestations has not yet been validated. train director name Nom (Provider) Comment [facility] Comment on above: This specimen showed an expected representation of chromosome 21, 18 and 13 material. Clinical correlation is suggested. Eitan Montez MD , PhD, Director, [facility] Limitations of the Test Comment [facility] Comment on above: While the results [...] Ql (Plasma cell-free+WBC DNA) [Interp] Not detected [facility] NEGATIVE PREDICTIVE VALUE Note [facility] Comment on above: The Negative Predict lyndsey Value (NPV) for trisomy 21, 18, and 13 is greater than 99%. The NPV for SCA and ESS cannot be calculated as SCA and ESS are only reported when an abnormality is detected. PERFORMANCE CHARACTERISTICS Note [facility] Comment on above: ! Sex ! [...] Patel gestation only. Positive Predictive Value N/A [facility] Reference Lab Test Method Comment [facility] Comment on above: See Notes Circulating [...] 22. Service comment (Unsp spec) [Interp] Comment [facility] Comment on above: See Notes [employer]. is a subsidiary of [employer], using the brand [employer]. This test was developed and its performance characteristics determined by [employer]. It has not been cleared or approved by the Food and Drug Administration. This laboratory is certified under the Clinical Laboratory Improvement Amendments (CLIA) as qualified to perform high complexity clinical laboratory testing and accredited by the College of [employer] (CAP). If there is future clinical need for adding MaterniT GENOME testing, this specimen will be available until term. [facility] samples will not be retained beyond 60 days. [facility] patients will have to send a new sample for re-sequencing ([facility] Test Code: 804816). Sex Dosage of chromosome-specific cfDNA Nom (cfDNA) Comment [facility] Comment on above: Consistent with Male Test performance information Gregory (Unsp spec) Comment [facility] Comment on above: The performance ugo acteristics of the MaterniT(R) 21 PLUS laboratory-developed test (LDT) have been determined in a clinical validation study with women at increased risk for chromosomal aneuploidy.[1-4] Trisomy 13 risk Dosage of chromosome-specific cfDNA Ql (cfDNA) [Interp] Negative [facility] Trisomy 18 risk Dosage of chromosome-specific cfDNA Ql (Plasma cell-free+WBC DNA) [Interp] Negative [facility] Performed at: [facility] [address] [place], [place] [id number] [employer] Supervisor: Eitan Tamayo, Phone: [phone] [facility] HIGH RISK HUMAN PAPILLOMA MANI (HPV), PCR FOR DETECTION AND GENOTYPINGOrdered By: Andres Galan on 01-14-2025 HPV 16 Ag Ql (Unsp spec) Not detected Not detected [facility] HPV 18 Ag Ql (Unsp spec) Not detected Not detected [facility] HPV 31+33+35+39+45+51+5 2+56+58+59+66+68 DNA YVON+probe Ql (Cvx) Not detected Not detected [facility] Comment on above: High Risk HPV Other Type includes HPV types 31, 33, 35, 39, 45, 51, 52, 56, 58, 59, 66 and 68. Interpretation and review of laboratory results Normal [facility] This test was billy ped and its performance characteristics determined by [facility]'s [facility] Pathology and Laboratory Medicine [place] ([facility]). It has not been cleared or approved by the FDA. [facility] is regulated under CLIA as qualified to perform high-complexity testing. This test is used for clinical purposes. It should not be regarded as investigational or for research. [facility] No Panel InformationOrdered By: Heather Florian on 01-14-2025 [facility] PAP TESTOrdered By: Heather rivera on 01-14-2025 Case Report Gynecologic Cytology Report Case: [id number] Authorizing Provider: Pat Coats APRN.CNM Collected: 01/11/2025 11:40 AM Ordering Location: OB/Gynecology Received: 01/11/2025 02:31 PM First Screen: Florian, Heather, CT, ASCP Specimen: Pap Test, ThinPrep, Cervix [facility] Clinical History Routine Exam [facility] Interpretation Negative [facility] LMP 06/01/2024 [facility] Pap Disclaimer [id number] bGFuZzEw MzNcZnRuYmpcdWMxIHtccnRmMVxz e0WlW9IrHiTuYSylxwObIAIzGnml wuuqZVQzOIT0czXeXHYrRAgiZDYj YRqsSv4foMPfrAtkMgRoSXSmc2dk xeDAfikgpNy2t6hjYQDlEhT3nPQo CDwuL0opxuZpaVDyJMKvTJu7zX59 IZBrwF4acFGdBGuqnmGgBdQ4JWyw FFWdSsQ4KLUdrOOoMDDmO9knLWZu XRhqBZYcSTaspHTgTSJ5iSfzo2H1 zRFweIGtxLosWkKyRvRoJgVVu9Bl PZm6lXndI7GpNKZuGiZ3lTYkIGLt WQryREMgXITqvgT7hL40KFirueU3 tTEne8Kga89hp125wF9suPBpZSJ4 PPXsZVQbwIXkWQQlYLU8JXVwbQDb F5faIBVoVK6bmwejGFilNRjjTLFe zIO2OQKpfAOkA0KdELJaHLwzYKJd yfr7SkNgAl9bhAEahApiMZkvc7al s9dqmQYeFzh5AYFtGhDcByhhTOtm l3Wku5szXXLthi3zXJO2hXBcoKam r4G7qNGcAWQsaTTmrcNaRPNcAuP8 XZrpUI0tas87XJUtBZF0uu0rhQOe tDkhwjFmrRHbNUmiT2EkILTmx638 HZLxL6CcTSAat8L7olKpNdJxNCMw jLF2gwP0ODVzMIt4pRTgnvZ1qpRa uNXpX6vbuZ2fNUUeCX7alsjvr2rk HDwxZBceKLSsiDB5asE9XMGlaPRt M9RqtQ2iUQTnAObwSAWxqel3OdUr Px1hlUOncWrvMViwWksdUIlkWNBz bmNvbnRccGduZGVjXHBsYWluXHBs LStiGJMyMHUbKzKyaGhxmFcyiX0y YvAbDsOmYvhvIF0tPIFfU2oalSMk FODdSYLvZ9szZcBufY3yuDacZJsa lcM4HUOyUGWZDLKqH69eQMHdcZJn KXKxB0PgWS1assngfJNaiREzl5Tz V6NhnkoxKFcsX7EeR2PgRtGyZqQw b2BcuaCsSVOeqlHibrWtjYt9yqQh U5I9hhX0iIOaPPYchPDvM6PpMB5g tegzwYNxnMJmUALscPkfj5n6mR4b IHRoZSBuZWVkIGZvciByZXNjcmVl bngiCiUemTKbHYZyeL5xglFnQNHo bnRlcnZhbHMsIGFuZCBjbGluaWNh nEIaz7VyRYojoGibgn0csBpglV1p XsNyLgReIlefHH5bZVDyC2izmZEa FNGkQOQgM2cuVqYibS9yxFuiIDkf idJdTWCjrk10 [facility] PAP Moisture Conditioner Operator Comment o8xzyWMrBXXskIQjFCFz MlxhbnNp ODBhhCGaB0LgqikrYYobPO9oMA2v nVpcfRHxkLVcZYPjXnEym0msw135 qMQtn1bjQGIPsujvuJc9zCwkC70m c8R7MctsH61eaLBoIYZ9QCYpVHTg kRRlVYFyUPH1AXLxyWCzH3ksKDGi CT5zidwuEJmeLNisUWJcfTJ1IKHs kZQlN3HvEQHbAAhyJAXwqku6HeFo Pl7nhHBwfGxfNPkmH3mkaT5wUlH2 GRuoF0yysR7dXFf7KYyyJLVuaBU2 drO1JRIakBIeS6FrsO4tKNOnYJ0u pim0t1swVZG0RAgkIVYwAkL3uvT4 NDBccGFyZFxwbGFpblxpXGZzMTYg XDvmwnNwaDWaqX2rgiQfISRtHfMy feYtdjCalJyoRVWrvJZ3vWGjLtMN RRQtnJTrhcLaRKnuroj4qeDXoXxk pSNoCYQgXHluq8Z0ePClDKK5wRLe QVOKTE7yj7SqHDZpiIFcSKC7r5Yl pYymi8abD3almXLoloVfcOjxeNSu ZAfbABfyghjdMX5mKMZgBBPerCGs I4WiHQIqrRwatXYgQOcslL68FNrb gIugqfXwZYjrBMveDAPiXAc8y0yh DBHnO74jnLOiyUZ4mwHsEIPuxAzo hQCyeDKdBPFtc5TwwO81JDDai6Tw q87cdIlgZR7wS4Aio8ZimRvpNKCw mMAoARF7bgReb9Sae9MxmOipQPR4 eN1os5uoa3TbNN9yFXRhuKvvgL2s gWS9GNshDDL7KPg7UTQobdaaC4Ak eCOgd18qYUrvkpUfAFTxQUYhADTp o6GqVfCUh0izd3nlivryHY0bqFsp aXMsIGZpZWxkcyBvZiBpbnRlcmVz iXIzxhV6tZOciAqyin4rX47vzIDj f2wdWQVkh3AlRRO4UHOvVkkbvQpv CGOiD31thPEhtVChliGdssW9sLW5 DJFbIdxfEGZdzAItzF2btYJ1KuUS SnUnRZNpbMVqISXkVFY4rXRayaIl nFNwYNPukTiyXOuzzwW0vSB9OWM4 kPDypDF4cH6tj3ahu3Cky3omyYHp ZXZpZXcgdGhlIHNhbWUgZmllbGRz OQ2nOHvtxUXiXPX0YZMhaZIzfQOr HXV8PGWwDFMspMvnypo5pS2inBQt l7EpaQ0qYousXAqnxU40JNZcotI4 QXWfr94mMJWhvy9= [facility] Performing Lab u8ijdBRyBIWfi0srAGCy bGFuZzEw MzNcZnRuYmpcdWMxIHtccnRmMVxh rqUcDWNtYwxantkmRUMiNCA2oaIk AKWxIAB6IYY2BxXhGMIgTxUlHLI4 TLUjr0pek3QkxRTmrSXhTQmiwVXk edXhnt34jUO5pT34FQ9zEWQfCnT2 IANeqaZ3Veb1RWIvQLBlcRWwH492 v0fte4kiavWqzFT7jGnvQYCivywd WoV8KKaiDIBcmrfzNAy2RObyULFo hVD4ADNabQLgE9AlWTPmWB9kyve5 EJL6TNxnGUOuHgP1NPArkKLmILTc zToaGSwpa908MAX2HzFcQYHnn5L1 wlZcLjWmVJMpoAW3jrV1UZUsCL6x kjmxa1plZLxaNVhvORUsbzC9yuL3 IUQgrRFdV8AjmU0dAAClTP6nxulh d9ymUEV8IEzpBFXiATEpVEuzYAWt TfSfJFYogL5bQ8GqLFIjuWQtpbWm oGhsI4r5y0IwT2vux0piM7kuhDWe O1NhDZ5fkizjfJLzXk6lrSNqZXO1 RzGOlGfqW3Cpr5AzBV7lxSo5KOqd MDPtu3GztW2upZxsAiz3OTQVIEcp yDTdGQGZp1RfNPCCJMxffIMvLVZJ LGdrzOCvRG4DKAP2ALZ4OXDMNOlS ElNuGcUoNtH7WDDsHLIwfx50h5nh dGYxXGVwaWMxMTEwMlxhbnNpXHNw aWIhS8DcnrxgXObtAL3qOJ2lfDjh tWJmwUTgSTLwGtUlk7lxb745fIAd t8maRAVXlzcdgQr8rFtwY77mr1N4 VwyhQ86qvPAgPAE1JUDaOVIseMUj GSCoENV2LVCtxWTrU5azUZCeDU5q sgxzQVtcJQrpRINclQL2ZUOcmTDi S1MoSRBfHFyjZKUnlhs0ZfOvFg6s xEHioDgySRotS1odrK8zDfK7FQgu H2rmoD4fZCv8DQdvVOHnaEV1jtY5 ZGWwpRVvY0GjzX6xEXUnBB0yhji6 b8vxFJQ5GDjcJWRpSiV1bmY0APCe cGFyZFxwbGFpblxmczIwIERpYWdu u1R7cMPhsP68TIAguyG3OEBkh93a sGDdVo2kiEHsNIF7EoYPuEtlI4Xp a1DiWF5jyXl9IEevIBGjd6GnrG4r jSzeMsa4LKVXJXzyoTVcXNKTt3Vl RZVMVMonpZXfITJBNXyldULaAC7U GFE3GGM4JIQhE8sUQYGgHySNMSHo Fnk3OPqlLBPnXNFnvgKIOWLxfsF0 f4Q9TYOqvzFfcQ5jFuNBlULggiXA IFBvcnRlciwgTURccGFyfX0= [facility] Specimen Adequacy Satisfactory for interpretation. No endocervical component [facility] BACTERIAL VAGINOSIS NAATon 0 01-12-2025 Interpretation and review of laboratory results Normal [facility] Lactobacillus crispatus+gasseri+j ensenii + Gardnerella vaginalis + Atopobium vaginae rRNA YVON+probe Ql (Vag fld) Not detected Not detected [facility] C. trachomatis+N. gonorrhoea e DNA YVON+probe Ql (Unsp spec)on 01-12-2025 C. trachomatis rRNA YVON+probe Ql (Unsp spec) Not detected Not detected [facility] Interpretation and review of laboratory results Normal [facility] N. gonorrhoeae rRNA YVON+probe Ql (Unsp spec) Not detected Not detected [facility] This FDA-approved as say has been modified to accept rectal swabs self-collected in a healthcare setting. For self-collected rectal swabs, the test was developed and its performance characteristics determined by the [facility]'s [facility] Pathology and Laboratory Medicine [place] ([facility] It has not been cleared or approved by the FDA. [facility] is regulated under CLIA as qualified to perform high-complexity testing. This test is used for clinical purposes. It should not be regarded as investigational or for research. [facility] LEANA/TRICHOMONAS NAATon 0 01-12-2025 C. glabrata RNA YVON+probe Ql (Vag fld) Not detected Not detected [facility] Leana sp DNA YVON+probe Ql (Vag fld) Not detected Not detected [facility] Comment on above: The Leana species group target includes C. albicans, C. tropicalis, C. parapsilosis, and C. dubliniensis. Interpretation and review of laboratory results Normal [facility] T. vaginalis DNA YVON+probe Ql (Unsp spec) Not detected Not detected [facility] CNPKrissy 01-12-2025 PARDEEP Telephone (OBGYWM) DESIREELETY SHANNON ([id number]) 1985 F RAGINI Date Time Provider Department 01/12/25 PAT COATS During your visit today, we recorded the following information about you: Skyla Bauer RN 01/12/2025 9:51 AM Signed 32w1d Called patient with the assistance of reclamation furnace operatorLandy at [facility]. We were able to talk with patient and the patient seemed to be having difficulty with what was being said. It was then that the Corporate Director Talent Assessment told this nurse the patient stated that her preferred language is Quiche. Connected with [employer] clinical research associateAlyce #[id number] Attempted to talk with patient. No answer [...] to contact patient with the assistance of [employer] clinical research associate. Spoke with [facility] who was unable to connect this nurse with an clinical research associate at this time after a long wait [...] Status:Closed by SKYLA BAUER on 01/27/25 Normal [facility] BACTERIAL VAGINOSIS NAATon 0 01-11-2025 Lactobacillus crispatus+gasseri+j ensenii + Gardnerella vaginalis + Atopobium vaginae rRNA YVON+probe Ql (Vag fld) Not detected Normal Not detected [facility] Comment on above: Order Comment: Speci men Type: SWAB Ordering Facility: [facility] Address: [address] [place] [address] Performed By: #### 3 6902-5, BVAMP #### [facility] CLIA [id number] [address] [place] [address] [place] C. trachomatis+N. gonorrhoea e DNA YVON+probe Ql (Unsp spec)on 01-11-2025 C. trachomatis rRNA YVON+probe Ql (Unsp spec) Not detected Normal Not detected [facility] Comment on above: Order Comment: Speci men Type: SWAB Ordering Facility: [facility] Address: [address] [place] [address] Performed By: #### 3 6902-5, BVAMP #### [facility] CLIA [id number] [address] [place] [address] [place] N. gonorrhoeae rRNA YVON+probe Ql (Unsp spec) Not detected Normal Not detected [facility] Comment on above: Order Comment: Speci men Type: SWAB Ordering Facility: [facility] Address: [address] [place] [address] Performed By: #### 3 6902-5, BVAMP #### [facility] CLIA [id number] [address] [place] [address] [place] LEANA/TRICHOMONAS NAATon 0 01-11-2025 C. glabrata RNA YVON+probe Ql (Vag fld) Not detected Normal Not detected [facility] Comment on above: Order Comment: Speci men Type: SWAB Ordering Facility: [facility] Address: [address] [place] [address] Performed By: #### 3 6902-5, BVAMP #### [facility] CLIA [id number] [address] [place] [address] [place] Leana sp DNA YVON+probe Ql (Vag fld) Not detected Normal Not detected [facility] Comment on above: Order Comment: Speci men Type: SWAB Ordering Facility: [facility] Address: [address] [place] [address] Result Comment: The Leana species group target includes C. albicans, C. tropicalis, C. parapsilosis, and C. dubliniensis. Performed By: #### 3 6902-5, BVAMP #### [facility] CLIA [id number] [address] [place] [address] [place] T. vaginalis DNA YVON+probe Ql (Unsp spec) Not detected Normal Not detected [facility] Comment on above: Order Comment: Speci men Type: SWAB Ordering Facility: [facility] Address: [address] [place] [address] Performed By: #### 3 6902-5, BVAMP #### [facility] CLIA [id number] [address] [place] [address] [place] CBC W Auto Differential pane l (Bld)on 01-11-2025 Basophils (Bld) [#/Vol] 0.03 10*3/uL Normal <0.11 [facility] Comment on above: Order Comment: Speci men Type: SWAB Ordering Facility: [facility] Address: [address] [place] [address] Performed By: #### 3 6902-5, BVAMP #### [facility] CLIA [id number] [address] [place] [address] [place] Basophils/100 WBC (Bld) 0.5 % Normal [facility] Comment on above: Order Comment: Speci men Type: SWAB Ordering Facility: [facility] Address: [address] [place] [address] Performed By: #### 3 6902-5, BVAMP #### [facility] CLIA [id number] [address] [place] [address] [place] Differential cell count method Nom (Bld) Auto Normal [facility] Comment on above: Order Comment: Speci men Type: SWAB Ordering Facility: [facility] Address: [address] [place] [address] Performed By: #### 3 6902-5, BVAMP #### [facility] CLIA [id number] [address] [place] [address] [place] Eosinophils (Bld) [#/Vol] 0.14 10*3/uL Normal <0.46 [facility] Comment on above: Order Comment: Speci men Type: SWAB Ordering Facility: [facility] Address: [address] [place] [address] Performed By: #### 3 6902-5, BVAMP #### [facility] CLIA [id number] [address] [place] [address] [place] Eosinophils/100 WBC (Bld) 2.3 % Normal [facility] Comment on above: Order Comment: Speci men Type: SWAB Ordering Facility: [facility] Address: [address] [place] [address] Performed By: #### 3 6902-5, BVAMP #### [facility] CLIA [id number] [address] [place] [address] [place] Erythrocyte distribution width (RBC) [Ratio] 14.2 % Normal 11.5-15.0 [facility] Comment on above: Order Comment: Speci men Type: SWAB Ordering Facility: [facility] Address: [address] [place] [address] Performed By: #### 3 6902-5, BVAMP #### [facility] CLIA [id number] [address] [place] [address] [place] Hematocrit (Bld) [Volume fraction] 31.5 % Low 36.0-46.0 [facility] Comment on above: Order Comment: Speci men Type: SWAB Ordering Facility: [facility] Address: [address] [place] [address] Performed By: #### 3 6902-5, BVAMP #### [facility] CLIA [id number] [address] [place] [address] [place] Hemoglobin (Bld) [Mass/Vol] 10.2 g/dL Low 11.5-15.5 [facility] Comment on above: Order Comment: Speci men Type: SWAB Ordering Facility: [facility] Address: [address] [place] [address] Performed By: #### 3 6902-5, BVAMP #### [facility] CLIA [id number] [address] [place] [address] [place] Immature granulocytes (Bld) [#/Vol] 10*3/uL Normal <0.10 [facility] Comment on above: Order Comment: Speci men Type: SWAB Ordering Facility: [facility] Address: [address] [place] [address] Performed By: #### 3 6902-5, BVAMP #### [facility] CLIA [id number] [address] [place] [address] [place] Immature granulocytes/100 WBC (Bld) 0.3 % Normal [facility] Comment on above: Order Comment: Speci men Type: SWAB Ordering Facility: [facility] Address: [address] [place] [address] Performed By: #### 3 6902-5, BVAMP #### [facility] CLIA [id number] [address] [place] [address] [place] Lymphocytes (Bld) [#/Vol] 1.59 10*3/uL Normal 1.00-4.00 [facility] Comment on above: Order Comment: Speci men Type: SWAB Ordering Facility: [facility] Address: [address] [place] [address] Performed By: #### 3 6902-5, BVAMP #### [facility] CLIA [id number] [address] [place] [address] [place] Lymphocytes/100 WBC (Bld) 26.3 % Normal [facility] Comment on above: Order Comment: Speci men Type: SWAB Ordering Facility: [facility] Address: [address] [place] [address] Performed By: #### 3 6902-5, BVAMP #### [facility] CLIA [id number] [address] [place] [address] [place] MCH (RBC) [Entitic mass] 25.3 pg Low 26.0-34.0 [facility] Comment on above: Order Comment: Speci men Type: SWAB Ordering Facility: [facility] Address: [address] [place] [address] Performed By: #### 3 6902-5, BVAMP #### [facility] CLIA [id number] [address] [place] [address] [place] MCHC (RBC) [Mass/Vol] 32.4 g/dL Normal 30.5-36.0 [facility] Comment on above: Order Comment: Speci men Type: SWAB Ordering Facility: [facility] Address: [address] [place] [address] Performed By: #### 3 6902-5, BVAMP #### [facility] CLIA [id number] [address] [place] [address] [place] MCV (RBC) [Entitic vol] 78.2 fL Low 80.0-100.0 [facility] Comment on above: Order Comment: Speci men Type: SWAB Ordering Facility: [facility] Address: [address] [place] [address] Performed By: #### 3 6902-5, BVAMP #### [facility] CLIA [id number] [address] [place] [address] [place] Monocytes (Bld) [#/Vol] 0.48 10*3/uL Normal <0.87 [facility] Comment on above: Order Comment: Speci men Type: SWAB Ordering Facility: [facility] Address: [address] [place] [address] Performed By: #### 3 6902-5, BVAMP #### [facility] CLIA [id number] [address] [place] [address] [place] Monocytes/100 WBC (Bld) 7.9 % Normal [facility] Comment on above: Order Comment: Speci men Type: SWAB Ordering Facility: [facility] Address: [address] [place] [address] Performed By: #### 3 6902-5, BVAMP #### [facility] CLIA [id number] [address] [place] [address] [place] Neutrophils (Bld) [#/Vol] 3.79 10*3/uL Normal 1.45-7.50 [facility] Comment on above: Order Comment: Speci men Type: SWAB Ordering Facility: [facility] Address: [address] [place] [address] Performed By: #### 3 6902-5, BVAMP #### [facility] CLIA [id number] [address] [place] [address] [place] Neutrophils/100 WBC (Bld) 62.7 % Normal [facility] Comment on above: Order Comment: Speci men Type: SWAB Ordering Facility: [facility] Address: [address] [place] [address] Performed By: #### 3 6902-5, BVAMP #### [facility] CLIA [id number] [address] [place] [address] [place] Nucleated RBC (Bld) [#/Vol] 10*3/uL Normal <0.01 [facility] Comment on above: Order Comment: Speci men Type: SWAB Ordering Facility: [facility] Address: [address] [place] [address] Performed By: #### 3 6902-5, BVAMP #### [facility] CLIA [id number] [address] [place] [address] [place] Nucleated RBC/100 WBC (Bld) [Ratio] 0.0 /100 WBC Normal [facility] Comment on above: Order Comment: Speci men Type: SWAB Ordering Facility: [facility] Address: [address] [place] [address] Performed By: #### 3 6902-5, BVAMP #### [facility] CLIA [id number] [address] [place] [address] [place] Platelet mean volume (Bld) [Entitic vol] 11.7 fL Normal 9.0-12.7 [facility] Comment on above: Order Comment: Speci men Type: SWAB Ordering Facility: [facility] Address: [address] [place] [address] Performed By: #### 3 6902-5, BVAMP #### [facility] CLIA [id number] [address] [place] [address] [place] Platelets (Bld) [#/Vol] 278 10*3/uL Normal 150-400 [facility] Comment on above: Order Comment: Speci men Type: SWAB Ordering Facility: [facility] Address: [address] [place] [address] Performed By: #### 3 6902-5, BVAMP #### [facility] CLIA [id number] [address] [place] [address] [place] RBC (Bld) [#/Vol] 4.03 10*6/uL Normal 3.90-5.20 [facility] Comment on above: Order Comment: Speci men Type: SWAB Ordering Facility: [facility] Address: [address] [place] [address] Performed By: #### 3 6902-5, BVAMP #### [facility] CLIA [id number] [address] [place] [address] [place] WBC (Bld) [#/Vol] 6.05 10*3/uL Normal 3.70-11.00 [facility] Comment on above: Order Comment: Speci men Type: SWAB Ordering Facility: [facility] Address: [address] [place] [address] Performed By: #### 3 6902-5, BVAMP #### [facility] CLIA [id number] [address] [place] [address] [place] CNCOon 01-11-2025 CNCO Letter Text Normal [facility] Ferritin SerPl-mCncon 2024 Ferritin [Mass/Vol] 21.1 ng/mL Normal 14.7-205.1 [facility] Comment on above: Order Comment: Speci men Type: BLOOD SPECIMEN Ordering Facility: [facility] Address: [address] [place] [address] Performed By: #### 2 276-4, 59970-5 #### [facility] CLIA [id number] [address] [place] [address] [place] GESTATIONAL GLUCOSE SCREEN, 1-HOUR, 50 GRAM, NON-FASTINGOrdered By: Flakita Wolff on 01-11-2025 Glucose [Mass/Vol] 164 mg/dL High 74 - 134 mg/dL [facility] Comment on above: [place] Congress of Obstetricians and Gynec[employer] (Martinez/Coustan) guidelines state a gestational diabetes mellitus positive screen is made, in women not previously diagnosed with overt diabetes, when the 1 hr plasma glucose level is equal to or above 140 mg/dL. The [facility] Melter Supervisor [employer] [facility] [place] recommends a 135 mg/dL cutoff. Interpretation and review of laboratory results Abnormal [facility] GESTATIONAL GLUCOSE SCREEN, 1-HOUR, 50 GRAM, NON-FASTINGon 01-11-2025 Glucose [Mass/Vol] 164 mg/dL High 74-134 [facility] Comment on above: Order Comment: Speci men Type: SWAB Ordering Facility: [facility] Address: [address] [place] [address] Result Comment: Amer [facility] Congress of Obstetricians and Gynecologists (Michelle/Camacho) guidelines state a gestational diabetes mellitus positive screen is made, in women not previously diagnosed with overt diabetes, when the 1 hr plasma glucose level is equal to or above 140 mg/dL. The [facility] [employer] Super[employer] [facility] [place] recommends a 135 mg/dL cutoff. Performed By: #### 3 6902-5, BVAMP #### [facility] CLIA [id number] [address] [place] [address] [place] HBV surface Ag Ql (S)on 12-27 Interpretation and review of laboratory results Normal [facility] HBV surface Ag Ser Qlon 12-27 HBV surface Ag Ql (S) Negative Normal Negative [facility] Comment on above: Order Comment: Speci men Type: SWAB Ordering Facility: [facility] Address: [address] [place] [address] Performed By: #### 3 6902-5, BVAMP #### [facility] CLIA [id number] [address] [place] [address] [place] HCV Ab Ql (S)on 01-11-2025 Interpretation and review of laboratory results Normal [facility] HCV Ab Ser Qlon 01-11-2025 HCV Ab Ql (S) Negative Normal Negative [facility] Comment on above: Order Comment: Mirza gil Type: SWAB Ordering Facility: [facility] Address: [address] [place] [address] Result Comment: The result suggests no evidence of infection with Hepatitis C virus. Should recent infection be suspected, repeat testing may be considered 4-6 weeks after this draw. Performed By: #### 3 6902-5, BVAMP #### [facility] CLIA [id number] [address] [place] [address] [place] HEPATITIS B SURFACE ANTIGENo n 01-11-2025 HBV surface Ag Ql (S) Negative Negative [facility] HEPATITIS C ANTIBODY IA WITH CONFIRMATIONon 01-11-2025 HCV Ab Ql (S) Negative Negative [facility] Comment on above: The result suggests no evidence of infection with Hepatitis C virus. Should recent infection be suspected, repeat testing may be considered 4-6 weeks after this draw. HIGH RISK HUMAN PAPILLOMA MANI (HPV), PCR FOR DETECTION AND GENOTYPINGon 01-11-2025 HPV 16 Ag Ql (Unsp spec) Not detected Normal Not detected [facility] Comment on above: Order Comment: Speci men Type: SWAB Ordering Facility: [facility] Address: [address] [place] [address] Performed By: #### 3 6902-5, BVAMP #### [facility] CLIA [id number] [address] [place] [address] [place] HPV 18 Ag Ql (Unsp spec) Not detected Normal Not detected [facility] Comment on above: Order Comment: Speci men Type: SWAB Ordering Facility: [facility] Address: [address] [place] [address] Performed By: #### 3 6902-5, BVAMP #### [facility] CLIA [id number] [address] [place] [address] [place] HPV 31+33+35+39+45+51+5 2+56+58+59+66+68 DNA YVON+probe Ql (Cvx) Not detected Normal Not detected [facility] Comment on above: Order Comment: Speci men Type: SWAB Ordering Facility: [facility] Address: [address] [place] [address] Result Comment: High Risk HPV Other Type includes HPV types 31, 33, 35, 39, 45, 51, 52, 56, 58, 59, 66 and 68. Performed By: #### 3 6902-5, BVAMP #### [facility] CLIA [id number] [address] [place] [address] [place] HIV 1+2 Ab IA Qlon 06-16-202 5 HIV 1 and 2 Ab IA.rapid Nom (S/P/Bld) [facility] Comment on above: Test not indicated. HIV 1+2 Ab+HIV1 p24 Ag IA Ql Non-Reactive Nonreactive [facility] HIV immunoassay testing algorithm interpretation (S/P/Bld) [Interp] [facility] Comment on above: No evidence of HIV-1 or HIV-2 infection. Should recent infection be suspected, repeat testing may be considered 2-3 weeks after this draw. [place] Rev. Code 3701.243(E): This information has been [...] release of HIV test results or diagnoses. [facility] HIV 1 and 2 Ab IA.rapid Nom (S/P/Bld) Normal [facility] Comment on above: Order Comment: Speci men Type: SWAB Ordering Facility: [facility] Address: [address] [place] [address] Result Comment: Test not indicated. Performed By: #### 3 6902-5, BVAMP #### [facility] CLIA [id number] [address] [place] [address] [place] HIV 1+2 Ab+HIV1 p24 Ag IA Ql Non-Reactive Normal Nonreactive [facility] Comment on above: Order Comment: Speci men Type: SWAB Ordering Facility: [facility] Address: [address] [place] [address] Performed By: #### 3 6902-5, BVAMP #### [facility] CLIA [id number] [address] [place] [address] [place] HIV immunoassay testing algorithm interpretation (S/P/Bld) [Interp] Normal [facility] Comment on above: Order Comment: Speci men Type: SWAB Ordering Facility: [facility] Address: [address] [place] [address] Result Comment: No e vidence of HIV-1 or HIV-2 infection. Should recent infection be suspected, repeat testing may be considered 2-3 weeks after this draw. [place] Rev. Code 3701.243(E): This information has been [...] Performed By: #### 3 6902-5, BVAMP #### [facility] CLIA [id number] [address] [place] [address] [place] HbA1c (Bld)on 01-11-2025 Average glucose Estimated from glycated hemoglobin (Bld) [Mass/Vol] 114 mg/dL [facility] Comment on above: eAG: (Estimated aver age glucose) is a calculated value from HgbA1c and is sales representative leather goods of the average blood glucose level in the last 2-3 month period. HbA1c (Bld) [Mass fraction] 5.6 % 4.3 - 5.6 % [facility] Comment on above: [place] Diabetes As sociation guidelines indicate that patients with HgbA1c in the range 5.7-6.4% are at increased risk for development of diabetes, and intervention by lifestyle modification may be beneficial. HgbA1c greater or equal to 6.5% is considered diagnostic of diabetes. [facility] Average glucose Estimated from glycated hemoglobin (Bld) [Mass/Vol] 114 mg/dL Normal [facility] Comment on above: Order Comment: Speci men Type: SWAB Ordering Facility: [facility] Address: [address] [place] [address] Result Comment: eAG: (Estimated average glucose) is a calculated value from HgbA1c and is sales representative leather goods of the average blood glucose level in the last 2-3 month period. Performed By: #### 3 6902-5, BVAMP #### [facility] CLIA [id number] [address] [place] [address] [place] HbA1c (Bld) [Mass fraction] 5.6 % Normal 4.3-5.6 [facility] Comment on above: Order Comment: Speci men Type: SWAB Ordering Facility: [facility] Address: [address] [place] [address] Result Comment: Amer [place] Diabetes Association guidelines indicate that patients with HgbA1c in the range 5.7-6.4% are at increased risk for development of diabetes, and intervention by lifestyle modification may be beneficial. HgbA1c greater or equal to 6.5% is considered diagnostic of diabetes. Performed By: #### 3 6902-5, BVAMP #### [facility] CLIA [id number] [address] [place] [address] [place] Iron and Iron binding capaci ty panelon 01-11-2025 Iron [Mass/Vol] 22 ug/dL Low 41-186 [facility] Comment on above: Order Comment: Speci men Type: BLOOD SPECIMEN Ordering Facility: [facility] Address: [address] [place] [address] Performed By: #### 2 276-4, 02870-6 #### [facility] CLIA [id number] [address] [place] [address] [place] Iron binding capacity [Mass/Vol] 496 ug/dL High 232-386 [facility] Comment on above: Order Comment: Speci men Type: BLOOD SPECIMEN Ordering Facility: [facility] Address: [address] [place] [address] Performed By: #### 2 276-4, 88248-8 #### [facility] CLIA [id number] [address] [place] [address] [place] Iron/TIBC [Molar ratio] 4.4 % Low 15.0-57.0 [facility] Comment on above: Order Comment: Speci men Type: BLOOD SPECIMEN Ordering Facility: [facility] Address: [address] [place] [address] Performed By: #### 2 276-4, 79809-7 #### [facility] CLIA [id number] [address] [place] [address] [place] [id number] PLUSon 01-11-2025 Cell-free DNA./Cell-free DNA.total Dosage of chromosome-specific cfDNA (cfDNA) [Molar fraction] 41% Normal [facility] Comment on above: Order Comment: Speci men Type: SWAB Ordering Facility: [facility] Address: [address] [place] [address] Performed By: #### 3 6902-5, BVAMP #### [facility] CLIA [id number] [address] [place] [address] [place] Chr 13+18+21+X+Y aneuploidy Dosage of chromosome-specific cfDNA Ql (cfDNA) Negative Normal [facility] Comment on above: Order Comment: Speci men Type: SWAB Ordering Facility: [facility] Address: [address] [place] [address] Performed By: #### 3 6902-5, BVAMP #### [facility] CLIA [id number] [address] [place] [address] [place] Chr 21 trisomy Dosage of chromosome-specific cfDNA Ql (cfDNA) Negative Normal [facility] Comment on above: Order Comment: Speci men Type: SWAB Ordering Facility: [facility] Address: [address] [place] [address] Performed By: #### 3 6902-5, BVAMP #### [facility] CLIA [id number] [address] [place] [address] [place] Chr X and Y aneuploidy risk Sequencing Ql (cfDNA) [Interp] Not detected Normal [facility] Comment on above: Order Comment: Speci men Type: SWAB Ordering Facility: [facility] Address: [address] [place] [address] Result Comment: Not Detected Not Detected Performed By: #### 3 6902-5, BVAMP #### [facility] CLIA [id number] [address] [place] [address] [place] Citation Gregory (Reference lab test) Comment Normal [facility] Comment on above: Order Comment: Speci men Type: SWAB Ordering Facility: [facility] Address: [address] [place] [address] Result Comment: 1. P jurgen SORENSON, et al. Mary Med. 2012;14(3):296-305. 2. Neeraj HOLLY et al. Prenat Diag. 2013;33(6):591-597. 3. Artem C, et al. Clin Chem. 2015 Apr;61(4):608-616. 4. Emerita SORENSON, et al. Mary Med. 2011;13(11):913-920. 5. ACOG/[facility] Practice Bulletin No. 226, Apr 2020. Performed By: #### 3 6902-5, BVAMP #### [facility] CLIA [id number] [address] [place] [address] [place] Gestational age Estimated from conception date Patel Normal [facility] Comment on above: Order Comment: Speci men Type: SWAB Ordering Facility: [facility] Address: [address] [place] [address] Performed By: #### 3 6902-5, BVAMP #### [facility] CLIA [id number] [address] [place] [address] [place] GESTATIONALAGE AGE > OR = 9W Yes Normal [facility] Comment on above: Order Comment: Speci men Type: SWAB Ordering Facility: [facility] Address: [address] [place] [address] Performed By: #### 3 6902-5, BVAMP #### [facility] CLIA [id number] [address] [place] [address] [place] Laboratory comment Gregory (Report) Comment Normal [facility] Comment on above: Order Comment: Speci men Type: SWAB Ordering Facility: [facility] Address: [address] [place] [address] Result Comment: The MaterniT(R) 21 PLUS laboratory-developed [...] Performed By: #### 3 6902-5, BVAMP #### [facility] CLIA [id number] [address] [place] [place] [id number] [place] train director name Nom (Provider) Comment Normal [facility] Comment on above: Order Comment: Speci men Type: SWAB Ordering Facility: [facility] Address: [address] [place] [address] Result Comment: This specimen showed an expected representation of chromosome 21, 18 and 13 material. Clinical correlation is suggested. Comment Eitan Montez MD, PhD, Director, [employer] Performed By: #### 3 6902-5, BVAMP #### [facility] CLIA [id number] [address] [place] [address] LIMITATIONS OF THE TEST Comment Normal [facility] Comment on above: Order Comment: Speci men Type: SWAB Ordering Facility: [facility] Address: [address] [place] [address] Result Comment: Neri arora the results of [...] Performed By: #### 3 6902-5, BVAMP #### [facility] CLIA [id number] [address] [place] [address] [place] Monosomy X risk Dosage of chromosome-specific cfDNA Ql (Plasma cell-free+WBC DNA) [Interp] Not detected Normal [facility] Comment on above: Order Comment: Speci jeffery Type: SWAB Ordering Facility: [facility] Address: [address] [place] [address] Performed By: #### 3 6902-5, BVAMP #### [facility] CLIA [id number] [address] [place] [address] [place] NEGATIVE PREDICTIVE VALUE Note Normal [facility] Comment on above: Order Comment: Mirza gil Type: SWAB Ordering Facility: [facility] Address: [address] [place] [address] Result Comment: The Negative Predictive Value (NPV) for trisomy 21, 18, and 13 is greater than 99%. The NPV for SCA and ESS cannot be calculated as SCA and ESS are only reported when an abnormality is detected. Performed By: #### 3 6902-5, BVAMP #### [facility] CLIA [id number] [address] [place] [address] [place] [address] [place] PERFORMANCE CHARACTERISTICS Note Normal [facility] Comment on above: Order Comment: Speci men Type: SWAB Ordering Facility: [facility] Address: [address] [place] [address] Result Comment: ! Sex ! Accuracy: 99.4% [...] ! ! ! * As reported in [facility] database nstd37 [https://www.ncbi.nlm.nih.gov/dbvar/studies/nstd37/ ] # Estimated Sensitivity. Sensitivity estimated across the observed size distribution of each syndrome [per [facility] database nstd37] and across the range of fractions observed in routine clinical NIPT. Actual sensitivity can also be influenced by other factors such as the size of the event, total sequence counts, amplification bias, or sequence bias. ## Patel gestation only. Performed By: #### 3 6902-5, BVAMP #### [facility] CLIA [id number] [address] [place] [address] [place] POSITIVE PREDICTIVE VALUE N/A Normal [facility] Comment on above: Order Comment: Mirza gil Type: SWAB Ordering Facility: [facility] Address: [address] [place] [address] Performed By: #### 3 6902-5, BVAMP #### [facility] CLIA [id number] [address] [place] [address] [place] Reference Lab Test Method Comment Normal [facility] Comment on above: Order Comment: Mirza gil Type: SWAB Ordering Facility: [facility] Address: [address] [place] [address] Result Comment: See Notes Circulating cell-free DNA [...] Performed By: #### 3 6902-5, BVAMP #### [facility] CLIA [id number] [address] [place] [address] [place] Service comment (Unsp spec) [Interp] Comment Normal [facility] Comment on above: Order Comment: Speci men Type: SWAB Ordering Facility: [facility] Address: [address] [place] [address] Result Comment: See Notes [employer] is a subsidiary of [employer], using the brand [employer]. This test was developed and its performance characteristics determined by [employer]. It has not been cleared or approved by the Food and Drug Administration. This laboratory is certified under the Clinical Laboratory Improvement Amendments (CLIA) as qualified to perform high complexity clinical laboratory testing and accredited by the [employer] (CAP). If there is future clinical need for adding MaterniT GENOME testing, this specimen will be available until term. [facility] samples will not be retained beyond 60 days. [facility] patients will have to send a new sample for re-sequencing ([facility] Test Code: [id number]). Performed By: #### 3 6902-5, BVAMP #### [facility] CLIA [id number] [address] [place], [place] [address] [place] Sex Dosage of chromosome-specific cfDNA Nom (cfDNA) Comment Normal [facility] Comment on above: Order Comment: Speci men Type: SWAB Ordering Facility: [facility] Address: [address] [place] [address] Result Comment: Cons istent with Male Performed By: #### 3 6902-5, BVAMP #### [facility] CLIA [id number] [address] [place] [address] [place] Test performance information Gregory (Unsp spec) Comment Normal [facility] Comment on above: Order Comment: Speci men Type: SWAB Ordering Facility: [facility] Address: [address] [place] [address] Result Comment: The performance characteristics of the MaterniT(R) 21 PLUS laboratory-developed test (LDT) have been determined in a clinical validation study with women at increased risk for chromosomal aneuploidy.[1-4] Performed By: #### 3 6902-5, BVAMP #### [facility] CLIA [id number] [address] [place] [address] [place] Trisomy 13 risk Dosage of chromosome-specific cfDNA Ql (cfDNA) [Interp] Negative Normal [facility] Comment on above: Order Comment: Speci men Type: SWAB Ordering Facility: [facility] Address: [address] [place] [address] Performed By: #### 3 6902-5, BVAMP #### [facility] CLIA [id number] [address] [place] [address] [place] Trisomy 18 risk Dosage of chromosome-specific cfDNA Ql (Plasma cell-free+WBC DNA) [Interp] Negative Normal [facility] Comment on above: Order Comment: Speci men Type: SWAB Ordering Facility: [facility] Address: [address] [place] [address] Performed By: #### 3 6902-5, BVAMP #### [facility] CLIA [id number] [address] [place] [address] [place] PAP TESTon 01-11-2025 ADEQUACY Normal [facility] Comment on above: Order Comment: Speci men Type: FLUID SPECIMEN Ordering Facility: [facility] Address: [address] [place] [address] Result Comment: Sati sfactory for interpretation. No endocervical component Performed By: #### L [id number] #### [facility] CLIA [id number] [address] [place] [address] [place] [facility] CLIA [id number] [address] [place] [address] [place] CASE REPORT Normal [facility] Comment on above: Order Comment: Speci men Type: FLUID SPECIMEN Ordering Facility: [facility] Address: [address] [place] [address] Result Comment: Gyne cologic Cytology Report Case: [id number] Authorizing Provider: Pat Coats APRN.CNM Collected: 01/11/2025 11:40 AM Ordering Location: OB/Gynecology Received: 01/11/2025 02:31 PM First Screen: Florian, Heather, CT, ASCP Specimen: Pap Test, ThinPrep, Cervix Performed By: #### L [id number] #### [facility] CLIA [id number] [address] [place] [address] [place] [facility] CLIA [id number] [address] [place] [address] [place] CLINICAL HISTORY, CYTOLOGY, CONSTRUCTION TECH Routine Exam Normal [facility] Comment on above: Order Comment: Speci men Type: FLUID SPECIMEN Ordering Facility: [facility] Address: [address] [place] [address] Performed By: #### L [id number] #### [facility] CLIA [id number] [address] [place] [address] [place] [facility] CLIA [id number] [address] [place] [address] [place] FINAL PERFORMING LAB Normal [facility] Comment on above: Order Comment: Speci men Type: FLUID SPECIMEN Ordering Facility: [facility] Address: [address] [place] [address] Result Comment: Tech nical component, junior accountant screening performed at: [facility], [address] [place] [address] CLIA: [id number] Diagnostic interpretation performed at: [facility], [address] [place] [address] CLIA# [id number] Mucking Machine Operator: Vicki Colindres MD Performed By: #### L [id number] #### [facility] CLIA [id number] [address] [place] [address] [place] [facility] CLIA [id number] [address] [place] [address] [place] INTERPRETATION, CYTOLOGY, CONSTRUCTION TECH Normal [facility] Comment on above: Order Comment: Speci men Type: FLUID SPECIMEN Ordering Facility: [facility] Address: [address] [place] [address] Result Comment: Nega tive for intraepithelial lesion or malignancy. at 1045 EDT Performed By: #### L [id number] #### [facility] CLIA [id number] [address] [place] [address] [place] [facility] CLIA [id number] [address] [place] [address] [place] LMP 06/01/2024 Normal [facility] Comment on above: Order Comment: Speci men Type: FLUID SPECIMEN Ordering Facility: [facility] Address: [address] [place] [address] Performed By: #### L [id number] #### [facility] CLIA [id number] [address] [place] [address] [place] [facility] CLIA [id number] [address] [place] [address] [place] PAP DISCLAIMER COMMENT The Pap Smear is a screening test for cervical cancer. False negative results occur with all screening tests, emphasizing the need for rescreening at recommended intervals, and clinical correlation. Normal [facility] Comment on above: Order Comment: Speci men Type: FLUID SPECIMEN Ordering Facility: [facility] Address: [address] [place] [address] Performed By: #### L [id number] #### [facility] CLIA [id number] [address] [place] [address] LAB CLIA [id number] [address] [place] [address] [place] PAP BOOKMAKER'S CLERK COMMENT This specimen has be en analyzed by the FDA-approved [employer], which uses digital imaging and an enhanced artificial intelligence image analysis algorithm to identify pringle of interest on the microscopic slide, to assist the scale agent and pathologist in evaluating cells on ThinPrep Pap tests. Following analysis, pringle of interest on the microscopic slide selected by the algorithm are reviewed by a scale agent. If a sample requires hierarchical review, the pathologist will review the same pringle of interest selected by the algorithm prior to final interpretation. Normal [facility] Comment on above: Order Comment: Speci men Type: FLUID SPECIMEN Ordering Facility: [facility] Address: [address] [place] [address] Performed By: #### L [id number] #### [facility] CLIA [id number] [address] [place] [address] LAB CLIA [id number] [address] [place] [address] OF THA RUBELLA IGG ANTIBODYon 01-11 Interpretation and review of laboratory results Normal [facility] Rubella IgG, Qual Positive Positive [facility] Comment on above: The result suggests recent or past exposure to Rubella virus or history of Rubella vaccination. Positive result may also be seen due to presence of passively-transferred antibodies. Please correlate with patient's history. [facility] RUBELLA IGG AB, QUAL Positive Normal Positive [facility] Comment on above: Order Comment: Speci men Type: SWAB Ordering Facility: [facility] Address: [address] [place] [address] Result Comment: The result suggests recent or past exposure to Rubella virus or history of Rubella vaccination. Positive result may also be seen due to presence of passively-transferred antibodies. Please correlate with patient's history. Performed By: #### 3 6902-5, BVAMP #### [facility] CLIA [id number] [address] [place] [address] [place] Reagin and Treponema pallidu m IgG and IgM [Interp]on 01-11-2025 T. pallidum IgG+IgM IA Ql (S) Non-Reactive Nonreactive [facility] T. pallidum IgG+IgM IA Ql (S) Non-Reactive Normal Nonreactive [facility] Comment on above: Order Comment: Speci men Type: SWAB Ordering Facility: [facility] Address: [address] [place] [address] Performed By: #### 3 6902-5, BVAMP #### [facility] CLIA [id number] [address] [place] [address] [place] Reagin+T pallidum IgG+IgM Se rPl-Impon 01-11-2025 Reagin and Treponema pallidum IgG and IgM [Interp] Cannot exclude recent Treponemal infection if specimen collected within 7-10 days after appearance of suspect lesions or 2-3 weeks after an exposure. Clinical correlation is required. Normal [facility] Comment on above: Order Comment: Speci men Type: SWAB Ordering Facility: [facility] Address: [address] [place] [address] Performed By: #### 3 6902-5, BVAMP #### [facility] CLIA [id number] [address] [place] [address] [place] SYPHILIS TREPONEMAL W/REFLEX on 01-11-2025 Reagin and Treponema pallidum IgG and IgM [Interp] Cannot exclude recent Treponemal infection if specimen collected within 7-10 days after appearance of suspect lesions or 2-3 weeks after an exposure. Clinical correlation is required. [facility] TYPE + SCREEN PRENATALon ABO group Nom (Bld) O [facility] Blood group antibody screen Ql Negative [facility] Rh Nom (Bld) Positive [facility] Type and Screen Expiration 01/14/2025 23:59 [facility] ABO O Normal [facility] Comment on above: Order Comment: Speci men Type: BLOOD SPECIMEN Ordering Facility: [facility] Address: [address] [place] [address] Performed By: #### T SPN #### [facility] CLIA [id number] [address] [place] [address] [place] Rh Nom (Bld) Positive Normal [facility] Comment on above: Order Comment: Speci men Type: BLOOD SPECIMEN Ordering Facility: [facility] Address: [address] [place] [address] Performed By: #### T SPN #### [facility] CLIA [id number] [address] [place] [address] [place] TYPE AND SCREEN EXPIRATION 01/14/2025 23:59 Normal [facility] Comment on above: Order Comment: Speci men Type: BLOOD SPECIMEN Ordering Facility: [facility] Address: [address] [place] [address] Performed By: #### T SPN #### [facility] CLIA [id number] [address] [place] [address] OF THA CNPNon 01-06-2025 CNPN Telephone (OBGYWM) LETY FALK ([id number]) 1985 [facility] Date Time Provider Department 01/06/25 LYNDA SALCEDO OBGYWM During your visit today, we recorded the following information about you: Kuldeep Rdz LPN 01/06/2025 3:51 PM Signed Phone call placed to Corporate Director [employer] number [phone] call to update New OB intake questions, no answer. Corporate Director [employer] left message for patient to arrive thirty minutes prior to scheduled visit on 01/11/2025 to complete intake, LMP on schedule 06/01/2024. Kuldeep Kendell, TOURIST ADVISER Allergies As of Date: 01/06/2025 (Not on File) Date Reviewed: Never Reviewed Problem List As Of Date: 01/06/2025 (None) Encounter Status:Closed by KENDELLKULDEEP SOUSA on 01/06/25 Normal [facility] OB Limited With Biometricson 10-01-2024 OB Limited With Biometrics [facility] Imaging Services [address] [place], [place] [address] OB Limited With Biometrics MR#: [id number] Acct: [id number] Name: LETY [place] Rep #: [id number] : 1985 F 38 From: Everton martin MD PCP: Dr. Jordyn Collins MD Status: REG CLI Study: OB Limited With Biometrics Date of Exam: 10/01 Exam# [id number] Ordering Dr: Jordyn Collins MD PROCEDURE: OB [...] 18 weeks and 4 days. Reading Location: [facility] CC: Dr. Jordyn Collins MD Fabrication Operator: Signed Normal [facility] 07-10-2021 Hematocrit (Bld) [Volume fraction] 24.9 % Low 34.0-46.0 [facility] ([place]) Comment on above: Performed By: #### C BC, ADIFF, ANEU, GLU1P, HBSAG, HCV1, HIV, ABOGEL, ABSGEL, VARIS, RUBIS, RPR #### [address] [address] Hgb 8.2 G/dL Low 12.0-16.0 [facility] ([place]) Comment on above: Performed By: #### C BC, ADIFF, ANEU, GLU1P, HBSAG, HCV1, HIV, ABOGEL, ABSGEL, VARIS, RUBIS, RPR #### [address] [address] LABORATORYOrdered By: SYSTEM SYSTEM on 07-10-2021 Hematocrit (Bld) [Volume fraction] 24.9 % Invalid Interpretation Code 34.0 - 46.0 % AH Remisol SS Hemoglobin (Bld) [Mass/Vol] 8.2 G/dL Invalid Interpretation Code 12.0 - 16.0 G/dL AH Remisol SS RBC (Product)on 07-10-2021 RBC Product Ready Not Done Normal [facility] ([place]) Comment on above: Performed By: #### C BC, ADIFF, ANEU, GLU1P, HBSAG, HCV1, HIV, ABOGEL, ABSGEL, VARIS, RUBIS, RPR #### [address] [address] .Auto Diffon 07-09-2021 Basophil, Absolute 0.00 10 3/mcL Normal 0.00-0.27 [facility] ([place]) Comment on above: Performed By: #### C BC, ADIFF, ANEU, GLU1P, HBSAG, HCV1, HIV, ABOGEL, ABSGEL, VARIS, RUBIS, RPR #### [address] [address] Basophils/100 WBC (Bld) 0.4 % Normal 0.0-2.5 [facility] ([place]) Comment on above: Performed By: #### C BC, ADIFF, ANEU, GLU1P, HBSAG, HCV1, HIV, ABOGEL, ABSGEL, VARIS, RUBIS, RPR #### [address] [address] Eosinophil, Absolute 0.10 10 3/mcL Normal 0.00-0.65 [facility] ([place]) Comment on above: Performed By: #### C BC, ADIFF, ANEU, GLU1P, HBSAG, HCV1, HIV, ABOGEL, ABSGEL, VARIS, RUBIS, RPR #### [address] [address] Eosinophils/100 WBC (Bld) 0.6 % Normal 0.0-6.0 [facility] ([place]) Comment on above: Performed By: #### C BC, ADIFF, ANEU, GLU1P, HBSAG, HCV1, HIV, ABOGEL, ABSGEL, VARIS, RUBIS, RPR #### [address] [address] Lymphocyte, Absolute 1.30 10 3/mcL Normal 0.90-4.32 [facility] ([place]) Comment on above: Performed By: #### C BC, ADIFF, ANEU, GLU1P, HBSAG, HCV1, HIV, ABOGEL, ABSGEL, VARIS, RUBIS, RPR #### [address] [address] Lymphocytes/100 WBC (Bld) 14.8 % Low 20.0-40.0 [facility] ([place]) Comment on above: Performed By: #### C BC, ADIFF, ANEU, GLU1P, HBSAG, HCV1, HIV, ABOGEL, ABSGEL, VARIS, RUBIS, RPR #### [address] [address] Monocyte, Absolute 0.60 10 3/mcL Normal 0.09-1.40 [facility] ([place]) Comment on above: Performed By: #### C BC, ADIFF, ANEU, GLU1P, HBSAG, HCV1, HIV, ABOGEL, ABSGEL, VARIS, RUBIS, RPR #### [address] [address] Monocytes/100 WBC (Bld) 7.0 % Normal 2.0-13.0 [facility] ([place]) Comment on above: Performed By: #### C BC, ADIFF, ANEU, GLU1P, HBSAG, HCV1, HIV, ABOGEL, ABSGEL, VARIS, RUBIS, RPR #### [address] [address] Neutrophils/100 WBC (Bld) 77.2 % High 50.0-75.0 [facility] ([place]) Comment on above: Performed By: #### C BC, ADIFF, ANEU, GLU1P, HBSAG, HCV1, HIV, ABOGEL, ABSGEL, VARIS, RUBIS, RPR #### [address] [address] .NEUABSon 07-09-2021 Neutrophil, Absolute 7.00 10 3/mcL Normal 2.25-8.10 [facility] ([place]) Comment on above: Performed By: #### C BC, ADIFF, ANEU, GLU1P, HBSAG, HCV1, HIV, ABOGEL, ABSGEL, VARIS, RUBIS, RPR #### [address] [address] CBCon 07-09-2021 Erythrocyte distribution width (RBC) [Ratio] 16.0 % High 11.5-15.5 [facility] ([place]) Comment on above: Performed By: #### C BC, ADIFF, ANEU, GLU1P, HBSAG, HCV1, HIV, ABOGEL, ABSGEL, VARIS, RUBIS, RPR #### [address] [address] Hematocrit (Bld) [Volume fraction] 21.0 % Low 34.0-46.0 [facility] ([place]) Comment on above: Performed By: #### C BC, ADIFF, ANEU, GLU1P, HBSAG, HCV1, HIV, ABOGEL, ABSGEL, VARIS, RUBIS, RPR #### [place] [id number] Hgb 6.9 G/dL Critically abnormal 12.0-16.0 [facility] ([place]) Comment on above: Performed By: #### C BC, ADIFF, ANEU, GLU1P, HBSAG, HCV1, HIV, ABOGEL, ABSGEL, VARIS, RUBIS, RPR #### [address] [address] MCH (RBC) [Entitic mass] 23.6 pg Low 27.0-33.0 [facility] ([place]) Comment on above: Performed By: #### C BC, ADIFF, ANEU, GLU1P, HBSAG, HCV1, HIV, ABOGEL, ABSGEL, VARIS, RUBIS, RPR #### [address] [address] MCHC 32.9 G/dL Normal 32.0-36.0 [facility] ([place]) Comment on above: Performed By: #### C BC, ADIFF, ANEU, GLU1P, HBSAG, HCV1, HIV, ABOGEL, ABSGEL, VARIS, RUBIS, RPR #### [place] [address] MCV (RBC) [Entitic vol] 71.6 fL Low 80.0-99.0 [facility] ([place]) Comment on above: Performed By: #### C BC, ADIFF, ANEU, GLU1P, HBSAG, HCV1, HIV, ABOGEL, ABSGEL, VARIS, RUBIS, RPR #### [place] [id number] Platelet 179 10 3/mcL Normal 150-450 [facility] ([place]) Comment on above: Performed By: #### C BC, ADIFF, ANEU, GLU1P, HBSAG, HCV1, HIV, ABOGEL, ABSGEL, VARIS, RUBIS, RPR #### [address] [address] Platelet mean volume (Bld) [Entitic vol] 10.1 fL Normal 6.6-10.5 [facility] ([place]) Comment on above: Performed By: #### C BC, ADIFF, ANEU, GLU1P, HBSAG, HCV1, HIV, ABOGEL, ABSGEL, VARIS, RUBIS, RPR #### [place] [address] RBC 2.93 10 6/mcL Low 4.10-5.30 [facility] ([place]) Comment on above: Performed By: #### C BC, ADIFF, ANEU, GLU1P, HBSAG, HCV1, HIV, ABOGEL, ABSGEL, VARIS, RUBIS, RPR #### [place] [address] WBC 9.10 10 3/mcL Normal 4.50-10.80 [facility] ([place]) Comment on above: Performed By: #### C BC, ADIFF, ANEU, GLU1P, HBSAG, HCV1, HIV, ABOGEL, ABSGEL, VARIS, RUBIS, RPR #### [place] [address] HHon 07-09-2021 Hematocrit (Bld) [Volume fraction] 23.3 % Low 34.0-46.0 [facility] ([place]) Comment on above: Performed By: #### C BC, ADIFF, ANEU, GLU1P, HBSAG, HCV1, HIV, ABOGEL, ABSGEL, VARIS, RUBIS, RPR #### [place] [address] Hgb 7.6 G/dL Low 12.0-16.0 [facility] ([place]) Comment on above: Performed By: #### C BC, ADIFF, ANEU, GLU1P, HBSAG, HCV1, HIV, ABOGEL, ABSGEL, VARIS, RUBIS, RPR #### [place] [address] LABORATORYOrdered By: SYSTEM SYSTEM on 07-09-2021 Hematocrit [...] Product Ready RBC Ready for Pickup Normal [facility] ([place]) Comment on above: Performed By: #### C BC, ADIFF, ANEU, GLU1P, HBSAG, HCV1, HIV, ABOGEL, ABSGEL, VARIS, RUBIS, RPR #### [address] [address] .Auto Diffon 07-08-2021 Basophil, Absolute 0.00 10 3/mcL Normal 0.00-0.27 [facility] ([place]) Comment on above: Performed By: #### C BC, ADIFF, ANEU, GLU1P, HBSAG, HCV1, HIV, ABOGEL, ABSGEL, VARIS, RUBIS, RPR #### [address] [address] Basophils/100 WBC (Bld) 0.6 % Normal 0.0-2.5 [facility] ([place]) Comment on above: Performed By: #### C BC, ADIFF, ANEU, GLU1P, HBSAG, HCV1, HIV, ABOGEL, ABSGEL, VARIS, RUBIS, RPR #### [address] [address] Eosinophil, Absolute 0.10 10 3/mcL Normal 0.00-0.65 [facility] ([place]) Comment on above: Performed By: #### C BC, ADIFF, ANEU, GLU1P, HBSAG, HCV1, HIV, ABOGEL, ABSGEL, VARIS, RUBIS, RPR #### [address] [address] Eosinophils/100 WBC (Bld) 1.1 % Normal 0.0-6.0 [facility] ([place]) Comment on above: Performed By: #### C BC, ADIFF, ANEU, GLU1P, HBSAG, HCV1, HIV, ABOGEL, ABSGEL, VARIS, RUBIS, RPR #### [address] [address] Lymphocyte, Absolute 2.00 10 3/mcL Normal 0.90-4.32 [facility] ([place]) Comment on above: Performed By: #### C BC, ADIFF, ANEU, GLU1P, HBSAG, HCV1, HIV, ABOGEL, ABSGEL, VARIS, RUBIS, RPR #### [address] [address] Lymphocytes/100 WBC (Bld) 31.7 % Normal 20.0-40.0 [facility] ([place] Comment on above: Performed By: #### C BC, ADIFF, ANEU, GLU1P, HBSAG, HCV1, HIV, ABOGEL, ABSGEL, VARIS, RUBIS, RPR #### [address] [address] Monocyte, Absolute 0.70 10 3/mcL Normal 0.09-1.40 [facility] ([place]) Comment on above: Performed By: #### C BC, ADIFF, ANEU, GLU1P, HBSAG, HCV1, HIV, ABOGEL, ABSGEL, VARIS, RUBIS, RPR #### [address] [address] Monocytes/100 WBC (Bld) 11.5 % Normal 2.0-13.0 [facility] ([place] Comment on above: Performed By: #### C BC, ADIFF, ANEU, GLU1P, HBSAG, HCV1, HIV, ABOGEL, ABSGEL, VARIS, RUBIS, RPR #### [address] [address] Neutrophils/100 WBC (Bld) 55.1 % Normal 50.0-75.0 [facility] ([place] Comment on above: Performed By: #### C BC, ADIFF, ANEU, GLU1P, HBSAG, HCV1, HIV, ABOGEL, ABSGEL, VARIS, RUBIS, RPR #### [address] [address] .NEUABSon 07-08-2021 Neutrophil, Absolute 3.50 10 3/mcL Normal 2.25-8.10 [facility] ([place] Comment on above: Performed By: #### C BC, ADIFF, ANEU, GLU1P, HBSAG, HCV1, HIV, ABOGEL, ABSGEL, VARIS, RUBIS, RPR #### [place] [address] ABO/Rh (Gel)on 07-08-2021 ABO/Rh Interp Positive Invalid Interpretation Code [facility] ([place] Comment on above: Performed By: #### C BC, ADIFF, ANEU, GLU1P, HBSAG, HCV1, HIV, ABOGEL, ABSGEL, VARIS, RUBIS, RPR #### [place] [address] ABS (Gel)on 07-08-2021 ABSC Interp (Gel) Negative Normal [facility] ([place] Comment on above: Performed By: #### C BC, ADIFF, ANEU, GLU1P, HBSAG, HCV1, HIV, ABOGEL, ABSGEL, VARIS, RUBIS, RPR #### [place] [id number] CBCon 07-08-2021 Erythrocyte distribution width (RBC) [Ratio] 16.3 % High 11.5-15.5 [facility] ([place] Comment on above: Performed By: #### C BC, ADIFF, ANEU, GLU1P, HBSAG, HCV1, HIV, ABOGEL, ABSGEL, VARIS, RUBIS, RPR #### [place] [id number] Hematocrit (Bld) [Volume fraction] 32.0 % Low 34.0-46.0 [facility] ([place] Comment on above: Performed By: #### C BC, ADIFF, ANEU, GLU1P, HBSAG, HCV1, HIV, ABOGEL, ABSGEL, VARIS, RUBIS, RPR #### [address] [address] Hgb 10.4 G/dL Low 12.0-16.0 [facility] ([place] Comment on above: Performed By: #### C BC, ADIFF, ANEU, GLU1P, HBSAG, HCV1, HIV, ABOGEL, ABSGEL, VARIS, RUBIS, RPR #### [address] [address] MCH (RBC) [Entitic mass] 23.1 pg Low 27.0-33.0 [facility] ([place] Comment on above: Performed By: #### C BC, ADIFF, ANEU, GLU1P, HBSAG, HCV1, HIV, ABOGEL, ABSGEL, VARIS, RUBIS, RPR #### [place] [id number] MCHC 32.4 G/dL Normal 32.0-36.0 [facility] ([place] Comment on above: Performed By: #### C BC, ADIFF, ANEU, GLU1P, HBSAG, HCV1, HIV, ABOGEL, ABSGEL, VARIS, RUBIS, RPR #### [place] [id number] MCV (RBC) [Entitic vol] 71.3 fL Low 80.0-99.0 [facility] ([place] Comment on above: Performed By: #### C BC, ADIFF, ANEU, GLU1P, HBSAG, HCV1, HIV, ABOGEL, ABSGEL, VARIS, RUBIS, RPR #### [address] [address] Platelet 219 10 3/mcL Normal 150-450 [facility] ([place] Comment on above: Performed By: #### C BC, ADIFF, ANEU, GLU1P, HBSAG, HCV1, HIV, ABOGEL, ABSGEL, VARIS, RUBIS, RPR #### [place] [id number] Platelet mean volume (Bld) [Entitic vol] 10.4 fL Normal 6.6-10.5 [facility] ([place] Comment on above: Performed By: #### C BC, ADIFF, ANEU, GLU1P, HBSAG, HCV1, HIV, ABOGEL, ABSGEL, VARIS, RUBIS, RPR #### [place] [address] RBC 4.50 10 6/mcL Normal 4.10-5.30 [facility] ([place] Comment on above: Performed By: #### C BC, ADIFF, ANEU, GLU1P, HBSAG, HCV1, HIV, ABOGEL, ABSGEL, VARIS, RUBIS, RPR #### [place] [address] WBC 6.40 10 3/mcL Normal 4.50-10.80 [facility] ([place] Comment on above: Performed By: #### C BC, ADIFF, ANEU, GLU1P, HBSAG, HCV1, HIV, ABOGEL, ABSGEL, VARIS, RUBIS, RPR #### [place] [address] HHon 07-08-2021 Hematocrit (Bld) [Volume fraction] 25.1 % Low 34.0-46.0 [facility] ([place] Comment on above: Performed By: #### C BC, ADIFF, ANEU, GLU1P, HBSAG, HCV1, HIV, ABOGEL, ABSGEL, VARIS, RUBIS, RPR #### [place] [address] Hgb 8.1 G/dL Low 12.0-16.0 [facility] ([place] Comment on above: Performed By: #### C BC, ADIFF, ANEU, GLU1P, HBSAG, HCV1, HIV, ABOGEL, ABSGEL, VARIS, RUBIS, RPR #### [place] [address] RPRon 07-08-2021 Reagin Ab RPR Ql (S) Non-Reactive Normal Non-Reactive [facility] ([place] Comment on above: Result Comment: The RPR [...] HIV, ABOGEL, ABSGEL, VARIS, RUBIS, RPR #### [place] [address] LABORATORYOrdered By: Adam Chavez on 07-07-2021 ABO [...] SS FTAon 07-03-2021 FTA-ABS Non-Reactive Normal Non-Reactive [facility] [place] Comment on above: Result Comment: The simultaneous [...] HIV, ABOGEL, ABSGEL, VARIS, RUBIS, RPR #### [place] [address] CTPCRon 07-02-2021 C. trachomatis Interp Normal See CT Interp N [facility] ([place] Comment on above: Result Comment: C. t [...] HIV, ABOGEL, ABSGEL, VARIS, RUBIS, RPR #### [address] [address] C.trachomatis PCR Negative Normal Negative [facility] ([place] Comment on above: Result Comment: Mole cular (PCR) assay performed on the [employer] 4800 system. Performed By: #### C BC, ADIFF, ANEU, GLU1P, HBSAG, HCV1, HIV, ABOGEL, ABSGEL, VARIS, RUBIS, RPR #### [address] [address] Chlam Source Cervix Normal [facility] ([place] Comment on above: Performed By: #### C BC, ADIFF, ANEU, GLU1P, HBSAG, HCV1, HIV, ABOGEL, ABSGEL, VARIS, RUBIS, RPR #### [address] [address] [id number] 07-02-2021 GC PCR Source Cervix Normal [facility] ([place] Comment on above: Performed By: #### C BC, ADIFF, ANEU, GLU1P, HBSAG, HCV1, HIV, ABOGEL, ABSGEL, VARIS, RUBIS, RPR #### [address] [address] N. gonorrhoeae (PCR) Negative Normal Negative [facility] ([place] Comment on above: Result Comment: Mole cular (PCR) assay performed on the [employer] 4800 System. Performed By: #### C BC, ADIFF, ANEU, GLU1P, HBSAG, HCV1, HIV, ABOGEL, ABSGEL, VARIS, RUBIS, RPR #### [address] [address] N. gonorrhoeae Interp Normal See NG Interp N [facility] ([place] Comment on above: Result Comment: N. g [...] HIV, ABOGEL, ABSGEL, VARIS, RUBIS, RPR #### [address] [address] RPRon 07-01-2021 Reagin Ab RPR Ql (S) Reactive Abnormal Non-Reactive [facility] [place] Comment on above: Result Comment: The RPR [...] HIV, ABOGEL, ABSGEL, VARIS, RUBIS, RPR #### [address] [address] RPRTon 07-01-2021 RPR Titer React Undiluted Abnormal Non-Reactive [facility] ([place] Comment on above: Result Comment: The RPR [...] HIV, ABOGEL, ABSGEL, VARIS, RUBIS, RPR #### [address] [address] .Auto Diffon 06-30-2021 Basophil, Absolute 0.10 10 3/mcL Normal 0.00-0.27 [facility] ([place]) Comment on above: Performed By: #### C BC, ADIFF, ANEU, GLU1P, HBSAG, HCV1, HIV, ABOGEL, ABSGEL, VARIS, RUBIS, RPR #### [address] [address] Basophils/100 WBC (Bld) 0.9 % Normal 0.0-2.5 [facility] ([place]) Comment on above: Performed By: #### C BC, ADIFF, ANEU, GLU1P, HBSAG, HCV1, HIV, ABOGEL, ABSGEL, VARIS, RUBIS, RPR #### [address] [address] Eosinophil, Absolute 0.10 10 3/mcL Normal 0.00-0.65 [facility] ([place]) Comment on above: Performed By: #### C BC, ADIFF, ANEU, GLU1P, HBSAG, HCV1, HIV, ABOGEL, ABSGEL, VARIS, RUBIS, RPR #### [address] [address] Eosinophils/100 WBC (Bld) 1.4 % Normal 0.0-6.0 [facility] ([place]) Comment on above: Performed By: #### C BC, ADIFF, ANEU, GLU1P, HBSAG, HCV1, HIV, ABOGEL, ABSGEL, VARIS, RUBIS, RPR #### [address] [address] Lymphocyte, Absolute 1.60 10 3/mcL Normal 0.90-4.32 [facility] ([place]) Comment on above: Performed By: #### C BC, ADIFF, ANEU, GLU1P, HBSAG, HCV1, HIV, ABOGEL, ABSGEL, VARIS, RUBIS, RPR #### [address] [address] Lymphocytes/100 WBC (Bld) 28.5 % Normal 20.0-40.0 [facility] ([place] Comment on above: Performed By: #### C BC, ADIFF, ANEU, GLU1P, HBSAG, HCV1, HIV, ABOGEL, ABSGEL, VARIS, RUBIS, RPR #### [address] [address] Monocyte, Absolute 0.80 10 3/mcL Normal 0.09-1.40 [facility] ([place]) Comment on above: Performed By: #### C BC, ADIFF, ANEU, GLU1P, HBSAG, HCV1, HIV, ABOGEL, ABSGEL, VARIS, RUBIS, RPR #### [address] [address] Monocytes/100 WBC (Bld) 13.5 % High 2.0-13.0 [facility] ([place] Comment on above: Performed By: #### C BC, ADIFF, ANEU, GLU1P, HBSAG, HCV1, HIV, ABOGEL, ABSGEL, VARIS, RUBIS, RPR #### [address] [address] Neutrophils/100 WBC (Bld) 55.7 % Normal 50.0-75.0 [facility] ([place] Comment on above: Performed By: #### C BC, ADIFF, ANEU, GLU1P, HBSAG, HCV1, HIV, ABOGEL, ABSGEL, VARIS, RUBIS, RPR #### [address] [address] .NEUABSon 06-30-2021 Neutrophil, Absolute 3.10 10 3/mcL Normal 2.25-8.10 [facility] ([place] Comment on above: Performed By: #### C BC, ADIFF, ANEU, GLU1P, HBSAG, HCV1, HIV, ABOGEL, ABSGEL, VARIS, RUBIS, RPR #### [address] [address] CBCon 06-30-2021 Erythrocyte distribution width (RBC) [Ratio] 15.5 % Normal 11.5-15.5 [facility] ([place] Comment on above: Performed By: #### C BC, ADIFF, ANEU, GLU1P, HBSAG, HCV1, HIV, ABOGEL, ABSGEL, VARIS, RUBIS, RPR #### [place] [address] Hematocrit (Bld) [Volume fraction] 31.8 % Low 34.0-46.0 [facility] ([place] Comment on above: Performed By: #### C BC, ADIFF, ANEU, GLU1P, HBSAG, HCV1, HIV, ABOGEL, ABSGEL, VARIS, RUBIS, RPR #### [place] [address] Hgb 10.3 G/dL Low 12.0-16.0 [facility] ([place]) Comment on above: Performed By: #### C BC, ADIFF, ANEU, GLU1P, HBSAG, HCV1, HIV, ABOGEL, ABSGEL, VARIS, RUBIS, RPR #### [place] [address] MCH (RBC) [Entitic mass] 23.8 pg Low 27.0-33.0 [facility] ([place]) Comment on above: Performed By: #### C BC, ADIFF, ANEU, GLU1P, HBSAG, HCV1, HIV, ABOGEL, ABSGEL, VARIS, RUBIS, RPR #### [place] [address] MCHC 32.4 G/dL Normal 32.0-36.0 [facility] ([place] Comment on above: Performed By: #### C BC, ADIFF, ANEU, GLU1P, HBSAG, HCV1, HIV, ABOGEL, ABSGEL, VARIS, RUBIS, RPR #### [place] [address] MCV (RBC) [Entitic vol] 73.2 fL Low 80.0-99.0 [facility] ([place] Comment on above: Performed By: #### C BC, ADIFF, ANEU, GLU1P, HBSAG, HCV1, HIV, ABOGEL, ABSGEL, VARIS, RUBIS, RPR #### [place] [address] Platelet 224 10 3/mcL Normal 150-450 [facility] ([place]) Comment on above: Performed By: #### C BC, ADIFF, ANEU, GLU1P, HBSAG, HCV1, HIV, ABOGEL, ABSGEL, VARIS, RUBIS, RPR #### [address] [address] Platelet mean volume (Bld) [Entitic vol] 11.3 fL High 6.6-10.5 [facility] ([place] Comment on above: Performed By: #### C BC, ADIFF, ANEU, GLU1P, HBSAG, HCV1, HIV, ABOGEL, ABSGEL, VARIS, RUBIS, RPR #### [place] [address] RBC 4.35 10 6/mcL Normal 4.10-5.30 [facility] ([place] Comment on above: Performed By: #### C BC, ADIFF, ANEU, GLU1P, HBSAG, HCV1, HIV, ABOGEL, ABSGEL, VARIS, RUBIS, RPR #### [place] [id number] WBC 5.60 10 3/mcL Normal 4.50-10.80 [facility] ([place] Comment on above: Performed By: #### C BC, ADIFF, ANEU, GLU1P, HBSAG, HCV1, HIV, ABOGEL, ABSGEL, VARIS, RUBIS, RPR #### [address] [address] HIVon 06-30-2021 HIV 1/2 Ab Normal Non-Reactive [facility] ([place] Comment on above: Result Comment: Non- Reactive Specimen is negative for anti-HIV-1 and anti-HIV-2. Performed By: #### C BC, ADIFF, ANEU, GLU1P, HBSAG, HCV1, HIV, ABOGEL, ABSGEL, VARIS, RUBIS, RPR #### [address] [address] GL1on 06-01-2021 Glucose [Mass/Vol] 146 mg/dL High 70-139 [facility] ([place] Comment on above: Performed By: #### C BC, ADIFF, ANEU, GLU1P, HBSAG, HCV1, HIV, ABOGEL, ABSGEL, VARIS, RUBIS, RPR #### [address] [address] GL2on 06-01-2021 Glucose [Mass/Vol] 119 mg/dL Normal [facility] ([place] Comment on above: Performed By: #### C BC, ADIFF, ANEU, GLU1P, HBSAG, HCV1, HIV, ABOGEL, ABSGEL, VARIS, RUBIS, RPR #### [address] [address] GL3on 06-01-2021 Glucose [Mass/Vol] 111 mg/dL Normal [facility] ([place] Comment on above: Performed By: #### C BC, ADIFF, ANEU, GLU1P, HBSAG, HCV1, HIV, ABOGEL, ABSGEL, VARIS, RUBIS, RPR #### [address] [address] GLFon 06-01-2021 Glucose [Mass/Vol] 78 mg/dL Normal 70-110 [facility] ([place] Comment on above: Performed By: #### C BC, ADIFF, ANEU, GLU1P, HBSAG, HCV1, HIV, ABOGEL, ABSGEL, VARIS, RUBIS, RPR #### [place] [phone] Ux Lead Cytology Reporton 2020 Ux Lead Cytology Report . Pathology Reports Accession: Collected Date/Time: Received Date/Time: Pathologist: [id number] 05/02/2021 11:59 EDT 05/02/2021 18:00 EDT Ux Lead Cytology Report SPECIMEN: Specimen Description: Liquid Prep [...] and evaluated with the assistance of the [employer] ThinPrep Test Imaging System. Electronically Signed by Pathology report verified by [facility] Screened by: [place] Electronically signed by Yesika MERCADO ([facility]) Sign-Out Date: 05/17/2021 10:22 Performing Lab: [address] Disclaimer The Pap test is a screening test for cervical cancer. As evidenced by published data, it is subject to both inherent false negative and false positive results. Your patient's results should be interpreted in context with pertinent clinical history including gynecological examination. Normal [facility] ([place] Comment on above: Performed By: #### C BC, ADIFF, ANEU, GLU1P, HBSAG, HCV1, HIV, ABOGEL, ABSGEL, VARIS, RUBIS, RPR #### [place] [id number] HPVon 05-10-2021 HPV Interp Normal See Interp HPVN [facility] ([place] Comment on above: Order Comment: Order placed by AP_HPV_ORDER rule from [id number] Result Comment: High Risk HPV Typing: NEGATIVE [...] HIV, ABOGEL, ABSGEL, VARIS, RUBIS, RPR #### [address] [address] HPV Source Cervix Normal [facility] ([place] Comment on above: Order Comment: Order placed by AP_HPV_ORDER rule from [id number] Performed By: #### C BC, ADIFF, ANEU, GLU1P, HBSAG, HCV1, HIV, ABOGEL, ABSGEL, VARIS, RUBIS, RPR #### [address] [address] ABO/Rh (Gel)on 05-03-2021 ABO/Rh Interp Positive Invalid Interpretation Code [facility] ([place] Comment on above: Performed By: #### C BC, ADIFF, ANEU, GLU1P, HBSAG, HCV1, HIV, ABOGEL, ABSGEL, VARIS, RUBIS, RPR #### [address] [address] ABS (Gel)on 05-03-2021 ABSC Interp (Gel) Negative Normal [facility] ([place] Comment on above: Performed By: #### C BC, ADIFF, ANEU, GLU1P, HBSAG, HCV1, HIV, ABOGEL, ABSGEL, VARIS, RUBIS, RPR #### [address] [address] CTPCRon 05-03-2021 C. trachomatis Interp Normal See CT Interp N [facility] ([place] Comment on above: Result Comment: C. t [...] HIV, ABOGEL, ABSGEL, VARIS, RUBIS, RPR #### [address] [address] C.trachomatis PCR Negative Normal Negative [facility] ([place] Comment on above: Result Comment: Iris holguinar (PCR) assay performed on the [employer] 4800 system. Performed By: #### C BC, ADIFF, ANEU, GLU1P, HBSAG, HCV1, HIV, ABOGEL, ABSGEL, VARIS, RUBIS, RPR #### [place] [id number] Chlam Source Cervix Normal [facility] ([place] Comment on above: Performed By: #### C BC, ADIFF, ANEU, GLU1P, HBSAG, HCV1, HIV, ABOGEL, ABSGEL, VARIS, RUBIS, RPR #### [place] [address] [id number] 05-03-2021 GC PCR Source Cervix Normal [facility] ([place] Comment on above: Performed By: #### C BC, ADIFF, ANEU, GLU1P, HBSAG, HCV1, HIV, ABOGEL, ABSGEL, VARIS, RUBIS, RPR #### [place] [id number] N. gonorrhoeae (PCR) Negative Normal Negative [facility] ([place] Comment on above: Result Comment: Iris cular (PCR) assay performed on the [employer] 48[employer] System. Performed By: #### C BC, ADIFF, ANEU, GLU1P, HBSAG, HCV1, HIV, ABOGEL, ABSGEL, VARIS, RUBIS, RPR #### [place] [id number] N. gonorrhoeae Interp Normal See NG Interp N [facility] ([place] Comment on above: Result Comment: N. g [...] HIV, ABOGEL, ABSGEL, VARIS, RUBIS, RPR #### [address] [address] RPRon 05-03-2021 Reagin Ab RPR Ql (S) Non-Reactive Normal Non-Reactive [facility] ([place] Comment on above: Result Comment: The RPR [...] HIV, ABOGEL, ABSGEL, VARIS, RUBIS, RPR #### [address] [address] RUBISon 05-03-[address] Positive Normal Positive [facility] ([place] Comment on above: Result Comment: This immune [...] HIV, ABOGEL, ABSGEL, VARIS, RUBIS, RPR #### [address] [address] VARISon 05-03-[address] Positive Normal [facility] ([place] Comment on above: Result Comment: This immune [...] HIV, ABOGEL, ABSGEL, VARIS, RUBIS, RPR #### [address] [address] .Auto Diffon 05-02-2021 Basophil, Absolute 0.10 10 3/mcL Normal 0.00-0.27 [facility] ([place]) Comment on above: Performed By: #### C BC, ADIFF, ANEU, GLU1P, HBSAG, HCV1, HIV, ABOGEL, ABSGEL, VARIS, RUBIS, RPR #### [address] [address] Basophils/100 WBC (Bld) 0.9 % Normal 0.0-2.5 [facility] ([place]) Comment on above: Performed By: #### C BC, ADIFF, ANEU, GLU1P, HBSAG, HCV1, HIV, ABOGEL, ABSGEL, VARIS, RUBIS, RPR #### [address] [address] Eosinophil, Absolute 0.10 10 3/mcL Normal 0.00-0.65 [facility] ([place]) Comment on above: Performed By: #### C BC, ADIFF, ANEU, GLU1P, HBSAG, HCV1, HIV, ABOGEL, ABSGEL, VARIS, RUBIS, RPR #### [address] [address] Eosinophils/100 WBC (Bld) 1.5 % Normal 0.0-6.0 [facility] ([place] Comment on above: Performed By: #### C BC, ADIFF, ANEU, GLU1P, HBSAG, HCV1, HIV, ABOGEL, ABSGEL, VARIS, RUBIS, RPR #### [address] [address] Lymphocyte, Absolute 1.30 10 3/mcL Normal 0.90-4.32 [facility] ([place]) Comment on above: Performed By: #### C BC, ADIFF, ANEU, GLU1P, HBSAG, HCV1, HIV, ABOGEL, ABSGEL, VARIS, RUBIS, RPR #### [address] [address] Lymphocytes/100 WBC (Bld) 22.8 % Normal 20.0-40.0 [facility] ([place] Comment on above: Performed By: #### C BC, ADIFF, ANEU, GLU1P, HBSAG, HCV1, HIV, ABOGEL, ABSGEL, VARIS, RUBIS, RPR #### [address] [address] Monocyte, Absolute 0.40 10 3/mcL Normal 0.09-1.40 [facility] ([place]) Comment on above: Performed By: #### C BC, ADIFF, ANEU, GLU1P, HBSAG, HCV1, HIV, ABOGEL, ABSGEL, VARIS, RUBIS, RPR #### [address] [address] Monocytes/100 WBC (Bld) 6.6 % Normal 2.0-13.0 [facility] ([place] Comment on above: Performed By: #### C BC, ADIFF, ANEU, GLU1P, HBSAG, HCV1, HIV, ABOGEL, ABSGEL, VARIS, RUBIS, RPR #### [address] [address] Neutrophils/100 WBC (Bld) 68.2 % Normal 50.0-75.0 [facility] ([place] Comment on above: Performed By: #### C BC, ADIFF, ANEU, GLU1P, HBSAG, HCV1, HIV, ABOGEL, ABSGEL, VARIS, RUBIS, RPR #### [address] [address] .NEUABSon 05-02-2021 Neutrophil, Absolute 3.80 10 3/mcL Normal 2.25-8.10 [facility] ([place] Comment on above: Performed By: #### C BC, ADIFF, ANEU, GLU1P, HBSAG, HCV1, HIV, ABOGEL, ABSGEL, VARIS, RUBIS, RPR #### [address] [address] CBCon 05-02-2021 Erythrocyte distribution width (RBC) [Ratio] 14.1 % Normal 11.5-15.5 [facility] ([place]) Comment on above: Performed By: #### C BC, ADIFF, ANEU, GLU1P, HBSAG, HCV1, HIV, ABOGEL, ABSGEL, VARIS, RUBIS, RPR #### [place] [address] Hematocrit (Bld) [Volume fraction] 32.3 % Low 34.0-46.0 [facility] [place] Comment on above: Performed By: #### C BC, ADIFF, ANEU, GLU1P, HBSAG, HCV1, HIV, ABOGEL, ABSGEL, VARIS, RUBIS, RPR #### [place] [id number] Hgb 10.7 G/dL Low 12.0-16.0 [facility] ([place] Comment on above: Performed By: #### C BC, ADIFF, ANEU, GLU1P, HBSAG, HCV1, HIV, ABOGEL, ABSGEL, VARIS, RUBIS, RPR #### [place] [address] MCH (RBC) [Entitic mass] 26.5 pg Low 27.0-33.0 [facility] ([place] Comment on above: Performed By: #### C BC, ADIFF, ANEU, GLU1P, HBSAG, HCV1, HIV, ABOGEL, ABSGEL, VARIS, RUBIS, RPR #### [place] [id number] MCHC 33.1 G/dL Normal 32.0-36.0 [facility] ([place] Comment on above: Performed By: #### C BC, ADIFF, ANEU, GLU1P, HBSAG, HCV1, HIV, ABOGEL, ABSGEL, VARIS, RUBIS, RPR #### [place] [address] MCV (RBC) [Entitic vol] 80.2 fL Normal 80.0-99.0 [facility] ([place] Comment on above: Performed By: #### C BC, ADIFF, ANEU, GLU1P, HBSAG, HCV1, HIV, ABOGEL, ABSGEL, VARIS, RUBIS, RPR #### [place] [address] Platelet 278 10 3/mcL Normal 150-450 [facility] ([place] Comment on above: Performed By: #### C BC, ADIFF, ANEU, GLU1P, HBSAG, HCV1, HIV, ABOGEL, ABSGEL, VARIS, RUBIS, RPR #### [place] [address] Platelet mean volume (Bld) [Entitic vol] 10.4 fL Normal 6.6-10.5 [facility] ([place] Comment on above: Performed By: #### C BC, ADIFF, ANEU, GLU1P, HBSAG, HCV1, HIV, ABOGEL, ABSGEL, VARIS, RUBIS, RPR #### [place] [address] RBC 4.03 10 6/mcL Low 4.10-5.30 [facility] ([place] Comment on above: Performed By: #### C BC, ADIFF, ANEU, GLU1P, HBSAG, HCV1, HIV, ABOGEL, ABSGEL, VARIS, RUBIS, RPR #### [place] [address] WBC 5.60 10 3/mcL Normal 4.50-10.80 [facility] ([place]) Comment on above: Performed By: #### C BC, ADIFF, ANEU, GLU1P, HBSAG, HCV1, HIV, ABOGEL, ABSGEL, VARIS, RUBIS, RPR #### [place] [address] [id number] 05-02-2021 Glucose [Mass/Vol] 168 mg/dL High 70-139 [facility] ([place]) Comment on above: Performed By: #### C BC, ADIFF, ANEU, GLU1P, HBSAG, HCV1, HIV, ABOGEL, ABSGEL, VARIS, RUBIS, RPR #### [place] [address] HBSAGon 05-02-2021 Hep B Surf Ag Non-Reactive Normal Non-Reactive [facility] ([place] Comment on above: Performed By: #### C BC, ADIFF, ANEU, GLU1P, HBSAG, HCV1, HIV, ABOGEL, ABSGEL, VARIS, RUBIS, RPR #### [place] [address] HCVon 05-02-2021 Hep C Ab Non-Reactive Normal Non-Reactive [facility] ([place] Comment on above: Performed By: #### C BC, ADIFF, ANEU, GLU1P, HBSAG, HCV1, HIV, ABOGEL, ABSGEL, VARIS, RUBIS, RPR #### [place] [address] Hep C Ab Int Normal [facility] ([place]) Comment on above: Result Comment: Nonr eactive: [...] HIV, ABOGEL, ABSGEL, VARIS, RUBIS, RPR #### [place] [address] HIVon 05-02-2021 HIV 1/2 Ab Normal Non-Reactive [facility] ([place]) Comment on above: Result Comment: Non- Reactive Specimen is negative for anti-HIV-1 and anti-HIV-2. Performed By: #### C BC, ADIFF, ANEU, GLU1P, HBSAG, HCV1, HIV, ABOGEL, ABSGEL, VARIS, RUBIS, RPR #### [place] [address] UAon 05-02-2021 Color (U) Yellow Normal [facility] ([place] Comment on above: Performed By: #### U A #### [place] [address] Glucose (U) [Mass/Vol] Negative Normal Negative [facility] ([place] Comment on above: Performed By: #### U A #### [place] [address] Ketones Ql (U) Negative Normal Neg-Trace [facility] ([place] Comment on above: Performed By: #### U A #### [place] [address] UA Appear Clear Normal Clear [facility] ([place] Comment on above: Performed By: #### U A #### [address] [address] UA Blood Negative Normal Neg-Trace [facility] ([place] Comment on above: Performed By: #### U A #### [place] [address] UA Leuk Est Negative Normal Negative [facility] ([place] Comment on above: Performed By: #### U A #### [place] [address] UA Nitrite Negative Normal Negative [facility] ([place] Comment on above: Performed By: #### U A #### [place] [address] UA pH 7.5 Normal 5.0 - 8.0 [facility] ([place] Comment on above: Performed By: #### U A #### [place] [address] UA Protein Negative Normal Negative [facility] ([place] Comment on above: Performed By: #### U A #### [place] [address] UA Spec Grav 1.010 Normal 1.006-1.029 [facility] ([place] Comment on above: Performed By: #### U A #### [place] [address] UA Specimen Type Not Given Normal [facility] ([place] Comment on above: Performed By: #### U A #### [place] [address] UA Urobilinogen 1.0 E.U./dL Normal 0.2-1.0 [facility] ([place]) Comment on above: Performed By: #### U A #### [place] [address] Urobilinogen (U) [Mass/Vol] Negative Normal Neg-Trace [facility] ([place]) Comment on above: Performed By: #### U A #### [place] [address] BMPon 07-06-2018 Anion gap 3 molar conc 9 mmol/L Normal 5-16 [facility] Comment on above: Order Comment: Campu s: M Performed By: #### L 500.02129, L500.50316, L500.93123, L500.23426 ####[facility] EMJJFIDGOR9087 [place], [place] [address]Yk# [phone] Calcium mass conc 8.8 mg/dL Normal 8.5-10.1 [facility] Comment on above: Order Comment: Campu s: M Performed By: #### L 500.64337, L500.11170, L500.88009, L500.64545 ####[facility] CZPABQJGOW2774 [place], [place] [address]Ek# [phone] Chloride molar conc 106 mmol/L Normal 98-107 [facility] Comment on above: Order Comment: Campu s: M Performed By: #### L 500.30901, L500.74742, L500.95592, L500.41853 ####[facility] BASONTPRFG3330 [place], [place] [address]Rs# [phone] CO2 molar conc 24 mmol/L Normal 21-32 [facility] Comment on above: Order Comment: Campu s: M Performed By: #### L 500.23244, L500.58959, L500.15943, L500.66924 ####[facility] SWYGRREEDX4757 [place], [place] [address]Ka# [phone] Creatinine mass conc 0.470 mg/dL Low 0.510-0.950 [facility] Comment on above: Order Comment: Campu s: M Result Comment: Kaylene ents receiving either N-Acetylcysteine (NAC) orMetamizole prior to venipuncture, may have falsely depressedresults. Performed By: #### L 500.73932, L500.27151, L500.10410, L500.19005 ####[facility] DKZLTCGYIN7535 [place], [place] [address]Jq# [phone] Glucose mass conc 130 mg/dL High 70-100 [facility] Comment on above: Order Comment: Campu s: M Result Comment: 70-1 00- Normal Fasting; 100-125 Impaired Fasting; greaterthan 126 on more than one result- Diabetes. ADA guidelines.Results may be falsely elevated after the administration ofSulfapyridine.Results may be falsely depressed after the administration ofSulfasalazine. Performed By: #### L 500.93388, L500.87319, L500.21855, L500.44608 ####[facility] VAVKMLPECE9473 [place], [place] [address]Id# [phone] Potassium molar conc 3.9 mmol/L Normal 3.5-5.1 [facility] Comment on above: Order Comment: Campu s: M Performed By: #### L 500.23176, L500.62907, L500.18883, L500.71289 ####[facility] LZHIGNGQTE7014 [place], [place] [address]Ih# [phone] Sodium molar conc 139 mmol/L Normal 136-145 [facility] Comment on above: Order Comment: Campu s: M Performed By: #### L 500.64162, L500.22341, L500.88526, L500.93383 ####[facility] UCFUIQSQWG9250 [place], [place] [address]Nl# [phone] Urea nitrogen mass conc 10 mg/dL Normal 7-26 [facility] Comment on above: Order Comment: Campu s: M Performed By: #### L 500.32444, L500.08013, L500.43009, L500.19445 ####[facility] HHOUXRYADY9748 [place], [place] [address]Yj# [phone] Urea nitrogen/Creatinine mass ratio 21 mg/mg Normal 15-24 [facility] Comment on above: Order Comment: Campu s: M Performed By: #### L 500.17379, L500.66914, L500.87983, L500.70718 ####[facility] LBWAZINPZR1359 [place], [place] [address]Az# [phone] CBC W/DIFFon 12-09-2018 BASO ABS 0.00 K/CU MM Normal 0-0.2 [facility] Comment on above: Order Comment: Campu s: M Performed By: #### L 200.12093 ####[facility] HVZLPKQBMZ1907 [place], [place] [address]Ir# [phone] Basophils/100 WBC Auto (Bld) 0.2 % Normal 0-2 [facility] Comment on above: Order Comment: Campu s: M Performed By: #### L 200.46028 ####[facility] OARMCCTAKO[address] [place] [address]Ga# [phone] EOS ABS 0.00 K/CU MM Normal 0-0.5 [facility] Comment on above: Order Comment: Campu s: M Performed By: #### L 200.56424 ####[place] [address]Ph# [phone] Eosinophils/100 WBC Auto (Bld) 0.1 % Normal 0-5 [facility] Comment on above: Order Comment: Campu s: M Performed By: #### L 200.13678 ####[facility] MUOGEKZHBI[address] [place] [address]Nz# [phone] Erythrocyte distribution width Auto Ratio (RBC) 19.9 % High 11-14.5 [facility] Comment on above: Order Comment: Campu s: M Performed By: #### L 200.65397 ####[facility] EDATWETOAY[address] [place] [address]Gx# [phone] Hematocrit Auto Volume Fraction (Bld) 41.0 % Normal 35.0-47.0 [facility] Comment on above: Order Comment: Campu s: M Performed By: #### L 200.47555 ####[facility] HFVIUTVLXG4729[address] [place] [address]Nb# [phone] Hemoglobin mass conc (Bld) 13.5 g/dL Normal 11.5-15.5 [facility] Comment on above: Order Comment: Campu s: M Performed By: #### L 200.91433 ####[facility] HPNESFVOZB[address] [place], [place] [address]Ph# [phone] IMMATR GRAN ABS 0.10 K/CU MM Normal Less than 2 [facility] Comment on above: Order Comment: Campu s: M Performed By: #### L 200.27864 ####[place] [address]Ph# [phone] IMMATURE GRAN % 0.4 % Normal Less than 2 [facility] Comment on above: Order Comment: Campu s: M Performed By: #### L 200.77696 ####[facility] PYMHMAZPHK[address] [place], [place] [address]Ph# [phone] Lymphocytes Auto #/vol (Bld) 1.20 K/CU MM Normal 0.9-4.4 [facility] Comment on above: Order Comment: Campu s: M Performed By: #### L 200.25166 ####[place] [address]Ph# [phone] Lymphocytes/100 WBC Auto (Bld) 9.2 % Low 20-40 [facility] Comment on above: Order Comment: Campu s: M Performed By: #### L 200.48733 ####[facility] LVZBPULUJI25[address] [place], [place] [address]Ph# [phone] MCHC Auto mass conc (RBC) 32.9 g/dL Normal 32.0-36.0 [facility] Comment on above: Order Comment: Campu s: M Performed By: #### L 200.41325 ####[facility] SNJJCZZAKU38[address] [place], [place] [address]Ph# [phone] MCV Auto Entitic volume (RBC) 82.5 fL Normal 80.0-99.0 [facility] Comment on above: Order Comment: Campu s: M Performed By: #### L 200.56018 ####[facility] ZBTVBBENXY[address] [place], [place] [address]Ph# [phone] MONO ABS 0.40 K/CU MM Normal 0.1-1.1 [facility] Comment on above: Order Comment: Campu s: M Performed By: #### L 200.62294 ####[facility] UJOZAFMRHV4052 [place], [place] [address]Ik# [phone] Monocytes/100 WBC Auto (Bld) 3.1 % Normal 2-10 [facility] Comment on above: Order Comment: Campu s: M Performed By: #### L 200.08725 ####[facility] MDDIXEGBMY[address] [place], [place] [address]Ph# [phone] NEUTROPHIL ABS 11.20 K/CU MM High 2.0-8.3 [facility] Comment on above: Order Comment: Campu s: M Performed By: #### L 200.54701 ####[place] [address]Ph# [phone] Neutrophils/100 WBC Auto (Bld) 87.0 % High 45-75 [facility] Comment on above: Order Comment: Campu s: M Performed By: #### L 200.21965 ####[facility] CLVOBVNFCJ[address] [place], [place] [address]Ph# [phone] Nucleated RBC/100 WBC Ratio (Bld) 0.0 % Normal Less than 1 [facility] Comment on above: Order Comment: Campu s: M Performed By: #### L 200.64637 ####[facility] NZOOLVQOXC[address] [place], [place] [address]Ph# [phone] Platelet mean volume Auto Entitic volume (Bld) 10.0 fL Normal 9.4-12.4 [facility] Comment on above: Order Comment: Campu s: M Performed By: #### L 200.54291 ####[facility] TZWIKMSFAZ[address] [place] [address]Sk# [phone] Platelets Auto #/vol (Bld) 351 K/CU MM Normal 150-450 [facility] Comment on above: Order Comment: Campu s: M Performed By: #### L 200.27360 ####[facility] HBVSTIWIHZ3341 [place], [place] [address]Ij# [phone] RBC Auto #/vol (Bld) 4.97 M/CU MM Normal 3.90-5.30 [facility] Comment on above: Order Comment: Campu s: M Performed By: #### L 200.46770 ####[facility] AENTUWOCPA4545 [place], [place] [address]Cq# [phone] WBC Auto #/vol (Bld) 12.9 K/CU MM High 4.5-11.0 [facility] Comment on above: Order Comment: Campu s: M Performed By: #### L 200.46693 ####[facility] GMTAGAYMDC5045 [place], [place] [address]Kj# [phone] CT ABD/PEL W IV CONTRAST ONL [facility] 07-06-2018 CT ABD/PEL W IV [...] at 10:22 AM on 07/06/2018. Dictated by Fractionation Plant Supervisor: Favian Bianchi and Signed by: Billy Cosme MD---- Electronic Signature on File ----Signed By: Billy Cosme [email or web address]: 07/06/2018 7:10 AMSigned: 07/08/2018 6:55 PM Reported By: BILLY COSME M.D. Signed By: BILLY COSME M.D. [facility] 07-06-2018 EMERGENCY PHYSICIAN REPORT This is a preliminary report only, as the practitioner review and authentication has not occurred. [facility] ER PHYSICIA N ASSESSMENT ==RECORDS: FlexChartDataEvent Time: 07/06/2018 06:50Status: [facility] Soloriojohnathan [[id number]]Att ending [id number] / F / 1986Chart (V2b)Chart created at 07/06/2018 06:42 by Judson Wasserman closed at 07/06/2018 07:29Entry in Emergency Department at 07/06/2018 05:32Patient Name: Lety Falk Record Number:[id number] Date: 07/06/2018 06:42Entered Department at: 07/06/2018 05:32 [...] 7 PM last night ago; Timing: Gradual; [facility] PATIENT NAME: INDIGO FALK [facility] [address] MEDICAL REC #: [id number], [place] [address] DEPARTMENT REPORT EMERGENCY DEPARTMENT PHYSICIANLocation: Epigastric abdominal [...] 0.4 %; LYMPH %: 9.2 %; LYMPH *[facility] PATIENT NAME: LETY FALK[address] [facility] [address] [place] MEDICAL REC #: [id number], [place] [address] DEPARTMENT REPORT EMERGENCY DEPARTMENT PHYSICIANABS: 1.20 K/Cu [...] is13.5. Liver profile is over no hyperbilirubinemia [id number] no pancreatitis. Gap is 9 electrolytes arenormal. Patient has acute gastritis will be treated withGrasshopper Carafate 1 Mylanta at home andPrevacid. She will be discharged she is in stable condition.Re-Evaluation:07:2 8: Symptoms Improved. Examination Improved.Additional Information: Discussed Results, Diagnosis andFollow-Up with Patient.Clinical Impression: [facility] PATIENT NAME: INDIGO FALK [facility] [address] [place] MEDICAL REC #: [id number], [place] [address] DEPARTMENT REPORT EMERGENCY DEPARTMENT PHYSICIAN1. Acute gastritisDisposition: [...] empeoramientos o que cambian sStomas. Siga por [facility] PATIENT NAME: DAVID,[id number] Rosangela [place] MEDICAL REC #: [id number], [place] [address] DEPARTMENT REPORT EMERGENCY DEPARTMENT PHYSICIANfavor todas las instrucciones dadas a usted.Debido a [facility], no podemos enviar marilia copia de [...] Return to emergency room if fever greater kzpv229.4.REFERRAL*Rosangela ([facility] Medicine) , Fecha: [phone] [place],[id number], Telefono: , fax: Spa: not yet entered.2-3 daysMEDICATIONSLe hemos dado recetas de estos medicamentos que usted debeobtener y empezar a tania:Carafate 100 mg/mL oral suspension, count:420 mL, Dose =10ml, count:420 mL, 5 times daily, count:420 mLPrevacid 15 mg capsule,delayed release, count:10, Dose = [facility] PATIENT NAME: [id number] Rosangela [place] MEDICAL REC #: [id number], [place] [address] DEPARTMENT REPORT EMERGENCY DEPARTMENT PHYSICIAN1, count:10, 10 [...] below indicates consent for Case Managementto contact [facility] providers in [facility] to meet your ongoing healthcare needs. This willallow forcontinuity of care once you leave theEmergency Department. This exchange of informationwillinclude, but not be limited to, disclosure of yourpatient information and possible release of records. DEMOGRAPHICS ====Emergisoft Patient: LETY DAWNCASex: FDOB: 1985Age: 32 yrAccount No: [id number]: [id number] Date: 05:32 07/06/2018 [facility] PATIENT NAME: LET[facility] FALK1320 [facility] MEDICAL REC #: [id number], [place] [address] DEPARTMENT REPORT EMERGENCY DEPARTMENT PHYSICIANAddress: [phone]: [place] [address] EYY ISTRATION =ED Number: [id number]: Marital Status: MFinancial Class: SELF TRIA GE [...] DERS DO Judson Rubi Provider Contact: 07/06/2018 [facility] PATIENT NAME: LETY FALK[address] [facility] 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 PATIENT NAME: INDIGO FALK Rosangela [place] MEDICAL REC #: [id number], [place] [address] DEPARTMENT REPORT EMERGENCY DEPARTMENT PHYSICIANold 07/06/2018 05:50 [...] - Call lightplaced within reach. 07/06/2018 06:14 [facility]09/06/2017 06:13 Primary DOC Guide - A. Patient Juvalpd8107/06/2018 06:14 VPrimary History Source TranslatorAvian Exposure - [...] Fall RiskAssessment (Age andlt;65) 07/06/2018 06:14 SLV [facility] PATIENT NAME: INDIGO FALK Rosangela P[place] MEDICAL REC #: [id number], [place] [address] DEPARTMENT REPORT EMERGENCY DEPARTMENT PHYSICIANHistory of Falling [...] reviewed andprovided; prescriptions given to caregiver 07/06/2018 08:75BJH5409/06/2017 08:09 Admit/Discharge - Dischargeinstructions through an intrepreter 07/06/2018 08:09 TL07/06/2018 08:09 Admit/Discharge - Med list given andreviewed with patient/customer care representative at discharge 07/06/201808:09 TLY109/06/2017 08:09 Education - Discharge Instructionsreviewed and patient voices understanding. 07/06/2018 08:36PRS0509/06/2017 08:09 Education - Discharge Instructionsreviewed and caregiver voices understanding. 07/06/201808:09 TLY [facility] PATIENT NAME: LETY FALK[address] [facility] REC #: [id number], [place] [address] DEPARTMENT REPORT EMERGENCY DEPARTMENT SEQVXDYDZ42/09/2018 08:09 Education - Printed DischargeInstructions and given [...] - MachinePulse: 63 - Monitor Resp: 16 [facility] PATIENT NAME: LETY FALK13[address] [facility] REC #: [id number], [place] [address] DEPARTMENT REPORT EMERGENCY DEPARTMENT SFLUFGZMPEp28: 99 Room Air Temp: 97.50 F - [...] Completed Time:07/06/2018 07:07 Results Time: 07/06/2018 07:07 *[facility] PATIENT NAME: LETY FALK[address] [place] MEDICAL REC #: [id number], [place] [address] DEPARTMENT REPORT EMERGENCY DEPARTMENT PHYSICIANCBC with diff [...] indicated by UA results (Y or N) [facility] PATIENT NAME: INDIGO FALK Rosangela Pina MEDICAL REC #: [id number], [place] [address] DEPARTMENT REPORT EMERGENCY DEPARTMENT PHYSICIANAnswer: NOIV RL [...] gastritisDiagnosis Name: Acute gastritisDiagnosis Name: Acute gastritis [facility] PATIENT NAME: [id number] [facility] [address] [address] MEDICAL REC #: [id number], [place] [address] DEPARTMENT REPORT EMERGENCY DEPARTMENT PHYSICIANDiagnosis Name: Acute [...] Virginiaissacfatuma DO [place]nn RN Lanette GAINES [facility] AGSpaetta Ascencio VSISI LEONE JRHD [facility] PATIENT NAME: INDIGO FALK Rosangela Pina MEDICAL REC #: [id number], [place] [address] DEPARTMENT REPORT EMERGENCY DEPARTMENT PHYSICIAN [facility] PATIENT NAME: INDIGO FALK [facility] MEDICAL REC #: [id number], [place] [address] DEPARTMENT REPORT EMERGENCY DEPARTMENT PHYSICIAN Normal [facility] GFR ESTon 07-06-2018 IF AMER Greater than 60 Normal [facility] Comment on above: Order Comment: Campu s: M Performed By: #### L 500.15038, L500.68159, L500.43401, L500.65699 ####[facility] QOAFWVHRFQ0605 [place], [place] [address]As# [phone] IF non-AFR AMER Greater than 60 Normal [facility] Comment on above: Order Comment: Campu s: M Performed By: #### L 500.15288, L500.31694, L500.67105, L500.11514 ####[facility] EAUZMEKPQY8793 [place], [place] [address]Kl# [phone] LIPASEon 07-06-2018 Lipase enzyme act/vol 147 U/L Normal 73-393 [facility] Comment on above: Order Comment: Campu s: M Performed By: #### L 500.15517, L500.93924, L500.64500, L500.23529 ####[facility] DSJQANNDWS5203 [place], [place] [address]Iw# [phone] LIVERon 07-06-2018 Albumin mass conc 4.1 g/dL Normal 3.2-5.0 [facility] Comment on above: Order Comment: Campu s: M Performed By: #### L 500.53318, L500.98637, L500.23110, L500.70708 ####[facility] XGENPOCXKM6823 [place], [place] [address]Xp# [phone] Albumin/Globulin mass ratio 1.0 {ratio} Normal 0.8-2.0 [facility] Comment on above: Order Comment: Campu s: M Performed By: #### L 500.63807, L500.53416, L500.42873, L500.94803 ####[facility] QHJZBLSFBE3133 [place], [place] [address]Kp# [phone] ALK PHOS 103 U/L Normal 45-117 [facility] Comment on above: Order Comment: Campu s: M Performed By: #### L 500.85974, L500.09950, L500.50488, L500.99240 ####[facility] RMNMGXTWOY2140 [place], [place] [address]Km# [phone] ALT enzyme act/vol 33 U/L Normal 13-61 [facility] Comment on above: Order Comment: Campu s: M Result Comment: RESU LTS MAY BE FALSELY DEPRESSED AFTER THE ADMINISTRATION OFSULFASALAZINE AND/OR SULFAPYRIDINE. Performed By: #### L 500.99914, L500.44232, L500.56735, L500.42380 ####[facility] SOEXSLOJPQ2821 [place], [place] [address]Wb# [phone] BILI DIRECT 0.10 MG/DL Normal 0.00-0.20 [facility] Comment on above: Order Comment: Campu s: M Performed By: #### L 500.21912, L500.35235, L500.95972, L500.39217 ####[facility] EBVCOTBMYV[address] [place] [address]Me# [phone] BILI TOTAL 0.3 MG/DL Normal 0.2-1.0 [facility] Comment on above: Order Comment: Campu s: M Performed By: #### L 500.84180, L500.09429, L500.59008, L500.37422 ####[facility] MKXPZLLOGI[address] [place] [address]Vz# [phone] Globulin Calculated mass conc (S) 4.1 g/dL Normal 2.2-4.2 [facility] Comment on above: Order Comment: Campu s: M Performed By: #### L 500.68661, L500.55693, L500.16181, L500.24522 ####[facility] GSIKELWIVC[address] [place] [address]Rn# [phone] Protein mass conc 8.2 g/dL Normal 6.0-8.5 [facility] Comment on above: Order Comment: Campu s: M Performed By: #### L 500.66276, L500.15128, L500.67244, L500.08986 ####[facility] SMJRTHZKCX18[address] [place] [address]Kk# [phone] SGOT (AST) 21 U/L Normal 8-34 [facility] Comment on above: Order Comment: Campu s: M Result Comment: RESU LTS MAY BE FALSELY DEPRESSED AFTER THE ADMINISTRATION OFSULFASALAZINE AND/OR SULFAPYRIDINE. Performed By: #### L 500.00750, L500.65290, L500.63125, L500.19472 ####[facility] QJRQMOBIYQ[address] [place] [address]Gd# [phone] CBCon 05-14-2018 Hematocrit Auto Volume Fraction (Bld) 31.8 % Low 35.0-47.0 [facility] Comment on above: Order Comment: Campu s: M Performed By: #### L 600.92730 ####[facility] NFWXADUFHY[address] [place] [address]Uq# [phone] Hemoglobin mass conc (Bld) 10.3 g/dL Low 11.5-15.5 [facility] Comment on above: Order Comment: Campu s: M Performed By: #### L 600.88320 ####[place] [address]Ph# [phone] MCHC Auto mass conc (RBC) 32.4 g/dL Normal 32.0-36.0 [facility] Comment on above: Order Comment: Campu s: M Performed By: #### L 600.17395 ####[place] [address]Ph# [phone] MCV Auto Entitic volume (RBC) 77.9 fL Low 80.0-99.0 [facility] Comment on above: Order Comment: Campu s: M Performed By: #### L 600.31179 ####[address] [address]Sr# [phone] Nucleated RBC/100 WBC Ratio (Bld) 0.0 % Normal Less than 1 [facility] Comment on above: Order Comment: Campu s: M Performed By: #### L 600.97003 ####[facility] BDSZVRSIAH[address] [place] [address]Lb# [phone] Platelet mean volume Auto Entitic volume (Bld) 12.3 fL Normal 9.4-12.4 [facility] Comment on above: Order Comment: Campu s: M Performed By: #### L 600.53598 ####[facility] FLTAMKPSUN[address] [place], [place] [address]Ph# [phone] Platelets Auto #/vol (Bld) 211 K/CU MM Normal 150-450 [facility] Comment on above: Order Comment: Campu s: M Performed By: #### L 600.83522 ####[facility] JBQLKIXPON[address] [place] [address]Hm# [phone] RBC Auto #/vol (Bld) 4.08 M/CU MM Normal 3.90-5.30 [facility] Comment on above: Order Comment: Campu s: M Performed By: #### L 600.55692 ####[address] [address]Cf# [phone] WBC Auto #/vol (Bld) 6.6 K/CU MM Normal 4.5-11.0 [facility] Comment on above: Order Comment: Campu s: M Performed By: #### L 600.65783 ####[address] [address]Dj# [phone] CBCon 05-13-2018 Hematocrit Auto Volume Fraction (Bld) 36.7 % Normal 35.0-47.0 [facility] Comment on above: Order Comment: Campu s: M Performed By: #### L 600.04673 ####[address] [address]Gl# [phone] Hemoglobin mass conc (Bld) 12.0 g/dL Normal 11.5-15.5 [facility] Comment on above: Order Comment: Campu s: M Performed By: #### L [id number] ####[facility] [id number] [place] [address]Sz# [phone] MCHC Auto mass conc (RBC) 32.7 g/dL Normal 32.0-36.0 [facility] Comment on above: Order Comment: Campu s: M Performed By: #### L [id number] ####[facility] [id number] [place] [address]Uu# [phone] MCV Auto Entitic volume (RBC) 78.1 fL Low 80.0-99.0 [facility] Comment on above: Order Comment: Campu s: M Performed By: #### L 600.29510 ####[facility] [id number] [place] [address]Pu# [phone] Nucleated RBC/100 WBC Ratio (Bld) 0.0 % Normal Less than 1 [facility] Comment on above: Order Comment: Campu s: M Performed By: #### L 600.81442 ####[address] [address]Ip# [phone] Platelet mean volume Auto Entitic volume (Bld) 11.8 fL Normal 9.4-12.4 [facility] Comment on above: Order Comment: Campu s: M Performed By: #### L 600.55944 ####[address] [address]Ou# [phone] Platelets Auto #/vol (Bld) 225 K/CU MM Normal 150-450 [facility] Comment on above: Order Comment: Campu s: M Result Comment: Conf irmed by slide estimate. Performed By: #### L 600.29099 ####[address] [address]Mb# [phone] RBC Auto #/vol (Bld) 4.70 M/CU MM Normal 3.90-5.30 [facility] Comment on above: Order Comment: Campu s: M Performed By: #### L 600.40929 ####[address] [address]Ct# [phone] WBC Auto #/vol (Bld) 6.0 K/CU MM Normal 4.5-11.0 [facility] Comment on above: Order Comment: Campu s: M Performed By: #### L 600.90947 ####[address] [address]Gy# [phone] LDSUMMon 05-13-2018 LDSUMM ======== =======OB Datetime Report Generated by CPN: 05/14/2018 12:39 DELIVERY PERSONNEL Nurse Hogshead Weigher Certified: Sarahi Chenirculator: Annabelle Noriegathesiologist: Maki Anayatist: Momo Manzano CENSUS ENUMERATOR MATERNAL INFORMATION Delivery Anesthesia: EpiduralMedications in Delivery: [...] Steroids Not Administered: Not Applicable MEMBRANES== ===== [facility] PATIENT NAME: LETY FALK[address] [facility] [address] Pina MEDICAL REC #: [id number], [place] [address] DATE: 05/12/18DISCHARGE DATE: 05/14/18OB LDSUMM ATTENDING PHY: [...] BABY A ======== Delivery Date/Time: 05/13/2018 03:44 [facility] PATIENT NAME: [id number] [facility] MEDICAL REC #: [id number], [place] [address] DATE: 05/12/18DISCHARGE DATE: 05/14/18OB LDSUMM ATTENDING SERA: [...] 1 min: Active MotionColor 1 min: Body [place], Extremities BlueResuscitation Effort 1 min: Tactile StimulationAPGAR SCORE 1 MIN: 9Heart Rate 5 min: >100 bpmResp Effort 5 min: Good CryReflex Irritability 5 min: Cough or Sneeze or Pulls AwayMuscle Tone 5 min: Active MotionColor 5 min: Body [place], Extremities BlueAPGAR SCORE 5 MIN: 9 ======== INFORMATION BABY A ========Gestational Age at Delivery: 40.1Gestational Status: Full Term- 39- 40.6 WeeksInfant Outcome : LivebornInfant Condition : StableInfant Sex: Male IDENTIFICATION/ME DS BABY A ========ID Band Number: [id number] Band Location: Left Leg; Left ArmRead By LandD/Nursery Nurse: Christopher Guallpa Rn/Taras Barrientos RnSensor Applied: Yes [facility] PATIENT NAME: LETY FALK[address] [facility] [address] [place] MEDICAL REC #: [id number], [place] [address] DATE: 05/12/18DISCHARGE DATE: 05/14/18OB LDSUMM ATTENDING PHY: [...] Taras Barrientos RnTransferred To: Remains with Mother [facility] PATIENT NAME: SACHA FALKINA1320 [facility] MEDICAL REC #: [id number], [place] [address] DATE: 05/12/18DISCHARGE DATE: 05/14/18 LDSUM ATTENDING PHY: Hallie Quinones [facility] ======== =======OB Datetime Report Generated by CPN: 05/14/2018 12:39Patient Age: 32 ========= INFORMATION EDC: 05/12/2018 00:00LMP: 08/29/2017 00:00Gravida: 4Para: 2Term: 2Preterm: 0Spontaneous Abortions: 1Induced Abortions: 0LivinCesareans: 0VBACs: 1Ectopic: 1Multiple Births: 1Baby, Number in Womb: 1 ======== CARE Primary Staff Software Engineer: Aicha Stack of 1st Visit: 03/05/2018 00:00Prepregnancy Weight (lb): 130Prepregnancy Weight (kg): 59.1Height (in): 52.0Height (cm): 132.1 ALLERGIES======= Medication Allergies: NO KNOWN ALLERGENS (05/12/2018) [facility] Primary Language: SpanishMedical Tx Preferred Language: SpanishEnglish Communication Ability: No understanding, ADVANCED PRACTICE PROFESSIONAL neededCommunication Barrier(s): Language barrier [facility] PATIENT NAME: [id number] Rosangela Pina MEDICAL REC #: [id number], [place] [address] DATE: 05/12/18DISCHARGE DATE: 05/14/18OB LDSUMM ATTENDING PHY: Hallie Quinones ACC DEMOGRAPHICS====== =Address: [address] [place] [address]Uunhlim: [id number] SSN: [id number] of : 1985Marital Status: MarriedSex: FemaleRace: /LATIN AMERICANReligion: FAITH DRUG AND ALCOHOL USE Alcohol: NoCigarettes: Never Smoker. [phone]: NoCocaine: NoOther Illicit Drugs: No =========VACCINE HISTORY Influenza Vaccine: NoInfluenza Date: 05/14/2018 00:00Desires Flu Vaccine: YesTdap Vaccine: NoTdap Date: 05/14/2018 00:00 LABOR and DELIVERY PLANS Crib Clerk: MILLERFeeding Preference: BothCircumcision: NoPrenatal Classes Attended: [facility] Consent: N/ACesarean Consent Signed: N/APain Management Plans: Natural; EpiduralPlans for Labor and Delivery: NoneSupport Person: CARLOSSupport Person Relationship: HusbandCultural/Spritual Practice: NoSpir/Cult Dietary Needs: No [facility] PATIENT NAME: SACHA FALKINA[address] [facility] [address] [place]ina MEDICAL REC #: [id number], [place] [address] DATE: 05/12/18DISCHARGE DATE: 05/14/18OB LDSUMM ATTENDING SERA: Hallie Quinones ACC LIVING SITUATION/DISCHARGE PLAN Living Arrangements: HouseAdequate Access to:: Electric; Heat; Refrigeration; Plumbing/Running water; Phone;TransportationWIC Program: YesDischarge General Store Manager Person: YUKIerson to Help after Discharge: CARLOSCurrently Using Commun Resources: YesSpecify Current Resource Used: MEDICAIDOutside Agency/Coverstitch Machine Operator: NoCar Seat for Discharge: YesNeed Help to [...] of active infection or stageof disease.Performed At: [facility] [place], [place] [id number] [facility] PATIENT NAME: INDIGO FALK [facility] REC #: [id number], [place] [address] DATE: 05/12/18DISCHARGE DATE: 05/14/18OB LDSUMM ATTENDING PHY: Hallie Quinones [id number])1 Hour Glucola: 160Fasting GTT: 801 Hour GTT: [...] Pulmonary (Asthma,TB): NoMed Hx Breast: NoMed Hx CONSTRUCTION TECH Surgery: NoMed Hx Hospitalization/Surgery: NoMed Hx Anesthetic [...] NoInf Hx Rash or Viral Illness: No [facility] PATIENT NAME: SACHA FALKINA[address] [facility] [address] [place] MEDICAL REC #: [id number], [place] [address] DATE: 05/12/18DISCHARGE DATE: 05/14/18OB [facility] ATTENDING PHY: Hallie Quinones ACCInf [...] Pg 3: 01/2017Prev Pg Comments 3: SAB [facility] PATIENT NAME: LETY FALK[address] [facility] [address] [place]ina MEDICAL REC #: [id number], [place] [address] DATE: 05/12/18DISCHARGE DATE: 05/14/18OB LDSUMM ATTENDING PHY: Hallie Quinones [facility] LDSUMM ======== =======OB Datetime Report Generated by [...] Extremity Less than 3 seconds; Left Lower [facility] PATIENT NAME: INDIGO FALK [facility] REC #: [id number], [place] [address] DATE: 05/12/18DISCHARGE DATE:OB LDSUMM ATTENDING PHY: Hallie [...] Baby A: Moderate 6-25 bpmAccelerations Baby A: 06I38Ugzmzcjddfdys Baby A: NoneComments: 40.0 HERE FOR LEAKING OF FLUIDS. [facility] PATIENT NAME: [id number] Pina MEDICAL REC #: [id number], [place] [address] DATE: 05/12/18DISCHARGE DATE:OB LDSUMM ATTENDING PHY: Hallie Quinones ACCAssessment Flag: Admission Assessment [facility] PATIENT NAME: D[id number] Rosangela Pina MEDICAL REC #: [id number], [place] [address] DATE: 05/12/18DISCHARGE DATE:OB LDSUMM ATTENDING SERA: Hallie Quinones [facility] TORRESM ======== =======OB Datetime Report Generated by CPN: 05/13/2018 04:04 DELIVERY PERSONNEL Nurse Hogshead Weigher Certified: Sarahi Chen CNirculator: Hari, EmilyAnesthetist: Kolich, Momo CENSUS ENUMERATOR MATERNAL INFORMATION Delivery Anesthesia: EpiduralMedications in Delivery: [...] Not Applicable MEMBRANES== =====Membranes Rupture Method: Artificial [facility] PATIENT NAME: LETY FALK[address] [facility] [address] [place] MEDICAL REC #: [id number], [place] [address] DATE: 05/12/18DISCHARGE DATE:OB LDSUMM ATTENDING YESSENIAY: Hallie [...] BABY A ======== Delivery Date/Time: 05/13/2018 03:43 [facility] PATIENT NAME: [id number] Rosangela Pina MEDICAL REC #: [id number], [place] [address] DATE: 05/12/18DISCHARGE DATE:OB LDSUMM ATTENDING PHY: Hallie [...] ========No. Cord Vessels: 3Nuchal Cord : N/A [facility] PATIENT NAME: [id number] Rosangela Pina MEDICAL REC #: [id number], [place] [address] DATE: 05/12/18DISCHARGE DATE:OB LDSUMM ATTENDING PHY: Hallie Quinones ACCHomero Blood Taken: YesInfant Suction: Mouth; Nose ASSESSMENT BABY A ========Skin to Skin: Yes [facility] PATIENT NAME: [id number] [facility] [address] [place]ina MEDICAL REC #: [id number], [place] [address] DATE: 05/12/18DISCHARGE DATE:OB LDSUMM ATTENDING SERA: Hallie Quinones Normal [facility] LDSUMM ======== =======OB Datetime Report Generated by [...] No, and Wants No InformationDurable Power of Black [place] Worker: NoLiving Will: NoOrgan Donor: NoPt Rights Information [...] Threatened/Hurt: NoHx of Abuse/Neglect past 2yrs: No [facility] PATIENT NAME: LETY [id number] [facility] [address] [place]ina MEDICAL REC #: [id number], [place] [address] DATE: 05/12/18DISCHARGE DATE: 05/14/18OB LDSUMM ATTENDING PHY: Hallie Quinones Unsafe Going Home: NoAddt'l Observ Indicating Abuse: NoReason Unable to Complete Screen: N/A, Screen CompletedConsidered Personal Harm/Suicide: No =========NUTRITIONAL/FUNCTIO NAL SCREENING Problem with Appetite >5 Days: NoChew/Swallow Difficulties: NoInappropriate Wt Gain/Loss: NoPresence Skin Breakdown/Ulcer: NoSpecial Diet: NoPt Requests [employer] Consultant Visit: NoHx of Any of the Following?: N/ANew Diagnosis of: N/ARequires Assist w/Ambulation: NoUses Assist Device to Ambulate: NoPt Requires Help w/ADL's: No [facility] PATIENT NAME: INDIGO FALK [facility] MEDICAL REC #: [id number], [place] [address] DATE: 05/12/18DISCHARGE DATE: 05/14/18OB LDSUMM ATTENDING PHY: Hallie Quinones ACC Normal [facility] OB LDSUMM This is a preliminar y report only, as the practitioner review and authentication has not occurred. Normal [facility] POC ROM TESTon 05-13-2018 ROM TEST Negative Normal NEGATIVE [facility] Comment on above: Performed By: #### L 600.25973 ####[facility] [id number] [place], [place] [address]Qg# [phone] TSon 05-13-2018 ABO and Rh group Nom (Bld) O POSITIVE Normal [facility] Comment on above: Order Comment: Campu s: MPatient transfused or in the past 3 months: YESIs This Patient Going To Surgery? N GENITAL STREPon 04-18-2018 GENITAL STREP BETA STREP RESULT NO BETA STREPTOCOCCUS ISOLATED Normal [facility] Comment on above: Performed By: #### L 600.08284 ####[facility] [id number] [place], [place] [address]Hg# [phone] DOPPLER UMBILICAL NANDINI Luciano 04-16-2018 DOPPLER UMBILICAL [...] VALDEZ M.D. Signed By: ALYCE VALDEZ M.D. [facility] US BIO PHYSICAL PROFIL Guille 04-16-2018 Protein [...] M.D. Signed By: ALYCE VALDEZ M.D. Normal [facility] GLUCOSE 1HRon 04-02-2018 Glucose mass conc 178 mg/dL Normal Less Than 190 [facility] Comment on above: Order Comment: Campu s: M Performed By: #### L 200.96307 ####[facility] [id number] [place], [place] [address]Dv# [phone] GLUCOSE 2HRon 04-02-2018 Glucose mass conc 89 mg/dL Normal Less Than 165 [facility] Comment on above: Order Comment: Campu s: M Performed By: #### L 200.75512 ####[facility] [id number] [place], [place] [address]Ze# [phone] GLUCOSE 3HRon 04-02-2018 Glucose mass conc 121 mg/dL Normal Less Than 145 [facility] Comment on above: Order Comment: Campu s: M Performed By: #### L 200.83453 ####[facility] [id number] [place], [place] [address]Ul# [phone] GLUFon 04-02-2018 GLUF 80 MG/DL Normal 70-100 [facility] Comment on above: Order Comment: Campu s: M Performed By: #### L 200.20140 ####[facility] [id number] [place] [address]Da# [phone] DOPPLER UMBILICAL NANDINI Luciano 03-19-2018 DOPPLER UMBILICAL [...] COSME M.D. Signed By: BILLY COSME M.D. [facility] [place] [place] AGE > 14 WEEKSon AGE > 14 WEEKS US AGE > 14 WEEKS, DOPPLER UMBILICAL ARTERYOrdering Physician: Deysi COWAN [facility]03/19/2018 9:00 AMULTRASOUND AGE GREATER THAN 14 [...] M.D. Signed By: BILLY COSME M.D. Normal [facility] URINE CULTUREon 03-07-2018 Bacteria identified Cx Nom (U) URINE RESULT 80-90,000 COL/ML MIXED CHUCKY-PLEASE REPEAT-POSSIBLE CONTAMIN Normal [facility] Comment on above: Performed By: #### L 200.99038 ####[facility] [id number] [place], [place] [address]Mp# [phone] V ZOSTER IGG ABon 03-06-2018 V ZOSTER IGG AB 2454 index Normal Immune >165 [facility] Comment on above: Order Comment: Herber hawthorne: Akhil Result Comment: Nega tive <135 Equivocal 135 - 165 Positive >165A positive result generally indicates exposure to thepathogen or administration of specific immunoglobulins,but it is not indication of active infection or stageof disease.Performed At: [facility] [place], [place] [id number] Vincent [id number] Performed By: #### L 200.52167 ####[facility] [id number] [place] [address]My# [phone] CBC W/DIFFon 03-05-2018 BASO ABS 0.00 K/CU MM Normal 0-0.2 [facility] Comment on above: Order Comment: Campu s: M Performed By: #### L 200.25542 ####[facility] [id number] [place], [place] [address]Ph# [phone] Basophils/100 WBC Auto (Bld) 0.6 % Normal 0-2 [facility] Comment on above: Order Comment: Campu s: M Performed By: #### L 200.14903 ####[address] [address]Tu# [phone] EOS ABS 0.00 K/CU MM Normal 0-0.5 [facility] Comment on above: Order Comment: Campu s: M Performed By: #### L 200.50383 ####[place] [address]Ph# [phone] Eosinophils/100 WBC Auto (Bld) 0.6 % Normal 0-5 [facility] Comment on above: Order Comment: Campu s: M Performed By: #### L 200.27788 ####[facility] [id number] [place] [address]At# [phone] Erythrocyte distribution width Auto Ratio (RBC) 15.9 % High 11-14.5 [facility] Comment on above: Order Comment: Campu s: M Performed By: #### L 200.50683 ####[facility] [id number] [place] [address]Zi# [phone] Hematocrit Auto Volume Fraction (Bld) 29.9 % Low 35.0-47.0 [facility] Comment on above: Order Comment: Campu s: M Performed By: #### L 200.44298 ####[facility] [id number] [place], [place] [address]Ph# [phone] Hemoglobin mass conc (Bld) 9.0 g/dL Low 11.5-15.5 [facility] Comment on above: Order Comment: Joselou s: M Performed By: #### L 200.41355 ####[facility] IEVILJMBDH2121 [place], [place] [address]Ab# [phone] IMMATR GRAN ABS 0.00 K/CU MM Normal Less than 2 [facility] Comment on above: Order Comment: Campu s: M Performed By: #### L 200.00634 ####[facility] [id number] [place] [address]Lf# [phone] IMMATURE GRAN % 0.4 % Normal Less than 2 [facility] Comment on above: Order Comment: Campu s: M Performed By: #### L 200.30902 ####[facility] [id number] [place], [place] [address]Ph# [phone] Lymphocytes Auto #/vol (Bld) 1.20 K/CU MM Normal 0.9-4.4 [facility] Comment on above: Order Comment: Campu s: M Performed By: #### L 200.19326 ####[facility] [id number] [place], [place] [address]Ph# [phone] Lymphocytes/100 WBC Auto (Bld) 22.6 % Normal 20-40 [facility] Comment on above: Order Comment: Campu s: M Performed By: #### L 200.02023 ####[facility] [id number] [place] [address]Dk# [phone] MCHC Auto mass conc (RBC) 30.1 g/dL Low 32.0-36.0 [facility] Comment on above: Order Comment: Campu s: M Performed By: #### L 200.20539 ####[facility] [id number] [place] [address]Vv# [phone] MCV Auto Entitic volume (RBC) 71.4 fL Low 80.0-99.0 [facility] Comment on above: Order Comment: Campu s: M Performed By: #### L 200.82086 ####[facility] [id number] [place], [place] [address]Tb# [phone] MONO ABS 0.40 K/CU MM Normal 0.1-1.1 [facility] Comment on above: Order Comment: Campu s: M Performed By: #### L 200.95628 ####[facility] [id number] [place], [place] [address]Ph# [phone] Monocytes/100 WBC Auto (Bld) 6.6 % Normal 2-10 [facility] Comment on above: Order Comment: Campu s: M Performed By: #### L 200.76313 ####[address] [address]Zc# [phone] NEUTROPHIL ABS 3.70 K/CU MM Normal 2.0-8.3 [facility] Comment on above: Order Comment: Campu s: M Performed By: #### L 200.95105 ####[facility] [id number] [place] [address]Sx# [phone] Neutrophils/100 WBC Auto (Bld) 69.2 % Normal 45-75 [facility] Comment on above: Order Comment: Campu s: M Performed By: #### L 200.05103 ####[facility] [id number] [place] [address]Re# [phone] Nucleated RBC/100 WBC Ratio (Bld) 0.0 % Normal Less than 1 [facility] Comment on above: Order Comment: Campu s: M Performed By: #### L 200.80426 ####[facility] [id number] [place] [address]Qs# [phone] Platelet mean volume Auto Entitic volume (Bld) 11.1 fL Normal 9.4-12.4 [facility] Comment on above: Order Comment: Campu s: M Performed By: #### L 200.94905 ####[facility] [id number] [place], [place] [address]Ph# [phone] Platelets Auto #/vol (Bld) 312 K/CU MM Normal 150-450 [facility] Comment on above: Order Comment: Joselou s: M Performed By: #### L 200.34762 ####[facility] JINAUVKMWG5743 [place], [place] [address]Kb# [phone] RBC Auto #/vol (Bld) 4.19 M/CU MM Normal 3.90-5.30 [facility] Comment on above: Order Comment: Joselou s: M Performed By: #### L 200.99785 ####[facility] [id number] [place] [address]Hz# [phone] WBC Auto #/vol (Bld) 5.3 K/CU MM Normal 4.5-11.0 [facility] Comment on above: Order Comment: Joselou s: M Performed By: #### L 200.28368 ####[facility] [id number] [place] [address]In# [phone] GLU1HR W/GLUCOLon 03-05-2018 Glucose mass conc 160 mg/dL Normal LESS THAN 140 [facility] Comment on above: Order Comment: Herber s: M Performed By: #### L 500.59384 ####[facility] [id number] [place], [place] [address]Tf# [phone] HIV 1/2on 03-05-2018 HIV 1/O/2 QUAL NONREACTIVE Normal NONREACTIVE [facility] Comment on above: Order Comment: Herber s: M Result Comment: NONR EACTIVE: LESS THAN 1.0 INDEX VALUETHIS ASSAY DETECTS HIV p24 ANTIGEN AND ANTIBODIES TO HIV-1AND HIV-2 BY THE ADVIA Concept InboxAUR CHIV ASSAY. Performed By: #### L 540.36939 ####[facility] [id number] [place] [address]Uu# [phone] PATIENT RETYPEon 03-05-2018 RETYPE INTERP Positive Normal [facility] Comment on above: Order Comment: Herber s: M PCR GC AND CHLAMon 8 PCR CHLAMYDIA NOT DETECTED Normal NOT DETECTD [facility] Comment on above: Performed By: #### L 770.28116 ####[facility] [id number] [place], [place] [address]Lk# [phone] PCR GONORRHOEAE NOT DETECTED Normal NOT DETECTD [facility] Comment on above: Performed By: #### L 770.39548 ####[facility] GIVVHTLJDA3050 [place], [place] [address]Iu# [phone] POC URINE PREGon 03-05-2018 POC SPEC GRAV 1.010 Normal 1.005-1.030 [facility] Comment on above: Performed By: #### L 600.09343 ####[facility] [id number] [place], [place] [address]Cg# [phone] POC UR HCG QUAL Positive Normal NEGATIVE [facility] Comment on above: Performed By: #### L 600.48002 ####[facility] [id number] [place], [place] [address]Cs# [phone] RUBELLA IGG ABon 03-05-2018 RUBELLA IGG AB IMMUNE Normal [facility] Comment on above: Order Comment: Herber hawthorne: [...] to Rubella Virus. Performed By: #### L 705.03379 ####[facility] [id number] [place], [place] [address]Tf# [phone] T PALLIDUM SCRon 03-05-2018 T PALLIDUM SCR NON REACTIVE Normal NONREACTIVE [facility] Comment on above: Order Comment: Herber s: M Result Comment: SAMP LES WITH AN INDEX VALUE OF LESS THAN 0.90 ARE CONSIDEREDNONREACTIVE FOR SYPHILIS T.PALLIDUM ANTIBODIES. Performed By: #### L 200.41503 ####[facility] [id number] [place], [place] [address]Uy# [phone] TSon 03-05-2018 ABO and Rh group Nom (Bld) O POSITIVE Normal [facility] Comment on above: Order Comment: Herber s: M UA COMPLETEon 03-05-2018 UA LK ESTERASE 500 Normal NEGATIVE [facility] Comment on above: Performed By: #### L 600.91111 ####[facility] RKPIBFFRQR1557 [place], [place] [address]Zs# [phone] Color Nom (U) Yellow Normal [facility] Comment on above: Performed By: #### L 600.56216 ####[facility] HFGWFMXAWF7213 [place], [place] [address]Kg# [phone] Glucose mass conc (U) Negative Normal [facility] Comment on above: Performed By: #### L 600.03591 ####[facility] [id number] [place], [place] [address]Mh# [phone] MUCUS TRACE Normal [facility] Comment on above: Performed By: #### L 600.72976 ####[facility] SECJIUJIRP7603 [place], [place] [address]Kx# [phone] SQUAMOUS EPIS 8 EPI/HPF High 0-5 [facility] [facility] Comment on above: Performed By: #### L [id number] ####[facility] [id number] [place], [place] [address]Nm# [phone] UA APPEARANCE Hazy Normal CLEAR [facility] Comment on above: Performed By: #### L [id number] ####[facility] [id number] [place], [place] [address]Kb# [phone] UA BACTERIA 1+ /HPF Normal NONE [facility] Comment on above: Performed By: #### L [id number] ####[facility] [id number] [place], [place] [address]Md# [phone] UA BILIRUBIN Negative Normal [facility] Comment on above: Performed By: #### L [id number] ####[facility] [id number] [place], [place] [address]Km# [phone] UA BLOOD Negative Normal NEGATIVE [facility] Comment on above: Performed By: #### L [id number] ####[facility] [id number] [place] [address]Fl# [phone] UA KETONE Negative Normal [facility] Comment on above: Performed By: #### L [id number] ####[facility] [id number] [place] [address]Vd# [phone] UA NITRITE Negative Normal NEGATIVE [facility] Comment on above: Performed By: #### L [id number] ####[facility] [id number] [place] [address]Sc# [phone] UA PH 7.0 Normal [facility] Comment on above: Performed By: #### L 600.08999 ####[facility] [id number] [place] [address]Te# [phone] UA PROTEIN Negative Normal NEGATIVE [facility] Comment on above: Performed By: #### L [id number] ####[facility] [id number] [place] [address]Su# [phone] UA RBC 3 RBC/HPF Normal 0-3 [facility] Comment on above: Performed By: #### L 600.07813 ####[facility] [id number] [place] [address]An# [phone] UA SPEC GRAV 1.009 Normal 1.005-1.030 [facility] Comment on above: Performed By: #### L 600.85783 ####[facility] [id number] [place] [address]Mz# [phone] UA UROBILINOGEN Negative Normal [facility] Comment on above: Performed By: #### L 600.39947 ####[facility] [id number] [place], [place] [address]Cu# [phone] UA WBC 5 WBC/HPF Normal 0-5 [facility] Comment on above: Performed By: #### L [id number] ####[facility] [id number] [place], [place] [address]Cu# [phone] Vital Signs Date Time Vital Sign Value Performing Clinician Facility 02-12-2025 10:21-0400 Body mass index (BMI) [Ratio] 32.77 kg/m2 Daryl White MD Work Phone: [facility] 02-12-2025 10:21-040 Body weight 75.48 kg Daryl White MD Work Phone: [facility] 02-12-2025 10:21-0400 Diastolic blood pressure 60 mm[Hg] Daryl White MD Work Phone: [facility] 02-12-2025 10:21-0400 Systolic blood pressure 100 mm[Hg] Daryl White MD Work Phone: [facility] 01-27-2025 09:52-0400 Body mass index (BMI) [Ratio] 32.69 kg/m2 Hipolito Johnson MD Work Phone: [facility] 01-27-2025 09:52-0400 Body weight 75.3 kg Hipolito Johnson MD Work Phone: [facility] 01-27-2025 09:52-0400 Diastolic blood pressure 64 mm[Hg] Hipolito Johnson MD Work Phone: [facility] 01-27-2025 09:52-0400 Systolic blood pressure 102 mm[Hg] Hipolito Johnson MD Work Phone: [facility] 01-11-2025 09:17-0400 Body height 151.8 cm Pat Coats APRN.CNM Work Phone: [facility] 01-11-2025 09:17-0400 Body mass index (BMI) [Ratio] 33.28 kg/m2 Pat Coats APRN.CNM Work Phone: [facility] 01-11-2025 09:17-0400 Body weight 76.66 kg Patesvin Coats APRN.CNM Work Phone: [facility] 01-11-2025 09:17-0400 Diastolic blood pressure 68 mm[Hg] Pat Jorge L QUIROZ.CNM Work Phone: [facility] 01-11-2025 09:17-0400 Systolic blood pressure 110 mm[Hg] Pat Jorge L QUIROZ.CNM Work Phone: [facility] 07-10-2021 08:44-0500 Body temperature 98.78 [degF] HUGH CEBALLOS MD [facility] 07-10-2021 08:44-0500 Diastolic blood pressure 52 mm[Hg] HUGH CEBALLOS MD [facility] 07-10-2021 08:44-0500 Heart rate 77 /min HUGH CEBALLOS MD [facility] 07-10-2021 08:44-0500 Mean blood pressure 65 mm[Hg] HUGH CEBALLOS MD [facility] 07-10-2021 08:44-0500 Respiratory rate 16 /min HUGH CEBALLOS MD [facility] 07-10-2021 08:44-0500 Systolic blood pressure 90 mm[Hg] HUGH CEBALLOS MD [facility] 07-09-2021 23:30-0500 Body temperature 98.42 [degF] HUGH CEBALLOS MD [facility] 07-09-2021 23:30-0500 Diastolic blood pressure 58 mm[Hg] HUGH CEBALLOS MD [facility] 07-09-2021 23:30-0500 Heart rate 76 /min HUGH CEBALLOS MD [facility] 07-09-2021 23:30-0500 Mean blood pressure 72 mm[Hg] HUGH CEBALLOS MD [facility] 07-09-2021 23:30-0500 Respiratory rate 18 /min HUGH CEBALLOS MD [facility] 07-09-2021 23:30-0500 Systolic blood pressure 101 mm[Hg] HUGH CEBALLOS MD [facility] 07-09-2021 14:41-0500 Body temperature 98.24 [degF] HUGH CEBALLOS MD [facility] 07-09-2021 14:41-0500 Diastolic blood pressure 48 mm[Hg] HUGH CEBALLOS MD [facility] 07-09-2021 14:41-0500 Heart rate 77 /min HUGH CEBALLOS MD [facility] 07-09-2021 14:41-0500 Mean blood pressure 62 mm[Hg] HUGH CEBALLOS MD [facility] 07-09-2021 14:41-0500 Respiratory rate 20 /min HUGH CEBALLOS MD [facility] 07-09-2021 14:41-0500 Systolic blood pressure 90 mm[Hg] HUGH CEBALLOS MD [facility] 07-09-2021 11:40-0500 Signs/Symptoms Transfusion Reaction HUGH CEBALLOS MD [facility] 07-09-2021 10:41-0500 Heart rate 86 /min HUGH CEBALLOS MD [facility] 07-09-2021 10:41-0500 Signs/Symptoms Transfusion Reaction No HUGH CEBALLOS MD [facility] 07-09-2021 10:11-0500 Heart rate 83 /min HUGH CEBALLOS MD [facility] 07-09-2021 10:11-0500 Signs/Symptoms Transfusion Reaction HUGH CEBALLOS MD [facility] 07-08-2021 02:30-0500 Body temperature 96.8 [degF] HUGH CEBALLOS MD [facility] 07-08-2021 02:26-0500 Diastolic Blood Pressure NBP 68 1 HUGH CEBALLOS MD [facility] 07-08-2021 02:26-0500 Systolic Blood Pressure NBP 98 1 HUGH CEBALLOS MD [facility] 07-08-2021 02:23-0500 Diastolic Blood Pressure NBP 70 1 HUGH CEBALLOS MD [facility] 07-08-2021 02:23-0500 Systolic Blood Pressure NBP 105 1 HUGH CEBALLOS MD [facility] 07-08-2021 02:20-0500 Diastolic Blood Pressure NBP 66 1 HUGH CEBALLOS MD [facility] 07-08-2021 02:20-0500 Systolic Blood Pressure NBP 106 1 HUGH CEBALLOS MD [facility] 07-07-2021 22:07-0500 Body height 147.3 cm HUGH CEBALLOS MD [facility] 07-07-2021 22:07-0500 Body weight 65.9 kg HUGH CEBALLOS MD [facility] 07-07-2021 22:07-0500 Body weight 30.37 kg/m2 HUGH CEBALLOS MD [facility] 03-05-2018 15:59-0400 Body surface area Derived from formula NONREACTIVE Deysi [facility] Comment on above: Order Comment: [place]: Result Comment: RESU LTS WERE OBTAINED WITH THE Concept [employer] XP.VALUES OBTAINED WITH DIFFERENT MANUFACTURERS' ASSAY METHODSMAY NOT BE USED INTERCHANGEABLY. Performed By: #### L 540.81432 ####[facility] [id number] [place], [place] [address]Dv# [phone] Encounters Encounter Date Encounter Type Care Provider Facility Start: 03-01-2025 ambulatory [facility] Facility: [facility] Start: 02-12-2025 End: 02-12-2025 Patient encounter procedure Whi Tech 1 Gizzard Skin Remover Mfm Wstr [facility]aternal [facility] Comment on [...] Start: 01-27-2025 End: 01-27-2025 ambulatory PAT COATS Facility:[facility] Start: 01-27-2025 End: 01-27-2025 Patient [...] antena cheryl screening for malformation using ultrasound ([facility]) (Primary Dx); 34 weeks gestation of ([facility]); Encounter for ultrasound to check growth ([facility]) Start: 01-27-2025 End: 01-27-2025 ambulatory HIPOLITO JOHNSON Facility:[facility] Start: 01-12-2025 End: 01-27-2025 Telephone encounter Pat Coats APRN.CNM Work Phone: OB/Gynecology Comment on above: Results Start: 01-11-2025 End: 01-11-2025 ambulatory PAT COATS Facility:[facility] Start: 01-11-2025 End: 01-11-2025 ambulatory PAT COATS Facility:[facility] Start: 01-11-2025 End: 01-11-2025 Patient [...] Start: 12-25-2024 End: 12-25-2024 ambulatory PAT COATS Facility:[facility] Start: 10-01-2024 End: 10-01-[address] Jordyn Collins MD Work Phone: [facility] Work Phone: Start: 10-01-2024 End: 10-01-[address] Jordyn Collins MD -Ultrasound, [facility] Work Phone: Start: 10-01-2024 End: 10-01-2024 ambulatory Jordyn Collins Facility:[facility] Start: 07-07-2021 End: 07-10-2021 Evaluation and management of inpatient ALBINA PEDERSEN MD [facility] Start: 07-06-2018 Emergency department patient visit [facility] Facility:[facility] Start: 07-02-2018 Patient encounter procedure Melonie Castro Facility:[facility] Start: 05-13-2018 End: 05-14-2018 Evaluation and management of inpatient Hallie ACC Verchio Facility:[facility] Start: 05-07-2018 Patient encounter procedure David Harden Facility:[facility] Start: 04-30-2018 Patient encounter procedure Hallie ACC Verchio Facility:[facility] Start: 04-16-2018 End: 04-27-2018 Patient encounter procedure Hallie ACC Verchio Facility:[facility] Start: 04-16-2018 Patient encounter procedure Hallie ACC Verchio Facility:[facility] Start: 04-02-2018 Patient encounter procedure Hallie ACC Verchio Facility:[facility] Start: 03-19-2018 Patient encounter procedure Hallie Quinones Facility:[facility] Start: 03-19-2018 Patient encounter procedure Deysi Gomez Facility:[facility] Start: 03-05-2018 Patient encounter procedure Deysi Gomez Facility:[facility] Start: 03-05-2018 Patient encounter procedure Deysi Gomez Facility:[facility] Procedures Date Procedure Procedure Detail Performing Clinician [...] Speci men Type: BLOOD SPECIMEN Ordering Facility: [facility] Address: [address] [place] [address] Performed By: #### T SPN #### [facility] CLIA [id number] [address] [place], [place] [id number] [address] [place] Start: 01-11-2025 BACTERIAL [...] RSV Vaccine (1 - 1-dose 75+ series) [facility] Start: 05-02-2031 Urine microalbumin profile [facility] Start: 01-11-2030 Screening for malign ant neoplasm of cervix Cervical Cancer Screening [facility] Start: 03-29-2025 Influenza vaccination [facility] Start: 03-08-2025 End: 03-08-2025 Patient encounter procedure 03/08/2025 10:50 AM EDT Office Visit OB/Gynecology [address], [place] [id number] Skyla Pearl MD [address] [place] [address] 1 week incision check OB/Gynecology Comment on above: 1 week incision chec k Start: 02-24-2025 End: 02-24-2025 Patient encounter procedure 02/24/2025 9:00 AM EDT Routine Office Visit Maternal Medicine [address] [place] [id number] Growth [facility]aternal Medicine Comment on above: Growth Start: 02-15-2025 End: 02-15-2025 Patient encounter procedure 02/15/2025 10:50 AM EDT Routine Office Visit OB/Gynecology [address] [place] [address] Louisa Mazariegos MD [address] [place] [address] OB Pre Op C/S 03/01 @ [facility] OB/Gynecology Comment on above: OB Pre Op C/S 03/01 @ [facility] Start: 02-12-2025 End: 02-12-2025 Patient encounter procedure OB/Gynecology Comment on above: OB OB-Needs to schedule growth ultrasound Start: 01-27-2025 End: 01-27-2025 Patient encounter procedure 01/27/2025 8:30 AM EDT Routine Office Visit [facility]aternal [facility] [address] [place] [address] Anatomy [facility]aternal Medicine Comment on above: Anatomy Start: 01-25-2025 End: 01-25-2025 Patient encounter procedure 01/25/2025 1:10 PM EDT Routine Office Visit OB/Gynecology [address] [place] [address] Louisa Mazariegos MD [address] [place] [address] 1st OB - LMP 06/01/25 (Ok per triage nurse) OB/Gynecology Comment on above: 1st OB - LMP 06/01/25 (Ok per triage nurse) Start: 01-11-2025 End: 01-11-2026 OBSTETRIC ULTRASOUND WHI OBSTETRIC ULTRASOUND WHI Anc Imaging Routine with uncertain dates, antepartum (HCC) Expected: 01/11/2025, Expires: 01/11/2026 [facility] Work Phone: Comment on above: Expected: 01/11/2025 , Expires: 01/11/2026 Start: 01-11-2025 End: 01-11-2025 Patient encounter procedure 01/11/2025 8:45 AM EDT Initial Office Visit OB/Gynecology [address] [place] [address] Pat Coats APRN.[facility] [address] [place] [address] 1st OB - LMP 06/01/25 (Ok per triage nurse) OB/Gynecology Comment on above: 1st OB - LMP 06/01/25 (Ok per triage nurse) Start: 2024 Screening for malign ant neoplasm of breast Mammogram Screening [facility] Start: 03-29-2024 Covid-19 Vaccine ( season) Covid-19 Vaccine ( season) [facility] Start: 2005 Screening for malign ant neoplasm of cervix Cervical Cancer Screening [facility] Start: 11-10-2003 Hepatitis B Vaccine (1 of 3 - 19+ 3-dose series) Hepatitis B Vaccine (1 of 3 - 19+ 3-dose series) [facility] Start: 2002 Anxiety Screening Anxiety Screening [facility] Start: 2002 Depression Screening Depression Scre ening [facility] Start: 2002 Hepatitis C screening Hepatitis C Sc reening [facility] Start: 2002 HIV screening HIV Screening [facility] Bacteria identified in Urine by Culture BACTERIAL CULTURE, URINE Microbiology Routine Supervision of other high risk pregnancies, third trimester (HCC) 01/27/2025 10:24 AM EDT [facility] Work Phone: nonstress test NON-S TRESS TEST Procedures Routine Multigravida of advanced maternal age in second trimester (HCC) Ordered: 01/20/2025 [facility] Comment on above: Ordered: 01/20/2025 End: 05-13-2025 OBSTETRIC ULTRASOUND WHI OBSTETRIC ULTRASOUND WHI Anc Imaging Routine Multigravida of advanced maternal age in second trimester (HCC) Once per month for 4 Occurrences starting 01/20/2025 until 05/13/2025 [facility] Comment on above: Once per month [...] third trimester (HCC) 02/12/2025 10:34 AM EDT [facility] Work Phone: Immunizations Immunization Date Immunization Notes Care Provider [place] 05-02-2021 influenza virus vaccine, unspecified formulation Lynda Salcedo BUS MECHANIC.CNM Work Phone: [facility] 08-24-2019 tetanus toxoid, redu mellissa diphtheria toxoid, and acellular pertussis vaccine, adsorbed; Translations: [Boostrix (Tdap)] HUGH CEBALLOS MD [facility] Comment on above: Result Comment: vari fied by Reagan White (RNC) 06-27-2016 influenza, injectabl e, quadrivalent, preservative free HUGH CEBALLOS MD [facility] Payers Date Payer Category Payer Self-pay Unknown [id number] 2.16.8 [id number] Unknown [id number] 2.16.8 [id number] Unknown [id number] 2.16.8 [id number] Unknown [id number] 2.16.8 [id number] Unknown [id number] 2.16.8 [id number] Unknown [id number] 2.16.8 [id number] Unknown [id number] 2.16.8 [id number] Unknown [id number] 2.16.8 [id number] Unknown [id number] 2.16.8 [id number] Unknown [id number] 2.16.8 [id number] Unknown [id number] 2.16.8 [id number] Unknown [id number] 2.16.8 [id number] Unknown [id number] 2.16.8 [id number] Unknown [id number] 2.16.8 [id number] Unknown [id number] 2.16.8 [id number] Social History Date Type Detail Facility Start: 01-09-2017 End: 01-11-2025 Never smoked tobacco (finding) [facility] Sex Assigned At [facility] Start: 10-15-2024 Sex Female (finding) [facility] Start: 1985 Sex Assigned At Female [facility] Tobacco smoking stat [facility] Tobacco smoking consumption unknown [facility] Start: 12-25-2024 End: 01-11-2025 History of Social function [facility] Start: 12-25-2024 End: 01-11-2025 Area Deprivation Index [facility] National Score (1-10 0), lower number is lower risk 57 [facility] Start: 1985 Sex assigned at Not on file [facility] Start: 01-11-2025 Tobacco use and exposure Smoke less tobacco non-user [facility] Start: 01-11-2025 End: 02-12-2025 Alcoholic beverage intake Lifetime non-drinker (finding) [facility] Start: 06-15-2024 [facility] Clinical Notes 05-04-2021 to 02-12-2025 Daryl [...] Daryl White MD documented in this encounter [facility] 02-12-2025 Progress note Formatting of t his note might be different from the original. KJ - S: Lety denies LOF or vaginal bleeding. She reports irregular ctxs. O: 36w4d, see flow sheet SENSITIVE EXAM: The sensitive examination was discussed with the Patient or Patient's Authorized [employer] Worker. As applicable, any other physician, advance practice provider, medical student, or other health professional student that will be observing or involved in the sensitive examination for educational or training purposes was discussed with the Patient or Authorized [employer] Worker. The Patient or Authorized [employer] Worker has agreed to proceed with the sensitive examination. (Sensitive examination includes inspection and/or palpation of the breasts, pelvis, prostate and anorectal regions). A/P: Assessment & Plan 36 weeks gestation of ([facility]) Orders: URINE OB DIP B/O ROUTINE, GROUP B STREPTOCOCCUS BY PCR Supervision of other high risk pregnancies, third trimester ([facility]) Orders: URINE OB DIP B/O ROUTINE, GROUP B STREPTOCOCCUS BY PCR Abnormal glucose in , antepartum ([facility]) Orders: URINE OB DIP B/O ROUTINE, GROUP B STREPTOCOCCUS BY PCR History of section, low transverse Repeat scheduled. Orders: URINE OB DIP B/O ROUTINE, GROUP B STREPTOCOCCUS BY PCR Multigravida of advanced maternal age in third trimester ([facility]) NST today with late appearing decel. BPP 03/05. Repeat NST Saturday. Growth US scheduled Orders: URINE OB DIP B/O ROUTINE, GROUP B STREPTOCOCCUS BY PCR OBSTETRIC ULTRASOUND WHI; Future Language barrier Orders: URINE OB DIP B/O Reviewed labor & FM precautions Daryl White MD [facility] 02-12-2025 Miscellaneous Notes KJ - S: Lety denies LOF or vaginal bleeding. She reports irregular ctxs. O: 36w4d, see flow sheet SENSITIVE EXAM: The sensitive examination was discussed with the Patient or Patient's Authorized [employer] Worker. As applicable, any other physician, advance practice provider, medical student, or other health professional student that will be observing or involved in the sensitive examination for educational or training purposes was discussed with the Patient or Authorized [employer] Worker. The Patient or Authorized [employer] Plant Worker has agreed to proceed with the sensitive examination. (Sensitive examination includes inspection and/or palpation of the breasts, pelvis, prostate and anorectal regions). A/P: Assessment & Plan 36 weeks gestation of ([facility]) Orders: URINE OB DIP B/O ROUTINE, GROUP B STREPTOCOCCUS BY PCR Supervision of other high risk pregnancies, third trimester ([facility]) Orders: URINE OB DIP B/O ROUTINE, GROUP B STREPTOCOCCUS BY PCR Abnormal glucose in , antepartum ([facility]) Orders: URINE OB DIP B/O ROUTINE, GROUP B STREPTOCOCCUS BY PCR History of section, low transverse Repeat scheduled. Orders: URINE OB DIP B/O ROUTINE, GROUP B STREPTOCOCCUS BY PCR Multigravida of advanced maternal age in third trimester ([facility]) NST today with late appearing decel. BPP 03/05. Repeat NST Saturday. Growth US scheduled Orders: URINE OB DIP B/O ROUTINE, GROUP B STREPTOCOCCUS BY PCR OBSTETRIC ULTRASOUND WHI; Future Language barrier Orders: URINE OB DIP B/O Reviewed labor & FM precautions Daryl White MD documented in this encounter [facility] 02-12-2025 Instructions Lita Arriola MA - 02/12/2025 10:14 AM EDT SEQUENTIAL SCREENINGS The [facility] offers sequential screenings for women who [...] It will require an appointment with our accessibility lift technician. This is not an ultrasound performed [...] the above symptoms, contact our office at [phone] and ask to speak with a nurse. After hours, you can call doctors registry at [phone] OR call [facility] at [phone] and ask to have the doctor senior operations manager paged. If you consider this an emergency, dial 9-1-0 or go to your nearest emergency department. NEED HELP? Are you dealing with a violent or abusive relationship? Are you a victim of rape or sexual assult? Call [facility] ([place]) 24 hour Crisis Hotline: 211.407.9467 or 883-998-2653. MANUAL Your Guide to a Healthy manual is now on-line. Visit [email or web address] [email or web address] to download your free copy documented in this encounter [facility] 02-05-2025 Telephone encounter Note 02/12 appt notes update to schedule growth us. Jany Clarke RN [facility] 02-05-2025 Miscellaneous Notes 02/12 appt notes update to schedule growth us. Jany Clarke RN Attempted to contact patient with the assistance of [employer] clinical research associate, ID #[id number]. Patient did not answer, voicemail left to contact office for results and instructions. Gemma Uribe RN Images from the original note were not included. Pat Coats APRN.CNM P Wstr Ob-Ux Lead Pool Anatomy ultrasound reviewed. No abnormalities identified. Growth ultrasound in four weeks, please assist in scheduling. Please place copy in OB chart. Pat Coats APRN.CNM documented in this encounter [facility] 01-27-2025 Telephone encounter Note Attempted to contact patient with the assistance of [employer] clinical research associate, ID #[id number]. Patient did not answer, voicemail left to contact office for results and instructions. Gemma Uribe RN [facility] 01-27-2025 Telephone encounter Note Images from the original note were not included. Pat Coats APRN.CNM P Ws Ob-Ux Lead Pool Anatomy ultrasound reviewed. No abnormalities identified. Growth ultrasound in four weeks, please assist in scheduling. Please place copy in OB chart. Pat Coats APRN.CNM [facility] 01-27-2025 Note HNO ID: [id number] Author: HIPOLITO JOHNSON MD Service: ? Author Type: Physician Type: Progress Notes Filed: 01/27/2025 10:11 Note Text: Abnormal 1 hr need 3 hr gtt will schedule Hipolito Johnson MD [facility] 01-27-2025 History of Present illness Narrative Abnormal 1 hr need 3 hr gtt will schedule Hipolito Johnson MD documented in this encounter [facility] 01-27-2025 Telephone encounter Note Iron supplement sent. Pat Phillips APRN.CNM [facility] 01-27-2025 Miscellaneous Notes Iron supplement sent. [...] to contact patient with the assistance of [facility] [facility] clinical research associate. Spoke with [facility] who was unable to connect this nurse with an clinical research associate at this time after a long wait time. Will need to try again later. Skyla Bauer RN 32w1d Called patient with the assistance of reclamation furnace operatorLandy at [facility]. We were able to talk with patient and the patient seemed to be having difficulty with what was being said. It was then that the Corporate Director Talent Assessment told this nurse the patient stated that her preferred language is Quiche. [facility] with [facility] clinical research associateAlyce #[id number] Attempted to talk with patient. No answer [...] COUNT AND DIFFERENTIAL documented in this encounter [facility] 01-27-2025 Progress note Formatting of t his note might be different from the original. Multip at 34 weeks 2 days reporting ++FM No bleeding or ctrx or egress of fluid C/o SI discomfort Visit done with clinical research associate no questions or concerns rto 2 weeks Hipolito Johnson MD [facility] 01-27-2025 Miscellaneous Notes Multip at 34 weeks 2 days reporting ++FM No bleeding or ctrx or egress of fluid C/o SI discomfort Visit done with clinical research associate no questions or concerns rto 2 weeks Hipolito Johnson MD documented in this encounter [facility] 01-27-2025 Telephone encounter Note Patient here in the office for an appointment. Reviewed 3 hour glucose results, anemia, and C/S dates/times. Patient needs a prescription for iron supplement sent to their pharmacy. Can you please send? Thank you. Skyla Bauer RN [facility] 01-22-2025 Telephone encounter Note 01/25 appointment note made to review results. Skyla Bauer RN [facility] 01-20-2025 Telephone encounter Note Attempted to contact patient with the assistance of [employer] clinical research associate. Spoke with [employer] who was unable to connect this nurse with an clinical research associate at this time after a long wait time. Will need to try again later. Skyla Bauer, RN [facility] 01-19-2025 Progress note Formatting of t his note might be different from the original. ANURADHA-NOB, late to care. US done at [facility], verify dating at anatomy US. PN labs today. Requested C/S reports, planning repeat C/S. Pat Coats APRN.CNM [facility] 01-19-2025 Miscellaneous Notes ANURADHA-NOB, late to care. US done at [facility], verify dating at anatomy US. PN labs today. Requested C/S reports, planning repeat C/S. Pat Coats APRN.CNM documented in this encounter [facility] 01-12-2025 Telephone encounter Note 32w1d Called patient with the assistance of reclamation furnace operatorLandy at [facility]. We were able to talk with patient and the patient seemed to be having difficulty with what was being said. It was then that the Corporate Director Talent Assessment told this nurse the patient stated that her preferred language is Quiche. [facility] with [facility] clinical research associateAlyce #[phone] Attempted to talk with patient. No answer [...] TUBE JOAN; COMPLETE BLOOD COUNT AND DIFFERENTIAL [facility] 01-11-2025 Note HNO ID: [id number] Author: PAT COATS APRN.ANKUR Service: ? 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 No pertinent past [...] discussed with the Patient or Patient's Authorized Compressed Gas Plant Worker. As applicable, any other p (more content not included)... 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 No pertinent past [...] discussed with the Patient or Patient's Authorized Compressed Gas Plant Worker. As applicable, any other physician, advance practice provider, medical student, or other health professional student that will be observing or involved in the sensitive examination for educational or training purposes was discussed with the Patient or Authorized Compressed Gas Plant Worker. The Patient or Authorized Compressed Gas Plant Worker has agreed to proceed with the sensitive [...] Pat Coats APRN.CNM documented in this encounter [facility] 01-11-2025 Instructions Wade Arteaga MA - 01/11/2025 8:55 AM EDT Please select the following link to access the [facility] Your Guide to a Healthy . [email or web address] documented in this encounter [facility] 01-06-2025 Telephone encounter Note Phone call placed to Corporate Director Talent Assessment Services number [phone] [address] complete three way call to update New OB intake questions, no answer. Corporate Director Talent Assessment left message for patient to arrive thirty minutes prior to scheduled visit on 01/11/2025 to complete intake, LMP on schedule 06/01/2024. Kuldeep Rdz LPN [facility] 01-06-2025 Miscellaneous Notes Phone call placed to Corporate Director Talent Assessment Services number [phone] call to update New OB intake questions, no answer. Corporate Director Talent Assessment left message for patient to arrive thirty minutes prior to scheduled visit on 01/11/2025 to complete intake, LMP on schedule 06/01/2024. Kuldeep Rdz LPN documented in this encounter [facility] 10-02-2024 Radiology Diagnostic study note [facility] Imaging Services [address] [place] [address] OB Limited With Biometrics MR#: [id number] Acct: [id number] Name: LETY [place] Rep #: [id number] : 1985 F 38 From: Ibrahima Whitlock MD PCP: Dr. Jordyn Collins MD Status: REG CLI Study:OB Limited With Biometrics Date of Exam : 10/01/24 Exam# [id number] Ordering Dr: Elyssa Collins MD PROCEDURE: OB [...] of 18 weeks and 4days. Reading Location: [id number] CC: Dr. Jordyn Collins MD ~ Fabrication Operator: Signed [facility] 08-30-2021 Note . MICRO - Microbiology PROCEDURE: [...] Locations *1: This test was performed at: [address], [facility] , [facility] ([place]) 07-10-2021 Hospital Discharge instructions Patient Education 07/10/2021 10:52:00 Hypertension(Urdu) Hipertensi n posparto Hypertension La hipertensi n [...] usted. Siga estas indicaciones en [place] casa: [place] los medicamentos de venta lisa y los [...] se lo haya indicado el m dico. [place] es importante. Comun quese con un m [...] son debilidad o entumecimiento en un brazo. [place] sucede de repente y generalmente en un [...] fin reemplazar el consejo del m dico. [facility] rese de hacerle al m dico cualquier pregunta que tenga. Document Released: 04/29/2015 Document Revised: 10/25/2018 Document Reviewed: 07/06/2018 Elsevier Patient Education 2020 [employer] 07/10/2021 10:51:47 Care After Delivery(Urdu) Cuidados en el postparto luego de un parto por sarath ercik Care After Delivery Maddy esta informaci n sobre c mo cuidarse desde el momento en que nazca [place] beb y hasta 6 a 12 semanas despu s del parto (per odo del posparto). El m dico tambi n podr darle indicaciones m s espec ficas. Comun quese con el m dico si tiene problemas o preguntas. Siga estas indicaciones en [place] casa: Medicamentos [place] los medicamentos de venta lisa y los [...] hinchaz n. ?No extraiga (saque) leche materna. [place] nabila que produzca m s leche. Intimidad y sexualidad Preg ntele al m dico cu ndo puede retomar la actividad sexual. [place] puede depender de lo siguiente: ?Riesgo de [...] ?Arroz integral. ?Frijoles. ?Frutas y verduras frescas. [place] yunior vitaminas prenatales hasta la visita de [...] 07/15/2006 Document Revised: 04/15/2019 Document Reviewed: 04/15/2019 [employer] Patient Education 2020 [email or web address]. Follow Up Care 07/07/2021 21:31:44 With:BREAD WRAPPING MACHINE FEEDER, CLINIC Address: When:08/21/2021 [facility] 07-02-2021 Note . MICRO - Microbiology PROCEDURE: [...] Locations *1: This test was performed at: [facility], [address] [place] [address], [facility]- , [facility] ([place]) 05-04-2021 Note . MICRO - Microbiology PROCEDURE: [...] Locations *1: This test was performed at: [facility], [address] [place] [address], [facility]- , [facility] ([place]) Comment on above: Performed By: #### C BC, ADIFF, ANEU, GLU1P, HBSAG, HCV1, HIV, ABOGEL, ABSGEL, VARIS, RUBIS, RPR #### [place] [id number] Evaluation + Plan note No data available for this section [facility] Evaluation note No assessment inform ation available [facility] Work Phone: Evaluation note Diagnosis with uncertain [...] of advanced maternal age in second trimester ([facility]) [facility] Diagnosis Supervision of other high risk pregnancies, third trimester ([facility])- Primary History of section, low transverse Other postprocedural status Multigravida of advanced maternal age in third trimester ([facility]) Insufficient care in third trimester ([facility]) Language barrier Social maladjustment 34 weeks gestation of ([facility]) state, incidental documented in this encounter [facility] note* Diagnosis Encounter for screening for malformation using ultrasound ([facility])- Primary 34 weeks gestation of ([facility]) state, incidental Encounter for ultrasound to check growth ([facility]) Encounter for routine screening for malformation using ultrasonics documented in this encounter [facility] note* Diagnosis 36 weeks gestation of ([facility])- Primary state, incidental Supervision of other high risk pregnancies, third trimester ([facility]) Abnormal glucose in , antepartum ([facility]) Abnormal maternal glucose tolerance, antepartum History of section, low transverse Other postprocedural status Multigravida of advanced maternal age in third trimester ([facility]) Language barrier Social maladjustment Multigravida of advanced maternal age in third trimester ([facility])- Primary 36 weeks gestation of ([facility]) state, incidental * Assessment & Plan Note - Daryl White MD - 02/12/2025 12:20 PM EDTAssociated Problem(s): Multigravida of advanced maternal age in third trimester ([facility]) NST today with late appearing decel. BPP 03/05. Repeat NST Saturday. Growth US scheduled Orders: URINE OB DIP B/O ROUTINE, GROUP B STREPTOCOCCUS BY PCR OBSTETRIC ULTRASOUND WHI; Future * Assessment & Plan Note - Daryl White MD - 02/12/2025 11:35 AM EDTAssociated Problem(s): Supervision of other high risk pregnancies, third trimester ([facility]) Orders: URINE OB DIP B/O ROUTINE, GROUP [...] OB DIP B/O [facility] Diagnosis 36 weeks gestation of ([facility])- Primary state, incidental Supervision of other high risk pregnancies, third trimester ([facility]) Abnormal glucose in , antepartum (HCC) Abnormal maternal glucose tolerance, antepartum History of section, low transverse Other postprocedural status Multigravida of advanced maternal age in third trimester ([facility]) Language barrier Social maladjustment Multigravida of advanced maternal age in third trimester (HCC)- Primary 36 weeks gestation of (HCC) state, incidental [facility] (narrative)No reason for referral information availableWMarietta [facility] Work Phone: Reason for visit Narrative* Financial Clearance (Routine) - Authorized Specialty Diagnoses / Procedures Referred By Contac t Referred To Contact Diagnoses FINANCIAL CLEARANCE Procedures FINANCIAL CLEARANCE [facility] [address] [place] [address] Phone: tel: [facility] [place] [address] Referral ID Status Reason Start Date Expiration Date Visits Requested Visits Authorized [id number] Authorized Patient Cleared - Qualified 100% FAS 12/25/2024 03/25/2025 99 99 [facility] Summary Purpose Family History No Family [...] section and content) DATE CREATED AUTHOR 07/08/2018 [facility] [place] DATE CREATED AUTHOR AUTHOR'S ORGANIZ ATION 07/10/2018 [facility] [place] DATE CREATED AUTHOR AUTHOR'S ORGANIZ ATION 09/20/2021 [facility] DATE CREATED AUTHOR AUTHOR'S ORGANIZ ATION 01/17/2025 [facility] DATE CREATED AUTHOR AUTHOR'S ORGANIZ ATION 01/29/2025 [facility] Care Teams (unrecognized sec tion and content) [...] or prosecute any alcohol or drug abuse patient.[facility] Hospital[facility] the event this information is protected by the Federal Confidentiality of Alcohol and Drug Abuse Patient Records regulations: The Federal rules restrict any use of the information to criminally investigate or prosecute any alcohol or drug abuse patient.[facility] Hospital[facility] the event this information is protected by the Federal Confidentiality of Alcohol and Drug Abuse Patient Records regulations: The Federal rules restrict any use of the information to criminally investigate or prosecute any alcohol or drug abuse patient.[facility] HospitalIn the event this information is protected by the Federal Confidentiality of Alcohol and Drug Abuse Patient Records regulations: The Federal rules restrict any use of the information to criminally investigate or prosecute any alcohol or drug abuse patient.[facility] HospitalIn the event this information is protected by the Federal Confidentiality of Alcohol and Drug Abuse Patient Records regulations: The Federal rules restrict any use of the information to criminally investigate or prosecute any alcohol or drug abuse patient.[facility] HospitalIn the event this information is protected by the Federal Confidentiality of Alcohol and Drug Abuse Patient Records regulations: The Federal rules restrict any use of the information to criminally investigate or prosecute any alcohol or drug abuse patient.[facility] HospitalIn the event this information is protected by the Federal Confidentiality of Alcohol and Drug Abuse Patient Records regulations: The Federal rules restrict any use of the information to criminally investigate or prosecute any alcohol or drug abuse patient.[facility] HospitalIn the event this information is protected by the Federal Confidentiality of Alcohol and Drug Abuse Patient Records regulations: The Federal rules restrict any use of the information to criminally investigate or prosecute any alcohol or drug abuse patient.[facility] Reason for Visit (unrecogniz ed section and content) Reason Comments US Specialty Diagnoses / Procedures Referred By Contac t Referred To Contact [facility] Diagnoses Multigravida of advanced maternal age in third trimester (HCC) Procedures OBSTETRIC ULTRASOUND WHI US PREG UTERUS AFTER 1ST TRIMEST GESTATION Daryl White MD [address] [place] [address] Phone: tel: fax: [place] [id number] [place] [address] Referral ID Status Reason Start Date Expiration Date Visits Requested Visits Authorized [id number] New Request Auto-Generat ed Referral 02/12/2025 02/12/2026 1 1 Reason Comments Initial OB Visit Specialty Diagnoses / Procedures Referred By Contac t Referred To Contact Diagnoses FINANCIAL CLEARANCE Procedures FINANCIAL CLEARANCE [facility] [address] [place] [address] Phone: tel: [facility] [phone] Referral ID Status Reason Start Date Expiration Date Visits Requested Visits Authorized [id number] Authorized Patient Cleared - Qualified 100% FAS 12/25/2024 03/25/2025 99 99 Reason Comments Results Reason Comments US Specialty Diagnoses / Procedures Referred By Contac t Referred To Contact Diagnoses FINANCIAL CLEARANCE Procedures FINANCIAL CLEARANCE [facility] [address] [place] [address] Phone: tel: [facility] [phone] Referral ID Status Reason Start Date Expiration Date Visits Requested Visits Authorized [id number] Authorized Patient Cleared - Qualified 100% FAS 12/25/2024 03/25/2025 99 99 Reason Comments Follow Up Reason Onset Date Comments Care 02/12/2025 Specialty Diagnoses / Procedures Referred By Contac t Referred To Contact [facility] Diagnoses Multigravida of advanced maternal age in third trimester (HCC) Procedures OBSTETRIC ULTRASOUND WHI US PREG UTERUS AFTER 1ST TRIMEST 1/1ST GESTATION Daryl White MD [address] [place] [address] Phone: tel: fax: [facility] [address] [place] [address] Referral ID Status Reason Start Date Expiration Date Visits Requested Visits Authorized [id number] New Request Auto-Generat ed Referral 02/12/2025 02/12/2026 [...] BE BASED ON THE PRIMARY CLINICAL RECORDS. [facility]. provides no warranty or guarantee of the accuracy or completeness of information in this document.
[2025-02-13 15:52] LABS: Hematocrit 33.6 % (37-47); Hemoglobin 11.0 g/dL (12.0-15.0); Immature Granulocytes Count 0.020 X10^3/uL (0.0-0.0); Mean Corp Hgb Conc 32.7 g/dL (32-36); Mean Corpuscular Volume 78.7 fL (81-99); Mean Platelet Vol. 11.9 fl (6.2-12.0); NRBC Flagged by Analyzer 0 % (0-5); Platelet Count 252 K/mm3 (150-450); RBC Distribution Width CV 19.2 % (11.6-14.6); RBC Distribution Width SD 53.7 fl (35.1-43.9); Red Blood Count 4.27 M/mm3 (4.2-5.4); White Blood Count 8.1 K/mm3 (4.4-11.0)
--- NOTE | 2025-02-13 16:17 | HP.PCM.OB_ITS ---
HPI - General General Date of Admission: 02/13/25 Date of Service: 02/13/25 Chief Complaint: labor HPI Narrative JOAQUIN HUGGINS, is a 39 F who presents in active labor at 4-5 cm. Hx of 2 previous c-sections for repeat. Maternal Data Information Final MAMADOU: 03/08/25 Gestational age: 36+5 PFSH PFSH Home Medications ?Medication ?Instructions ?Recorded ?Last Taken ?Type acetaminophen 300 mg-codeine 30 mg 1 tab PO Q4H PRN SC N Pain ##14 01/09/17 Unknown Rx tablet ascorbic acid (vitamin C) 500 mg 500 mg PO QODAY vitam in 02/13/25 02/12/25 09:00 History tablet (Vitamin C) 500 mg ferrous sulfate 325 mg (65 mg 325 mg PO QODAY anemia 0 02/13/25 02/12/25 20:00 History iron) tablet,delayed release 325 mg Allergy/AdvReac Type Severity Reaction Status Date / Time No Known Allergies Allergy Verified 01/09/17 02:54 Surgical History Previous section Social History Smoking Status: Never smoker History 6 Elective abortions Hx Para 4 Spontaneous abortions Hx # Term Pregnancies Ectopic pregnancies Hx # Pregnancies Multiple births # of living children NST FHR Rate Baby A Baseline: 150 Variability:: Moderate Accelerations:: 15 x 15 Decelerations:: None NST Reactive:: Yes Uterine Activity:: irregular ROS Constitutional Constitutional: Denies fatigue, fever(s) or malaise Eyes Eyes: Denies change in vision ENT HEENT: Denies dizziness or headache(s) Cardiovascular Cardiovascular: Denies chest pain, dyspnea or lightheadedness Respiratory/Chest Respiratory/Chest: Denies cough or dyspnea Gastrointestinal Gastrointestinal: Denies change in bowel habits Genitourinary Genitourinary: Denies burning urination or genital lesions Integumentary Integumentary: Denies rash Neurologic Neurologic: Denies confusion, dizziness, headache(s), numbness or weakness Vital Signs Vital Signs Vital Signs: 02/13/25 15:12 02/13/25 15:12 02/13/25 15:12 Temperature Temperature Source Temporal Pulse Rate 74 Respiratory Rate Blood Pressure 101/58 L BP Systolic 101 BP Diastolic 58 Pulse Ox 02/13/25 15:12 02/13/25 15:12 02/13/25 15:13 Temperature 98.7 F Temperature Source Pulse Rate 77 Respiratory Rate 18 Blood Pressure BP Systolic BP Diastolic Pulse Ox 02/13/25 15:13 Temperature Temperature Source Pulse Rate Respiratory Rate Blood Pressure BP Systolic BP Diastolic Pulse Ox 93 Physical Exam Const alert and no apparent distress General Appearance: cooperative HEENT normocephalic Resp normal respiratory effort Cardio regular rate GI soft to palpation GI Narrative: gravid, nontender, appropriate for gestational age Extremity no calf tenderness General Extremity: edema Skin no wounds Rashes: No rashes noted Psych activity/motor behavior normal Labs Labs Labs: Blood Type O POSITIVE Antibody Screen Pending Hct 33.6 % (37-47) L Hgb 11.0 g/dL (12.0-15.0) L Obstetrics Ultrasound Syphilis Total Ab Pending Assessment & Plan (1) Previous section complicating : (2) 36 weeks gestation of : (3) Active labor: PLAN: Plan repeat
[2025-02-13 16:40] LABS: AST(SGOT) 28 U/L (<=31); Uric Acid 3.5 mg/dL (2.6-6.0)
[2025-02-13 16:42] LABS: Alanine Aminotransfer ALT/SGPT 11 U/L (<=34); Syphilis Antibodies Nonreactive (Nonreactive)
[2025-02-13 17:06] LABS: Creatinine, Urine (random) 38.90 mg/dL (28.00-217.00); Protein, Urine (Random) 8.5 mg/dL (0.0-12.0); Protein:Creat Ratio 218 mg/g CRE (0-200)
--- NOTE | 2025-02-13 17:39 | EX.PCM.OBRPT ---
Assessment & Plan (1) 36 weeks gestation of : (2) Previous section complicating : (3) S/P : Maternal Data Information Final MAMADOU: 03/08/25 Gestational age: 36+5 Operative Report (OB) Details Procedure Type: low transverse Date of Procedure: 02/13/25 Procedure Start Time: 17:01 Procedure Stop Time: 17:30 Time of Delivery: 17:04 Pre-Operative Diagnosis: Repeat Elective Post-Operative Diagnosis: Same as Pre-operative diagnosis Classification: MANUEL Type of Anesthesia: Spinal Antibiotic Given: Ancef 2 grams IV x1 Drain: Condon to straight drain Estimated Blood Loss: 800 cc Fluids Replaced: 1000 cc Findings Description of surgery: Patient taken to the OR with spinal and Condon were placed. She was prepped and draped in the normal sterile fashion. A Pfannenstiel incision was made and carried down to the underlying fascia. The fascia was incised in the midline and extended laterally. The fascia was dissected from the muscle. The muscles divided in the midline. The peritoneum was entered bluntly and extended manually. A bladder blade was placed. A bladder flap was created. A low transverse incision was made and extended bluntly. The head was elevated to the incision. The shoulders delivered easily. There was a cord around the neck x 1. The cried upon delivery. The cord was cut and clamped. The placenta was delivered with franki traction. The uterus was exteriorized and cleared of all clot and debris. The incision was repaired with 1-0 Vicryl x 2. The uterus was returned the abdomen. The gutters were cleared of all clots. The peritoneum was closed with 2-0 Monocryl. The fascia was closed with 1-0 Vicryl. The subcutaneous tissue was reapproximated with 2-0 Monocryl The skin was closed with 4-0. I performed the major parts of the procedure with the RFNA assisting with retraction and closing the skin. The sponge lap and needle count was correct x 2 Surgical findings: normal uterus and tubes Presentation: Vertex and ELI Amniotic Membrane Rupture Type: Artificial Amniotic Fluid Description: Clear Placental Delivery Description: Expressed Placenta Disposition: [facility] Specimen collected: No Cord Vessel Description: 3 Vessels Cord Entanglement: Around neck x 1, loose Nuchal Cord Compression: Without compression A gender: Male (1 minute): 9 (5 minute): 9 Delayed Cord Clamping: Yes Office Engineer waxing machine operator helper: Yes Heavy Duty Press Operator: Calli Maguire Tasks completed by economic research assistant: Opening & closing and Retracting Complications Complications: No
[2025-02-13] MEDS: Oxytocin 15 Units/NS 250ml 15 UNITS/250 ML IV.SOLN 83 UNITS IV (17:50)
[2025-02-13] MEDS: Lactated Ringers 500 ML 999 ML IV (18:01)
[2025-02-13] MEDS: Ketorolac 30 MG/ML Syringe IV (18:44)
[2025-02-13] MEDS: Lactated Ringers 1,000 ML 100 ML IV (21:32)
[2025-02-14] VITALS (8 sets, daily range): BP systolic 71–89; BP diastolic 37–67; PULSE 60–92; RESP 16; TEMP 36.3–37.2; O2SAT 96–100
[2025-02-14] MEDS: Ketorolac 30 MG/ML Syringe IV ×3 (01:01→13:41)
[2025-02-14] MEDS: 0.9% Saline Lock 10 ML Syringe IV ×2 (01:04→13:41)
--- NOTE | 2025-02-14 02:49 | NURSING ---
Post op ambulation greater than 8 hours d/t patient blood pressures running low and risk of patient safety at current time.
--- NOTE | 2025-02-14 04:13 | NURSING ---
This RN discussed POC with charge machine operator of not removing roque catheter at 0500 (12 hours post op) due to patient urine output borderline inadequate of 30 ml/hr. Plan is to discuss POC with Dr. Pearl this AM of roque catheter and post op ambulation time frame.
[2025-02-14] MEDS: Lactated Ringers 1,000 ML 150 ML IV (04:37)
[2025-02-14 06:15] LABS: Hematocrit 31.1 % (37-47); Hemoglobin 10.0 g/dL (12.0-15.0); Mean Corp Hgb Conc 32.2 g/dL (32-36); Mean Corpuscular Volume 79.9 fL (81-99); Mean Platelet Vol. 11.6 fl (6.2-12.0); Platelet Count 219 K/mm3 (150-450); RBC Distribution Width CV 19.5 % (11.6-14.6); RBC Distribution Width SD 55.0 fl (35.1-43.9); Red Blood Count 3.89 M/mm3 (4.2-5.4); White Blood Count 9.1 K/mm3 (4.4-11.0)
--- NOTE | 2025-02-14 07:18 | PCM.PN.OB ---
Subjective Subjective Doing well. Ambulating and voiding without difficulty. Mild lochia. Breast feeding and bottle feeding. BP low but asymptomatic. Hgb 10 down from 11 Objective Data Objective Data Vital Signs: Vital Signs Temp Pulse Resp BP Pulse Ox O2 Del Method 97.7 F L 77 16 76/44 L 100 Room Air 02/14/25 06:02 02/14/25 06:02 02/14/25 06:02 02/14/25 06:02 02/14/25 06:02 02/14/25 06:02 Oxygen Delivery Method Room Air Intake & Output: Intake and Output for Last 24 Hours 02/12/25 02/13/25 02/14/25 23:59 23:59 23:59 Intake Total 1871.67 / 1871.67 878.33 / 878.33 Output Total 1450 / 1450 300 / 300 Balance 421.67 / 421.67 578.33 / 578.33 Lab / Micro Data 02/14/25 05:50 02/13/25 15:40 Labs: Laboratory Results - last 24 hr 02/13/25 15:40: WBC 8.1, RBC 4.27, Hgb 11.0 L, Hct 33.6 L, MCV 78.7 L, MCH 25.8 L, MCHC 32.7, RDW Std Deviation 53.7 H, RDW Coeff of Rebeca 19.2 H, Plt Count 252, MPV 11.9, Immature Gran % (Auto) 0.200, Neut % (Auto) 67.9, Lymph % (Auto) 23.0, [place] % (Auto) 8.1, Eos % (Auto) 0.6, Baso % (Auto) 0.2, Absolute Neuts (auto) 5.5, Absolute Lymphs (auto) 1.85, Nucleated RBC % 0, Creatinine 0.42 L, Est GFR (MDRD) Non-Af 127, Uric Acid 3.5, AST 28, ALT 11, U Random Total Protein 8.5, Urine Creatinine 38.90, Protein/Creatinin Ratio 218 H, Syphilis Total Ab Nonreactive, Blood Type O POSITIVE, Antibody Screen NEGATIVE 02/14/25 05:50: WBC 9.1, RBC 3.89 L, Hgb 10.0 L, Hct 31.1 L, MCV 79.9 L, MCH 25.7 L, MCHC 32.2, RDW Std Deviation 55.0 H, RDW Coeff of Rebeca 19.5 H, Plt Count 219, MPV 11.6 ROS Constitutional Constitutional: Denies headache(s) Cardiovascular Cardiovascular: Denies chest pain or dyspnea Gastrointestinal Gastrointestinal: Denies nausea or vomiting Genitourinary Genitourinary: Denies dysuria Physical Exam Const alert, oriented x3 and no apparent distress General Appearance: cooperative and comfortable Eyes PERRL and EOMs intact bilaterally Resp normal respiratory effort GI soft to palpation and non-tender GI Narrative: soft, moderate distention, fundus firm, appropriately tender. Abdominal bandage clean dry and intact Uterus Palpation: uterus fundus firm ( below umbilicus) Extremity normal to inspection and full ROM Neuro oriented x3 and CN's II-XII intact bilaterally Psych mental status grossly normal Assessment & Plan (1) S/P : PLAN: Plan Routine care
[2025-02-14] MEDS: Senna/Docusate Sodium 1 Tablet PO (11:14)
[2025-02-15 03:11] VITALS: BP 102/62; PULSE 73; RESP 16; TEMP 36.6; O2SAT 97
--- NOTE | 2025-02-15 07:15 | PCM.PN.OB ---
Subjective Subjective Doing well. Ambulating and voiding. In pain this am requesting stronger medication than motrin or tylenol. Mild lochia. Bottle feeding. Objective Data Objective Data Vital Signs: Vital Signs Temp Pulse Resp BP Pulse Ox O2 Del Method 98 F 73 16 102/62 97 Room Air 02/15/25 03:11 02/15/25 03:11 02/15/25 03:11 02/15/25 03:11 02/15/25 03:11 02/15/25 03:11 Oxygen Delivery Method Room Air Intake & Output: Intake and Output for Last 24 Hours 02/13/25 02/14/25 02/15/25 23:59 23:59 23:59 Intake Total 1871.67 / 1871.67 1878.33 / 1878.33 Output Total 1450 / 1450 1000 / 1000 Balance 421.67 / 421.67 878.33 / 878.33 Lab / Micro Data 02/14/25 05:50 02/13/25 15:40 ROS Constitutional Constitutional: Denies headache(s) Cardiovascular Cardiovascular: Denies chest pain or dyspnea Gastrointestinal Gastrointestinal: Denies nausea or vomiting Genitourinary Genitourinary: Denies dysuria Physical Exam Const alert, oriented x3 and no apparent distress General Appearance: cooperative and comfortable Eyes PERRL and EOMs intact bilaterally Resp normal respiratory effort GI soft to palpation and non-tender GI Narrative: soft, moderate distention, fundus firm, appropriately tender. Abdominal bandage clean dry and intact Uterus Palpation: uterus fundus firm ( below umbilicus) Extremity normal to inspection and full ROM Neuro oriented x3 and CN's II-XII intact bilaterally Psych mental status grossly normal Assessment & Plan (1) S/P : PLAN: Plan Treating postop [pain this am with oxy. Encouraged ambulation.
[2025-02-15 08:30] VITALS: BP 96/57; PULSE 70; RESP 16; TEMP 36.5; O2SAT 98
[2025-02-15] MEDS: Senna/Docusate Sodium 1 Tablet PO (11:16)
--- NOTE | 2025-02-15 16:49 | PCM.DC.SUM ---
Providers Date of Admission: 02/13/25 Primary Care Physician: Dr. Jordyn Collins MD Reason For Visit: REPEAT Diagnosis Discharge Diagnosis (1) S/P : Status: Acute Code(s): Z98.891 - History of uterine scar from previous surgery (2) Post-operative pain: Status: Acute Code(s): G89.18 - Other acute postprocedural pain Medications at Discharge Home Medications acetaminophen 300 mg-codeine 30 mg tablet 1 tab PO Q4H PRN PRN Pain ##14 01/09/17 ascorbic acid (vitamin C) 500 mg tablet (Vitamin C) 500 mg PO QODAY vitamin 02/13/25 ferrous sulfate 325 mg (65 mg iron) tablet,delayed release 325 mg PO QODAY anemia 02/13/25 oxycodone 5 mg capsule 5 mg PO Q4H PRN pain 3 days #10 caps 02/15/25 Hospital Course Operations section Procedures None Summary of Care Provided Minutes Spent on Discharge: 15 Hospital Course: Patient had section. Hospital course was uneventful. Physical Exam Narrative Patient seen this morning by physician and initially wanted to remain inpatient until tomorrow but changed mind and was requesting discharge home tavares. Family present to take patient home. Const alert and no apparent distress General Appearance: cooperative and comfortable Exam Limitations: no limitations HEENT normocephalic Eyes General Eye: normal appearance of both eyes Neck full ROM General: normal visual inspection Chest Chest: symmetrical chest wall rise Resp normal respiratory effort and normal air movement Effort and Inspection: symmetric chest movement Auscultation: clear to auscultation bilaterally Cardio regular rate and regular rhythm GI normal to inspection, nondistended, normoactive bowel sounds Back/Spine normal ROM Extremity full ROM and no calf tenderness General Extremity: normal exam except as noted Skin no rashes or lesions noted Wound Narrative: Dressing is dry and intact. Neuro CN's II-XII intact bilaterally Psych mental status grossly normal ABG / Lab / Microbiology Data 02/14/25 05:50 02/13/25 15:40 D/C Instructions Discharge Activity: May Drive (2 weeks) and May Shower May resume sexual activity in: 6-8 weeks Weight Bearing Status: Weight bearing as tolerated Lifting Restricted to (Lbs): 25 Call your doctor if your incision/area has: Continuous Slow Oozing, Sudden Increased Bleeding, Increased Pain/ Swelling, Increased Redness, Foul Smelling Discharge and Swelling at the incision site Call your doctor if you observe: Fever of 101 or Higher, Numbness or Tingling, Using more than 1 pad per hour, Shortness of breath, Dizziness, Swelling in the ankles, Chest pain, Calf discomfort and Uncontrolled pain Suture Line Care: Avoid Pulling/Pushing Remove Dressing in: 5 days (Remove yourself or call office and schedule appointment for dressing removal.) DC O2, CPAP, BIPAP Needs Home O2 Discharge instructions: No When: 5 days for dressing removal or 2 weeks for post appointment. Meaningful Use Info Meaningful Use Meaningful Use Diagnoses (Choose all that apply): None applicable Discharge Plan Admission Admit Date/Time: 02/13/25 15:32 Primary Reason for Your Visit: Repeat Section Attending Provider: Skyla Pearl Primary Care Provider: Jordyn Collins Discharge Orders/Prescriptions Prescriptions: New oxycodone 5 mg capsule 5 mg PO Q4H PRN (Reason: pain) 3 Days Qty: 10 0RF Continued ferrous sulfate 325 mg (65 mg iron) tablet,delayed release (DR/EC) 325 mg PO QODAY No Action acetaminophen-codeine 1 TABLET tablet 1 tab PO Q4H PRN PRN (Reason: Pain) Qty: 14 0RF ascorbic acid (vitamin C) [Vitamin C] 500 mg tablet 500 mg PO QODAY Referrals / Follow Up: Jordyn Collins MD [Primary Care Provider] - Disposition Disposition (needs filled in before D/C Order can be placed): Home, Self Care
== END 2025-02-15 12:50 | disposition home or self-care (01) | DRG 788 ==
LOC: WPOUT 15:40 → WP 15:40
PROVIDERS: Admitting Provider Obstetrics & Gynecology; PCP Family Medicine; Referring Provider Obstetrics & Gynecology; Visit Provider Obstetrics & Gynecology
DX: O69.81X0 Labor and delivery complicated by cord around neck, without compression, not applicable or unspecified (principal); O34.219 Maternal care for unspecified type scar from previous cesarean delivery; Z37.0 Single live birth; Z3A.36 36 weeks gestation of pregnancy
CPT/HCPCS: 59025; 59050; 82565; 82570; 84156; 84450; 84460; 84550; 85025; 85027; 86780; 86850; 86900; 86901; 99221; A4216; G0378; J2405